=== PATIENT | female | born 1990 | race African-American/Black ===

== ENCOUNTER 2018-05-17 22:10 | Emergency (ER) | payer OTHER ==
[2018-05-17 23:41] LABS: Absolute Lymphocytes (CBC) 2.7 K/uL (0.7-4.9); Absolute Monocytes 0.6 K/uL (0.1-1.3); Absolute Neutrophil 4.5 K/uL (1.8-8.0); Basophils % 0.5 % (0-1.3); Eosinophils % 2.4 % (0-4.4); Hematocrit 35.7 % (36.0-45.0); Lymphocytes % 34.1 % (15.3-44.8); MCV 81.2 fL (80-100); MPV 7.7 fL (7.6-11.3); Monocytes % 7.1 % (3.3-12.3)
[2018-05-17] MEDS ORDERED: KETOROLAC 30 MG/ML INJ ONE (23:54)
[2018-05-17] MEDS ORDERED: ACETAMINOPHEN 500 MG TAB ONE (23:54)
[2018-05-17 23:58] LABS: ALT/SGPT 65 U/L (12-78); AST/SGOT 38 U/L (15-37); Albumin 3.8 g/dL (3.4-5.0); Alkaline Phosphatase 126 U/L (45-117); BUN Blood Urea Nitrogen 16 mg/dL (7-18); Bicarbonate 26 mmol/L (21-32); Bilirubin Direct < 0.1 mg/dL (0-0.2); Bilirubin Total 0.3 mg/dL (0.2-1.0); Glucose Level 93 mg/dL (74-106); Protein, Total 7.6 g/dL (6.4-8.2); Sodium Level 140 mmol/L (136-145)
[2018-05-18] MEDS ORDERED: NA CHLORIDE 0.9% 1,000 ML ONE (00:07)
[2018-05-18 00:11] LABS: Urine Blood NEGATIVE (NEG); Urine Glucose NEGATIVE (NEG); Urine Protein NEGATIVE (NEG); Urine pH 6.5 (5.0-7.0)
[2018-05-18 00:21] LABS: Urine Bacteria 20-50 /HPF (<20); Urine Culture Reflex Order REFLEXED; Urine RBC <5 /HPF (NONE SEEN)
--- NOTE | 2018-05-18 01:01 | ER ---
Nurse's Notes [facility] Name: Jennifer Rosas Age: 28 yrs Sex: Female : 1990 Arrival Date: 05/17/2018 Time: 22:23 Bed 16 Private MD: Cornelius Canales E Diagnosis: Muscle Cramps Presentation: 05/17 22:28 Presenting complaint: Patient states: that 10 days ago she got Depo shot. Then 2 days fc ago she started to have a headache and both legs are cramping. Denies any nausea or vomiting. Transition of care: patient was not received from another setting of care. Onset of symptoms was May 15, 2018. Risk Assessment: Do you want to hurt yourself or someone else? Patient reports no desire to harm self or others. Initial Sepsis Screen: Does the patient meet any 2 criteria? No. Patient's initial sepsis screen is negative. Does the patient have a suspected source of infection? No. Patient's initial sepsis screen is negative. Care prior to arrival: Medication(s) given: James, abida at 2039. 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 - Social history:: Smoking status: Patient/guardian denies using tobacco. - Ebola Screening: : Patient negative for fever greater than or equal to 101.5 degrees Fahrenheit, and additional compatible Ebola Virus Disease symptoms Patient denies exposure to infectious person Patient denies travel to an Ebola-affected area in the 21 days before illness onset. - Family history:: not pertinent. - Hospitalizations: : No recent hospitalization is reported. Screenin:57 Abuse screen: Denies threats or abuse. Denies injuries from another. Nutritional ao screening: No deficits noted. Tuberculosis screening: No symptoms or risk factors identified. Fall Risk None identified. Assessment: 22:55 General: Appears in no apparent distress. comfortable, Behavior is calm, cooperative, ao appropriate for age. Pain: Complains of pain in Headache Pain currently is 7 out of 10 on a pain scale. Neuro: Level of Consciousness is awake, alert, obeys commands, Oriented to person, place, time, situation, Appropriate for age Moves all extremities. Full function Speech is normal, Facial symmetry appears normal, Pupils are PERRLA. Cardiovascular: Capillary refill < 3 seconds Patient's skin is warm and dry. Respiratory: Airway is patent Trachea midline Respiratory effort is even, unlabored, Respiratory pattern is regular, symmetrical. GI: Abdomen is non-distended. : No signs and/or symptoms were reported regarding the genitourinary system. EENT: No signs and/or symptoms were reported regarding the EENT system. Derm: Skin is intact, Skin is pink, warm \T\ dry. normal, Skin temperature is warm. Musculoskeletal: Circulation, motion, and sensation intact. Range of motion: intact in all extremities. 05/18 01:24 Reassessment: Patient appears in no apparent distress at this time. Patient and/or tl2 family updated on plan of care and expected duration. Pain level reassessed. Patient is alert, oriented x 3, equal unlabored respirations, skin warm/dry/pink. Pt verbalized understanding of discharge instructions, need for follow up. Pt ambulatory out of ER Patient states feeling better. Vital Signs: 05/17 22:31 BP 130 / 77; Pulse 60; Resp 20; Temp 99.6(O); Pulse Ox 100% on R/A; Weight 117.93 kg fc (R); Height 5 ft. 7 in. (170.18 cm) (R); Pain 6/10; 23:52 BP 115 / 85; Pulse 65; Resp 18; Pulse Ox 99% on R/A; tl2 08 01:24 BP 123 / 69; Pulse 63; Resp 18; Temp 98.6(O); Pulse Ox 100% on R/A; tl2 05/17 22:31 Body Mass Index 40.72 (117.93 kg, 170.18 cm) ED Course: 05/17 22:23 Patient arrived in ED. es 22:30 Triage completed. fc 22:31 Arm band placed on Patient placed in an exam room, on a stretcher. fc 22:34 Cornelius Canales MD is Private Physician. fc 22:52 Koby Messer, KENNETH is Primary Nurse. ao 22:57 Cornelius Sheets MD is Attending Physician. wa 22:57 Patient has correct armband on for positive identification. Pulse ox on. NIBP on. ao 23:10 Inserted saline lock: 20 gauge in left antecubital area, using aseptic technique. Blood tl2 collected. 05/18 01:24 No provider procedures requiring assistance completed. tl2 01:26 IV discontinued, intact, bleeding controlled, No redness/swelling at site. Pressure tl2 dressing applied. Administered Medications: 05/17 23:53 Drug: Tylenol 1000 mg Route: PO; ao 05/18 01:26 Follow up: Response: No adverse reaction; Temperature is decreased tl2 00:11 Drug: TORadol 30 mg Route: IVP; Site: left antecubital; ao 01:27 Follow up: Response: No adverse reaction tl2 00:11 Drug: NS 0.9% 1000 ml Route: IV; Rate: 1 bolus; Site: left antecubital; ao 01:27 Follow up: IV Status: Completed infusion; IV Intake: 1000ml tl2 Intake: 01:27 IV: 1000ml; Total: 1000ml. tl2 Outcome: 01:00 Discharge ordered by . wa 01:26 Discharged to home ambulatory. tl2 01:26 Condition: stable 01:26 Discharge instructions given to patient, Instructed on discharge instructions, follow up and referral plans. Demonstrated understanding of instructions, follow-up care. 01:27 Patient left the ED. tl2 Signatures: Candy Haney Felicia RN KENNETH Koby Messer RN RN ao Knox, Taylor, RN RN tl2 Cornelius Sheets MD MD mi Corrections: (The following items were deleted from the chart) 01:26 01:24 BP 123 / 69; Pulse 63bpm; Resp 18bpm; Pulse Ox 100% RA; tl2 tl2
--- NOTE | 2018-05-18 01:01 | EDPHYS ---
Physician Documentation [facility] Name: Jennifer Rosas Age: 28 yrs Sex: Female : 1990 Arrival Date: 05/17/2018 Time: 22:23 Bed 16 Private MD: Cornelius Canales E ED Physician Cornelius Sheets HPI: 05/18 00:59 This 28 yrs old Black Female presents to ER via Ambulatory with complaints of cramps. wa 07:31 The patient presents with c/o leg and abd cramps. . The complaints affect the lower wa extremities and abd . Context: states began after a recent depo shot. Onset: The symptoms/episode began/occurred 3 day(s) ago. Modifying factors: The symptoms are alleviated by nothing. the symptoms are aggravated by nothing. Associated signs and symptoms: The patient has no apparent associated signs or symptoms. Treatment prior to arrival includes: no previous treatment. The patient has not experienced similar symptoms in the past. The patient has not recently seen a physician. 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 - Social history:: Smoking status: Patient/guardian denies using tobacco. - Ebola Screening: : Patient negative for fever greater than or equal to 101.5 degrees Fahrenheit, and additional compatible Ebola Virus Disease symptoms Patient denies exposure to infectious person Patient denies travel to an Ebola-affected area in the 21 days before illness onset. - Family history:: not pertinent. - Hospitalizations: : No recent hospitalization is reported. ROS: 05/18 07:33 Constitutional: Negative for fever, chills, and weight loss, Eyes: Negative for injury, wa pain, redness, and discharge, ENT: Negative for injury, pain, and discharge, Neck: Negative for injury, pain, and swelling, Cardiovascular: Negative for chest pain, palpitations, and edema, Respiratory: Negative for shortness of breath, cough, wheezing, and pleuritic chest pain, Back: Negative for injury and pain, : Negative for injury, bleeding, discharge, and swelling, Skin: Negative for injury, rash, and discoloration, Neuro: Negative for headache, weakness, numbness, tingling, and seizure. Abdomen/GI: Positive for abd cramps. MS/extremity: Positive for leg cramps. All other systems are negative. Exam: 07:34 Constitutional: This is a well developed, well nourished patient who is awake, alert, wa and in no acute distress. Head/Face: Normocephalic, atraumatic. Eyes: Pupils equal round and reactive to light, extra-ocular motions intact. Lids and lashes normal. Conjunctiva and sclera are non-icteric and not injected. Cornea within normal limits. Periorbital areas with no swelling, redness, or edema. ENT: Nares patent. No nasal discharge, no septal abnormalities noted. Tympanic membranes are normal and external auditory canals are clear. Oropharynx with no redness, swelling, or masses, exudates, or evidence of obstruction, uvula midline. Mucous membranes moist. Neck: Trachea midline, no thyromegaly or masses palpated, and no cervical lymphadenopathy. Supple, full range of motion without nuchal rigidity, or vertebral point tenderness. No Meningismus. Chest/axilla: Normal chest wall appearance and motion. Nontender with no deformity. No lesions are appreciated. Cardiovascular: Regular rate and rhythm with a normal S1 and S2. No gallops, murmurs, or rubs. Normal PMI, no JVD. No pulse deficits. Respiratory: Lungs have equal breath sounds bilaterally, clear to auscultation and percussion. No rales, rhonchi or wheezes noted. No increased work of breathing, no retractions or nasal flaring. Abdomen/GI: Soft, non-tender, with normal bowel sounds. No distension or tympany. No guarding or rebound. No evidence of tenderness throughout. Back: No spinal tenderness. No costovertebral tenderness. Full range of motion. Skin: Warm, dry with normal turgor. Normal color with no rashes, no lesions, and no evidence of cellulitis. MS/ Extremity: Pulses equal, no cyanosis. Neurovascular intact. Full, normal range of motion. Neuro: Awake and alert, GCS 15, oriented to person, place, time, and situation. Cranial nerves II-XII grossly intact. Motor strength 5/5 in all extremities. Sensory grossly intact. Cerebellar exam normal. Normal gait. Psych: Awake, alert, with orientation to person, place and time. Behavior, mood, and affect are within normal limits. Vital Signs: 05/17 22:31 BP 130 / 77; Pulse 60; Resp 20; Temp 99.6(O); Pulse Ox 100% on R/A; Weight 117.93 kg fc (R); Height 5 ft. 7 in. (170.18 cm) (R); Pain 6/10; 23:52 BP 115 / 85; Pulse 65; Resp 18; Pulse Ox 99% on R/A; tl2 05/18 01:24 BP 123 / 69; Pulse 63; Resp 18; Temp 98.6(O); Pulse Ox 100% on R/A; tl2 05/17 22:31 Body Mass Index 40.72 (117.93 kg, 170.18 cm) fc MDM: 05/17 22:57 Patient medically screened. sc 05/18 07:34 Differential diagnosis: r/o electrolyte abnml. r/o infectious process. Data reviewed: sc vital signs, nurses notes. Test interpretation: by ED physician or midlevel provider: labs noted wnl.. Response to treatment: the patient's symptoms have markedly improved after treatment. ED course: symptoms were resolved at time of d/c. 05/17 23:17 Order name: Basic Metabolic Panel; Complete Time: 00:49 sc 05/17 23:17 Order name: CBC with Diff; Complete Time: 00:49 sc 05/17 23:17 Order name: Hepatic Function; Complete Time: 00:49 sc 05/17 23:17 Order name: Urine Microscopic Only; Complete Time: 00:50 sc 05/18 00:06 Order name: Urine Dipstick--Ancillary (enter results); Complete Time: 00:50 [facility] 05/18 00:06 Order name: Urine --Ancillary (enter results); Complete Time: 00:49 [facility] 05/17 23:17 Order name: Urine Test (obtain specimen); Complete Time: 00:12 sc 05/17 23:17 Order name: IV Saline Lock; Complete Time: 23:44 sc 05/17 23:17 Order name: Labs collected and sent; Complete Time: 23:44 sc 05/17 23:17 Order name: Urine Dipstick-Ancillary (obtain specimen); Complete Time: 00:12 05/18 00:23 Order name: Urine Culture EDMS Administered Medications: 05/17 23:53 Drug: Tylenol 1000 mg Route: PO; ao 05/18 01:26 Follow up: Response: No adverse reaction; Temperature is decreased tl2 00:11 Drug: TORadol 30 mg Route: IVP; Site: left antecubital; ao 01:27 Follow up: Response: No adverse reaction tl2 00:11 Drug: NS 0.9% 1000 ml Route: IV; Rate: 1 bolus; Site: left antecubital; ao 01:27 Follow up: IV Status: Completed infusion; IV Intake: 1000ml tl2 Disposition: 05/18/18 01:00 Discharged to Home. Impression: Muscle Cramps. - Condition is Stable. - Discharge Instructions: Muscle Cramps and Spasms, [id number]. - Medication Reconciliation Form, Thank You Letter, Antibiotic Education, Prescription Opioid Use form. - Follow up: Private Physician; When: 2 - 3 days; Reason: Recheck today's complaints. - Problem is new. - Symptoms have improved. - Notes: take tylenol and or motrin for pain as needed. follow up with your doctor for further evaluation as needed Signatures: Dispatcher [employer] EDSC Edwige Farias RN RN Koby Messer RN RN ao Knox, Taylor, RN RN tl2 Cornelius Sheets MD MD sc Corrections: (The following items were deleted from the chart) 01:27 01:00 05/18/2018 01:00 Discharged to Home. Impression: Muscle Cramps. Condition is tl2 Stable. Forms are Medication Reconciliation Form, Thank You Letter, Antibiotic Education, Prescription Opioid Use. Follow up: Private Physician; When: 2 - 3 days; Reason: Recheck today's complaints. Problem is new. Symptoms have improved. wa
[2018-05-18 01:45] VITALS: BP 123/69; TEMP 98.6; O2SAT 100
== END 2018-05-18 01:27 | disposition home or self-care (01) ==
LOC: ER 22:10
DX: R25.2 Cramp and spasm (principal)
CPT/HCPCS: 36415; 80048; 80076; 81003; 81015; 81025; 85025; 87086; 87088; 96361; 96374; 99284; J7030

== ENCOUNTER 2019-05-06 21:12 | Emergency (ER) | payer OTHER, SELFPAY ==
--- OUTSIDE RECORDS SUMMARY | 2019-05-06 21:14 | XMS REPORT ---
:1990 [facility] [address] [place] [address] Dr. Salazar [address] [place] [id number] Care Team Providers Name Role Phone Unavailable Unavailable Unavailable Problems This patient has no known problems. Allergies, Adverse Reactions, Alerts This patient has no known allergies or adverse reactions. Medications This patient has no known medications.
--- NOTE | 2019-05-06 21:33 | EDPHYS ---
Physician Documentation [facility] Name: Jennifer Rosas Age: 29 yrs Sex: Female : 1990 Arrival Date: 05/06/2019 Time: 21:14 Bed 18 Private MD: Cornelius Canales E ED Physician Lowell Heller HPI: 05/06 21:33 This 29 yrs old Black Female presents to ER via Ambulatory with complaints of Breast kb Problem - nipple drainage/blood. 21:33 Today noticed she is able to express drop of blood from left nipple. No redness, kb swelling, tenderness, fever or other symptoms. Onset: The symptoms/episode began/occurred today. Severity of symptoms: At their worst the symptoms were very mild in the emergency department the symptoms are unchanged. The patient has not experienced similar symptoms in the past. The patient has not recently seen a physician. 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 - Social history:: Smoking status: Patient/guardian denies using tobacco, Patient uses alcohol, occasionally. Patient/guardian denies using street drugs. - Ebola Screening: : Patient negative for fever greater than or equal to 101.5 degrees Fahrenheit, and additional compatible Ebola Virus Disease symptoms Patient denies exposure to infectious person Patient denies travel to an Ebola-affected area in the 21 days before illness onset No symptoms or risks identified at this time. ROS: 21:30 Constitutional: Negative for fever, chills, and weight loss, ENT: Negative for injury, kb pain, and discharge, Neck: Negative for injury, pain, and swelling, Cardiovascular: Negative for chest pain, palpitations, and edema, Respiratory: Negative for shortness of breath, cough, wheezing, and pleuritic chest pain, Abdomen/GI: Negative for abdominal pain, nausea, vomiting, diarrhea, and constipation, MS/Extremity: Negative for injury and deformity, Neuro: Negative for headache, weakness, numbness, tingling, and seizure. 21:30 Skin: Positive for blood expressed from nipple. Exam: 21:30 Constitutional: This is a well developed, well nourished patient who is awake, alert, kb and in no acute distress. Head/Face: Normocephalic, atraumatic. ENT: Nares patent. No nasal discharge, no septal abnormalities noted. Tympanic membranes are normal and external auditory canals are clear. Oropharynx with no redness, swelling, or masses, exudates, or evidence of obstruction, uvula midline. Mucous membranes moist. Neck: Trachea midline, no thyromegaly or masses palpated, and no cervical lymphadenopathy. Supple, full range of motion without nuchal rigidity, or vertebral point tenderness. No Meningismus. Chest/axilla: Normal chest wall appearance and motion. Nontender with no deformity. No lesions are appreciated. Cardiovascular: Regular rate and rhythm with a normal S1 and S2. No gallops, murmurs, or rubs. Normal PMI, no JVD. No pulse deficits. Respiratory: Lungs have equal breath sounds bilaterally, clear to auscultation and percussion. No rales, rhonchi or wheezes noted. No increased work of breathing, no retractions or nasal flaring. Abdomen/GI: Soft, non-tender, with normal bowel sounds. No distension or tympany. No guarding or rebound. No evidence of tenderness throughout. Skin: Warm, dry with normal turgor. Normal color with no rashes, no lesions, and no evidence of cellulitis. MS/ Extremity: Pulses equal, no cyanosis. Neurovascular intact. Full, normal range of motion. Neuro: Awake and alert, GCS 15, oriented to person, place, time, and situation. Cranial nerves II-XII grossly intact. Motor strength 5/5 in all extremities. Sensory grossly intact. Cerebellar exam normal. Normal gait. 21:30 Chest/axilla: Breasts: nipple discharge, that is mild of the left breast, that is bloody. Vital Signs: 21:15 BP 122 / 68; Pulse 74; Resp 16; Temp 98.2(O); Pulse Ox 99% on R/A; Weight 113.4 kg; ch Height 5 ft. 7 in. (170.18 cm); Pain 0/10; 21:15 Body Mass Index 39.16 (113.40 kg, 170.18 cm) ch MDM: 21:23 Patient medically screened. 21:30 Data reviewed: vital signs, nurses notes. Data interpreted: Pulse oximetry: on room air kb is 100 %. Interpretation: normal. Counseling: I had a detailed discussion with the patient and/or guardian regarding: the historical points, exam findings, and any diagnostic results supporting the discharge/admit diagnosis, the need for outpatient follow up, an OB/Gyne specialist, to return to the emergency department if symptoms worsen or persist or if there are any questions or concerns that arise at home. 21:31 ED course: Discussed with Dr Heller. Recommended follow up with RECLAMATION FURNACE OPERATOR. miladis 21:34 ED course: Educated to follow up with RECLAMATION FURNACE OPERATOR. Pt to return for redness, swelling, warmth, kb fever or any other concerns. Verbal understanding received. . Administered Medications: No medications were administered Disposition: 21:31 Discharge from [facility]. 05/07 06:38 Co-signature as Attending Physician, Lowell Heller MD I agree with the assessment and tw4 plan of care. Disposition: 05/06/19 21:32 Discharged to Home. Impression: Encounter for screening, unspecified. - Condition is Stable. - Medication Reconciliation Form, Thank You Letter, Antibiotic Education, Prescription Opioid Use form. - Follow up: Emergency Department; When: As needed; Reason: Worsening of condition. Follow up: Cornelius Canales MD; When: 2 - 3 days; Reason: Recheck today's complaints, Continuance of care, Re-evaluation by your physician. Signatures: Maura Lee FNP-C FNP-Isha Roach RN RN ch Wadley, Terrence, MD MD tw4 Corrections: (The following items were deleted from the chart) 05/06 21:35 21:32 05/06/2019 21:32 Discharged to Home. Impression: Encounter for screening, ch unspecified. Condition is Stable. Forms are Medication Reconciliation Form, Thank You Letter, Antibiotic Education, Prescription Opioid Use. Follow up: Emergency Department; When: As needed; Reason: Worsening of condition. Follow up: Cornelius Canales; When: 2 - 3 days; Reason: Recheck today's complaints, Continuance of care, Re-evaluation by your physician. kb
--- NOTE | 2019-05-06 21:33 | ER ---
Nurse's Notes [facility] Name: Jennifer Rosas Age: 29 yrs Sex: Female : 1990 Arrival Date: 05/06/2019 Time: 21:14 Bed 18 Private MD: Cornelius Canales E Diagnosis: Encounter for screening, unspecified Presentation: 05/06 21:27 Presenting complaint: Patient states: when I squeeze my L nipple blood comes out, a ch couple drops. sometimes it hurts, but not now. started yesterday. Transition of care: patient was not received from another setting of care. Onset of symptoms was May 05, 2019 at 12:00. Risk Assessment: Do you want to hurt yourself or someone else? Patient reports no desire to harm self or others. Initial Sepsis Screen: Does the patient meet any 2 criteria? No. Patient's initial sepsis screen is negative. Does the patient have a suspected source of infection? No. Patient's initial sepsis screen is negative. Care prior to arrival: None. 21:27 Method Of Arrival: Ambulatory 21:27 Acuity: JHONATAN 5 ch Triage Assessment: 21:20 General: Appears in no apparent distress. comfortable, Behavior is calm, cooperative, ch appropriate for age. General: pt reports a drop of blood comes out of her L breast when she sqeezes the nipple. states it has done it a few times since yesterday. no masses noted, no redness, no abnormal warmth. one small drop of blood is expressed by pt, non with Maura palpation. Pain: Denies pain. Neuro: No deficits noted. Cardiovascular: Denies chest pain. Respiratory: No deficits noted. GI: No signs and/or symptoms were reported involving the gastrointestinal system. :. : No signs and/or symptoms were reported regarding the genitourinary system. Derm: Skin is intact, Skin is pink, warm \T\ dry. Musculoskeletal: No signs and/or symptoms reported regarding the musculoskeletal system. 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 - Social history:: Smoking status: Patient/guardian denies using tobacco, Patient uses alcohol, occasionally. Patient/guardian denies using street drugs. - Ebola Screening: : Patient negative for fever greater than or equal to 101.5 degrees Fahrenheit, and additional compatible Ebola Virus Disease symptoms Patient denies exposure to infectious person Patient denies travel to an Ebola-affected area in the 21 days before illness onset No symptoms or risks identified at this time. Screenin:15 Abuse screen: Denies threats or abuse. Denies injuries from another. Nutritional ch screening: No deficits noted. Tuberculosis screening: No symptoms or risk factors identified. Fall Risk None identified. Assessment: 21:33 Reassessment: Patient appears in no apparent distress at this time. Patient and/or ch family updated on plan of care and expected duration. Pain level reassessed. Patient is alert, oriented x 3, equal unlabored respirations, skin warm/dry/pink. Vital Signs: 21:15 BP 122 / 68; Pulse 74; Resp 16; Temp 98.2(O); Pulse Ox 99% on R/A; Weight 113.4 kg; ch Height 5 ft. 7 in. (170.18 cm); Pain 0/10; 21:15 Body Mass Index 39.16 (113.40 kg, 170.18 cm) ED Course: 21:14 Patient arrived in ED. am2 21:15 Cornelius Canales MD is Private Physician. am2 21:15 Patient has correct armband on for positive identification. Bed in low position. Adult ch w/ patient. 21:19 Isha Henry, RN is Primary Nurse. ch 21:20 Arm band placed on left wrist. Patient placed in an exam room, on a stretcher. ch 21:22 chaperoned breast exam. ch 21:22 Patient did not have IV access during this emergency room visit. 21:23 Maura Lee FNP-C [facility]. kb 21:23 Lowell Heller MD is Attending Physician. kb 21:28 Triage completed. ch 21:32 Cornelius Canales MD is Referral Physician. kb Administered Medications: No medications were administered Outcome: 21:30 Medical screen evaluation completed per provider. Patient declined treatment. 21:30 Condition: good 21:30 Instructed on follow up and referral plans. 21:32 Discharge ordered by . miladis 21:35 Patient left the ED. ch Signatures: Maura Lee FNP-C FNP-Isha Roach, RN RN Michelle Curran
[2019-05-06 22:53] VITALS: BP 122/68; TEMP 98.2; O2SAT 99
== END 2019-05-06 21:35 | disposition home or self-care (01) ==
LOC: ER 21:12
DX: Z13.9 Encounter for screening, unspecified (principal)
CPT/HCPCS: 99281

== ENCOUNTER 2019-05-14 07:47 | Emergency (ER) | payer SELFPAY ==
--- OUTSIDE RECORDS SUMMARY | 2019-05-14 07:49 | XMS REPORT ---
:1990 [facility] Address [address] [place] [address] Dr. Salazar [address] [place] [address] Care Team Providers Name Role Phone Unavailable Unavailable Unavailable Problems This patient has no known problems. Allergies, Adverse Reactions, Alerts This patient has no known allergies or adverse reactions. Medications This patient has no known medications.
--- NOTE | 2019-05-14 08:25 | EDPHYS ---
Physician Documentation [facility] Name: Jennifer Rosas Age: 29 yrs Sex: Female : 1990 Arrival Date: 05/14/2019 Time: 07:53 Bed 19 Private MD: ED Physician Inocencio Lopez HPI: 05/14 08:18 This 29 yrs old Black Female presents to ER via Ambulatory with complaints of Sore gisela Throat, Urinary Problem. 08:18 The patient presents with sore throat. The patient describes throat pain as burning, gisela constant. Onset: The symptoms/episode began/occurred 2 day(s) ago. Severity of symptoms: At their worst the symptoms were mild, in the emergency department the symptoms are unchanged. Modifying factors: The symptoms are alleviated by nothing. Associated signs and symptoms: The patient has no apparent associated signs or symptoms. The patient has experienced similar episodes in the past, several times. GRADES 1 6 TUTOR: 08:07 LMP 05/07/2019 em Historical: - Allergies: 08:07 NKA; em - Home Meds: 08:07 control [Active]; em - PMHx: 08:07 None; em - PSHx: 08:07 ; em - Immunization history:: Adult Immunizations up to date. - Social history:: Smoking status: Patient/guardian denies using tobacco. - Ebola Screening: : Patient negative for fever greater than or equal to 101.5 degrees Fahrenheit, and additional compatible Ebola Virus Disease symptoms Patient denies exposure to infectious person Patient denies travel to an Ebola-affected area in the 21 days before illness onset No symptoms or risks identified at this time. ROS: 08:19 Constitutional: Negative for fever, chills, and weight loss, Eyes: Negative for injury, gisela pain, redness, and discharge, Neck: Negative for injury, pain, and swelling, Cardiovascular: Negative for chest pain, palpitations, and edema, Respiratory: Negative for shortness of breath, cough, wheezing, and pleuritic chest pain, Back: Negative for injury and pain, : Negative for injury, bleeding, discharge, and swelling, MS/Extremity: Negative for injury and deformity, Skin: Negative for injury, rash, and discoloration, Neuro: Negative for headache, weakness, numbness, tingling, and seizure, Psych: Negative for depression, anxiety, suicide ideation, homicidal ideation, and hallucinations, Allergy/Immunology: Negative for hives, rash, and allergies, Endocrine: Negative for neck swelling, polydipsia, polyuria, polyphagia, and marked weight changes, Hematologic/Lymphatic: Negative for swollen nodes, abnormal bleeding, and unusual bruising. 08:19 ENT: Positive for sore throat. 08:19 Abdomen/GI: Positive for of the suprapubic area. Exam: 08:19 Constitutional: This is a well developed, well nourished patient who is awake, alert, gisela and in no acute distress. Head/Face: Normocephalic, atraumatic. Eyes: Pupils equal round and reactive to light, extra-ocular motions intact. Lids and lashes normal. Conjunctiva and sclera are non-icteric and not injected. Cornea within normal limits. Periorbital areas with no swelling, redness, or edema. ENT: Nares patent. No nasal discharge, no septal abnormalities noted. Tympanic membranes are normal and external auditory canals are clear. Oropharynx with no redness, swelling, or masses, exudates, or evidence of obstruction, uvula midline. Mucous membranes moist. Neck: Trachea midline, no thyromegaly or masses palpated, and no cervical lymphadenopathy. Supple, full range of motion without nuchal rigidity, or vertebral point tenderness. No Meningismus. Chest/axilla: Normal chest wall appearance and motion. Nontender with no deformity. No lesions are appreciated. Cardiovascular: Regular rate and rhythm with a normal S1 and S2. No gallops, murmurs, or rubs. Normal PMI, no JVD. No pulse deficits. Respiratory: Lungs have equal breath sounds bilaterally, clear to auscultation and percussion. No rales, rhonchi or wheezes noted. No increased work of breathing, no retractions or nasal flaring. Abdomen/GI: Soft, non-tender, with normal bowel sounds. No distension or tympany. No guarding or rebound. No evidence of tenderness throughout. Back: No spinal tenderness. No costovertebral tenderness. Full range of motion. Skin: Warm, dry with normal turgor. Normal color with no rashes, no lesions, and no evidence of cellulitis. MS/ Extremity: Pulses equal, no cyanosis. Neurovascular intact. Full, normal range of motion. Neuro: Awake and alert, GCS 15, oriented to person, place, time, and situation. Cranial nerves II-XII grossly intact. Motor strength 5/5 in all extremities. Sensory grossly intact. Cerebellar exam normal. Normal gait. Psych: Awake, alert, with orientation to person, place and time. Behavior, mood, and affect are within normal limits. Vital Signs: 08:07 BP 134 / 78; Pulse 79; Resp 18; Temp 98.1; Pulse Ox 100% on R/A; Weight 108.86 kg; em Height 5 ft. 7 in. (170.18 cm); Pain 4/10; 08:07 Body Mass Index 37.59 (108.86 kg, 170.18 cm) em MDM: 07:56 Patient medically screened. [facility] 08:23 Data reviewed: vital signs, nurses notes, lab test result(s), urinalysis, bacteruria. [facility] 05/14 07:57 Order name: Urine Culture [facility] 05/14 08:07 Order name: Urine Dipstick--Ancillary (enter results) 05/14 07:57 Order name: Urine Dipstick-Ancillary (obtain specimen); Complete Time: 08:12 [facility] 05/14 08:07 Order name: Urine --Ancillary (enter results) 05/14 07:57 Order name: Urine Test (obtain specimen); Complete Time: 08:10 [facility] Administered Medications: 08:39 Drug: Cipro 500 mg Route: PO; em 08:43 Follow up: Response: Medication administered at discharge. em 08:39 Drug: Pyridium 200 mg Route: PO; em 08:43 Follow up: Response: Medication administered at discharge. em Disposition: 05/14/19 08:24 Discharged to Home. Impression: Urinary tract infection, site not specified. - Condition is Stable. - Discharge Instructions: Dysuria, Urinary Tract Infection, Adult, Urinary Tract Infection, Adult, [id number]. - Prescriptions for Pyridium 200 mg Oral Tablet - take 1 tablet by ORAL route every 8 hours for 3 days; 9 tablet. Cipro 500 mg Oral Tablet - take 1 tablet by ORAL route every 12 hours for 7 days; 14 tablet. - Medication Reconciliation Form, Thank You Letter, Antibiotic Education, Prescription Opioid Use form. - Follow up: Private Physician; When: 2 - 3 days; Reason: Recheck today's complaints, Continuance of care, Re-evaluation by your physician. - Problem is new. - Symptoms have improved. Signatures: Dispatcher [employer] EDInocencio Lizarraga, Nile Rosado MD, cha, TRAVELING CRANE OPERATOR TRAVELING CRANE OPERATOR em Corrections: (The following items were deleted from the chart) 08:44 08:24 05/14/2019 08:24 Discharged to Home. Impression: Urinary tract infection, site em not specified. Condition is Stable. Forms are Medication Reconciliation Form, Thank You Letter, Antibiotic Education, Prescription Opioid Use. Follow up: Private Physician; When: 2 - 3 days; Reason: Recheck today's complaints, Continuance of care, Re-evaluation by your physician. Problem is new. Symptoms have improved. gisela
--- NOTE | 2019-05-14 08:25 | ER ---
Nurse's Notes [facility] Name: Jennifer Rosas Age: 29 yrs Sex: Female : 1990 Arrival Date: 05/14/2019 Time: 07:53 Bed 19 Private MD: Diagnosis: Urinary tract infection, site not specified Presentation: 05/14 08:03 Presenting complaint: Patient states: sore throat for about a week, blood in urine em since yesterday with frequency and dysuria, reports nausea, denies abdominal pain, fever or diarrhea. Transition of care: patient was not received from another setting of care. Onset of symptoms was May 07, 2019. Risk Assessment: Do you want to hurt yourself or someone else? Patient reports no desire to harm self or others. Initial Sepsis Screen: Does the patient meet any 2 criteria? No. Patient's initial sepsis screen is negative. Does the patient have a suspected source of infection? Yes: Dysuria/Frequency/Urgency/UTI. Care prior to arrival: None. 08:03 Method Of Arrival: Ambulatory em 08:04 Acuity: JHONATAN 4 ss DIRECTOR SUPPLIER QUALITY: 08:07 LMP 05/07/2019 em Historical: - Allergies: 08:07 NKA; em - Home Meds: 08:07 control [Active]; em - PMHx: 08:07 None; em - PSHx: 08:07 ; em - Immunization history:: Adult Immunizations up to date. - Social history:: Smoking status: Patient/guardian denies using tobacco. - Ebola Screening: : Patient negative for fever greater than or equal to 101.5 degrees Fahrenheit, and additional compatible Ebola Virus Disease symptoms Patient denies exposure to infectious person Patient denies travel to an Ebola-affected area in the 21 days before illness onset No symptoms or risks identified at this time. Screenin:28 Abuse screen: Denies threats or abuse. Nutritional screening: No deficits noted. em Tuberculosis screening: No symptoms or risk factors identified. Fall Risk None identified. Assessment: 08:26 General: Appears in no apparent distress. comfortable, Behavior is calm, cooperative, em Denies fever. Pain: Complains of pain in suprapubic area Pain currently is 4 out of 10 on a pain scale. Neuro: Level of Consciousness is awake, alert, obeys commands, Oriented to person, place, time, situation. Cardiovascular: Capillary refill < 3 seconds Patient's skin is warm and dry. Respiratory: Airway is patent Respiratory effort is even, unlabored, Respiratory pattern is regular, symmetrical, Breath sounds are clear bilaterally. GI: Abdomen is round non-distended, Abd is soft and non tender X 4 quads. Reports nausea, Patient currently denies diarrhea, vomiting. : Reports burning with urination, pain in suprapubic area urinary frequency, hematuria. EENT: Throat is clear is pink. Derm: Skin is intact, is healthy with good turgor, Skin is pink, warm \T\ dry. Musculoskeletal: Capillary refill < 3 seconds, Range of motion: intact in all extremities. 08:35 General: The previous assessment is accurate, call light remains within reach. Family ss member at bedside. Vital Signs: 08:07 BP 134 / 78; Pulse 79; Resp 18; Temp 98.1; Pulse Ox 100% on R/A; Weight 108.86 kg; em Height 5 ft. 7 in. (170.18 cm); Pain 4/10; 08:07 Body Mass Index 37.59 (108.86 kg, 170.18 cm) em ED Course: 07:53 Patient arrived in ED. as 07:54 Nile Vela LVN is Primary Nurse. em 07:56 Inocencio Lopez MD is Attending Physician. [facility] 08:04 Triage completed. ss 08:07 Arm band placed on. em 08:28 Patient has correct armband on for positive identification. Bed in low position. Call em light in reach. 08:28 No provider procedures requiring assistance completed. Patient did not have IV access em during this emergency room visit. Administered Medications: 08:39 Drug: Cipro 500 mg Route: PO; em 08:43 Follow up: Response: Medication administered at discharge. em 08:39 Drug: Pyridium 200 mg Route: PO; em 08:43 Follow up: Response: Medication administered at discharge. em Outcome: 08:24 Discharge ordered by . gisela 08:29 Discharged to home ambulatory. em 08:29 Condition: good 08:29 Discharge instructions given to patient, Instructed on discharge instructions, follow up and referral plans. medication usage, Demonstrated understanding of instructions, follow-up care, medications, Prescriptions given X 2. 08:44 Patient left the ED. em Addendum: 05/17/2019 08:04 Addendum: Culture Results: Positive urine culture. No further action required. Bacteria s s sensitive to prescribed antibiotic. Signatures: Inocencio Lopez MD MD cha Munoz, Edgar, BREAKER ENGINEER BREAKER ENGINEER Miracle Salas Shelby, RN RN ss Corrections: (The following items were deleted from the chart) 05/14 08:40 08:35 General: The previous assessment is accurate, call light remains within reach.. ssss
[2019-05-14 08:47] VITALS: BP 134/78; TEMP 98.1; O2SAT 100
[2019-05-14] MEDS ORDERED: CIPROFLOXACIN HCL 500 MG TAB ONE (08:51)
[2019-05-14] MEDS ORDERED: PHENAZOPYRIDINE 100MG TAB PO ONE (08:51)
[2019-05-14 08:52] LABS: Urine Blood 3+ (NEG); Urine Glucose NEGATIVE (NEG); Urine Protein 2+ (NEG); Urine Specific Gravity >1.030 (1.005-1.030); Urine pH 5.5 (5.0-7.0)
== END 2019-05-14 08:44 | disposition home or self-care (01) ==
LOC: ER 07:47
DX: N39.0 Urinary tract infection, site not specified (principal)
CPT/HCPCS: 81003; 81025; 87077; 87086; 87088; 87186; 99283

== ENCOUNTER 2019-10-11 16:23 | Emergency (ER) | payer OTHER, SELFPAY ==
--- OUTSIDE RECORDS SUMMARY | 2019-10-11 16:25 | XMS REPORT | Summary of Care ---
:1990 Author Organization [facility] Address [address] [place] [address] Care Team Providers Name Role Phone Maria G Gibbs [facility] Primary Care Provider Reason for Visit Reason Comments Other pt wants call bk on usg they are very concerned w bleeding breast Encounter Details Date Type Department Care Team Description 05/16/2019 Telephone [facility]- Maria G Gibbs Other ([facility] they are [address] very concerned w [place], [place] bleeding breast) [phone] [place], [place] [address] Allergies No Known Allergiesdocumented as of this encounter (statuses as of 05/16/2019) Medications Medication Sig Dispensed Refills Start Date End Date Status naproxen sodium (ANAPROX Take 1 tablet by 30 tablet 0 09/29/2018 Active DS) 550 mg tablet mouth 2 (two) times daily with meals. methylPREDNISolone Take by mouth 21 Each 0 09/29/2018 Active (MEDROL, PATRICIA,) 4 mg SEE-INSTRUCTIONS tablets . follow package directions norgestimate-ethinyl Take 1 tablet by 1 Package 8 05/05/2019 Active estradiol (ORTHO mouth daily. TRI-CYCLEN, 28,) 0.18/0.215/0.25 mg-35 mcg (28) tabletIndications: Encounter for initial prescription of contraceptive pills documented as of this encounter (statuses as of 05/16/2019) Active Problems Problem Noted Date Well woman exam 01/27/2019 Contraceptive management 01/27/2019 Morbid obesity with body mass index of 40.0-49.9 04/07/2018 documented as of this encounter (statuses as of 05/16/2019) Resolved Problems Problem Noted Date Resolved Date depression 05/11/2018 01/27/2019 Pre-eclampsia, severe, antepartum, third trimester 04/07/2018 01/27/2019 36 weeks gestation of 04/07/2018 2018 GDM, class A1 04/07/2018 2018 High-risk in third trimester 10/25/2017 2018 Supervision of high risk in first trimester 10/25/2017 04/07/2018 Encounter for confirmation of test result with 08/30/20172017 physical examination Previous section 08/30/2017 01/27/2019 Oral contraceptive use 12/18/2016 08/30/2017 Obesity, unspecified 12/18/2016 08/30/2017 Gestational HTN, third trimester 11/18/2016 08/30/2017 Full-term premature rupture of membranes with onset of labor 11/17/201612/18 within 24 hours of rupture Full-term premature rupture of membranes, onset of labor 11/17/20162016 within 24 hours of rupture Failure of descent in labor, delivered, current 11/17/2016 08/30/2017 hospitalization Liveborn , of tyson , born in hospital by 11/17/201601/27 delivery Status post primary low transverse section 11/17/2016 08/30/2017 intolerance to labor, delivered, current 11/17/2016 12/18/2016 hospitalization Immune to varicella 10/22/2016 08/30/2017 Rubella immune 10/22/2016 08/30/2017 GBS carrier 10/22/2016 12/18/2016 High-risk , third trimester 08/25/2016 12/18/2016 Obesity complicating , third trimester 08/25/2016 12/18/2016 UTI in , antepartum, second trimester 06/09/2016 12/18/2016 High-risk supervision, second trimester 05/12/2016 08/25/2016 Obesity complicating , second trimester 05/12/2016 08/25/2016 Threatened miscarriage in early 04/07/2016 12/18/2016 Obesity affecting in first trimester 04/07/2016 05/12/2016 documented as of this encounter (statuses as of 05/16/2019) Immunizations Name Administration Dates Next Due Influenza Virus Vaccine 07/29/2018 Influenza Virus Vaccine Quad IM 3+ YRS 11/20/2016, 11/20/2016, 07/07/2016 Tdap 03/09/2018, 08/25/2016 documented as of this encounter Social History Tobacco Use Types Packs/Day Years Used Date Never Smoker Smokeless Tobacco: Never Used Alcohol Use Drinks/Week oz/Week Comments No 0 Standard drinks or equivalent 0.0 Sex Assigned at Date Recorded Not on file Job Start Date Occupation Industry Not on file Not on file Not on file Travel History Travel Start Travel End No recent travel history available. documented as of this encounter Last Filed Vital Signs Not on filedocumented in this encounter Plan of Treatment Health Maintenance Due Date Last Done Comments INFLUENZA VACCINE 06/18/2019 07/29/2018, 11/20/2016, 07/07/2016 PAP SMEAR 01/27/2022 01/27/2019, 04/14/2016 DTaP,Tdap,and Td Vaccines (3 03/09/2028 03/09/2018, - Td) 08/25/2016 PNEUMOCOCCAL 0-64 YEARS Aged Out No longer eligible based COMBINED SERIES on patient's age to complete this topic documented as of this encounter Results Not on filedocumented in this encounter Insurance Payer Benefit Plan Subscriber ID Effective Phone Address Type / Group Dates [facility] xxxxxxxxx 2018-Pres [phone] Medicaid WOMEN ent [address] [place] [address] documented as of this encounter Advance Directives Name Relationship Healthcare Agent Relationship Communication Christo Dickey Spouse Primary healthcare agent
--- OUTSIDE RECORDS SUMMARY | 2019-10-11 16:25 | XMS REPORT ---
:1990 [facility] Address [address] [place] [address] Dr. Salazar [address] [place] [address] Care Team Providers Name Role Phone Unavailable Unavailable Unavailable Problems This patient has no known problems. Allergies, Adverse Reactions, Alerts This patient has no known allergies or adverse reactions. Medications This patient has no known medications.
--- OUTSIDE RECORDS SUMMARY | 2019-10-11 16:25 | XMS REPORT | Summary of Care ---
:1990 Author Organization [facility] Address [address] [place] [address] Care Team Providers Name Role Phone Johanearleneamita Maria G Andre [facility] Primary Care Provider Encounter Details Date Type Department Care Team Description 05/18/2019 Orders Only [facility] Doctor Unassigned, No [address] [facility] [place] [address] [address] [place] [address] Allergies No Known Allergiesdocumented as of this encounter (statuses as of 05/18/2019) Medications Medication Sig Dispensed Refills Start Date [...] as of this encounter (statuses as of 05/18/2019) Active Problems Problem Noted Date Well woman exam 01/27/2019 Contraceptive management 01/27/2019 Morbid obesity with body mass index of 40.0-49.9 04/07/2018 documented as of this encounter (statuses as of 05/18/2019) Resolved Problems Problem Noted Date Resolved Date [...] as of this encounter (statuses as of 05/18/2019) Immunizations Name Administration Dates Next Due Influenza [...] filedocumented in this encounter Plan of Treatment Date Type Specialty Care Team Description 05/24/2019 Appointment Radiology [facility] [address] [place] [address] [phone] Health Maintenance Due Date Last Done Comments INFLUENZA VACCINE 06/18/2019 07/29/2018, 11/20/2016, 07/07/2016 PAP SMEAR 01/27/2022 01/27/2019, 04/14/2016 DTaP,Tdap,and Td Vaccines (3 03/09/2028 03/09/2018, - Td) 08/25/2016 PNEUMOCOCCAL 0-64 YEARS Aged Out No longer eligible based COMBINED SERIES on patient's age to complete this topic documented as of this encounter Procedures Procedure Name Priority Date/Time Associated Diagnosis Comments BCCS-RELATED Routine 05/18/2019 12:01 AM DOCUMENTATION CDT documented in this encounter Results Not on filedocumented in this encounter Insurance Payer Benefit Plan Subscriber ID Effective Phone Address Type / Group Dates [facility] 2018-Pres [phone] Medicaid WOMEN ent [address] [place] [address] documented as of this encounter Advance Directives Name Relationship Healthcare Agent Relationship Communication Christo Kirby Spouse Primary healthcare agent
--- OUTSIDE RECORDS SUMMARY | 2019-10-11 16:26 | XMS REPORT | Summary of Care ---
:1990 Author Organization [facility] [employer] [facility] Address [address] [place] [address] Care Team Providers Name Role Phone Maria G Gibbs [facility] Primary Care Provider Reason for Visit Reason Comments ULTRASOUND Breast USG results. Encounter Details Date Type Department Care Team Description 06/02/2019 Telephone [facility]- Maria G Gibbs ULTRASOUND ( Breast USG Jerri Andre ARLET results.) [address] [facility] [address] [facility] [address] [place], [place] [id number] Allergies No Known Allergiesdocumented as of this encounter (statuses as of 06/02/2019) Medications Medication Sig Dispensed Refills Start Date [...] as of this encounter (statuses as of 06/02/2019) Active Problems Problem Noted Date Well woman exam 01/27/2019 Contraceptive management 01/27/2019 Morbid obesity with body mass index of 40.0-49.9 04/07/2018 documented as of this encounter (statuses as of 06/02/2019) Resolved Problems Problem Noted Date Resolved Date [...] labor, delivered, current 11/17/2016 08/30/2017 hospitalization Liveborn infant, of tyson , born in hospital by [...] as of this encounter (statuses as of 06/02/2019) Immunizations Name Administration Dates Next Due Influenza [...] Due Date Last Done Comments INFLUENZA VACCINE (#1) 2019 07/29/2018, 11/20/2016, 07/07/2016 PAP SMEAR 01/27/2022 01/27/2019, 04/14/2016 DTaP,Tdap,and Td Vaccines (3 03/09/2028 03/09/2018, - Td) 08/25/2016 PNEUMOCOCCAL 0-64 YEARS Aged Out No longer eligible based COMBINED SERIES on patient's age to complete this topic documented as of this encounter Results Not on filedocumented in this encounter Insurance Payer Benefit Plan Subscriber ID Effective Phone Address Type / Group Dates [facility] xxxxxxxxx 2018-Pres [phone] Medicaid WOMEN ent [address] [place] [address] documented as of this encounter Advance Directives Name Relationship Healthcare Agent Relationship Communication Christo Kirby Spouse Primary healthcare agent
--- OUTSIDE RECORDS SUMMARY | 2019-10-11 16:26 | XMS REPORT | Summary of Care ---
:[address] [facility] Address [address] [place] [id number] Care Team Providers Name Role Phone [facility] G [facility] Provider Reason for Visit Radiology Services (Routine) Status Reason Specialty Diagnoses / Referred By Referred To Procedures Contact Contact Closed Diagnostic Diagnoses Bleeding from breast [place], Radiology Procedures BI ULTRASOUND BREAST LIMITED LEFT BI ULTRASOUND BREAST COMPLETE LEFT JUDY BrewsterP [address] [place] [address] Encounter Details Date Type Department Care Team Description 05/24/2019 Hospital Encounter [facility] Breast Maria G Gibbs Arrived Imaging Jes TONIEP [address] [facility] [id number] [place], [place] [id number] Allergies No Known Allergiesdocumented as of this encounter (statuses as of 05/25/2019) Medications Medication Sig Dispensed Refills Start Date [...] as of this encounter (statuses as of 05/25/2019) Active Problems Problem Noted Date Well woman exam 01/27/2019 Contraceptive management 01/27/2019 Morbid obesity with body mass index of 40.0-49.9 04/07/2018 documented as of this encounter (statuses as of 05/25/2019) Resolved Problems Problem Noted Date Resolved Date [...] as of this encounter (statuses as of 05/25/2019) Immunizations Name Administration Dates Next Due Influenza [...] encounter Procedures Procedure Name Priority Date/Time Associated Comments Diagnosis BI ULTRASOUND BREAST Routine 05/24/2019 11:10 AM Bleeding from Results for this LIMITED LEFT CDT breast procedure are in the results section. documented in this encounter Results BI ULTRASOUND BREAST LIMITED LEFT (05/24/2019 11:10 AM CDT) Specimen Narrative Performed At Examination: PACS BI ULTRASOUND BREAST LIMITED LEFT History: Patient is 29 year old and is seen for:Blood from left nipple. No relevant family history has been documented for this patient. No relevant hormone history has been documented for this patient. No relevant surgical history has been documented for this patient. No relevant medical history has been documented for this patient. Comparisons : None available Findings: Targeted ultrasound demonstrates no sonographic abnormality in the subareolar region. Impression: There is no sonographic evidence of malignancy. Recommendation: Clinical follow-up is recommended and further management of clinical findings should be based on the results of clinical evaluation. BI-RADS Category: Left 1 - Negative I personally reviewed the study and agree with the resident's/fellow's report. Performing Organization Address City/State/Zipcode Phone Number PACS documented in this encounter Visit Diagnoses Diagnosis Bleeding from breast Other sign and symptom in breast documented in this encounter Advance Directives Name Relationship Healthcare Agent Relationship Communication Christo Kirby Spouse Primary healthcare agent
[2019-10-11 17:46] LABS: Urine Blood NEGATIVE (NEG); Urine Glucose NEGATIVE (NEG); Urine Protein NEGATIVE (NEG); Urine Specific Gravity 1.015 (1.005-1.030)
[2019-10-11 18:07] LABS: Absolute Lymphocytes (CBC) 1.8 K/uL (0.7-4.9); Basophils % 0.7 % (0-1.3); Hematocrit 38.4 % (36.0-45.0); Lymphocytes % 21.3 % (15.3-44.8); MPV 7.8 fL (7.6-11.3)
[2019-10-11 18:24] LABS: BUN Blood Urea Nitrogen 11 mg/dL (7-18); Bicarbonate 26 mmol/L (21-32); Glucose Level 86 mg/dL (74-106); Potassium 3.6 mmol/L (3.5-5.1); Sodium Level 142 mmol/L (136-145)
[2019-10-11 18:35] LABS: Urine Bacteria <20 /HPF (<20); Urine Culture Reflex Order NOT NEEDED; Urine RBC <5 /HPF (NONE SEEN)
--- NOTE | 2019-10-11 19:50 | RAD REPORT ---
EXAM DESCRIPTION: US - Transvaginal OB - 10/11/2019 7:37 pm CLINICAL HISTORY: Vaginal bleeding;Abd pain COMPARISON: OB Complete dated 05/29/2016 FINDINGS: The uterus is normal in size with endometrial stripe measuring 7 mm. There is no gestation al sac or IUP seen. The maternal adnexa and ovaries are within normal limits. Normal Doppler blood flow was demonstrated to both ovaries. No pelvic free fluid of significance. IMPRESSION: In the setting of an elevated HCG level, the findings would indicate of unknow n location. Advise follow-up serial HCG levels and follow-up pelvic sonography in approximately 10 da ys.
--- NOTE | 2019-10-11 20:30 | ER ---
Nurse's Notes [facility] Name: Jennifer Rosas Age: 29 yrs Sex: Female : 1990 Arrival Date: 10/11/2019 Time: 16:28 Bed 13 Private MD: Diagnosis: Threatened Presentation: 10/11 16:44 Presenting complaint: Patient states: having weird pains in stomach and vaginal iw bleeding X 2 days, pain to RLQ, hx of irregular periods, thinks she may have a UTI. Transition of care: patient was not received from another setting of care. Onset of symptoms was October 09, 2019. Risk Assessment: Do you want to hurt yourself or someone else? Patient reports no desire to harm self or others. Initial Sepsis Screen: Does the patient meet any 2 criteria? No. Patient's initial sepsis screen is negative. Does the patient have a suspected source of infection? No. Patient's initial sepsis screen is negative. Care prior to arrival: None. 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 - Social history:: Smoking status: Patient/guardian denies using tobacco. - Ebola Screening: : Patient negative for fever greater than or equal to 101.5 degrees Fahrenheit, and additional compatible Ebola Virus Disease symptoms Patient denies exposure to infectious person Patient denies travel to an Ebola-affected area in the 21 days before illness onset No symptoms or risks identified at this time. Screenin:30 Abuse screen: Denies threats or abuse. Denies injuries from another. Nutritional ca1 screening: No deficits noted. Tuberculosis screening: No symptoms or risk factors identified. Fall Risk IV access (20 points). Assessment: 17:30 General: Appears in no apparent distress. comfortable, Behavior is calm, cooperative, ca1 appropriate for age. Pain: Complains of pain in suprapubic area Pain currently is 1 out of 10 on a pain scale. Pain began 2-3 days ago. Is intermittent. Neuro: Level of Consciousness is awake, alert, obeys commands, Oriented to person, place, time, situation, Appropriate for age. Cardiovascular: Heart tones S1 S2 present Capillary refill < 3 seconds Patient's skin is warm and dry. Respiratory: Airway is patent Respiratory effort is even, unlabored, Respiratory pattern is regular, symmetrical, Breath sounds are clear bilaterally. GI: Abdomen is round non-distended, Bowel sounds present X 4 quads. Abd is soft X 4 quads Abdomen is tender to palpation in suprapubic area. : Urine is clear, Reports pain in suprapubic area urgency, urinary frequency, vaginal bleeding that is bright red, spotty, since 3 days ago. EENT: No deficits noted. No signs and/or symptoms were reported regarding the EENT system. Derm: Skin is intact, is healthy with good turgor, Skin is pink, warm \T\ dry. Musculoskeletal: Circulation, motion, and sensation intact. Capillary refill Range of motion: intact in all extremities. 18:14 Reassessment: Patient appears in no apparent distress at this time. Patient is alert, ca1 oriented x 3, equal unlabored respirations, skin warm/dry/pink. 19:18 Reassessment: Patient appears in no apparent distress at this time. Patient is alert, ca1 oriented x 3, equal unlabored respirations, skin warm/dry/pink. 19:29 Reassessment: Ultrasound at bedside. ca1 20:36 Reassessment: Patient appears in no apparent distress at this time. Patient is alert, ca1 oriented x 3, equal unlabored respirations, skin warm/dry/pink. Vital Signs: 16:46 BP 150 / 84; Pulse 100; Resp 16; Temp 98.8; Pulse Ox 100% on R/A; Weight 113.4 kg; iw Height 5 ft. 7 in. (170.18 cm); Pain 6/10; 18:14 BP 148 / 87; Pulse 105; Resp 17 S; Pulse Ox 100% on R/A; ca1 19:18 BP 141 / 86; Pulse 99; Resp 17 S; Pulse Ox 100% on R/A; ca1 20:30 BP 136 / 84; Pulse 102; Resp 19 S; Pulse Ox 100% on R/A; ca1 16:46 Body Mass Index 39.16 (113.40 kg, 170.18 cm) iw ED Course: 16:28 Patient arrived in ED. mr 16:46 Triage completed. iw 16:46 Arm band placed on. iw 16:50 Nando Vicente FNP-C [facility]. la1 16:50 Malcolm Mclain MD is Attending Physician. la1 17:18 Daniel Birmingham NP is PHCP. pm1 17:18 Malcolm Mclain MD is Attending Physician. pm1 17:30 Patient has correct armband on for positive identification. Placed in gown. Bed in low ca1 position. Call light in reach. Side rails up X 1. Pulse ox on. NIBP on. Warm blanket given. 17:33 Mary Roberts, RN is Primary Nurse. ca1 17:40 Urine collected: clean catch specimen, clear. dh3 17:51 Initial lab(s) drawn, by ut, sent to lab. Inserted saline lock: 20 gauge in right ca1 antecubital area, using aseptic technique. Blood collected. 19:37 US Transvaginal Ob In Process Unspecified. EDMS 20:37 No provider procedures requiring assistance completed. IV discontinued, intact, ca1 bleeding controlled, No redness/swelling at site. Pressure dressing applied. Administered Medications: No medications were administered Outcome: 20:29 Discharge ordered by MD. pm1 20:37 Discharged to home ambulatory. ca1 20:37 Condition: stable 20:37 Discharge instructions given to patient, Instructed on discharge instructions, follow up and referral plans. Demonstrated understanding of instructions, follow-up care. 20:38 Patient left the ED. ca1 Signatures: Dispatcher [employer] EDMA Maggie Camarena Irene, RN RN Nando Vicente FNP-C [facility] Daniel Birmingham, JOAO PHOTOENGRAVING PHOTOGRAPHER pm1 Trisha Rodriguez 3 Mary Roberts, KENNETH RN ca1 Corrections: (The following items were deleted from the chart) 19:20 19:18 Reassessment: Patient appears in no apparent distress at this time. Patient is ca1 alert, oriented x 3, equal unlabored respirations, skin warm/dry/pink. ca1
--- NOTE | 2019-10-11 20:30 | EDPHYS ---
Physician Documentation [facility] Name: Jennifer Rosas Age: 29 yrs Sex: Female : 1990 Arrival Date: 10/11/2019 Time: 16:28 Bed 13 Private MD: ED Physician Malcolm Mclain HPI: 10/11 17:43 This 29 yrs old Black Female presents to ER via Ambulatory with complaints of Abdominal pm1 Pain, Vaginal Bleeding. 17:43 The patient presents with abdominal pain right lower quadrant. Onset: The pm1 symptoms/episode began/occurred 3 day(s) ago. The symptoms do not radiate. Associated signs and symptoms: Pertinent positives: dysuria, Pertinent negatives: chest pain, constipation, fever, headache, shortness of breath. 17:43 The symptoms are described as crampy. Modifying factors: The symptoms are alleviated by pm1 nothing, the symptoms are aggravated by nothing. Severity of pain: in the emergency department the pain is a 0 / 10. The patient has not recently seen a physician. Patient presents to the ER with complaints of vaginal bleeding for three days that has resolved today. Reports occasional burning with urination. No fever, flank pain, vomiting or diarrhea. 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 - Social history:: Smoking status: Patient/guardian denies using tobacco. - Ebola Screening: : Patient negative for fever greater than or equal to 101.5 degrees Fahrenheit, and additional compatible Ebola Virus Disease symptoms Patient denies exposure to infectious person Patient denies travel to an Ebola-affected area in the 21 days before illness onset No symptoms or risks identified at this time. ROS: 17:43 Constitutional: Negative for fever, chills, and weight loss, Eyes: Negative for injury, pm1 pain, redness, and discharge, ENT: Negative for injury, pain, and discharge, Neck: Negative for injury, pain, and swelling, Cardiovascular: Negative for chest pain, palpitations, and edema, Respiratory: Negative for shortness of breath, cough, wheezing, and pleuritic chest pain. 17:43 Back: Negative for injury and pain. 17:43 MS/Extremity: Negative for injury and deformity, Skin: Negative for injury, rash, and discoloration, Neuro: Negative for headache, weakness, numbness, tingling, and seizure. 17:43 Abdomen/GI: Positive for abdominal pain, Negative for nausea, vomiting, and diarrhea, constipation. 17:43 : Positive for burning with urination, vaginal bleeding, Negative for flank pain. Exam: 17:43 Constitutional: This is a well developed, well nourished patient who is awake, alert, pm1 and in no acute distress. Head/Face: Normocephalic, atraumatic. Eyes: Pupils equal round and reactive to light, extra-ocular motions intact. Lids and lashes normal. Conjunctiva and sclera are non-icteric and not injected. Cornea within normal limits. Periorbital areas with no swelling, redness, or edema. ENT: Nares patent. No nasal discharge, no septal abnormalities noted. Tympanic membranes are normal and external auditory canals are clear. Oropharynx with no redness, swelling, or masses, exudates, or evidence of obstruction, uvula midline. Mucous membranes moist. Neck: Trachea midline, no thyromegaly or masses palpated, and no cervical lymphadenopathy. Supple, full range of motion without nuchal rigidity, or vertebral point tenderness. No Meningismus. Chest/axilla: Normal chest wall appearance and motion. Nontender with no deformity. No lesions are appreciated. Cardiovascular: Regular rate and rhythm with a normal S1 and S2. No gallops, murmurs, or rubs. No pulse deficits. Respiratory: Lungs have equal breath sounds bilaterally, clear to auscultation and percussion. No rales, rhonchi or wheezes noted. No increased work of breathing, no retractions or nasal flaring. Abdomen/GI: Soft, non-tender, with normal bowel sounds. No distension or tympany. No guarding or rebound. No evidence of tenderness throughout. Back: No spinal tenderness. No costovertebral tenderness. Full range of motion. Skin: Warm, dry with normal turgor. Normal color with no rashes, no lesions, and no evidence of cellulitis. MS/ Extremity: Pulses equal, no cyanosis. Neurovascular intact. Full, normal range of motion. 17:43 Neuro: Orientation: is normal, Motor: is normal, moves all fours. Vital Signs: 16:46 BP 150 / 84; Pulse 100; Resp 16; Temp 98.8; Pulse Ox 100% on R/A; Weight 113.4 kg; iw Height 5 ft. 7 in. (170.18 cm); Pain 6/10; 18:14 BP 148 / 87; Pulse 105; Resp 17 S; Pulse Ox 100% on R/A; ca1 19:18 BP 141 / 86; Pulse 99; Resp 17 S; Pulse Ox 100% on R/A; ca1 20:30 BP 136 / 84; Pulse 102; Resp 19 S; Pulse Ox 100% on R/A; ca1 16:46 Body Mass Index 39.16 (113.40 kg, 170.18 cm) iw MDM: 17:24 Patient medically screened. pm1 19:43 Data reviewed: vital signs. Data interpreted: Pulse oximetry: on room air is 100 %. pm1 Interpretation: normal. 20:27 Counseling: I had a detailed discussion with the patient and/or guardian regarding: the pm1 historical points, exam findings, and any diagnostic results supporting the discharge/admit diagnosis, lab results, radiology results, the need for outpatient follow up, to return to the emergency department if symptoms worsen or persist or if there are any questions or concerns that arise at home. 20:27 ED course: Repeat beta HCG in 48 hours. pm1 10/11 17:42 Order name: Urine Dipstick--Ancillary (enter results); Complete Time: 17:51 kj1 10/11 17:42 Order name: Urine --Ancillary (enter results); Complete Time: 17:51 kj1 10/11 17:43 Order name: Abo/rh Typing; Complete Time: 18:39 ca1 10/11 17:43 Order name: Basic Metabolic Panel; Complete Time: 18:28 ca1 10/11 17:43 Order name: CBC with Diff; Complete Time: 18:20 ca1 10/11 17:52 Order name: Beta hcg; Complete Time: 18:34 pm1 10/11 17:28 Order name: Urine Dipstick-Ancillary (obtain specimen); Complete Time: 17:40 pm1 10/11 17:28 Order name: Urine Test (obtain specimen); Complete Time: 17:40 pm1 10/11 17:43 Order name: IV Saline Lock; Complete Time: 17:53 ca1 10/11 17:43 Order name: Labs collected and sent; Complete Time: 17:53 ca1 10/11 17:43 Order name: NPO; Complete Time: 17:53 ca1 10/11 17:54 Order name: Urine Microscopic Only; Complete Time: 18:39 pm1 10/11 17:55 Order name: US Transvaginal Ob; Complete Time: 19:56 pm1 Administered Medications: No medications were administered Disposition: 10/12 07:45 Co-signature as Attending Physician, Malcolm Mclain MD I agree with the assessment and kdr plan of care. Disposition: 10/11/19 20:29 Discharged to Home. Impression: Threatened . - Condition is Stable. - Discharge Instructions: Threatened Miscarriage, Pelvic Rest. - Medication Reconciliation Form, Thank You Letter, Antibiotic Education, Prescription Opioid Use form. - Follow up: Emergency Department; When: As needed; Reason: Worsening of condition. Follow up: Private Physician; When: 2 - 3 days; Reason: Recheck today's complaints, Continuance of care, Re-evaluation by your physician. - Problem is new. - Symptoms have improved. Signatures: Dispatcher [employer] EDMS Malcolm Mclain MD MD kdr Kimmy Sommers RN RN iw Daniel Birmingham NP TOP CASE ASSEMBLER pm1 Acob, Mary RN RN ca1 Corrections: (The following items were deleted from the chart) 10/11 20:38 20:29 10/11/2019 20:29 Discharged to Home. Impression: Threatened . Condition ca1 is Stable. Forms are Medication Reconciliation Form, Thank You Letter, Antibiotic Education, Prescription Opioid Use. Follow up: Emergency Department; When: As needed; Reason: Worsening of condition. Follow up: Private Physician; When: 2 - 3 days; Reason: Recheck today's complaints, Continuance of care, Re-evaluation by your physician. Problem is new. Symptoms have improved. pm1
[2019-10-11 21:25] VITALS: TEMP 98.8; O2SAT 100
[2019-10-11 21:29] VITALS: BP 136/84
== END 2019-10-11 20:38 | disposition home or self-care (01) ==
LOC: ER 16:23
DX: O20.0 Threatened abortion (principal); Z33.1 Pregnant state, incidental
CPT/HCPCS: 36415; 76817; 80048; 81003; 81015; 81025; 84702; 85025; 86900; 86901; 99284

== ENCOUNTER 2019-10-19 23:18 | Emergency (ER) | payer OTHER ==
--- OUTSIDE RECORDS SUMMARY | 2019-10-19 23:20 | XMS REPORT ---
:1990 [facility] Address [address] [place] [address] Dr. Salazar [address] [place] [address] Care Team Providers Name Role Phone Unavailable Unavailable Unavailable Problems This patient has no known problems. Allergies, Adverse Reactions, Alerts This patient has no known allergies or adverse reactions. Medications This patient has no known medications.
[2019-10-19] MEDS ORDERED: NA CHLORIDE 0.9% 1,000 ML ONE (23:44)
[2019-10-20] LABS: Urine Blood NEGATIVE (NEG); Urine Glucose NEGATIVE (NEG); Urine Protein NEGATIVE (NEG); Urine Specific Gravity 1.015 (1.005-1.030)
[2019-10-20 00:01] LABS: Absolute Lymphocytes (CBC) 2.3 K/uL (0.7-4.9); Basophils % 1.1 % (0-1.3); Hematocrit 36.9 % (36.0-45.0); Lymphocytes % 26.1 % (15.3-44.8); MPV 7.5 fL (7.6-11.3); RBC Red Blood Cell Count 4.23 M/uL (3.86-4.86)
[2019-10-20 00:33] LABS: BUN Blood Urea Nitrogen 13 mg/dL (7-18); Bicarbonate 25 mmol/L (21-32); Glucose Level 109 mg/dL (74-106); Potassium 3.8 mmol/L (3.5-5.1); Sodium Level 139 mmol/L (136-145)
[2019-10-20 01:07] LABS: HCG, Quantitative 6292 mIU/mL (1-3)
--- NOTE | 2019-10-20 01:53 | ER ---
Nurse's Notes [facility] Name: Jennifer Rosas Age: 29 yrs Sex: Female : 1990 Arrival Date: 10/19/2019 Time: 23:19 Bed 2 Private MD: Diagnosis: Threatened Presentation: 10/19 23:29 Presenting complaint: Patient states: she was seen here around [facility] and was told she bb was today she started having abdominal pain intermittently and noticed blood when she wipes. Transition of care: patient was not received from another setting of care. Onset of symptoms was October 19, 2019. Risk Assessment: Do you want to hurt yourself or someone else? Patient reports no desire to harm self or others. Initial Sepsis Screen: Does the patient meet any 2 criteria? No. Patient's initial sepsis screen is negative. Does the patient have a suspected source of infection? No. Patient's initial sepsis screen is negative. Care prior to arrival: None. 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 - Social history:: Smoking status: Patient/guardian denies using tobacco. - Ebola Screening: : No symptoms or risks identified at this time. - Family history:: not pertinent. Screenin:30 Abuse screen: Denies threats or abuse. Denies injuries from another. Nutritional aa1 screening: No deficits noted. Tuberculosis screening: No symptoms or risk factors identified. Fall Risk None identified. Assessment: 23:30 General: Appears in no apparent distress. comfortable, Behavior is calm, cooperative, aa1 appropriate for age. Pain: Complains of pain in suprapubic area Quality of pain is described as crampy. Neuro: Level of Consciousness is awake, alert, obeys commands, Oriented to person, place, time, situation, Moves all extremities. Full function Gait is steady. Respiratory: Airway is patent Respiratory effort is even, unlabored, Respiratory pattern is regular, symmetrical. GI: No signs and/or symptoms were reported involving the gastrointestinal system. : Urine is clear, Reports cramping, vaginal bleeding that is spotty. EENT: No signs and/or symptoms were reported regarding the EENT system. Derm: Skin is intact, is healthy with good turgor, Skin is pink, warm \T\ dry. Musculoskeletal: Circulation, motion, and sensation intact. Capillary refill < 3 seconds. 10/20 00:30 Reassessment: Patient appears in no apparent distress at this time. Patient and/or aa1 family updated on plan of care and expected duration. Pain level reassessed. Patient is alert, oriented x 3, equal unlabored respirations, skin warm/dry/pink. Awaiting test results. 02:04 Reassessment: Patient appears in no apparent distress at this time. Patient is alert, aa1 oriented x 3, equal unlabored respirations, skin warm/dry/pink. Discussed d/c \T\ f/u instructions with pt; denies questions or concerns at this time. Ambulatory to lobby with steady gait. Vital Signs: 10/19 23:32 Weight 113.4 kg (R); Height 5 ft. 7 in. (170.18 cm) (R); Pain 4/10; bb 23:45 BP 131 / 51; Pulse 91; Resp 18; Temp 98.5; Pulse Ox 100% on R/A; aa1 10/20 00:34 BP 130 / 76; Pulse 82; Resp 18; Pulse Ox 99% on R/A; aa1 01:40 BP 114 / 84; Pulse 79; Resp 16; Temp 98.7; Pulse Ox 98% on R/A; Pain 2/10; aa1 10/19 23:32 Body Mass Index 39.16 (113.40 kg, 170.18 cm) bb ED Course: 10/19 23:19 Patient arrived in ED. cl3 23:23 Inocencio Lopez MD is Attending Physician. gisela 23:30 Patient has correct armband on for positive identification. Placed in gown. Bed in low aa1 position. Call light in reach. Pulse ox on. NIBP on. Warm blanket given. Pillow given. 23:31 Triage completed. bb 23:32 Arm band placed on Patient placed in an exam room, on a stretcher, on pulse oximetry. jose Family accompanied patient. 23:38 Carey Morillo, RN is Primary Nurse. aa1 23:45 Initial lab(s) drawn, by me, sent to lab. Inserted saline lock: 20 gauge in right aa1 antecubital area, using aseptic technique. Blood collected. 10/20 01:30 Ultrasound completed. Patient tolerated well. lc3 01:43 Leonel Maldonado MD is Referral Physician. [facility] 01:45 US Transvaginal Ob In Process Unspecified. EDMS 02:04 No provider procedures requiring assistance completed. IV discontinued, intact, aa1 bleeding controlled, No redness/swelling at site. Pressure dressing applied. Administered Medications: 10/19 23:52 Drug: NS 0.9% 1000 ml Route: IV; Rate: 1 bolus; Site: right antecubital; aa1 10/20 00:30 Follow up: IV Status: Completed infusion; IV Intake: 1000ml aa1 Intake: 00:30 IV: 1000ml; Total: 1000ml. aa1 Outcome: 01:44 Discharge ordered by . gisela 02:04 Discharged to home ambulatory, with family. aa1 02:04 Condition: good 02:04 Discharge instructions given to patient, family, Instructed on discharge instructions, follow up and referral plans. medication usage, Demonstrated understanding of instructions, follow-up care, medications, Prescriptions given X 2. 02:05 Patient left the ED. aa1 Signatures: Dispatcher [employer] EDMO Carey Morillo, RN RN aa1 Inocencio Lopez MD MD cha Ballard, Brenda, RN RN Farhat Dave Charde cl3
--- NOTE | 2019-10-20 01:55 | EDPHYS ---
Physician Documentation [facility] Name: Jennifer Rosas Age: 29 yrs Sex: Female : 1990 Arrival Date: 10/19/2019 Time: 23:19 Bed 2 Private MD: ED Physician Inocencio Lopez HPI: 10/20 01:39 This 29 yrs old Black Female presents to ER via Ambulatory with complaints of Vaginal gisela Bleeding. 01:39 The patient presents with vaginal bleeding that is light. Onset: The symptoms/episode gisela began/occurred 2 day(s) ago. Modifying factors: The symptoms are alleviated by nothing, the symptoms are aggravated by nothing. Associated signs and symptoms: The patient has no apparent associated signs or symptoms. Severity of symptoms: At their worst the symptoms were mild, in the emergency department the symptoms are unchanged. The patient has not experienced similar symptoms in the past. 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 - Social history:: Smoking status: Patient/guardian denies using tobacco. - Ebola Screening: : No symptoms or risks identified at this time. - Family history:: not pertinent. ROS: 10/20 01:39 Constitutional: Negative for fever, chills, and weight loss, Eyes: Negative for injury, gisela pain, redness, and discharge, ENT: Negative for injury, pain, and discharge, Neck: Negative for injury, pain, and swelling, Cardiovascular: Negative for chest pain, palpitations, and edema, Respiratory: Negative for shortness of breath, cough, wheezing, and pleuritic chest pain, Abdomen/GI: Negative for abdominal pain, nausea, vomiting, diarrhea, and constipation, Back: Negative for injury and pain, MS/Extremity: Negative for injury and deformity, Skin: Negative for injury, rash, and discoloration, Neuro: Negative for headache, weakness, numbness, tingling, and seizure, Psych: Negative for depression, anxiety, suicide ideation, homicidal ideation, and hallucinations, Allergy/Immunology: Negative for hives, rash, and allergies, Endocrine: Negative for neck swelling, polydipsia, polyuria, polyphagia, and marked weight changes, Hematologic/Lymphatic: Negative for swollen nodes, abnormal bleeding, and unusual bruising. : Positive for vaginal bleeding. Exam: 01:39 Constitutional: This is a well developed, well nourished patient who is awake, alert, gisela and in no acute distress. Head/Face: Normocephalic, atraumatic. Eyes: Pupils equal round and reactive to light, extra-ocular motions intact. Lids and lashes normal. Conjunctiva and sclera are non-icteric and not injected. Cornea within normal limits. Periorbital areas with no swelling, redness, or edema. ENT: Nares patent. No nasal discharge, no septal abnormalities noted. Tympanic membranes are normal and external auditory canals are clear. Oropharynx with no redness, swelling, or masses, exudates, or evidence of obstruction, uvula midline. Mucous membranes moist. Neck: Trachea midline, no thyromegaly or masses palpated, and no cervical lymphadenopathy. Supple, full range of motion without nuchal rigidity, or vertebral point tenderness. No Meningismus. Chest/axilla: Normal chest wall appearance and motion. Nontender with no deformity. No lesions are appreciated. Cardiovascular: Regular rate and rhythm with a normal S1 and S2. No gallops, murmurs, or rubs. Normal PMI, no JVD. No pulse deficits. Respiratory: Lungs have equal breath sounds bilaterally, clear to auscultation and percussion. No rales, rhonchi or wheezes noted. No increased work of breathing, no retractions or nasal flaring. Abdomen/GI: Soft, non-tender, with normal bowel sounds. No distension or tympany. No guarding or rebound. No evidence of tenderness throughout. Back: No spinal tenderness. No costovertebral tenderness. Full range of motion. Skin: Warm, dry with normal turgor. Normal color with no rashes, no lesions, and no evidence of cellulitis. MS/ Extremity: Pulses equal, no cyanosis. Neurovascular intact. Full, normal range of motion. Neuro: Awake and alert, GCS 15, oriented to person, place, time, and situation. Cranial nerves II-XII grossly intact. Motor strength 5/5 in all extremities. Sensory grossly intact. Cerebellar exam normal. Normal gait. Vital Signs: 10/19 23:32 Weight 113.4 kg (R); Height 5 ft. 7 in. (170.18 cm) (R); Pain 4/10; bb 23:45 BP 131 / 51; Pulse 91; Resp 18; Temp 98.5; Pulse Ox 100% on R/A; aa1 10/20 00:34 BP 130 / 76; Pulse 82; Resp 18; Pulse Ox 99% on R/A; aa1 01:40 BP 114 / 84; Pulse 79; Resp 16; Temp 98.7; Pulse Ox 98% on R/A; Pain 2/10; aa1 10/19 23:32 Body Mass Index 39.16 (113.40 kg, 170.18 cm) bb MDM: 10/19 23:23 Patient medically screened. [facility] 10/20 01:42 Data reviewed: vital signs, nurses notes, lab test result(s), radiologic studies, gisela ultrasound. 10/19 23:24 Order name: Quantitative Hcg; Complete Time: 01:36 [facility] 10/19 23:24 Order name: Abo/rh Typing; Complete Time: 01:36 gisela 10/19 23:24 Order name: Basic Metabolic Panel; Complete Time: 01:36 gisela 10/19 23:24 Order name: CBC with Diff; Complete Time: 01:36 [facility] 10/19 23:24 Order name: US Transvaginal Ob [facility] 10/19 23:46 Order name: Urine Dipstick--Ancillary (enter results); Complete Time: 01:36 10/19 23:24 Order name: Urine Test (obtain specimen); Complete Time: 23:44 gisela 10/19 23:24 Order name: IV Saline Lock; Complete Time: 23:52 [facility] 10/19 23:24 Order name: Labs collected and sent; Complete Time: 23:52 [facility] 10/19 23:24 Order name: NPO; Complete Time: 23:31 [facility] 10/19 23:24 Order name: Urine Dipstick-Ancillary (obtain specimen); Complete Time: 23:44 gisela Administered Medications: 10/19 23:52 Drug: NS 0.9% 1000 ml Route: IV; Rate: 1 bolus; Site: right antecubital; aa1 10/20 00:30 Follow up: IV Status: Completed infusion; IV Intake: 1000ml aa1 Disposition: 10/20/19 01:44 Discharged to Home. Impression: Threatened . - Condition is Stable. - Discharge Instructions: Threatened Miscarriage, Vaginal Bleeding During , First Trimester, First Trimester of , [id number], First Trimester of , Threatened Miscarriage, [id number], Pelvic Rest. - Prescriptions for Diclegis 10- 10 mg Oral tablet,delayed release (DR/EC) - take 1 tablet by ORAL route 3 times per day and 2 tablets at bedtime; 60 tablet. Vitamin 27- 0.8 mg Oral Tablet - take 1 tablet by ORAL route once daily; 30 tablet. - Medication Reconciliation Form, Thank You Letter, Antibiotic Education, Prescription Opioid Use form. - Follow up: Private Physician; When: 1 - 2 days; Reason: Recheck today's complaints, Continuance of care, Re-evaluation by your physician. Follow up: Leonel Maldonado MD; When: 2 - 3 days; Reason: Recheck today's complaints, Continuance of care, Re-evaluation by your physician. - Problem is new. - Symptoms have improved. Signatures: Dispatcher [employer] EDCarey Downs RN RN aa1 Inocencio Lopez MD MD cha Ballard, Brenda, RN RN bb Corrections: (The following items were deleted from the chart) 02:05 01:44 10/20/2019 01:44 Discharged to Home. Impression: Threatened . Condition aa1 is Stable. Forms are Medication Reconciliation Form, Thank You Letter, Antibiotic Education, Prescription Opioid Use. Follow up: Private Physician; When: 1 - 2 days; Reason: Recheck today's complaints, Continuance of care, Re-evaluation by your physician. Follow up: Leonel Maldonado; When: 2 - 3 days; Reason: Recheck today's complaints, Continuance of care, Re-evaluation by your physician. Problem is new. Symptoms have improved. gisela
[2019-10-20 02:17] VITALS: BP 114/84; TEMP 98.7; O2SAT 98
--- NOTE | 2019-10-20 10:48 | RAD REPORT ---
EXAM DESCRIPTION: US - Transvaginal OB - 10/20/2019 1:28 am CLINICAL HISTORY: The patient is 29 years old and is Female; Abd cramping, ;Vaginal bleeding TECHNIQUE: Real-time transvaginal obstetrical ultrasound of the maternal pelvis and a first trimeste r with image documentation. Transvaginal imaging was used for better evaluation of the fe tus and adnexa. COMPARISON: Ultrasound October 12, 2019. FINDINGS: GESTATION: An intrauterine gestational sac is present located within the mid to lower ut erine segment. A pole and yolk sac are not yet seen. The gestational sac correlates to approxim ately 5 weeks 3 days. A small hypoechoic area adjacent to the gestational sac is noted. UTERUS/CERVIX: Unremarkable. No myometrial mass. OVARIES: Unremarkable. No mass. FREE FLUID: No free fluid. IMPRESSION: 1. Intrauterine gestational sac without evidence of pole or yolk sac. This is lo cated within the lower uterine segment. Findings suggest a very early intrauterine . However , failed first trimester is within the differential. Recommend close interval follow-up wit h serial hCG and ultrasound. 2. Findings suggestive of a small subchorionic hemorrhage. Electronically signed by: Flores Jaramillo MD 10/20/2019 4:05 AM TRAINING MGR Due to temporary technical issues with the PACS/Fluency reporting system, reports are being signed by the in house radiologist as a courtesy to ensure prompt reporting. The interpreting radiologist is f ully responsible for the content of the report.
== END 2019-10-20 02:05 | disposition home or self-care (01) ==
LOC: ER 23:18
DX: O20.0 Threatened abortion (principal); Z3A.01 Less than 8 weeks gestation of pregnancy
CPT/HCPCS: 85025; 80048; 36415; 86900; 86901; 84702; 81003; 76817; 96360; 99284; J7030

== ENCOUNTER 2019-11-02 06:38 | Emergency (ER) | payer OTHER ==
--- OUTSIDE RECORDS SUMMARY | 2019-11-02 06:39 | XMS REPORT ---
:1990 [facility] Address [address] [place] [address] Dr. Salazar [address] [place] [id number] Care Team Providers Name Role Phone Unavailable Unavailable Unavailable Problems This patient has no known problems. Allergies, Adverse Reactions, Alerts This patient has no known allergies or adverse reactions. Medications This patient has no known medications.
[2019-11-02 07:47] LABS: Absolute Lymphocytes (CBC) 1.3 K/uL (0.7-4.9); Basophils % 0.6 % (0-1.3); Hematocrit 37.7 % (36.0-45.0); Lymphocytes % 21.4 % (15.3-44.8); MPV 8.1 fL (7.6-11.3); RBC Red Blood Cell Count 4.38 M/uL (3.86-4.86)
[2019-11-02 07:54] LABS: Urine Blood TRACE (NEG); Urine Glucose NEGATIVE (NEG); Urine Protein NEGATIVE (NEG); Urine Specific Gravity 1.015 (1.005-1.030); Urine pH 7.5 (5.0-7.0)
[2019-11-02 08:15] LABS: BUN Blood Urea Nitrogen 6 mg/dL (7-18); Bicarbonate 25 mmol/L (21-32); Glucose Level 97 mg/dL (74-106); HCG, Quantitative 43214 mIU/mL (1-3); Potassium 3.7 mmol/L (3.5-5.1); Sodium Level 141 mmol/L (136-145)
--- NOTE | 2019-11-02 09:25 | EDPHYS ---
Physician Documentation [facility] Name: Jennifer Rosas Age: 29 yrs Sex: Female : 1990 Arrival Date: 11/02/2019 Time: 06:40 Bed 14 Private MD: ED Physician Lowell Heller HPI: 11/02 06:57 This 29 yrs old Black Female presents to ER via Unassigned with complaints of 7 wks jr8 preg Vaginal Bleeding. 06:57 The patient presents to the emergency department with vaginal bleeding, that is light. jr8 The estimated gestational age is 7 weeks. course: care: private OB physician, Seen last week, Leakage of Fluid: none appreciated, Ultrasound: the patient had an ultrasound, which showed subchorionic bleed. Previous pregnancies: in previous pregnancies patient has had vaginal delivery. Associated signs and symptoms: The patient has no apparent associated signs or symptoms. The patient has not experienced similar symptoms in the past. The patient has been recently seen at the [facility] Emergency Department, a couple of weeks ago, for similar complaints labs were performed, an ultrasound was performed. 07:09 Patient stated that since she has been seen last bleeding had stopped. Started again jr8 yesterday. Has another appointment tomorrow with OB but was told to come to ED if bleeding were to start again . PHYSICIAN ASST: 06:57 3, Full Term 2, Premature 0, 0, Living 2 jr8 07:06 LMP 09/17/2019 rv Historical: - Allergies: 07:07 NKA; rv - PMHx: 07:07 None; rv - PSHx: 07:07 ; rv - Immunization history:: Adult Immunizations up to date. - Social history:: Smoking status: Patient/guardian denies using tobacco. - Ebola Screening: : No symptoms or risks identified at this time. ROS: 07:10 Eyes: Negative for injury, pain, redness, and discharge, ENT: Negative for injury, jr8 pain, and discharge, Neck: Negative for injury, pain, and swelling, Cardiovascular: Negative for chest pain, palpitations, and edema, Respiratory: Negative for shortness of breath, cough, wheezing, and pleuritic chest pain, Abdomen/GI: Negative for abdominal pain, nausea, vomiting, diarrhea, and constipation, Back: Negative for injury and pain, MS/Extremity: Negative for injury and deformity, Skin: Negative for injury, rash, and discoloration, Neuro: Negative for headache, weakness, numbness, tingling, and seizure. 07:10 : Positive for vaginal bleeding. Exam: 07:10 Eyes: Pupils equal round and reactive to light, extra-ocular motions intact. Lids and jr8 lashes normal. Conjunctiva and sclera are non-icteric and not injected. Cornea within normal limits. Periorbital areas with no swelling, redness, or edema. ENT: Nares patent. No nasal discharge, no septal abnormalities noted. Tympanic membranes are normal and external auditory canals are clear. Oropharynx with no redness, swelling, or masses, exudates, or evidence of obstruction, uvula midline. Mucous membranes moist. Neck: Trachea midline, no thyromegaly or masses palpated, and no cervical lymphadenopathy. Supple, full range of motion without nuchal rigidity, or vertebral point tenderness. No Meningismus. Cardiovascular: Regular rate and rhythm with a normal S1 and S2. No gallops, murmurs, or rubs. Normal PMI, no JVD. No pulse deficits. Respiratory: Lungs have equal breath sounds bilaterally, clear to auscultation and percussion. No rales, rhonchi or wheezes noted. No increased work of breathing, no retractions or nasal flaring. Abdomen/GI: Soft, non-tender, with normal bowel sounds. No distension or tympany. No guarding or rebound. No evidence of tenderness throughout. Back: No spinal tenderness. No costovertebral tenderness. Full range of motion. Skin: Warm, dry with normal turgor. Normal color with no rashes, no lesions, and no evidence of cellulitis. MS/ Extremity: Pulses equal, no cyanosis. Neurovascular intact. Full, normal range of motion. Neuro: Awake and alert, GCS 15, oriented to person, place, time, and situation. Cranial nerves II-XII grossly intact. Motor strength 5/5 in all extremities. Sensory grossly intact. Cerebellar exam normal. Normal gait. Vital Signs: 07:06 BP 127 / 63; Pulse 91; Resp 16; Temp 98.2; Pulse Ox 100% ; Weight 122.47 kg; rv 07:45 BP 120 / 58; Pulse 95; Resp 17; Pulse Ox 99% on R/A; rb1 08:44 BP 130 / 73; Pulse 97; Resp 19; Pulse Ox 100% ; rb1 09:40 BP 133 / 75; Pulse 93; Resp 18; Pulse Ox 100% on R/A; rb1 MDM: 06:54 Patient medically screened. 09:23 Data reviewed: vital signs, nurses notes, lab test result(s), radiologic studies, jr8 ultrasound. Data interpreted: Pulse oximetry: on room air is 100 %. Interpretation: normal. Counseling: I had a detailed discussion with the patient and/or guardian regarding: the historical points, exam findings, and any diagnostic results supporting the discharge/admit diagnosis, lab results, radiology results, the need for outpatient follow up, an OB/Gyne specialist, to return to the emergency department if symptoms worsen or persist or if there are any questions or concerns that arise at home. 11/02 06:53 Order name: Quantitative Hcg; Complete Time: 08:22 11/02 06:53 Order name: Basic Metabolic Panel; Complete Time: 08:22 11/02 06:53 Order name: CBC with Diff; Complete Time: 08:10 11/02 06:54 Order name: US Transvaginal Ob; Complete Time: 09:38 11/02 07:24 Order name: Urine Dipstick--Ancillary (enter results); Complete Time: 08:10 11/02 07:24 Order name: Urine --Ancillary (enter results); Complete Time: 08:10 11/02 06:53 Order name: IV Saline Lock; Complete Time: 07:22 11/02 06:53 Order name: Labs collected and sent; Complete Time: 07:22 11/02 06:53 Order name: NPO; Complete Time: 07:23 11/02 06:53 Order name: Urine Dipstick-Ancillary (obtain specimen); Complete Time: 07:21 Administered Medications: No medications were administered Disposition: 11/03 07:32 Co-signature as Attending Physician, Lowell Heller MD I agree with the assessment and 4 plan of care. Disposition: 11/02/19 09:24 Discharged to Home. Impression: Threatened . - Condition is Stable. - Discharge Instructions: Threatened Miscarriage, Vaginal Bleeding During , First Trimester, Pelvic Rest. - Medication Reconciliation Form, Thank You Letter, Antibiotic Education, Prescription Opioid Use, Work release form form. - Follow up: Private Physician; When: Tomorrow; Reason: Recheck today's complaints, Continuance of care, Re-evaluation by your physician. - Problem is new. - Symptoms have improved. Signatures: Dispatcher [employer] EDMS Dom Red PA PA jr8 Kamilla Contreras, RN RN rb1 Lowell Helelr MD MD tw4 Brayden Watts RN RN rv Corrections: (The following items were deleted from the chart) 11/02 09:44 09:24 11/02/2019 09:24 Discharged to Home. Impression: Threatened . Condition rb1 is Stable. Forms are Medication Reconciliation Form, Thank You Letter, Antibiotic Education, Prescription Opioid Use. Follow up: Private Physician; When: Tomorrow; Reason: Recheck today's complaints, Continuance of care, Re-evaluation by your physician. Problem is new. Symptoms have improved. jr8
--- NOTE | 2019-11-02 09:25 | ER ---
Nurse's Notes [facility] Name: Jennifer Rosas Age: 29 yrs Sex: Female : 1990 Arrival Date: 11/02/2019 Time: 06:40 Bed 14 Private MD: Diagnosis: Threatened Presentation: 11/02 07:05 Presenting complaint: Patient states: IM AND I AM BLEEDING AGAIN. Transition rv of care: patient was not received from another setting of care. Onset of symptoms was November 02, 2019 at 06:00. Risk Assessment: Do you want to hurt yourself or someone else? Patient reports no desire to harm self or others. Initial Sepsis Screen: Does the patient meet any 2 criteria? No. Patient's initial sepsis screen is negative. Does the patient have a suspected source of infection? No. Patient's initial sepsis screen is negative. Care prior to arrival: None. 07:05 Method Of Arrival: Ambulatory rv 07:05 Acuity: JHONATAN 3 rv Triage Assessment: 07:07 General: Appears in no apparent distress. Behavior is calm, cooperative. Pain: Denies rv pain. Neuro: Level of Consciousness is awake, alert, obeys commands, Oriented to person, place, time, situation. Cardiovascular: Patient's skin is warm and dry. Respiratory: Airway is patent. : Reports vaginal bleeding that is brown, light flow. 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 - Social history:: Smoking status: Patient/guardian denies using tobacco. - Ebola Screening: : No symptoms or risks identified at this time. Screenin:08 Abuse screen: Denies threats or abuse. Denies injuries from another. Nutritional rv screening: No deficits noted. Tuberculosis screening: No symptoms or risk factors identified. Fall Risk None identified. Assessment: 07:00 General: Appears in no apparent distress. comfortable, Behavior is calm, cooperative. rb1 Pain: Denies pain. Neuro: Level of Consciousness is awake, alert, obeys commands, Oriented to person, place, time, situation. Cardiovascular: Capillary refill < 3 seconds is brisk in bilateral fingers. Respiratory: Airway is patent Respiratory effort is even, unlabored, Respiratory pattern is regular, symmetrical. GI: No signs and/or symptoms were reported involving the gastrointestinal system. : Reports dark brown discharge initially, then had red spotting. Pt. reports when she used the restroom here the bleeding had stopped. Derm: Skin is pink, warm \T\ dry. 07:54 Reassessment: Patient appears in no apparent distress at this time. No changes from rb1 previously documented assessment. 08:30 Reassessment: Pt. is in US. rb1 08:49 Reassessment: Patient appears in no apparent distress at this time. Patient and/or rb1 family updated on plan of care and expected duration. Pain level reassessed. Patient is alert, oriented x 3, equal unlabored respirations, skin warm/dry/pink. 09:40 Reassessment: Patient appears in no apparent distress at this time. No changes from rb1 previously documented assessment. Vital Signs: 07:06 BP 127 / 63; Pulse 91; Resp 16; Temp 98.2; Pulse Ox 100% ; Weight 122.47 kg; rv 07:45 BP 120 / 58; Pulse 95; Resp 17; Pulse Ox 99% on R/A; rb1 08:44 BP 130 / 73; Pulse 97; Resp 19; Pulse Ox 100% ; rb1 09:40 BP 133 / 75; Pulse 93; Resp 18; Pulse Ox 100% on R/A; rb1 ED Course: 06:40 Patient arrived in ED. ds1 06:52 Dom Red PA is PHCP. jr8 06:52 Lowell Heller MD is Attending Physician. jr8 07:00 Placed in gown. Bed in low position. Call light in reach. Side rails up X 1. rb1 07:04 Kamilla Contreras, RN is Primary Nurse. rb1 07:05 Radiology exam delayed due to lab results not completed at this time. (HCG). aa4 07:05 Urine collected: clean catch specimen, clear. dh3 07:06 Triage completed. rv 07:08 Arm band placed on Patient placed Patient notified of wait time. rv 07:09 Patient has correct armband on for positive identification. Pulse ox on. NIBP on. rv 07:12 Initial lab(s) drawn, by me, sent to lab. Inserted saline lock: 22 gauge in right dh3 forearm, using aseptic technique. Blood collected. 08:47 US Transvaginal Ob In Process Unspecified. EDMS 09:44 No provider procedures requiring assistance completed. IV discontinued, intact, rb1 bleeding controlled, No redness/swelling at site. Pressure dressing applied. Administered Medications: No medications were administered Outcome: 09:24 Discharge ordered by . fransico 09:44 Patient left the ED. rb1 09:44 Discharged to home ambulatory, with family. rb1 09:44 Condition: stable 09:44 Discharge instructions given to patient, Instructed on discharge instructions, follow up and referral plans. Demonstrated understanding of instructions, follow-up care, Prescriptions given X none. Signatures: Dispatcher [employer] EDDC Casi Toledo ds1 Michelle Campbell aa4 Dom Red PA PA jr8 Kamilla Contreras, RN RN rb1 Trisha Rodriguez 3 Brayden Watts RN RN rv Corrections: (The following items were deleted from the chart) 09:48 09:47 No provider procedures requiring assistance completed. rb1 rb1 09:48 09:47 IV discontinued, intact, bleeding controlled, No redness/swelling at site. rb1 Pressure dressing applied, rb1
--- NOTE | 2019-11-02 09:35 | RAD REPORT ---
EXAM DESCRIPTION: US - Transvaginal OB - 11/02/2019 8:53 am CLINICAL HISTORY: Abd cramping, ;Vaginal bleeding COMPARISON: Transvaginal OB dated 10/20/2019 FINDINGS: A single gestational sac is seen within the uterus. The position of the sac is abnormal in the mid to lower uterine segment regions of the endometrium. The sac itself is also oblong in shape and abnormally enlarged. Within the sac is a single pole with crown-rump length of 5 mm, correl ating to estimated gestational age of 6 weeks 3 days gestational age. Estimated date of delivery is 0 06/24/2020. Heart rate is 93 BPM. The placenta is not yet developed due to early gestational age. Several subchorionic bleeds are seen surrounding the sac measuring 8 mm each. The maternal adnexa and ovaries are within normal limits. Normal Doppler blood flow was demonstrated to both ovaries. IMPRESSION: Abnormally shaped and inferiorly positioned gestational sac is seen with a single 6 week 3 day embryo demonstrating low cardiac activity at 93 BPM. The prognosis for this gestation is quite guarded. Close interval follow-up serial HCG levels and pelvic sonography would be advised.
[2019-11-02 09:57] VITALS: TEMP 98.2
[2019-11-02 09:59] VITALS: BP 130/73; O2SAT 100
== END 2019-11-02 09:44 | disposition home or self-care (01) ==
LOC: ER 06:38
DX: O20.0 Threatened abortion (principal); Z3A.01 Less than 8 weeks gestation of pregnancy
CPT/HCPCS: 36415; 76817; 80048; 81003; 81025; 84702; 85025; 99284

== ENCOUNTER 2019-11-09 00:44 | Emergency (ER) | payer OTHER ==
--- OUTSIDE RECORDS SUMMARY | 2019-11-09 00:46 | XMS REPORT ---
:1990 [facility] Address [address] [place] [address] Dr. Salazar [address] [place] [id number] Care Team Providers Name Role Phone Unavailable Unavailable Unavailable Problems This patient has no known problems. Allergies, Adverse Reactions, Alerts This patient has no known allergies or adverse reactions. Medications This patient has no known medications.
[2019-11-09] MEDS ORDERED: NA CHLORIDE 0.9% 1,000 ML ONE (01:17)
[2019-11-09] MEDS ORDERED: ONDANSETRON 4 MG/2 ML VIAL ONE (01:17)
[2019-11-09] MEDS ORDERED: MORPHINE 4 MG/ML SYR ONE (01:17)
[2019-11-09] MEDS ORDERED: KETOROLAC 30 MG/ML INJ ONE (01:20)
[2019-11-09 01:21] LABS: Basophils % 0.3 % (0-1.3); Hematocrit 31.9 % (36.0-45.0); Lymphocytes % 16.6 % (15.3-44.8); MPV 7.8 fL (7.6-11.3); RBC Red Blood Cell Count 3.72 M/uL (3.86-4.86)
[2019-11-09 01:50] LABS: BUN Blood Urea Nitrogen 8 mg/dL (7-18); Bicarbonate 24 mmol/L (21-32); Glucose Level 113 mg/dL (74-106); Potassium 3.8 mmol/L (3.5-5.1); Sodium Level 139 mmol/L (136-145)
--- NOTE | 2019-11-09 02:16 | ER ---
Nurse's Notes [facility] Name: Jennifer Rosas Age: 29 yrs Sex: Female : 1990 Arrival Date: 11/09/2019 Time: 00:52 Bed 6 Private MD: Diagnosis: Delayed or excessive hemorrhage following complete or unspecified spontaneous ;Muscle weakness (generalized);Anemia in chronic diseases classified elsewhere Presentation: 11/09 00:48 Presenting complaint: Patient states: she went to her OB today and OB confirmed patient vc had a miscarriage, patient was prescribed a medication to help her pass the fetus. Patient is unsure of the name of the medication, she states she "believes it starts with a m." EMS states: patient called stating she was experiencing dizziness and her eyes were clouding over when she stood up, she was experiencing cold sweats and painful chills. BP en route 94/66, FSBS 121, Temp 98.9. 00:48 Transition of care: patient was not received from another setting of care. Onset of vc symptoms was November 09, 2019. Risk Assessment: Do you want to hurt yourself or someone else? Patient reports no desire to harm self or others. Initial Sepsis Screen: Does the patient meet any 2 criteria? No. Patient's initial sepsis screen is negative. Initial Sepsis Screen: Does the patient have a suspected source of infection? No. Patient's initial sepsis screen is negative. Care prior to arrival: Medication(s) given: Normal saline infusion, 250 ml IV initiated. 20 GA, in the right antecubital area. 00:48 Method Of Arrival: EMS: [facility] vc 00:48 Acuity: JHONATAN 4 vc Triage Assessment: 02:53 General: Behavior is calm. 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 vc Historical: - Allergies: 00:56 NKA; vc - Home Meds: 00:56 None [Active]; vc - PMHx: 00:56 None; vc - PSHx: 00:56 None; vc - Immunization history:: Adult Immunizations up to date, Flu vaccine is up to date. - Social history:: Smoking status: Patient denies any tobacco usage or history of. - Ebola Screening: : No symptoms or risks identified at this time. Screenin:12 Abuse screen: Denies threats or abuse. Denies injuries from another. Nutritional rv screening: No deficits noted. Tuberculosis screening: No symptoms or risk factors identified. Fall Risk None identified. Assessment: 01:11 General: Appears in no apparent distress. Pain: Complains of pain in abdomen. Neuro: rv Level of Consciousness is awake, alert, obeys commands, Oriented to person, place, time, situation. Cardiovascular: Patient's skin is warm and dry. Rhythm is regular. Respiratory: Airway is patent. EENT: No signs and/or symptoms were reported regarding the EENT system. Derm: Skin is intact. 02:00 Reassessment: Patient appears in no apparent distress at this time. Patient and/or rv family updated on plan of care and expected duration. Pain level reassessed. Patient is alert, oriented x 3, equal unlabored respirations, skin warm/dry/pink. Vital Signs: 00:58 BP 120 / 69; Pulse 83; Resp 20; Temp 98.2(O); Pulse Ox 99% on R/A; Weight 108.86 kg; vc Height 5 ft. 7 in. (170.18 cm); 01:00 BP 116 / 59 Supine; Pulse 71; Pulse Ox 100% ; vc 01:18 BP 116 / 57 Sitting; Pulse 71; Pulse Ox 100% ; vc 01:30 BP 105 / 81 Standing; Pulse 95; Pulse Ox 100% ; vc 02:53 BP 105 / 58; Pulse 74; Resp 16; Pulse Ox 100% on R/A; rv 00:58 Body Mass Index 37.59 (108.86 kg, 170.18 cm) vc ED Course: 00:52 Patient arrived in ED. rv 00:56 Triage completed. vc 00:57 Brayden Watts RN is Primary Nurse. rv 01:04 Lowell Heller MD is Attending Physician. tw4 01:12 Patient has correct armband on for positive identification. Pulse ox on. NIBP on. rv 01:12 Arm band placed on Patient placed Patient notified of wait time. rv 01:13 Maintain EMS IV. Dressing intact. Good blood return noted. Site clean \\T\\ dry. Gauge \\T\\ rv site: G20 RIGHT AC. 02:53 No provider procedures requiring assistance completed. IV discontinued, intact, rv bleeding controlled, No redness/swelling at site. Pressure dressing applied. Administered Medications: 01:22 Drug: TORadol 30 mg Route: IVP; Site: right antecubital; rv 02:53 Follow up: Response: No adverse reaction rv 01:23 Drug: Zofran 4 mg Route: IVP; Site: right antecubital; rv 02:53 Follow up: Response: No adverse reaction rv 01:45 Drug: NS 0.9% 1000 ml Route: IV; Rate: 1 bolus; Site: right antecubital; rv 02:52 Follow up: IV Status: Completed infusion; IV Intake: 1000ml rv 02:48 Not Given (Physician Discretion): morphine 4 mg IVP once; RASS on ADMIN: Combtv4, Very rv Agttd3, Agttd2, Rstlss1, AlertClm0, Drwsy-1, Lt Sdtn-2, Mod Sdtn-3, Dp Sdtn-4, UnArsble-5 Intake: 02:52 IV: 1000ml; Total: 1000ml. rv Outcome: 02:15 Discharge ordered by . tw4 02:53 Discharged to home ambulatory, with family. rv 02:53 Condition: good 02:53 Discharge instructions given to patient, family, Instructed on discharge instructions, follow up and referral plans. Demonstrated understanding of instructions, follow-up care. 02:54 Patient left the ED. rv Signatures: Lowell Heller MD MD tw4 Brayden Watts, RN RN rv Nicole Valenzuela, RN RN vc Corrections: (The following items were deleted from the chart) 01:38 00:48 Presenting complaint: EMS states: patient called stating she was experiencing vc dizziness and her eyes were clouding over when she stood up, she was experiencing cold sweats and painful chills. BP en route 94/66, FSBS 121, Temp 98.9. vc
--- NOTE | 2019-11-09 02:16 | EDPHYS ---
Physician Documentation [facility] Name: Jennifer Rosas Age: 29 yrs Sex: Female : 1990 Arrival Date: 11/09/2019 Time: 00:52 Bed 6 Private MD: ED Physician Lowell Heller HPI: 11/09 01:17 This 29 yrs old Black Female presents to ER via EMS with complaints of VAGINAL BLEEDING tw4 AND GENERALIZED WEAKNESS. 01:17 The patient presents with vaginal bleeding that is moderate, with clots. Onset: The tw4 symptoms/episode began/occurred today. Modifying factors: The symptoms are alleviated by nothing, the symptoms are aggravated by nothing. Associated signs and symptoms: Pertinent positives: cramping, Pertinent negatives: diarrhea, dyspareunia, dysuria, fever, hematuria, nausea, urinary frequency, vaginal bleeding, vaginal discharge. Severity of symptoms: At their worst the symptoms were moderate, in the emergency department the symptoms are unchanged. The patient has been recently seen by a physician: the patient's primary care provider, WAS PRESCRIBED MEDICATION FOR THREATENED MISCARRIAGE TO COMPLETE . 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 vc Historical: - Allergies: 00:56 NKA; vc - Home Meds: 00:56 None [Active]; vc - PMHx: 00:56 None; vc - PSHx: 00:56 None; vc - Immunization history:: Adult Immunizations up to date, Flu vaccine is up to date. - Social history:: Smoking status: Patient denies any tobacco usage or history of. - Ebola Screening: : No symptoms or risks identified at this time. ROS: 01:17 Positive for vaginal bleeding, Negative for injury or acute deformity, urinary tw4 symptoms, urinary frequency, hematuria, pelvic pain, flank pain, burning with urination, difficulty urinating, bladder incontinence. 01:17 Constitutional: Negative for fever, chills, and weight loss, Eyes: Negative for injury, pain, redness, and discharge, Cardiovascular: Negative for chest pain, palpitations, and edema, Respiratory: Negative for shortness of breath, cough, wheezing, and pleuritic chest pain, Abdomen/GI: Negative for abdominal pain, nausea, vomiting, diarrhea, and constipation, Back: Negative for injury and pain, MS/Extremity: Negative for injury and deformity, Skin: Negative for injury, rash, and discoloration, Neuro: Negative for headache, weakness, numbness, tingling, and seizure. Exam: 01:17 Constitutional: This is a well developed, well nourished patient who is awake, alert, tw4 and in no acute distress. Head/Face: Normocephalic, atraumatic. Chest/axilla: Normal chest wall appearance and motion. Nontender with no deformity. No lesions are appreciated. Cardiovascular: Regular rate and rhythm with a normal S1 and S2. No gallops, murmurs, or rubs. Normal PMI, no JVD. No pulse deficits. Respiratory: Lungs have equal breath sounds bilaterally, clear to auscultation and percussion. No rales, rhonchi or wheezes noted. No increased work of breathing, no retractions or nasal flaring. Abdomen/GI: Soft, non-tender, with normal bowel sounds. No distension or tympany. No guarding or rebound. No evidence of tenderness throughout. Back: No spinal tenderness. No costovertebral tenderness. Full range of motion. MS/ Extremity: Pulses equal, no cyanosis. Neurovascular intact. Full, normal range of motion. Neuro: Awake and alert, GCS 15, oriented to person, place, time, and situation. Cranial nerves II-XII grossly intact. Motor strength 5/5 in all extremities. Sensory grossly intact. Cerebellar exam normal. Normal gait. Vital Signs: 00:58 BP 120 / 69; Pulse 83; Resp 20; Temp 98.2(O); Pulse Ox 99% on R/A; Weight 108.86 kg; vc Height 5 ft. 7 in. (170.18 cm); 01:00 BP 116 / 59 Supine; Pulse 71; Pulse Ox 100% ; vc 01:18 BP 116 / 57 Sitting; Pulse 71; Pulse Ox 100% ; vc 01:30 BP 105 / 81 Standing; Pulse 95; Pulse Ox 100% ; vc 02:53 BP 105 / 58; Pulse 74; Resp 16; Pulse Ox 100% on R/A; rv 00:58 Body Mass Index 37.59 (108.86 kg, 170.18 cm) vc MDM: 01:04 Patient medically screened. tw4 01:17 Data reviewed: vital signs, nurses notes. Data interpreted: Pulse oximetry: tw4 Interpretation:. Counseling: I had a detailed discussion with the patient and/or guardian regarding: the historical points, exam findings, and any diagnostic results supporting the discharge/admit diagnosis. 11/09 00:57 Order name: Abo/rh Typing; Complete Time: 02:10 11/09 00:57 Order name: Basic Metabolic Panel; Complete Time: 02:10 11/09 02:14 Interpretation: Normal except: GLUC 113; CA 8.0. tw4 11/09 00:57 Order name: CBC with Diff; Complete Time: 02:10 11/09 02:14 Interpretation: Normal except: WBC 11.8; RBC 3.72; HGB 10.6; HCT 31.9; ANEESH% 75.6; NEUT tw4 A 8.9. 11/09 00:57 Order name: IV Saline Lock; Complete Time: :34 rv 11/09 00:57 Order name: Labs collected and sent; Complete Time: :34 11/09 00:57 Order name: NPO; Complete Time: :34 rv Administered Medications: 01:22 Drug: TORadol 30 mg Route: IVP; Site: right antecubital; rv 02:53 Follow up: Response: No adverse reaction rv 01:23 Drug: Zofran 4 mg Route: IVP; Site: right antecubital; rv 02:53 Follow up: Response: No adverse reaction rv 01:45 Drug: NS 0.9% 1000 ml Route: IV; Rate: 1 bolus; Site: right antecubital; rv 02:52 Follow up: IV Status: Completed infusion; IV Intake: 1000ml rv 02:48 Not Given (Physician Discretion): morphine 4 mg IVP once; RASS on ADMIN: Combtv4, Very rv Agttd3, Agttd2, Rstlss1, AlertClm0, Drwsy-1, Lt Sdtn-2, Mod Sdtn-3, Dp Sdtn-4, UnArsble-5 Disposition: 11/09/19 02:15 Discharged to Home. Impression: Delayed or excessive hemorrhage following complete or unspecified spontaneous , Muscle weakness (generalized), Anemia in chronic diseases classified elsewhere. - Condition is Stable. - Discharge Instructions: Anemia, Nonspecific, Miscarriage, Weakness. - Medication Reconciliation Form, Thank You Letter, Antibiotic Education, Prescription Opioid Use form. - Follow up: Private Physician; When: Upon discharge from the Emergency Department; Reason: Recheck today's complaints, Continuance of care, Re-evaluation by your physician. - Problem is new. - Symptoms have improved. Signatures: Dispatcher [employer] Lowell Bryant MD MD tw4 Brayden Watts RN RN rv Nicole Valenzuela RN RN vc Corrections: (The following items were deleted from the chart) 01:41 00:57 Urine Dipstick-Ancillary ordered. rv rv 02:16 02:15 11/09/2019 02:15 Discharged to Home. Impression: Delayed or excessive hemorrhage tw4 following complete or unspecified spontaneous ; Muscle weakness (generalized). Condition is Stable. Forms are Medication Reconciliation Form, Thank You Letter, Antibiotic Education, Prescription Opioid Use. Follow up: Private Physician; When: Upon discharge from the Emergency Department; Reason: Recheck today's complaints, Continuance of care, Re-evaluation by your physician. Problem is new. Symptoms have improved. tw4 02:54 02:16 11/09/2019 02:15 Discharged to Home. Impression: Delayed or excessive hemorrhage rv following complete or unspecified spontaneous ; Muscle weakness (generalized); Anemia in chronic diseases classified elsewhere. Condition is Stable. Forms are Medication Reconciliation Form, Thank You Letter, Antibiotic Education, Prescription Opioid Use. Follow up: Private Physician; When: Upon discharge from the Emergency Department; Reason: Recheck today's complaints, Continuance of care, Re-evaluation by your physician. Problem is new. Symptoms have improved. tw4
[2019-11-09 06:16] VITALS: TEMP 98.2
[2019-11-09 06:17] VITALS: O2SAT 100
[2019-11-09 06:22] VITALS: BP 105/58
== END 2019-11-09 02:54 | disposition home or self-care (01) ==
LOC: ER 00:44
DX: O03.6 Delayed or excessive hemorrhage following complete or unspecified spontaneous abortion (principal); D64.9 Anemia, unspecified
CPT/HCPCS: 96361; 85025; 80048; 36415; 86900; 86901; 96375; 96374; 99284; J7030; J2405

== ENCOUNTER 2020-04-06 11:03 | Emergency (ER) | payer OTHER ==
[2020-04-06 11:50] LABS: Absolute Lymphocytes (CBC) 1.1 K/uL (0.7-4.9); Basophils % 0.8 % (0-1.3); Hematocrit 35.9 % (36.0-45.0); Lymphocytes % 17.5 % (15.3-44.8); MPV 7.5 fL (7.6-11.3); RBC Red Blood Cell Count 4.35 M/uL (3.86-4.86)
[2020-04-06 12:23] LABS: BUN Blood Urea Nitrogen 10 mg/dL (7-18); Bicarbonate 25 mmol/L (21-32); Glucose Level 113 mg/dL (74-106); HCG, Quantitative 46277 mIU/mL (1-3); Potassium 3.6 mmol/L (3.5-5.1); Sodium Level 140 mmol/L (136-145)
[2020-04-06 12:25] LABS: Urine Blood NEGATIVE (NEG); Urine Glucose NEGATIVE (NEG); Urine Protein NEGATIVE (NEG); Urine Specific Gravity 1.025 (1.005-1.030)
--- NOTE | 2020-04-06 13:38 | RAD REPORT ---
EXAM DESCRIPTION: US - Matter Eval Tm 1 - 04/06/2020 1:01 pm CLINICAL HISTORY: , bleeding COMPARISON: None. FINDINGS: Normal size retroflexed uterus is identifiable. No myometrial mass. Gestational sac is normal in appearance. A single intrauterine gestation is identified. Heart rate is 140 bpm. No hematoma, mass or other suspicious finding. [place]-rump length measurement corresponds to a 7 W 3 D age. YUSEF is 11/20/2020. No suspicion for placental abnormality. No intrauterine hematoma. Both ovaries are identified and normal in appearance. No adnexal abnormality. IMPRESSION: Single 7 W 3 D intrauterine gestation. YUSEF is 11/20/2020.
--- NOTE | 2020-04-06 14:01 | EDPHYS ---
Physician Documentation [facility] Name: Jennifer Rosas Age: 29 yrs Sex: Female : 1990 Arrival Date: 04/06/2020 Time: 11:06 Bed 18 Private MD: ED Physician Malcolm Mclain HPI: 04/06 12:16 This 29 yrs old Black Female presents to ER via Ambulatory with complaints of Vaginal snw Bleeding, + Preg <12wks. 12:16 The patient presents with vaginal bleeding that is spotting. Onset: The snw symptoms/episode began/occurred suddenly, 2 day(s) ago, and became persistent. Associated signs and symptoms: The patient has no apparent associated signs or symptoms. Severity of symptoms: At their worst the symptoms were very mild. The patient has experienced a previous episode. The patient has not recently seen a physician. 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 - Social history:: Smoking status: Patient denies any tobacco usage or history of. ROS: 12:16 Constitutional: Negative for fever, chills, and weight loss, Eyes: Negative for injury, snw pain, redness, and discharge, ENT: Negative for injury, pain, and discharge, Neck: Negative for injury, pain, and swelling, Cardiovascular: Negative for chest pain, palpitations, and edema, Respiratory: Negative for shortness of breath, cough, wheezing, and pleuritic chest pain, Abdomen/GI: Negative for abdominal pain, nausea, vomiting, diarrhea, and constipation, Back: Negative for injury and pain, MS/Extremity: Negative for injury and deformity, Skin: Negative for injury, rash, and discoloration, Neuro: Negative for headache, weakness, numbness, tingling, and seizure, Psych: Negative for depression, anxiety, suicide ideation, homicidal ideation, and hallucinations. 12:16 : Positive for vaginal bleeding, menstrual abnormality, LMP 01/23/20, , miscarriage in Oct. Exam: 12:16 Constitutional: This is a well developed, well nourished patient who is awake, alert, snw and in no acute distress. Head/Face: Normocephalic, atraumatic. Eyes: Pupils equal round and reactive to light, extra-ocular motions intact. Lids and lashes normal. Conjunctiva and sclera are non-icteric and not injected. Cornea within normal limits. Periorbital areas with no swelling, redness, or edema. ENT: Nares patent. No nasal discharge, no septal abnormalities noted. Tympanic membranes are normal and external auditory canals are clear. Oropharynx with no redness, swelling, or masses, exudates, or evidence of obstruction, uvula midline. Mucous membranes moist. Neck: Trachea midline, no thyromegaly or masses palpated, and no cervical lymphadenopathy. Supple, full range of motion without nuchal rigidity, or vertebral point tenderness. No Meningismus. Chest/axilla: Normal chest wall appearance and motion. Nontender with no deformity. No lesions are appreciated. Cardiovascular: Regular rate and rhythm with a normal S1 and S2. No gallops, murmurs, or rubs. Normal PMI, no JVD. No pulse deficits. Respiratory: Lungs have equal breath sounds bilaterally, clear to auscultation and percussion. No rales, rhonchi or wheezes noted. No increased work of breathing, no retractions or nasal flaring. Abdomen/GI: Soft, non-tender, with normal bowel sounds. No distension or tympany. No guarding or rebound. No evidence of tenderness throughout. Back: No spinal tenderness. No costovertebral tenderness. Full range of motion. Skin: Warm, dry with normal turgor. Normal color with no rashes, no lesions, and no evidence of cellulitis. MS/ Extremity: Pulses equal, no cyanosis. Neurovascular intact. Full, normal range of motion. Neuro: Awake and alert, GCS 15, oriented to person, place, time, and situation. Cranial nerves II-XII grossly intact. Motor strength 5/5 in all extremities. Sensory grossly intact. Cerebellar exam normal. Normal gait. Psych: Awake, alert, with orientation to person, place and time. Behavior, mood, and affect are within normal limits. Vital Signs: 11:21 BP 147 / 79; Pulse 76; Resp 16; Temp 97.7(TE); Pulse Ox 100% on R/A; Weight 113.4 kg; ss Height 5 ft. 7 in. (170.18 cm); Pain 0/10; 11:21 Body Mass Index 39.16 (113.40 kg, 170.18 cm) ss MDM: 11:47 Patient medically screened. snw 12:14 Data reviewed: vital signs, nurses notes. Data interpreted: Pulse oximetry: on room air snw is 100 %. Interpretation: normal. Counseling: I had a detailed discussion with the patient and/or guardian regarding: the historical points, exam findings, and any diagnostic results supporting the discharge/admit diagnosis, lab results, radiology results, the need for outpatient follow up. 04/06 11:25 Order name: Urine Dipstick--Ancillary (enter results); Complete Time: 12:29 [facility] 04/06 11:25 Order name: Urine --Ancillary (enter results); Complete Time: 12:29 [facility] 04/06 11:27 Order name: Quantitative Hcg; Complete Time: 12:29 snw 04/06 11:27 Order name: Abo/rh Typing; Complete Time: 12:46 snw 04/06 11:27 Order name: Basic Metabolic Panel; Complete Time: 12:29 snw 04/06 11:27 Order name: CBC with Diff; Complete Time: 12:09 snw 04/06 11:25 Order name: Urine Dipstick-Ancillary (obtain specimen); Complete Time: 11:25 04/06 11:25 Order name: Urine Test (obtain specimen); Complete Time: 11:25 04/06 11:27 Order name: IV Saline Lock; Complete Time: 11:46 snw 04/06 11:27 Order name: Labs collected and sent; Complete Time: 11:46 snw 04/06 11:27 Order name: NPO; Complete Time: 11:46 snw 04/06 13:01 Order name: Matter Eval Tm 1; Complete Time: 13:59 EDMS Administered Medications: No medications were administered Disposition: 04/07 04:27 Co-signature as Attending Physician, Malcolm Mclain MD I agree with the assessment and kdr plan of care. Disposition: 04/06/20 14:01 Discharged to Home. Impression: state, Threatened . - Condition is Stable. - Discharge Instructions: Threatened Miscarriage, Vaginal Bleeding During , First Trimester, First Trimester of , Pelvic Rest. - Prescriptions for Vitamin 27- 0.8 mg Oral Tablet - take 1 tablet by ORAL route once daily; 60 tablet. - Medication Reconciliation Form, Thank You Letter, Antibiotic Education, Prescription Opioid Use form. - Follow up: Emergency Department; When: As needed; Reason: Worsening of condition. Follow up: Private Physician; When: 2 - 3 days; Reason: Recheck today's complaints, Continuance of care, Re-evaluation by your physician. Signatures: Dispatcher [employer] EDMS Malcolm Mclain MD MD [facility] Kathya Duarte, MACHINE MAINTENANCE SERVICER-C MACHINE MAINTENANCE SERVICER-Csnw Marah Naqvi RN RN ss Harris, Amy, RN RN Corrections: (The following items were deleted from the chart) 04/06 12:15 12:09 Constitutional: This is a well nourished patient who is awake, alert, and in no snw acute distress. Pt with TBI, unsteady gait, left hand contractures Head/Face: Normocephalic, atraumatic. Eyes: Pupils equal round and reactive to light, extra-ocular motions intact. Lids and lashes normal. Conjunctiva and sclera are non-icteric and not injected. Cornea within normal limits. Periorbital areas with no swelling, redness, or edema. ENT: Nares patent. No nasal discharge, no septal abnormalities noted. Tympanic membranes are normal and external auditory canals are clear. Oropharynx with no redness, swelling, or masses, exudates, or evidence of obstruction, uvula midline. Mucous membranes moist. Neck: Trachea midline, no thyromegaly or masses palpated, and no cervical lymphadenopathy. Supple, full range of motion without nuchal rigidity, or vertebral point tenderness. No Meningismus. Chest/axilla: Normal chest wall appearance and motion. Nontender with no deformity. No lesions are appreciated. Cardiovascular: Regular rate and rhythm with a normal S1 and S2. No gallops, murmurs, or rubs. Normal PMI, no JVD. No pulse deficits. snw 12:15 12:09 Respiratory: mild respiratory distress is noted, Respirations: shallow snw respirations, tachypnea, Breath sounds: are clear throughout, snw 12:15 12:09 Abdomen/GI: Inspection: distension, Bowel sounds: normal, Palpation: mild snw abdominal tenderness, in the right lower quadrant, snw 12:15 12:09 Back: pain, that is moderate, ROM is normal, CVA tenderness, that is mild, is snw noted on the right, muscle spasm, is not present, snw 12: 12:09 Skin: Warm, dry with normal turgor. Normal color with no rashes, no lesions, and snw no evidence of cellulitis. snw 12: 12:09 Neuro: Orientation: is normal, Mentation: is normal, Cerebellar function: snw severely impaired, family states at baseline, Gait: ataxic, falls to right, snw 12: 12:09 Psych: Awake, alert, with orientation to person, place and time. Behavior, mood, snw and affect are within normal limits. snw 12:15 12:14 Constitutional: Negative for fever, chills, and weight loss, Eyes: Negative for snw injury, pain, redness, and discharge, ENT: Negative for injury, pain, and discharge, Neck: Negative for injury, pain, and swelling, Cardiovascular: Negative for chest pain, palpitations, and edema, Respiratory: Negative for shortness of breath, cough, wheezing, and pleuritic chest pain, Abdomen/GI: Negative for abdominal pain, nausea, vomiting, diarrhea, and constipation, : Negative for injury, bleeding, discharge, and swelling, MS/Extremity: Negative for injury and deformity, Skin: Negative for injury, rash, and discoloration, Neuro: Negative for headache, weakness, numbness, tingling, and seizure, snw 12:15 12:14 Back: Positive for pain at rest, pain with movement, flank pain, on the right, snwsnw 13:01 11:28 Transvaginal Ob+US.RAD.BRZ ordered. EDMS EDMS 14:35 14:01 04/06/2020 14:01 Discharged to Home. Impression: state; Threatened ah . Condition is Stable. Forms are Medication Reconciliation Form, Thank You Letter, Antibiotic Education, Prescription Opioid Use. Follow up: Emergency Department; When: As needed; Reason: Worsening of condition. Follow up: Private Physician; When: 2 - 3 days; Reason: Recheck today's complaints, Continuance of care, Re-evaluation by your physician. snw
--- NOTE | 2020-04-06 14:01 | ER ---
Nurse's Notes [facility] Name: Jennifer Rosas Age: 29 yrs Sex: Female : 1990 Arrival Date: 04/06/2020 Time: 11:06 Bed 18 Private MD: Diagnosis: state;Threatened Presentation: 04/06 11:21 Chief complaint: Patient states: intermittent vaginal spotting x 2 days. Reports she is ss 9 weeks . Coronavirus screen: Proceed with normal triage. Patient denies a cough. Patient denies shortness of breath or difficulty breathing. Patient denies measured and/or subjective temperature greater than 100.4F prior to today's visit. Patient denies travel on a cruise ship or to a country the [facility] currently lists as an affected area. Patient denies contact with known and/or suspected case of COVID-19. Ebola Screen: Patient denies exposure to infectious person. Patient denies travel to an Ebola-affected area in the 21 days before illness onset. Initial Sepsis Screen: Does the patient meet any 2 criteria? No. Patient's initial sepsis screen is negative. Does the patient have a suspected source of infection? No. Patient's initial sepsis screen is negative. Risk Assessment: Do you want to hurt yourself or someone else? Patient reports no desire to harm self or others. Onset of symptoms was April 04, 2020. 11:21 Method Of Arrival: Ambulatory 11:21 Acuity: JHONATAN 3 ss SPECIALTY MOLDER: 12:16 4, Full Term 2, LMP 01/23/2020 snw Historical: - Allergies: 11:24 NKA; ss - Home Meds: 11:24 aspirin 81 mg Oral TbEC 1 tab once daily [Active]; ss - PSHx: 11:24 ; ss - Immunization history:: Adult Immunizations up to date. - Social history:: Smoking status: Patient denies any tobacco usage or history of. Screenin:49 Abuse screen: Denies threats or abuse. Nutritional screening: No deficits noted. ah Tuberculosis screening: No symptoms or risk factors identified. Fall Risk None identified. Assessment: 11:47 Obstetrical Assessment: General assessment: awake and alert, anxious, skin warm and ah dry, respirations even and unlabored. General: Appears in no apparent distress. Behavior is calm, cooperative, appropriate for age. Pain: Denies pain. Neuro: Level of Consciousness is awake, alert, obeys commands, Oriented to person, place, time, situation, Appropriate for age. Cardiovascular: Capillary refill < 3 seconds Patient's skin is warm and dry. Respiratory: Airway is patent Respiratory effort is even, unlabored, Respiratory pattern is regular, symmetrical. GI: Bowel sounds present X 4 quads. : Urine is clear, Reports vaginal bleeding that is spotty, since a few days. Derm: Skin is intact, is healthy with good turgor, Skin is dry. 12:45 Reassessment: Patient and/or family updated on plan of care and expected duration. Pain ah level reassessed. Patient is alert, oriented x 3, equal unlabored respirations, skin warm/dry/pink. 13:45 Reassessment: Patient and/or family updated on plan of care and expected duration. Pain ah level reassessed. Patient is alert, oriented x 3, equal unlabored respirations, skin warm/dry/pink. Provider in explaining results to Pt. Vital Signs: 11:21 BP 147 / 79; Pulse 76; Resp 16; Temp 97.7(TE); Pulse Ox 100% on R/A; Weight 113.4 kg; ss Height 5 ft. 7 in. (170.18 cm); Pain 0/10; 11:21 Body Mass Index 39.16 (113.40 kg, 170.18 cm) Vitals: 14:15 Heart Tones 140. ED Course: 11:06 Patient arrived in ED. as 11:23 Triage completed. ss 11:24 Arm band placed on right wrist. ss 11:25 Kathya Duarte FNP-C is PHCP. snw 11:25 Malcolm Mclain MD is Attending Physician. snw 11:29 Neida Villa, RN is Primary Nurse. 11:46 Initial lab(s) drawn, by mn, sent to lab. Urine collected: clean catch specimen, clear. Inserted saline lock: 22 gauge in right antecubital area, using aseptic technique. 11:49 Patient has correct armband on for positive identification. Bed in low position. Call light in reach. Side rails up X 1. Pulse ox on. NIBP on. Warm blanket given. 12:59 Ultrasound completed. Patient tolerated well. Notified COMPLIANCE REVIEWER/SHAWN rollins. sg3 13:02 Matter Eval Tm 1 In Process Unspecified. EDMS 14:15 No provider procedures requiring assistance completed. IV discontinued, intact, bleeding controlled, No redness/swelling at site. Pressure dressing applied. Administered Medications: No medications were administered Outcome: 14:01 Discharge ordered by . dione 14:15 Discharged to home ambulatory. 14:15 Condition: good 14:15 Discharge instructions given to patient, Instructed on discharge instructions, follow up and referral plans. Demonstrated understanding of instructions, follow-up care, medications, Prescriptions given X 1. 14:35 Patient left the ED. Signatures: Dispatcher [employer] EDMD Kathya Duarte, CONVERTIBLE TOP INSTALLER-C CONVERTIBLE TOP INSTALLER-Miracle Zavala Shelby, RN RN Ruma Spencer sg3 Neida Villa RN RN
--- OUTSIDE RECORDS SUMMARY | 2020-04-06 14:02 | XMS REPORT | Summary of Care ---
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 Nurse or test, negative [address] [facility] result (Primary Dx) [place] [address] Allergies No Known Allergiesdocumented as of this encounter (statuses as of 03/14/2020) Medications Medication Sig Dispensed Refills Start Date End Date Status CITRANATAL ASSURE 35 0 10/20/2019 Active mg iron-1 mg -50 mg-300 mg combo pack norgestimate-ethinyl Take 1 tablet by 1 Package 4 11/20/2019 Active estradiol 0.25-35 mouth daily. mg-mcg per tabletIndications: BCP ( control pills) initiation documented as of this encounter (statuses as of 03/14/2020) Active Problems Problem Noted Date BCP ( control pills) initiation 11/20/2019 Missed with demise before 20 completed weeks of gestation 11/08/2019 Morbid obesity with body mass index of 40.0-49.9 04/07 documented as of this encounter (statuses as of 03/14/2020) Resolved Problems Problem Noted Date Resolved Date Vaginal bleeding affecting early 10/26/2019 11/13/2019 Well woman exam 01/27/2019 10/26/2019 Contraceptive management 01/27/2019 10/26/2019 depression 05/11/2018 01/27/2019 Pre-eclampsia, severe, antepartum, third trimester 8 01/27/2019 36 weeks gestation of 04/07/2018 04/18/20 18 GDM, class A1 04/07/2018 2018 High-risk in third trimester 10/25/2017 0 2018 Supervision of high risk in first trimester 201704/07/2018 Encounter for confirmation of test result with 04/07/2018 physical examination Previous section 08/30/2017 01/27/2019 Oral contraceptive use 12/18/2016 08/30/2017 Obesity, unspecified 12/18/2016 08/30/2017 Gestational HTN, third trimester 11/18/2016 017 Full-term premature rupture of membranes with onset of labor 11/17/2016 12/18/2016 within 24 hours of rupture Full-term premature rupture of membranes, onset of labor 12/18/2016 within 24 hours of rupture Failure of descent in labor, delivered, current 201608/30/2017 hospitalization Liveborn infant, of tyson , born in hospital by 11/17/2016 01/27/2019 delivery Status post primary low transverse section 11/17/19 17 08/30/2017 intolerance to labor, delivered, current 11/17/2016 12/18/2016 hospitalization Immune to varicella 10/22/2016 08/30/2017 Rubella immune 10/22/2016 08/30/2017 GBS carrier 10/22/2016 12/18/2016 High-risk , third trimester 08/25/201612/2016 Obesity complicating , third trimester 08/25/2016 12/18/2016 UTI in , antepartum, second trimester 06/09/2016 12/18/2016 High-risk supervision, second trimester 05/12/2016 08/25/2016 Obesity complicating , second trimester 05/12/2016 08/25/2016 Threatened miscarriage in early 04/07/2016 12/18/2016 Obesity affecting in first trimester 04/07/2016 05/12/2016 documented as of this encounter (statuses as of 03/14/2020) Immunizations Name Administration Dates Next Due Influenza Virus Vaccine 07/29/2018 Influenza Virus Vaccine Quad .5 mL IM 6+ 10/26/2019 MO Influenza Virus Vaccine Quad IM 3+ YRS 11/20/2016, 7, 07/07/2016 Tdap 03/09/2018, 08/25/2016 documented as of [...] Travel End No recent travel history available. COVID-19 Exposure Response Date Recorded In the last month, have you been in contact with No / Unsure 03/14/2020 8:43 AM CDT someone who was confirmed or suspected to have Coronavirus / COVID-19? documented as of this encounter Last Filed Vital Signs Vital Sign Reading Time Taken Comments Blood Pressure 129/77 03/14/2020 8:43 AM CDT Pulse 75 03/14/2020 8:43 AM CDT Temperature 36.8 C (98.2 F) 03/14/2020 8:43 AM CDT Respiratory Rate 16 03/14/2020 8:43 AM CDT Oxygen Saturation - - Inhaled Oxygen Concentration - - Weight 132.1 kg (291 lb 4 oz) 03/14/2020 8:43 AM CDT Height 170.2 cm (5' 7") 03/14/2020 8:43 AM CDT Body Mass Index 45.62 03/14/2020 8:43 AM CDT documented in this encounter Progress Notes Sunshine Toledo RN - 03/14/2020 10:30 AM CDTPatient present for new ob appointment. UPT is negative. Patient has positive tests at home. Advisedpatient to come back in 7 days to repeat upt. Patient verbalized understanding. SUNSHINE TOLEDO RN 03/14/2020 8:52 AM documented in this encounter Plan of Treatment Date Type Specialty Care Team Description 03/21/2020 Initial Visit OB Satellites Provider, [facility] [place] Health Maintenance Due Date Last Done Comments Depression Screening 05/08/2020 05/08/2019 PAP SMEAR 01/27/2022 01/27/2019, 04/14/2016 DTaP,Tdap,and Td Vaccines 03/09/2028 03/09/2018, 08/25/2016 (3 - Td) INFLUENZA VACCINE Completed 10/26/2019, 07/29/2018, 11/20/2016, Additional history exists PNEUMOCOCCAL 0-64 YEARS Aged Out No longe r eligible COMBINED SERIES based on patient 's age to complete this topic documented as of this encounter Procedures Procedure Name Priority Date/Time Associated Diagnosis Comme nts POCT TEST Routine 03/14/2020 8:45 AM R esults for this CDT examination or test, procedu re are in negative result the results section. documented in this encounter Results POCT TEST (03/14/2020 8:45 AM CDT) Pathologist Sig nature POCT PREG Negative On board controls acceptable Yes with C Line POCT PREG LOT # POCT PREG TEST DATE Specimen Urine - URINE, CLEAN CATCH documented in this encounter Visit Diagnoses Diagnosis examination or test, negative result - Primary documented in this encounter Insurance Payer Benefit Plan / Subscriber ID Effective Phone Address T [facility] xxxxxxxxx 2019-Pres [address] Medic aid HEALTH CHOICE - HEALTH CHOICE ent [id number] MANAGED MEDICAID [place], [place] [phone] documented as of this encounter Advance Directives Name Relationship Healthcare Agent Relationship Co mmunication Christo Kirby Spouse Primary healthcare agent
--- OUTSIDE RECORDS SUMMARY | 2020-04-06 14:02 | XMS REPORT | Summary of Care ---
:1990 Author Organization [facility] Address [address] [place] [address] Care Team Providers Name Role Phone Glenna Canales Primary Care Provider Encounter Details Date Type Department Care Team Description 03/14/2020 Orders Only [facility] Doctor Unassigned, No [address] [facility] Name [place] [id number] [address] [place] [id number] Allergies No Known Allergiesdocumented as of this [...] in labor, delivered, current 201608/30/2017 hospitalization Liveborn , of tyson , born [...] Name Priority Date/Time Associated Diagnosis Comme nts ASSIGNMENT OF BENEFITS Routine 03/14/2020 8:11 AM CDT documented in this encounter Results Not on filedocumented in this encounter Insurance Payer Benefit Plan / Subscriber ID Effective Phone Address T [facility] xxxxxxxxx 2019-Pres [address] Medic aid HEALTH CHOICE - HEALTH CHOICE ent [id number] MANAGED MEDICAID [place], [place] [phone] documented as of this encounter Advance Directives Name Relationship Healthcare Agent Relationship Co mmunication Christo Kirby Spouse Primary healthcare agent
--- OUTSIDE RECORDS SUMMARY | 2020-04-06 14:03 | XMS REPORT | Summary of Care ---
:1990 Author Organization [facility] Address [address] [place] [address] Care Team Providers Name Role Phone Ally Glenna Primary Care Provider Reason for Referral (Routine) Status Reason Specialty Diagnoses / Referred By Referred To Procedures Contact Contact New Request Maternal Diagnoses Supervision of high risk , antepartum Rebecca, Medicine Procedures CONSULT MATERNAL MEDICINE ULTRASOUND Preferred Location: Jerri Marsh [facility] [address] [facility] [address] [place] [address] Reason for Visit Reason Comments Initial Visit Encounter Details Date Type Department Care Team Description 03/21/2020 Initial [facility]- Paxton Fernandez [facility] [address] [facility] [address] [place] [address] [phone] Supervision of high risk , ante (Primary Dx); Visit Jerri ProviderRamiro Temtrever Morbid obesity with body mass index of 4 0.0-49.9; [address] Missed ab ortion with demise before 20 completed [place] [address] Allergies No Known Allergiesdocumented as of this encounter (statuses as of 03/21/2020) Medications Medication Sig Dispensed Refills Start Date End Date Status CITRANATAL ASSURE 35 0 10/20/2019 Active mg iron-1 mg -50 mg-300 mg combo pack norgestimate-ethinyl Take 1 tablet by 1 Package 4 11/20/2019 Active estradiol 0.25-35 mouth daily. mg-mcg per tabletIndications: BCP ( control pills) initiation vit Take by mouth. 0 A ctive calc,iron,folic ( VITAMIN ORAL) aspirin 81 mg chewable Take 81 mg by 0 Active tablet mouth daily. proMETHazine 25 mg Take 1 tablet by 90 tablet 0 03/21/2020 Active tabletIndications: mouth every 4 Supervision of high (four) hours as risk , needed for Nausea antepartum and Vomiting (N/V). vit Take 1 Packet by 30 Each 4 03/21/2020 Active 60-ezzh-qeybj-dha mouth daily. (SELECT-OB + DHA) 29 mg iron-1 mg -250 mg combo packIndications: Supervision of high risk , antepartum documented as of this encounter (statuses as of 03/21/2020) Active Problems Problem Noted Date Missed with demise before 20 completed weeks of gestation 11/08/2019 Morbid obesity with body mass index of 40.0-49.9 04/07 Estimated Date of Delivery Comments Yes 10/29/2020 Based on last menstr ual period of 01/23/2020 (Approximate) documented as of this encounter (statuses as of 03/21/2020) Resolved Problems Problem Noted Date Resolved Date BCP ( control pills) initiation 11/20/201901/2020 Vaginal bleeding affecting early 10/26/2019 11/13/2019 Well [...] as of this encounter (statuses as of 03/21/2020) Immunizations Name Administration Dates Next Due Influenza [...] No 0 Standard drinks or equivalent 0.0 Estimated Date of Delivery Comments Yes 10/29/2020 Based on last menstr ual period of 01/23/2020 (Approximate) Sex Assigned at Date Recorded Not on file Job Start Date Occupation Industry Not on file Not on file Not on file Travel History Travel Start Travel End No recent travel history available. COVID-19 Exposure Response Date Recorded In the last month, have you been in contact with No / Unsure 03/21/2020 9:24 AM CDT someone who was confirmed or suspected to have Coronavirus / COVID-19? documented as of this encounter Last Filed Vital Signs Vital Sign Reading Time Taken Comments Blood Pressure 132/77 03/21/2020 9:24 AM CDT Pulse 84 03/21/2020 9:24 AM CDT Temperature 37.4 C (99.4 F) 03/21/2020 9:24 AM CDT Respiratory Rate 16 03/21/2020 9:24 AM CDT Oxygen Saturation - - Inhaled Oxygen Concentration - - Weight 133 kg (293 lb 4 oz) 03/21/2020 9:24 AM CDT Height 170.2 cm (5' 7") 03/21/2020 9:24 AM CDT Body Mass Index 45.93 03/21/2020 9:24 AM CDT documented in this encounter Progress Notes Salma Fernandez, SHIREEN - 03/21/2020 9:00 AM CDT Chief complaint: Chief Complaint Patient presents with Initial Visit HPI CC: Initial Visit Jennifer Rosas is a 29 year old, , Black or female. Patient's lastmenstrual period was 01/23/2020 (approximate). She is 8w2d with an intrauterine . Her Estimated Date of Delivery: 10/29/20. She is being seen today for her first obstetrical visit. Patient reports mild NVP. OB History Para Term AB Living 4 2 1 1 1 2 SAB TAB Ectopic Multiple Live Births 1 0 0 0 2 # Outcome Date GA Lbr Sim/2nd Weight Sex Delivery Anes PTL Lv 4 Current 3 SAB 11/08/19 7w3d 2 04/08/18 36w6d 8 lb 7 oz (3.827 kg) M SEC Spinal KENNEDI 1 Term 11/17/16 40w4d 8 lb 13.8 oz (4.02 kg) F SEC EPI KENNEDI Comments: Maternal Age: 24 years old, G 1, P 1 Mother's Blood Type: B+ Maternal Serological Test: negative Maternal Group B Strep Screening: positive Adequate Treatment: PCN x 2 Complications: PROM SROM 14 hours prior to delivery with clear fluid. Labor Complications: Failure of descent, intolerance of labor problems: none OAE: passed, 11/18/2016 Hepatitis B Vaccine: Most Recent Immunizations Administered Date(s) Administered Hep B, Adol or Pedi Dosage 11/17/2016 screen drawn, results pending. CCHD screen: passed Histories OB History Para Term AB Living 4 2 1 1 1 2 SAB TAB Ectopic Multiple Live Births 1 0 0 0 2 # Outcome Date GA Lbr Sim/2nd Weight Sex Delivery Anes PTL Lv 4 Current 3 SAB 11/08/19 7w3d 2 04/08/18 36w6d 8 lb 7 oz (3.827 kg) M SEC Spinal KENNEDI 1 Term 11/17/16 40w4d 8 lb 13.8 oz (4.02 kg) F SEC EPI KENNEDI Comments: Maternal Age: 24 years old, G 1, P 1 Mother's Blood Type: B+ Maternal Serological Test: negative Maternal Group B Strep Screening: positive Adequate Treatment: PCN x 2 Complications: PROM SROM 14 hours prior to delivery with clear fluid. Labor Complications: Failure of descent, intolerance of labor problems: none OAE: passed, 11/18/2016 Hepatitis B Vaccine: Most Recent Immunizations Administered Date(s) Administered Hep B, Adol or Pedi Dosage 11/17/2016 screen drawn, results pending. CCHD screen: passed Past Medical History: Diagnosis Date GDM, class A1 04/07/2018 gestational, diet controlled Gestational HTN, third trimester 11/18/2016 gestational, pre eclampsia Obese depression 05/11/2018 , not on meds Family History Problem Relation Age of Onset Diabetes Father Cancer Father 87 Liver Arthritis Father Heart Father Hypertension Father COPD (chronic obstructive pulmonary disease) Father Diabetes Brother Hypertension Mother Asthma NoFHx defects NoFHx Breast Cancer NoFHx Colon Cancer NoFHx Ovarian Cancer NoFHx Uterine Cancer NoFHx Genetic NoFHx High cholesterol NoFHx Mental retardation NoFHx Neurological NoFHx Osteoporosis NoFHx Psychiatry NoFHx Family Status Relation Name Status Fa Bro Alive MGMo MGFa PGMo PGFa Mo Alive NoFHx (Not Specified) Past Surgical History: Procedure Laterality Date SECTION N/A 11/17/2016 Surgeon: Amber Lomeli MD; Location: [facility] Location SECTION N/A 04/08/2018 Surgeon: Karla Witt MD; Location: [facility] OR [facility] Social History Socioeconomic History Marital status: Single Spouse name: Not on file Number of children: Not on file Years of education: Not on file Highest education level: Not on file Occupational History Not on file Social Needs Financial resource strain: Not on file Food insecurity: Worry: Not on file Inability: Not on file Transportation needs: Medical: Not on file Non-medical: Not on file Tobacco Use Smoking status: Never Smoker Smokeless tobacco: Never Used Substance and Sexual Activity Alcohol use: No Alcohol/week: 0.0 standard drinks Drug use: No Sexual activity: Yes Partners: Male control/protection: None Comment: last sexual intercourse 02/27/2020 Lifestyle Physical activity: Days per week: Not on file Minutes per session: Not on file Stress: Not on file Relationships Social connections: Talks on phone: Not on file Gets together: Not on file Attends rastafari service: Not on file Active member of club or organization: Not on file Attends meetings of clubs or organizations: Not on file Relationship status: Not on file Intimate partner violence: Fear of current or ex partner: Not on file Emotionally abused: Not on file Physically abused: Not on file Forced sexual activity: Not on file Other Topics Concern Not on file Social History Narrative No domestic abuse or violence. No cats. Congregational: Rastafarian Patient lives with children, has 1 inside dog and outside cat. Social History Substance and Sexual Activity Sexual Activity Yes Partners: Male control/protection: None Comment: last sexual intercourse 02/27/2020 Genetic Screen Autism / Mental Retardation: No Evelia Disease: No Congenital Heart Defect: No Cystic Fibrosis: No Down Syndrome: No Familial Dysautonomia: No Hemophilia or other Blood Disorders: No Tere Chorea: No Maternal Metabolic Disorder--specify (eg. Type 1 Diabetes, PKU): No Muscular Dystrophy: No Neural Tube Defect: No Recurrent Loss or a Stillbirth: No Sickle Cell Disease or Trait: No Timi Sachs: No Teratological Substances (specify type & strength/dose) since LMP: No Thalassemia: No Other Inherited Genetic or Chromosomal Disorder (specify): No No Significant History of Genetic Disorders: No Significant History of Genetic Disorders Labs Labs are pending. Radiology Radiology pending. Allergies Jennifer has No Known Allergies. Medications Jennifer has a current medication list which includes the following prescription(s): aspirin, vit calc,iron,folic, norgestimate-ethinyl estradiol, and citranatal assure. Review of Systems Constitutional: Negative. HENT: Negative. Respiratory: Negative. Cardiovascular: Negative. Gastrointestinal: Negative. Genitourinary: Negative. Musculoskeletal: Negative. Psychiatric/Behavioral: Negative. BP 132/77 (BP Location: Right arm, Patient Position: Sitting, BP CUFF SIZE: Adult Large) | Pulse 84 | Temp 37.4 C (99.4 F) (Oral) | Resp 16 | Ht 5' 7" (1.702 m) | Wt 293 lb 4 oz (133 kg) | LMP 01/23/2020 (Approximate) | No | BMI 45.93 kg/m Pregravid BMI: Could not be calculated Physical Exam PHYSICAL: General Exam: HEENT: Normal Thyroid: Normal Lymph Node: Normal Neurological: Normal Heart: Normal Lungs: Normal Breasts: Normal Abdomen: Normal Skin: Normal Extremities: Normal Assessment/Plan Supervision of high risk , antepartum (primary encounter diagnosis) Comment: NOB Plan: POCT URINALYSIS W/O SPECIFIC GRAVITY, POCT TEST, CBC WITH DIFF, GC & CHLAMYDIA AMPLIFIED ASSAY, HEPATITIS B SURFACE ANTIGEN, HIV 1/2 AG-AB WITH REFLEX, POCT URINALYSIS W SPECIFIC GRAVITY, WORKUP, BLOOD BANK, RUBELLA SCREEN (CLARISA) IGG, GALV ONLY - SYPHILIS IGG/IGM, URINE CULTURE, VZV ANTIBODY SCREEN, Glucose 1 Hour Post Prandial, CBC WITH DIFF, HEPATITIS B SURFACE ANTIGEN, HIV 1/2 AG-AB WITH REFLEX, RUBELLA SCREEN (CLARISA) IGG, GALV ONLY - SYPHILIS IGG/IGM, URINE CULTURE, VZV ANTIBODY SCREEN, Glucose 1 Hour Post Prandial, CBC WITH DIFFERENTIAL, CONSULT MATERNAL MEDICINE ULTRASOUND Preferred Location: [facility], proMETHazine 25 mg tablet, vit 44-eqkd-dsvgb-dha (SELECT-OB + DHA) 29 mg iron-1 mg -250 mg combo pack, CANCELED: GLUCOSE 1 HOUR POST PRANDIAL Follow up with [facility] OB Morbid obesity with body mass index of 40.0-49.9 Comment: Nutritional education and guidance needed at each visit. Plan: Encourage healthy food choices and monitor weight gain at each visit. Missed with demise before 20 completed weeks of gestation Comment: @ 7wks Plan: HCG, QUANTITATIVE, Return to clinic in 1-2 weeks. Discussed treatment options. Medications as ordered. Reviewed patient instructions and provided printed copy. at 8w2d This visit did not involve counseling and coordination that comprised more than 50% of the visit time. Brielle Ferreira LVN - 03/21/2020 9:00 AM CDTPatient is 29 year old female here for current . Patient is . 1) Previous delivery methods 2) Patient is experiencing mild cramping 3) Patient is not experiencing bleeding. 4) LMP 01/23/2020 5) Last Pap was:01/27/2019 Results:negative 6) Have you had a flu vaccine this season?yes 7) PPD candidate? no 8) Patient complains of mild cramping. 9) Patient denies history of physical, emotional, or sexual abuse. Patient states she currently feels safe at home. NOB packet given and reviewed with patient. documented in this encounter Plan of Treatment Date Type Specialty Care Team Description 03/28/2020 Routine Visit [facility]ell[facility] Name Type Priority Associated Diagnoses Date/Ti me CBC WITH DIFF LAB Routine Supervision of high risk 10:25 AM , antepartum CDT GC & CHLAMYDIA AMPLIFIED LAB Routine Supervision of h igh risk 03/21/2020 11:04 AM ASSAY , antepartum CDT HEPATITIS B SURFACE LAB Routine Supervision of high r isk 03/21/2020 10:25 AM ANTIGEN , antepartum CDT HIV 1/2 AG-AB WITH REFLEX LAB Routine Supervision of high risk 03/21/2020 10:25 AM , antepartum CDT RUBELLA SCREEN (CLARISA) LAB Routine Supervision of hig h risk 03/21/2020 10:25 AM IGG , antepartum CDT GALV ONLY - SYPHILIS LAB Routine Supervision of high risk 03/21/2020 10:25 AM IGG/IGM , antepartum CDT URINE CULTURE LAB Routine Supervision of high risk 11:04 AM , antepartum CDT VZV ANTIBODY SCREEN LAB Routine Supervision of high r isk 03/21/2020 10:25 AM , antepartum CDT Glucose 1 Hour Post LAB Routine Supervision of high r isk 03/21/2020 10:25 AM Prandial , antepartum CDT HCG, QUANTITATIVE, LAB Routine Missed with 0 03/21/2020 10:25 AM demise before 20 CDT completed weeks of gestation CBC WITH DIFFERENTIAL LAB Routine Supervision of high risk 03/21/2020 10:25 AM , antepartum CDT Name Type Priority Associated Diagnoses Order S chedule CBC WITH DIFF LAB Routine Supervision of high risk Ex pected: 03/21/2020, , antepartum s: 03/21/2021 HEPATITIS B SURFACE LAB Routine Supervision of high r isk Expected: 03/21/2020, ANTIGEN , antepartum s: 03/21/2021 HIV 1/2 AG-AB WITH LAB Routine Supervision of high ri sk Expected: 03/21/2020, REFLEX , antepartum s: 03/21/2021 POCT URINALYSIS W LAB Routine Supervision of high ris k 20 Occurrences starting SPECIFIC GRAVITY , antepartum until 01/15/2021 WORKUP, BLOOD LAB Routine Supervision of hig h risk Ordered: 03/21/2020 BANK , antepartum RUBELLA SCREEN (CLARISA) LAB Routine Supervision of hig h risk Expected: 03/21/2020, IGG , antepartum s: 03/21/2021 GALV ONLY - SYPHILIS LAB Routine Supervision of high risk Expected: 03/21/2020, IGG/IGM , antepartum s: 03/21/2021 URINE CULTURE LAB Routine Supervision of high risk Ex pected: 03/21/2020, , antepartum s: 03/21/2021 VZV ANTIBODY SCREEN LAB Routine Supervision of high r isk Expected: 03/21/2020, , antepartum s: 03/21/2021 Glucose 1 Hour Post LAB Routine Supervision of high r isk Expected: 03/21/2020, Prandial , antepartum s: 03/21/2021 Health Maintenance Due Date Last Done Comments Depression Screening 03/21/2021 03/21/2020 PAP SMEAR 01/27/2022 01/27/2019, 04/14/2016 DTaP,Tdap,and Td Vaccines 03/09/2028 03/09/2018, 08/25/2016 (3 - Td) INFLUENZA VACCINE Completed 10/26/2019, 07/29/2018, 11/20/2016, Additional history exists PNEUMOCOCCAL 0-64 YEARS Aged Out No longe r eligible COMBINED SERIES based on patient 's age to complete this topic documented as of this encounter Procedures Procedure Name Priority Date/Time Associated Diagnosis Comme nts POCT URINALYSIS W/O Routine 03/21/2020 9:26 Supervision of hi gh Results for this SPECIFIC GRAVITY AM CDT risk , procedur e are in antepartum the results section. POCT TEST Routine 03/21/2020 9:26 Supervision of hi gh Results for this AM CDT risk , procedure ar e in antepartum the results section. documented in this encounter Results POCT TEST (03/21/2020 9:26 AM CDT) Pathologist Sig nature POCT PREG Positive On board controls acceptable Yes with C Line POCT PREG LOT # POCT PREG TEST DATE Specimen Urine - URINE, CLEAN CATCH POCT URINALYSIS W/O SPECIFIC GRAVITY (03/21/2020 9:26 AM CDT) Pathologist Sig nature POCT PH U 7 5 - 8 mg/dl POCT U LEUK EST Trace Negative - Negative POCT U NIT Neg Negative - Negative POCT U PROT Trace Negative - Negative POCT U GLU Neg Negative - Negative POCT U KETONE None Negative - Negative POCT U BLD Neg Negative - Negative Specimen Urine - URINE, CLEAN CATCH documented in this encounter Visit Diagnoses Diagnosis Supervision of high risk , ante - Primary Morbid obesity with body mass index of 4 0.0-49.9 Missed with demise before 20 completed weeks of gestation documented in this encounter Insurance Payer Benefit Plan / Subscriber ID Effective Phone Address T [facility] xxxxxxxxx 2019-Pres [address] Medic aid HEALTH CHOICE - HEALTH CHOICE ent [id number] 1 MANAGED MEDICAID [place], [place]ID [phone] documented as of this encounter Advance Directives Name Relationship Healthcare Agent Relationship Co mmunication Christo Kirby Spouse Primary healthcare agent
--- OUTSIDE RECORDS SUMMARY | 2020-04-06 14:03 | XMS REPORT | Summary of Care ---
:1990 Author Organization [facility] Address [address] [place] [address] Care Team Providers Name Role Phone Ally Glenna Primary Care Provider Reason for Referral (Routine) Status Reason Specialty Diagnoses / Referred By Referred To Procedures Contact Contact New Request Maternal Diagnoses Supervision of high risk , antepartum Rebecca, Medicine Procedures CONSULT MATERNAL MEDICINE ULTRASOUND Preferred Location: Jerri Marsh [facility] [address] [facility] [address] [place] [address] Reason for Visit Reason Comments Initial Visit Encounter Details Date Type Department Care Team Description 03/21/2020 Initial [facility]- Paxton Fernandez [place] [address] [facility] [address] [place] [address] [phone] Supervision of high risk , ante (Primary Dx); Visit Jerri ProviderRamiro Temtrever Morbid obesity with body mass index of 4 0.0-49.9; [address] Missed ab ortion with demise before 20 completed [place] [address] Allergies No Known Allergiesdocumented as [...] Packet by 30 Each 4 03/21/2020 Active 14-uhbm-gozle-dha mouth daily. (SELECT-OB + DHA) 29 mg [...] N/A 11/17/2016 Surgeon: Amber Lomeli MD; Location: [facility] OR Location SECTION N/A 04/08/2018 Surgeon: Karla Witt MD; Location: [facility] OR [facility] Social History Socioeconomic History Marital [...] file Gets together: Not on file Attends uatsdin service: Not on file Active member of [...] No domestic abuse or violence. No cats. Synagogue: Jewish Patient lives with children, has 1 inside [...] DIFFERENTIAL, CONSULT MATERNAL MEDICINE ULTRASOUND Preferred Location: [facility], proMETHazine 25 mg tablet, vit 65-kcxv-ibics-dha (SELECT-OB + DHA) 29 mg iron-1 mg [...] Description 03/28/2020 Routine Visit OB Satellites Risk, [facility]High Name Type Priority Associated Diagnoses Order S chedule CBC WITH DIFF LAB Routine Supervision of high Expecte d: 03/21/2020, risk , Expires: 01/2021 antepartum GC & CHLAMYDIA AMPLIFIED LAB Routine Supervision of h igh Ordered: 03/21/2020 ASSAY risk , antepartum HEPATITIS B SURFACE LAB Routine Supervision of high E xpected: 03/21/2020, ANTIGEN risk , Expires: 01/2021 antepartum HIV 1/2 AG-AB WITH REFLEX LAB Routine Supervision of high Expected: 03/21/2020, risk , Expires: 01/2021 antepartum POCT URINALYSIS W LAB Routine Supervision of high 20 Occurrences starting SPECIFIC GRAVITY risk , 03/21/20 20 until antepartum 01/15/2021 WORKUP, BLOOD LAB Routine Supervision of hig h Ordered: 03/21/2020 BANK risk , antepartum RUBELLA SCREEN (CLARISA) LAB Routine Supervision of hig h Expected: 03/21/2020, IGG risk , Expires: 01/2021 antepartum GALV ONLY - SYPHILIS LAB Routine Supervision of high Expected: 03/21/2020, IGG/IGM risk , Expires: 01/2021 antepartum URINE CULTURE LAB Routine Supervision of high Expecte d: 03/21/2020, risk , Expires: 01/2021 antepartum VZV ANTIBODY SCREEN LAB Routine Supervision of high E xpected: 03/21/2020, risk , Expires: 01/2021 antepartum Glucose 1 Hour Post LAB Routine Supervision of high E xpected: 03/21/2020, Prandial risk , Expires: 01/2021 antepartum CBC WITH DIFFERENTIAL LAB Routine Supervision of high Ordered: 03/21/2020 risk , antepartum Health Maintenance Due Date Last Done Comments [...] / Subscriber ID Effective Phone Address T [facility] xxxxxxxxx 2019-Pres P[address] BOX Medic aid HEALTH CHOICE - HEALTH CHOICE ent [id number] 1 MANAGED MEDICAID [place], [place] [phone] documented as of this encounter Advance Directives Name Relationship Healthcare Agent Relationship Co mmunication Christo Kirby Spouse Primary healthcare agent
--- OUTSIDE RECORDS SUMMARY | 2020-04-06 14:03 | XMS REPORT | Summary of Care ---
:1990 Author Organization [facility] Address [address] [place] [address] Care Team Providers Name Role Phone Ally Glenna Primary Care Provider Reason for Referral (Routine) Status Reason Specialty Diagnoses / Referred By Referred To Procedures Contact Contact New Request Maternal Diagnoses Supervision of high risk , antepartum Rebecca, Medicine Procedures CONSULT MATERNAL MEDICINE ULTRASOUND Preferred Location: Jerri Marsh [place] [address] [facility] [address] [place] [address] Reason for Visit Reason Comments Initial Visit Encounter Details Date Type Department Care Team Description 03/21/2020 Initial [facility]- Paxton Fernandez [place] [address] [facility] [address] [place] [address] [phone] Supervision of high risk , ante (Primary Dx); Visit Jerri ProviderRamiro Temtrever Morbid obesity with body mass index of 4 0.0-49.9; [address] Missed ab ortion with demise before 20 completed [place] [address] Allergies No Known Allergiesdocumented as [...] Packet by 30 Each 4 03/21/2020 Active 36-hszz-qulnj-dha mouth daily. (SELECT-OB + DHA) 29 mg [...] N/A 11/17/2016 Surgeon: Amber Lomeli MD; Location: [facility] OR Location SECTION N/A 04/08/2018 Surgeon: Karla Witt MD; Location: [facility] OR [facility] Social History Socioeconomic History Marital status: Single [...] file Gets together: Not on file Attends mormonism service: Not on file Active member of [...] No domestic abuse or violence. No cats. Shinto: Sabianism Patient lives with children, has 1 inside [...] DIFFERENTIAL, CONSULT MATERNAL MEDICINE ULTRASOUND Preferred Location: [facility], proMETHazine 25 mg tablet, vit 82-obzc-ucekj-dha (SELECT-OB + DHA) 29 mg iron-1 mg [...] Description 03/28/2020 Routine [facility] Name Type Priority Associated Diagnoses Date/Ti [...] / Subscriber ID Effective Phone Address T [facility] xxxxxxxxx 2019-Pres P[address]O. BOX Medic aid HEALTH CHOICE - HEALTH CHOICE ent [id number] 1 MANAGED MEDICAID [place], [place] [phone] documented as of this encounter Advance Directives Name Relationship Healthcare Agent Relationship Co mmunication Christo Kirby Spouse Primary healthcare agent
--- OUTSIDE RECORDS SUMMARY | 2020-04-06 14:04 | XMS REPORT | Summary of Care ---
:1990 Author Organization [facility] Address [address] [place] [id number] Care Team Providers Name Role Phone Glenna Canales Primary Care Provider Reason for Visit Reason Comments LAB Encounter Details Date Type Department Care Team Description 04/01/2020 Passenger Relations Representative Visit [facility]- Natalie Sommers, PALEOLOGY PROFESSOR [address] [facility] [place] [address] Chronic hypertension with exacerbation d uring in first trimester; [facility], [facility] History of pre-eclampsia [address] [place] [address] Allergies No Known Allergiesdocumented as of this encounter (statuses as of 04/01/2020) Medications Medication Sig Dispensed Refills Start Date [...] Packet by 30 Each 4 03/21/2020 Active 49-xxaf-fqmye-dha mouth daily. (SELECT-OB + DHA) 29 mg iron-1 mg -250 mg combo packIndications: Supervision of high risk , antepartum documented as of this encounter (statuses as of 04/01/2020) Active Problems Problem Noted Date Chronic hypertension with exacerbation during pregnanc y in first trimester 03/28/2020 History of pre-eclampsia 03/28/2020 Missed with demise before 20 completed weeks of gestation 11/08/2019 Morbid obesity with body mass index of 40.0-49.9 04/07 History of delivery, currently in fir st trimester 10/25/2017 Previous delivery affecting , antepa rtum 08/30/2017 Estimated Date of Delivery Comments Yes 10/29/2020 Based on last menstr ual period of 01/23/2020 (Approximate) documented as of this encounter (statuses as of 04/01/2020) Resolved Problems Problem Noted Date Resolved Date BCP ( control pills) initiation 11/20/201901/2020 Vaginal bleeding affecting early 10/26/2019 11/13/2019 Well woman exam 01/27/2019 10/26/2019 Contraceptive management 01/27/2019 10/26/2019 depression 05/11/2018 01/27/2019 Pre-eclampsia, severe, antepartum, third trimester 8 01/27/2019 36 weeks gestation of 04/07/2018 04/18/20 18 GDM, class A1 04/07/2018 2018 High-risk in third trimester 10/25/2017 0 2018 Encounter for confirmation of test result with 04/07/2018 physical examination Oral contraceptive use 12/18/2016 08/30/2017 Obesity, unspecified [...] as of this encounter (statuses as of 04/01/2020) Immunizations Name Administration Dates Next Due Influenza [...] been in contact with No / Unsure 04/01/2020 10:42 AM CDT someone who was confirmed or suspected to have Coronavirus / COVID-19? documented as of this encounter Last Filed Vital Signs Not on filedocumented in this encounter Plan of Treatment Date Type Specialty Care Team Description 04/16/2020 Passenger Relations Representative Visit Maternal Medicine 2020 Routine Visit OB Satellites Delilah Sommers N , PALEOLOGY PROFESSOR [address] [place], [place] [address] [phone] Name Type Priority Associated Diagnoses Date/Ti me CREATININE U 24 HR LAB Routine Chronic hypertension w ith 04/01/2020 10:28 AM exacerbation during CDT in first trimester History of pre-eclampsia PROTEIN QUANT U/24H LAB Routine Chronic hypertension with 04/01/2020 10:28 AM exacerbation during CDT in first trimester History of pre-eclampsia COMP. METABOLIC PANEL LAB Routine Chronic hypertensio n with 04/01/2020 10:28 AM (28813) exacerbation during CDT in first trimester History of pre-eclampsia Health Maintenance Due Date Last Done Comments [...] Results Not on filedocumented in this encounter Visit Diagnoses Diagnosis Chronic hypertension with exacerbation d uring in first trimester History of pre-eclampsia documented in this encounter Insurance Payer Benefit Plan / Subscriber ID Effective Phone Address T [facility] xxxxxxxxx 2019-Pres [address] Medic aid HEALTH CHOICE - HEALTH CHOICE ent [id number] 1 MANAGED MEDICAID [place], [place] [phone] documented as of this encounter Advance Directives Name Relationship Healthcare Agent Relationship Co mmunication Christo Kirby Spouse Primary healthcare agent
--- OUTSIDE RECORDS SUMMARY | 2020-04-06 14:04 | XMS REPORT | Continuity of Care Document ---
:1990 Author Organization [facility] Address [address] [place] [address] Care Team Providers Name Role Phone Lab Attending Clinician Unavailable Risk Attending Clinician Unavailable Provider, Temp Attending Clinician Unavailable Problems This patient has no known problems. Allergies, Adverse Reactions, Alerts This patient has no known allergies or adverse reactions. Medications This patient has no known medications. Procedures This patient has no known procedures. Encounters Start End Encounter Admission Attending Care Care Encounter Source Date/Time Date/Time Type Type Clinicians Facility Department ID 2020-04-01 2020-04-01 Claims Counsel Lab, [facility] [id number] 10:26:48 10:41:48 Visit Ang-Rmchp [employer]MON[employer] CUTTING MACHINE TENDER [id number] REGIONAL [id number] MATERNAL [id number] & CHILD 107 [facility] 2020-03-28 2020-03-28 Routine Risk, [facility] [id number] 09:30:06 09:56:05 Ang-Rmchp-N ALMOND CUTTING MACHINE TENDER [id number] Visit p/High REGIONAL [id number] MATERNAL [id number] & CHILD 107 [facility] 2020-03-21 2020-03-21 Initial Provider, ABBIE [id number] 09:04:15 09:58:46 Ang-Rmchp ALMOND CUTTING MACHINE TENDER [id number] Visit Temp REGIONAL [id number] MATERNAL [id number] & CHILD 107 [facility] Results This patient has no known results.
--- OUTSIDE RECORDS SUMMARY | 2020-04-06 14:04 | XMS REPORT | Summary of Care ---
:1990 Author Organization [facility] Address [address] [place] [address] Care Team Providers Name Role Phone Ally Glenna Primary Care Provider Reason for Referral (Routine) Status Reason Specialty Diagnoses / Referred By Referred To Procedures Contact Contact Authorized Maternal Diagnoses Chronic hypertension with exacerbation during in first trimester Previous delivery affecting , antepartum Harris, Gwendolyn Medicine Procedures CONSULT MATERNAL MEDICINE ULTRASOUND Preferred Location: Jerri Shepard [address] [address] Reason for Visit Reason Comments Care Encounter Details Date Type Department Care Team Description 03/28/2020 Routine [facility]- Harris, Cind y [address] [address] Chronic hypertension with exacerbation d uring in first trimester (Primary Dx); Visit Eulogio MillerRmchp-Np/ Supervision of high risk , ante ; [address] Morbid ob esity with body mass index of 40.0-49.9; [employer] History of pre-eclampsia; [place], [place] History of pret erm delivery, currently in first trimester; [address] Previous delivery a ffecting , antepartum [phone] Allergies No Known Allergiesdocumented as of this encounter (statuses as of 03/28/2020) Medications Medication Sig Dispensed Refills Start Date [...] Packet by 30 Each 4 03/21/2020 Active 09-ouev-mfzjb-dha mouth daily. (SELECT-OB + DHA) 29 mg iron-1 mg -250 mg combo packIndications: Supervision of high risk , antepartum documented as of this encounter (statuses as of 03/28/2020) Active Problems Problem Noted Date Chronic hypertension [...] as of this encounter (statuses as of 03/28/2020) Resolved Problems Problem Noted Date Resolved Date [...] as of this encounter (statuses as of 03/28/2020) Immunizations Name Administration Dates Next Due Influenza [...] been in contact with No / Unsure 03/28/2020 9:36 AM CDT someone who was confirmed or suspected to have Coronavirus / COVID-19? documented as of this encounter Last Filed Vital Signs Vital Sign Reading Time Taken Comments Blood Pressure 138/80 03/28/2020 9:37 AM CDT Pulse 77 03/28/2020 9:37 AM CDT Temperature 37.1 C (98.7 F) 03/28/2020 9:37 AM CDT Respiratory Rate 16 03/28/2020 9:37 AM CDT Oxygen Saturation - - Inhaled Oxygen Concentration - - Weight 133 kg (293 lb 4 oz) 03/28/2020 9:37 AM CDT Height 170.2 cm (5' 7") 03/28/2020 9:37 AM CDT Body Mass Index 45.93 03/28/2020 9:37 AM CDT documented in this encounter Progress Notes Gwendolyn Harris, TONIEP - 03/28/2020 9:30 AM CDT Chief complaint: Chief Complaint Patient presents with Care HPI Armandogetra Manav Rosas is a 29 year old BF who is 9w2d with IUP. Her Estimated Date of Delivery: 10/29/20 by LMP. Denies headache, n/v, visual changes, sob,cp, ruq pain, bleeding,lof and ctxs.Hx of CHTN-no meds currently. Histories OB History Para Term AB Living [...] Hep B, Adol or Pedi Dosage 11/17/2016 [place] screen drawn, results pending. CCHD screen: passed [...] N/A 11/17/2016 Surgeon: Amber Lomeli MD; Location: [facility] Labor and Delivery OR Location SECTION N/A 04/08/2018 Surgeon: Karla Witt MD; Location: [facility] OR [facility] Social History Socioeconomic History [...] file Gets together: Not on file Attends congregation service: Not on file Active member of [...] No domestic abuse or violence. No cats. Confucianism: Roman Catholic Patient lives with children, has 1 inside dog and outside cat. Social History Substance and Sexual Activity Sexual Activity Yes Partners: Male control/protection: None Comment: last sexual intercourse 02/27/2020 Labs No new labs Radiology No new radiology. Allergies Jennifer has No Known Allergies. Medications Jennifer has a current medication list which includes the following prescription(s): aspirin, vit 64-yefv-meehx-dha, vit calc,iron,folic, promethazine, norgestimate-ethinyl estradiol, and citranatal assure. Review of Systems See HPI BP 138/80 (BP Location: Right arm, Patient Position: Sitting, BP CUFF SIZE: Adult Large) | Pulse 77 | Temp 37.1 C (98.7 F) (Oral) | Resp 16 | Ht 5' 7" (1.702 m) | Wt 293 lb 4 oz (133 kg) | LMP 01/23/2020 (Approximate) | BMI 45.93 kg/m Pregravid BMI: Could not be calculated Physical Exam CONSTITUTIONAL: no apparent distress, appearing age-appropriate. GASTROINTESTINAL: abdomen soft, nontender, . NEUROLOGICAL/PSYCHIATRIC: alert, awake, and oriented x 3. Normal mood and affect. EXTREMITIES: No calf tenderness bilaterally.no pitting edema bilaterally. Musculoskeletal: no clubbing, cyanosis or edema, peripheral pulses 2+ in all extremities Assessment/Plan at 9w2d Chronic hypertension with exacerbation during in first trimester (primary encounter diagnosis) Comment: no meds currently. Bp today wnl. Plan: supplies for baseline 24h urine given to patient today No meds for now. Monitor BP closely Supervision of high risk , antepartum Comment: 9w2d Plan: POCT URINALYSIS W SPECIFIC GRAVITY Dating usg 04/16/20 @3:15 patient informed of appointment Morbid obesity with body mass index of 40.0-49.9 Comment: twg goal discussed Plan: monitor weight gain History of pre-eclampsia Comment: on ASA 81mg daily Plan: continue daily until 36wks History of delivery, currently in first trimester Comment: had 36wk PTD r/t PIH Plan: not candidate for Jayashree Previous delivery affecting , antepartum Comment: Prev c/s x2 Plan: needs repeat c/s at 38-39wks unless indicated for earlier ER warnings given This visit did not involve counseling and coordination that comprised more than 50% of the visit time. documented in this encounter Plan of Treatment Date Type Specialty Care Team Description 04/16/2020 Customer Service Associate Visit Maternal Medicine 2020 Routine Visit OB Satellites Delilah Sommers , HEEL EMERY BUFFER [address] [place] [address] [phone] Name Type Priority Associated Diagnoses Order S chedule CREATININE U 24 HR LAB Routine Chronic hypertension w ith Expected: 03/29/2020, exacerbation during Expires: 05/17/2021 in first trimester History of pre-eclampsia PROTEIN QUANT U/24H LAB Routine Chronic hypertension with Expected: 03/29/2020, exacerbation during Expires: 05/17/2021 in first trimester History of pre-eclampsia COMP. METABOLIC PANEL LAB Routine Chronic hypertensio n with Expected: 03/29/2020, (32568) exacerbation during Expires: 05/17/2021 in first trimester History of pre-eclampsia Health [...] Date/Time Associated Diagnosis Comme nts POCT URINALYSIS Routine 03/28/2020 9:40 AM Supervision of hig h Results for this CDT risk , procedure ar e in antepartum the results section. documented in this encounter Results POCT URINALYSIS W SPECIFIC GRAVITY (03/28/2020 9:40 AM CDT) Pathologist Sig nature POCT U SP GRAV . 1.005 - 1.025 mg/dl POCT PH U 6 5 - 8 mg/dl POCT U LEUK EST negative Negative - Negative POCT U NIT negative Negative - Negative POCT U PROT 1+ Negative - Negative POCT U GLU negative Negative - Negative POCT U KETONE negaitv Negative - Negative POCT U UROBILI . 0.2 - 1 mg/dl POCT U BILI . Negative - Negative POCT U BLD negative Negative - Negative POCT U COLOR POCT U APPEAR Specimen Urine - URINE, CLEAN CATCH documented in this encounter Visit Diagnoses Diagnosis Chronic hypertension with exacerbation d uring in first trimester - Primary Supervision of high risk , ante Morbid obesity with body mass index of 4 0.0-49.9 History of pre-eclampsia History of delivery, currently p regnant in first trimester Previous delivery affecting pre gnancy, antepartum Previous delivery, antepartum c ondition or complication documented in this encounter Insurance Payer Benefit Plan / Subscriber ID Effective Phone Address T e [facility] xxxxxxxxx 2019-Pres [address] Medic aid HEALTH CHOICE - HEALTH CHOICE ent [id number] 1 MANAGED MEDICAID [place], [place] [phone] documented as of this encounter Advance Directives Name Relationship Healthcare Agent Relationship Co mmunication Christo Kirby Spouse Primary healthcare agent
[2020-04-06 15:23] VITALS: BP 147/79; TEMP 97.7; O2SAT 100
== END 2020-04-06 14:35 | disposition home or self-care (01) ==
LOC: ER 11:03
DX: O20.0 Threatened abortion (principal); Z3A.01 Less than 8 weeks gestation of pregnancy
CPT/HCPCS: 36415; 76801; 80048; 81003; 81025; 84702; 85025; 86900; 86901; 99284

== ENCOUNTER 2021-07-20 19:32 | Emergency (ER) | payer OTHER ==
--- NOTE | 2021-07-20 20:00 | ER ---
Nurse's Notes [facility] Name: Jennifer Rosas Age: 31 yrs Sex: Female : 1990 Arrival Date: 07/20/2021 Time: 19:36 Bed Waiting Private MD: Diagnosis: ED Course: 07/20 19:36 Patient arrived in ED. bp1 19:50 Patient's name was called from ER lobby. No response. lp1 19:59 Patient's name was called from ER lobby. Unable to locate patient. Will disposition as lp1 left without being seen by a provider. Administered Medications: No medications were administered Outcome: 20:00 Patient left the ED. lp1 Signatures: Camila Monterroso RN RN lp1 Fanny Calvert bp1
== END 2021-07-20 20:00 | disposition left against medical advice (07) ==
LOC: ER 19:32
DX: Z53.21 Procedure and treatment not carried out due to patient leaving prior to being seen by health care provider (principal)

== ENCOUNTER 2023-09-15 13:18 | Emergency (ER) | payer OTHER, SELFPAY ==
--- OUTSIDE RECORDS SUMMARY | 2023-09-15 13:23 | XMS REPORT | Continuity of Care Document ---
:1990 Author Organization [facility] t Address [address] [place] [address] [address] [place] [address] Care Team Providers Name Role Phone PCP, PATIENT DOES NOT HAVE A Primary Care Physician Unavaila CATE Browning Attending Clinician Unavailable LUTHER ALFONSO Attending Clinician Unavailable Luther Alfonso PA-C Attending Clinician 2, [facility] Attending Clinician Unavailable Doctor Unassigned, [place] Attending Clinician Unavailable LEORA SAENZ Attending Clinician Unavailable Leora Nolasco Attending Clinician MEAGAN BUTT Attending Clinician Unavailable JOSH GUEVARA Attending Clinician Unavailable Vaccine, [facility] Attending Clinician Unavailable Josh Guevara DO Attending Clinician DINORAH DILLON Attending Clinician Unavailable Dinorah Dillon MD Attending Clinician Only, Alvino Rodriguez Test Attending Clinician Unavailable Josephine Moya PA-C Attending Clinician JOSEPHINE MOYA Attending Clinician Unavailable Lab, Ang - Db Attending Clinician Unavailable Michelle Ortiz MD Attending Clinician MICHELLE ORTIZ Attending Clinician Unavailable Kathie CANDY DIPPER, Shilpa Attending Clinician Lab, [facility] I Attending Clinician Unavailable SHILPA CARBAJAL Attending Clinician Unavailable Elias MORALEZ, Mukul Manzanares Attending Clinician Marilyn Patel Attending Clinician Nurse, [facility] Attending Clinician Unavailable Cate Keenan MD Attending Clinician Pob, [facility] Main Attending Clinician Unavailable Only, [facility] Test Attending Clinician Unavailable Room, [facility] Attending Clinician Unavailable Edward MORALEZ, Gilma Attending Clinician Ultrasound, [facility] Attending Clinician Unavailable Reji MORALEZ, Camila Mc Attending Clinician Khoi Montez Attending Clinician Ultrasound, Ang-m Attending Clinician Unavailable Yohannes MORALEZ, Joshua Way Attending Clinician Nurse, [facility] Attending Clinician Unavailable Galo Ramos Attending Clinician GALO MARTINEZ Attending Clinician Unavailable Rayna Benitez RN Attending Clinician Unavailable BHARATH CASTILLO Attending Clinician Unavailable Bharath Zuniga Attending Clinician Lab, [facility] Attending Clinician Unavailable 2, [facility] Room Attending Clinician Unavailable Gabriela Castillo DO Attending Clinician Boyd Davey MD, Becca Attending Clinician [phone] Lab, [facility]-R[facility] Attending Clinician Unavailable Risk, [facility]Jytox-Ch/High Attending Clinician Unavailable Sakshi Gwendolyn NICE Attending Clinician GWENDOLYN CANTOR Attending Clinician Unavailable Provider, [facility] Temp Attending Clinician Unavailable Rebecca Salma NICE Attending Clinician Visit, [facility] Nurse Attending Clinician Unavailable Trent Otto Attending Clinician TRENT CORRAL Attending Clinician Unavailable Ibikunle CANDY DIPPER, Folusho F Attending Clinician Akinsipe WHCNP, Maria G C Attending Clinician CATE KEENAN Admitting Clinician Unavailable GILMA LEON Admitting Clinician Unavailable Cate Keenan MD Admitting Clinician Gilma Leon MD Admitting Clinician Payers Payer Name Policy Type Policy Number Effective Date Expiration Date Emiliano lawson [facility] [id number] 2019 CHOICE MEDICAID 00:00:00 Problems Condition Condition Condition Status Onset Resolution Last Treating Co mments Source Name Details Category Date Date Treatment Clinician Date Elevated Elevated Disease Active Unive rs ALT ALT 8-27 [place] [facility] Elevated Elevated Disease Active Unive rs platelet platelet 8-27 ity of count count 00:00: [address] History of History of Disease Active 2019- U nivers gestationa gestationa 7-17 [place] l diabetes [place] [facility] History of History of Disease Active U nivers pre-eclamp pre-eclamp 6-11 it y of perfecto perfecto 00:00: [address] Morbid Morbid Disease Active Univers obesity obesity 6-21 [place] mass index 00 [place]ical of of Branch 40.0-49.9 40.0-49.9 Allergies, Adverse Reactions, Alerts Allergy Allergy Status Severity Reaction(s) Onset Inactive Treating Comm ents Source Name Type Date Date Clinician NO KNOWN Drug Active Univers ALLERGIE Class ity of S [facility] Social History Social Habit Start Date Stop Date Quantity Comments Source Sexual orientation Univer sity [facility] Exposure to 2023-01-22 2023-02-01 Not sure University of SARS-CoV-2 (event) 00:00:00 13:07:00 [facility] Alcohol Comment 2022-12-29 2022-12-29 socially Universit y of 00:00:00 00:00:00 [facility] History of Social 2022-11-12 2022-11-12 Univers ity of function 00:00:00 00:00:00 [facility] Alcohol intake 2021-06-05 2021-06-05 0 /d University of 00:00:00 00:00:00 [facility] Tobacco use and 2016-04-07 2016-04-07 Smokeless Universit y of exposure 00:00:00 00:00:00 tobacco non-user [facility] Sex Assigned At [birth year] Universit y of 00:00:00 00:00:00 [facility] Smoking Status Start Date Stop Date Source Never smoked tobacco [facility] Medications Ordered Filled Start Stop Current Ordering Indication Dosage Frequency Signature Comments Components Source Medication Medication Date Date Medication? Clinician (SIG) Name Name Nitrofurant Yes [id number] 100mg Take 1 Univers oin&Nit. 4-17 capsule by ity o f Macrocryst 00:00: mouth in [place] (MACROBID) 00 the Medical 100 mg morning Branch capsule and 1 capsule in the evening. Nitrofurant Yes [id number] 100mg Take 1 Univers oin&Nit. 4-17 capsule by ity o f Macrocryst 00:00: mouth [place] (MACROBID) 00 the Medical 100 mg morning Branch capsule and 1 capsule in the evening. No known No No known Unive rs medications 1-26 medication it y of 15:16: s [address] azelastine Yes [id number] 1{spray Use 1 Univers 137 mcg 1-26 } [place] in ity of (0.1 %) 00:00: each [place] nasal spray 00 nostril in [facility] morning and 1 [place] in the evening. Use in each nostril as directed benzonatate Yes [id number] 100mg Take 1 Univers (TESSALON 1-26 capsule by itDuy) 100 00:00: mouth [place] mg capsule 00 every 8 Medica l (eight) Branch hours as needed for Cough. azelastine Yes [id number] 1{spray Use 1 Univers 137 mcg 1-26 } [place] ity of (0.1 %) 00:00: each [place] [facility] and 1 [place] in the evening. Use in each nostril as directed benzonatate Yes [id number] 100mg Take 1 Univers (TESSALON 1-26 capsule by ity of PERLES) 100 00:00: mouth [place] mg capsule 00 every 8 Medica l (eight) Branch hours as needed for Cough. azelastine 2022-0 Yes [id number] 1{spray Use 1 Univers 137 mcg 1-26 } [place] ity of (0.1 %) 00:00: each [place] nasal spray 00 nostril in Me dical the Branch morning and 1 [place] in the evening. Use in each nostril as directed benzonatate 2022-0 Yes [id number] 100mg Take 1 Univers (TESSALON 1-26 capsule by ity of PERLES) 100 00:00: mouth [place] mg capsule 00 every 8 Medica l (eight) Branch hours as needed for Cough. azelastine 0 Yes [id number] 1{spray Use 1 Univers 137 mcg 1-26 } [place] ity of (0.1 %) 00:00: each [place] nasal spray 00 nostril in Va dical the Branch morning and 1 [place] in the evening. Use in each nostril as directed benzonatate 2022-0 Yes [id number] 100mg Take 1 Univers (TESSALON 1-26 capsule by ity of PERLES) 100 00:00: mouth [place] mg capsule 00 every 8 Medica l (eight) Branch hours as needed for Cough. azelastine 2022-0 Yes [id number] 1{spray Use 1 Univers 137 mcg 1-26 } [place] ity of (0.1 %) 00:00: each [place] nasal spray 00 nostril in Va dical the Branch morning and 1 [place] in the evening. Use in each nostril as directed benzonatate 2022-0 Yes [id number] 100mg Take 1 Univers (TESSALON 1-26 capsule by ity of PERLES) 100 00:00: mouth [place] mg capsule 00 every 8 Medica l (eight) Branch hours as needed for Cough. azelastine 2022-0 Yes [id number] 1{spray Use 1 Univers 137 mcg 1-26 } [place] in ity of (0.1 %) 00:00: each [place] nasal spray 00 nostril in Me dical the Branch morning and 1 [place] in the evening. Use in each nostril as directed benzonatate 2022-0 Yes [id number] 100mg Take 1 Univers (TESSALON 1-26 capsule by ity of PERLCold Crate) 100 00:00: mouth [place] mg capsule 00 every 8 Medica l (eight) Branch hours as needed for Cough. azelastine Yes [id number] 1{spray Use 1 Univers 137 mcg 1-26 } [place] in ity of (0.1 %) 00:00: each [place] nasal spray 00 nostril in Va dical the Branch morning and 1 [place] in the evening. Use in each nostril as directed benzonatate Yes [id number] 100mg Take 1 Univers (TESSALON 1-26 capsule by ity of PERLCold Crate) 100 00:00: mouth [place] mg capsule 00 every 8 Medica l (eight) Branch hours as needed for Cough. azelastine Yes [id number] 1{spray Use 1 Univers 137 mcg 1-26 } [place] ity of (0.1 %) 00:00: each [place] nasal spray [facility] and 1 [place] in the evening. Use in each nostril as directed benzonatate Yes [id number] 100mg Take 1 Univers (TESSALON 1-26 capsule by ity of PERLCold Crate) 100 00:00: mouth [place] mg capsule 00 every 8 Medica l (eight) Branch hours as needed for Cough. amoxicillin 2022- No [id number] 875mg Take 1 Univers 875 mg 1-26 02-03 tablet by ity of tablet 00:00: 05:59 mouth in [place] 00 :00 the Medical morning Branch and 1 tablet in the evening. Do all this for 7 days. amoxicillin 2022- No [id number] 875mg Take 1 Univers 875 mg 1-26 02-03 tablet by ity of tablet 00:00: 05:59 mouth in [place] 00 :00 the Medical morning Branch and 1 tablet in the evening. Do all this for 7 days. LOESTRIN FE Yes [id number] 1{tbl} Take 1 Univers 1 mg-20 mcg 8-11 tablet by ity of (21)/75 mg 00:00: mouth [place] (7) tablet 00 daily. Medical Branch LOESTRIN FE Yes [id number] 1{tbl} Take 1 Univers 1 mg-20 mcg 8-11 tablet by ity of (21)/75 mg 00:00: mouth [place] (7) tablet 00 daily. [facility] LOESTRIN FE Yes [id number] 1{tbl} Take 1 Univers 1 mg-20 mcg 8-11 tablet by ity of (21)/75 mg 00:00: mouth [place] (7) tablet 00 daily. [facility] LOESTRIN FE Yes [id number] 1{tbl} Take 1 Univers 1 mg-20 mcg 8-11 tablet by ity of (21)/75 mg 00:00: mouth [place] (7) tablet 00 daily. [facility] LOESTRIN FE Yes [id number] 1{tbl} Take 1 Univers 1 mg-20 mcg 8-11 tablet by ity of (21)/75 mg 00:00: mouth [place] (7) tablet 00 daily. [facility] LOESTRIN 2022- No [id number] 1{tbl} Take 1 Univers 1 mg-20 mcg 8-11 -26 tablet by it y of (21)/75 mg 00:00: 00:00 mouth [place] (7) tablet 00 :00 daily. [facility] LOESTRIN 2022- No [id number] 1{tbl} Take 1 Univers 1 mg-20 mcg 8-11 -26 tablet by it y of (21)/75 mg 00:00: 00:00 mouth [place] (7) tablet 00 :00 daily. [facility] Immunizations Ordered Filled Date Status Comments Source Immunization Name Immunization Name SARS-COV-2 COVID-19 2022-04-21 Completed Unive rsity of PFIZER GATO-SUCROSE 00:00:00 [place] [facility] VACCINE (JON TOP) Branch SARS-COV-2 COVID-19 2022-04-21 Completed Unive rsity of PFIZER GATO-SUCROSE 00:00:00 [place] [facility] VACCINE (JON TOP) Branch SARS-COV-2 COVID-19 2022-04-21 Completed Unive rsity of PFIZER GATO-SUCROSE 00:00:00 [place] [facility] VACCINE (JON TOP) Branch SARS-COV-2 COVID-19 2022-04-21 Completed Unive rsity of PFIZER GATO-SUCROSE 00:00:00 [place] [facility] VACCINE (JON TOP) Branch SARS-COV-2 COVID-19 2022-04-21 Completed Unive rsity of PFIZER GATO-SUCROSE 00:00:00 [place] [facility] VACCINE (JON TOP) Branch SARS-COV-2 COVID-19 2022-04-21 Completed Unive rsity of PFIZER GATO-SUCROSE 00:00:00 [place] [facility] VACCINE (JON TOP) Branch SARS-COV-2 COVID-19 2022-04-21 Completed Unive rsity of PFIZER GATO-SUCROSE 00:00:00 [place] [facility] VACCINE (JON TOP) Branch SARS-COV-2 COVID-19 2022-04-21 Completed Unive rsity of PFIZER GATO-SUCROSE 00:00:00 [place] [facility] VACCINE (JON TOP) Branch SARS-COV-2 COVID-19 2022-04-21 Completed Unive rsity of PFIZER GATO-SUCROSE 00:00:00 [place] [facility] VACCINE (JON TOP) Branch SARS-COV-2 COVID-19 2022-04-21 Completed Unive rsity of PFIZER GATO-SUCROSE 00:00:00 [place] [facility] VACCINE (JON TOP) Branch SARS-COV-2 COVID-19 2022-04-21 Completed Unive rsity of PFIZER GATO-SUCROSE 00:00:00 [place] [facility] VACCINE (JON TOP) Branch SARS-COV-2 COVID-19 2022-03-31 Completed Unive rsity of PFIZER GATO-SUCROSE 00:00:00 [place] [facility] VACCINE (JON TOP) Branch SARS-COV-2 COVID-19 2022-03-31 Completed Unive rsity of PFIZER GATO-SUCROSE 00:00:00 [place] [facility] VACCINE (JON TOP) Branch SARS-COV-2 COVID-19 2022-03-31 Completed Unive rsity of PFIZER GATO-SUCROSE 00:00:00 [place] [facility] VACCINE (JON TOP) Branch SARS-COV-2 COVID-19 2022-03-31 Completed Unive rsity of PFIZER GATO-SUCROSE 00:00:00 [place] [facility] VACCINE (JON TOP) Branch SARS-COV-2 COVID-19 2022-03-31 Completed Unive rsity of PFIZER GATO-SUCROSE 00:00:00 [place] [facility] VACCINE (JON TOP) Branch SARS-COV-2 COVID-19 2022-03-31 Completed Unive rsity of PFIZER GATO-SUCROSE 00:00:00 [place] [facility] VACCINE (JON TOP) Branch SARS-COV-2 COVID-19 2022-03-31 Completed Unive rsity of PFIZER GATO-SUCROSE 00:00:00 [place] [facility] VACCINE (JON TOP) Branch SARS-COV-2 COVID-19 2022-03-31 Completed Unive rsity of PFIZER GATO-SUCROSE 00:00:00 [place] [facility] VACCINE (JON TOP) Branch SARS-COV-2 COVID-19 2022-03-31 Completed Unive rsity of PFIZER GATO-SUCROSE 00:00:00 [place] [facility] VACCINE (JON TOP) Branch SARS-COV-2 COVID-19 2022-03-31 Completed Unive rsity of PFIZER GATO-SUCROSE 00:00:00 [place] [facility] VACCINE (JON TOP) Branch SARS-COV-2 COVID-19 2022-03-31 Completed Unive rsity of PFIZER GATO-SUCROSE 00:00:00 [place] [facility] VACCINE (JON TOP) Branch SARS-COV-2 COVID-19 2022-03-31 Completed Unive rsity of PFIZER GATO-SUCROSE 00:00:00 [place] [facility] VACCINE (JON TOP) Branch TDAP 2020-08-29 Completed University of 00:00:00 [facility] TDAP 2020-08-29 Completed University of 00:00:00 [facility] TDAP 2020-08-29 Completed University of 00:00:00 [facility] TDAP 2020-08-29 Completed University of 00:00:00 [facility] TDAP 2020-08-29 Completed University of 00:00:00 [facility] TDAP 2020-08-29 Completed University of 00:00:00 [facility] TDAP 2020-08-29 Completed University of 00:00:00 [facility] TDAP 2020-08-29 Completed University of 00:00:00 [facility] TDAP 2020-08-29 Completed University of 00:00:00 [facility] TDAP 2020-08-29 Completed University of 00:00:00 [facility] TDAP 2020-08-29 Completed University of 00:00:00 [facility] TDAP 2020-08-29 Completed University of 00:00:00 [facility] TDAP 2020-08-29 Completed University of 00:00:00 [facility] TDAP 2020-08-29 Completed University of 00:00:00 [facility] Influenza Virus 2020-07-30 Completed Universit y of Vaccine Quad .5 mL 00:00:[address] [facility] 6+ MO Branch Influenza Virus 2020-07-30 Completed Universit y of Vaccine Quad .5 mL 00:00:00 [place] [facility] IM 6+ MO Branch Influenza Virus 2020-07-30 Completed Universit y of Vaccine Quad .5 mL 00:00:00 [place] [facility] IM 6+ MO Branch Influenza Virus 2020-07-30 Completed Universit y of Vaccine Quad .5 mL 00:00:00 [place] [facility] IM 6+ MO Branch Influenza Virus 2020-07-30 Completed Universit y of Vaccine Quad .5 mL 00:00:00 [place] [facility] IM 6+ MO Branch Influenza Virus 2020-07-30 Completed Universit y of Vaccine Quad .5 mL 00:00:00 [place] [facility] IM 6+ MO Branch Influenza Virus 2020-07-30 Completed Universit y of Vaccine Quad .5 mL 00:00:00 [place] [facility] IM 6+ MO Branch Influenza Virus 2020-07-30 Completed Universit y of Vaccine Quad .5 mL 00:00:00 [place] [facility] IM 6+ MO Branch Influenza Virus 2020-07-30 Completed Universit y of Vaccine Quad .5 mL 00:00:00 [place] [facility] IM 6+ MO Branch Influenza Virus 2020-07-30 Completed Universit y of Vaccine Quad .5 mL 00:00:00 [place] [facility] IM 6+ MO Branch Influenza Virus 2020-07-30 Completed Universit y of Vaccine Quad .5 mL 00:00:00 [place] [facility] IM 6+ MO Branch Influenza Virus 2020-07-30 Completed Universit y of Vaccine Quad .5 mL 00:00:00 [place] [facility] IM 6+ MO Branch Influenza Virus 2020-07-30 Completed Universit y of Vaccine Quad .5 mL 00:00:00 [place] [facility] IM 6+ MO Branch Influenza Virus 2020-07-30 Completed Universit y of Vaccine Quad .5 mL 00:00:00 [place] [facility] IM 6+ MO Branch Influenza Virus 2019-10-26 Completed Universit y of Vaccine Quad .5 mL 00:00:00 [place] [facility] IM 6+ MO Branch Influenza Virus 2019-10-26 Completed Universit y of Vaccine Quad .5 mL 00:00:00 [place] [facility] IM 6+ MO Branch Influenza Virus 2019-10-26 Completed Universit y of Vaccine Quad .5 mL 00:00:00 [place] [facility] IM 6+ MO Branch Influenza Virus 2019-10-26 Completed Universit y of Vaccine Quad .5 mL 00:00:00 [place] [facility] IM 6+ MO Branch Influenza Virus 2019-10-26 Completed Universit y of Vaccine Quad .5 mL 00:00:00 [place] [facility] IM 6+ MO Branch Influenza Virus 2019-10-26 Completed Universit y of Vaccine Quad .5 mL 00:00:00 [place] [facility] IM 6+ MO Branch Influenza Virus 2019-10-26 Completed Universit y of Vaccine Quad .5 mL 00:00:00 [place] [facility] IM 6+ MO Branch Influenza Virus 2019-10-26 Completed Universit y of Vaccine Quad .5 mL 00:00:00 [place] [facility] IM 6+ MO Branch Influenza Virus 2019-10-26 Completed Universit y of Vaccine Quad .5 mL 00:00:00 [place] [facility] IM 6+ MO Branch Influenza Virus 2019-10-26 Completed Universit y of Vaccine Quad .5 mL 00:00:00 [place] [facility] IM 6+ MO Branch Influenza Virus 2019-10-26 Completed Universit y of Vaccine Quad .5 mL 00:00:00 [place] [facility] IM 6+ MO Branch Influenza Virus 2019-10-26 Completed Universit y of Vaccine Quad .5 mL 00:00:00 [place] [facility] IM 6+ MO Branch Influenza Virus 2019-10-26 Completed Universit y of Vaccine Quad .5 mL 00:00:00 [place] [facility] 6+ MO Branch Influenza Virus 2019-10-26 Completed Universit y of Vaccine Quad .5 mL 00:00:[address] [facility] 6+ MO Branch Influenza Virus 2018-07-29 Completed Universit y of Vaccine 00:00:00 [facility] Influenza Virus 2018-07-29 Completed Universit y of Vaccine 00:00:00 [facility] Influenza Virus 2018-07-29 Completed Universit y of Vaccine 00:00:00 [facility] Influenza Virus 2018-07-29 Completed Universit y of Vaccine 00:00:00 [facility] Influenza Virus 2018-07-29 Completed Universit y of Vaccine 00:00:00 [facility] Influenza Virus 2018-07-29 Completed Universit y of Vaccine 00:00:00 [facility] Influenza Virus 2018-07-29 Completed Universit y of Vaccine 00:00:00 [facility] Influenza Virus 2018-07-29 Completed Universit y of Vaccine 00:00:00 [facility] Influenza Virus 2018-07-29 Completed Universit y of Vaccine 00:00:00 [facility] Influenza Virus 2018-07-29 Completed Universit y of Vaccine 00:00:00 [facility] Influenza Virus 2018-07-29 Completed Universit y of Vaccine 00:00:00 [facility] Influenza Virus 2018-07-29 Completed Universit y of Vaccine 00:00:00 [facility] Influenza Virus 2018-07-29 Completed Universit y of Vaccine 00:00:00 [facility] Influenza Virus 2018-07-29 Completed Universit y of Vaccine 00:00:00 [facility] TDAP 2018-03-09 Completed University of 00:00:00 [facility] TDAP 2018-03-09 Completed University of 00:00:00 [facility] TDAP 2018-03-09 Completed University of 00:00:00 [facility] TDAP 2018-03-09 Completed University of 00:00:00 [facility] TDAP 2018-03-09 Completed University of 00:00:00 [facility] TDAP 2018-03-09 Completed University of 00:00:00 [facility] TDAP 2018-03-09 Completed University of 00:00:00 [facility] TDAP 2018-03-09 Completed University of 00:00:00 [facility] TDAP 2018-03-09 Completed University of 00:00:00 [facility] TDAP 2018-03-09 Completed University of 00:00:00 [facility] TDAP 2018-03-09 Completed University of 00:00:00 [facility] TDAP 2018-03-09 Completed University of 00:00:00 [facility] TDAP 2018-03-09 Completed University of 00:00:00 [facility] TDAP 2018-03-09 Completed University of 00:00:00 [facility] Influenza Virus 2016-11-20 Completed Universit y of Vaccine Quad IM 3+ 00:00:00 [facility] Influenza Virus 2016-11-20 Completed Universit y of Vaccine Quad IM 3+ 00:00:00 [facility] Influenza Virus 2016-11-20 Completed Universit y of Vaccine Quad IM 3+ 00:00:00 [facility] Influenza Virus 2016-11-20 Completed Universit y of Vaccine Quad IM 3+ 00:00:00 [facility] Influenza Virus 2016-11-20 Completed Universit y of Vaccine Quad IM 3+ 00:00:00 [facility] Influenza Virus 2016-11-20 Completed Universit y of Vaccine Quad IM 3+ 00:00:00 [facility] Influenza Virus 2016-11-20 Completed Universit y of Vaccine Quad IM 3+ 00:00:00 [facility] Influenza Virus 2016-11-20 Completed Universit y of Vaccine Quad IM 3+ 00:00:00 [facility] Influenza Virus 2016-11-20 Completed Universit y of Vaccine Quad IM 3+ 00:00:00 [facility] Influenza Virus 2016-11-20 Completed Universit y of Vaccine Quad IM 3+ 00:00:00 [facility] Influenza Virus 2016-11-20 Completed Universit y of Vaccine Quad IM 3+ 00:00:00 [facility] Influenza Virus 2016-11-20 Completed Universit y of Vaccine Quad IM 3+ 00:00:00 [facility] Influenza Virus 2016-11-20 Completed Universit y of Vaccine Quad IM 3+ 00:00:00 [facility] Influenza Virus 2016-11-20 Completed Universit y of Vaccine Quad IM 3+ 00:00:00 [facility] Influenza Virus 2016-11-20 Completed Universit y of Vaccine Quad IM 3+ 00:00:00 [facility] Influenza Virus 2016-11-20 Completed Universit y of Vaccine Quad IM 3+ 00:00:00 [facility] Influenza Virus 2016-11-20 Completed Universit y of Vaccine Quad IM 3+ 00:00:00 [facility] Influenza Virus 2016-11-20 Completed Universit y of Vaccine Quad IM 3+ 00:00:00 [facility] Influenza Virus 2016-11-20 Completed Universit y of Vaccine Quad IM 3+ 00:00:00 [facility] Influenza Virus 2016-11-20 Completed Universit y of Vaccine Quad IM 3+ 00:00:00 [facility] Influenza Virus 2016-11-20 Completed Universit y of Vaccine Quad IM 3+ 00:00:00 [facility] Influenza Virus 2016-11-20 Completed Universit y of Vaccine Quad IM 3+ 00:00:00 [facility] Influenza Virus 2016-11-20 Completed Universit y of Vaccine Quad IM 3+ 00:00:00 [facility] Influenza Virus 2016-11-20 Completed Universit y of Vaccine Quad IM 3+ 00:00:00 [facility] Influenza Virus 2016-11-20 Completed Universit y of Vaccine Quad IM 3+ 00:00:00 [facility] Influenza Virus 2016-11-20 Completed Universit y of Vaccine Quad IM 3+ 00:00:00 [facility] Influenza Virus 2016-11-20 Completed Universit y of Vaccine Quad IM 3+ 00:00:00 [facility] Influenza Virus 2016-11-20 Completed Universit y of Vaccine Quad IM 3+ 00:00:00 [facility] TDAP 2016-08-25 Completed University of 00:00:00 [facility] TDAP 2016-08-25 Completed University of 00:00:00 [facility] TDAP 2016-08-25 Completed University of 00:00:00 [facility] TDAP 2016-08-25 Completed University of 00:00:00 [facility] TDAP 2016-08-25 Completed University of 00:00:00 [facility] TDAP 2016-08-25 Completed University of 00:00:00 [facility] TDAP 2016-08-25 Completed University of 00:00:00 [facility] TDAP 2016-08-25 Completed University of 00:00:00 [facility] TDAP 2016-08-25 Completed University of 00:00:00 [facility] TDAP 2016-08-25 Completed University of 00:00:00 [facility] TDAP 2016-08-25 Completed University of 00:00:00 [facility] TDAP 2016-08-25 Completed University of 00:00:00 [facility] TDAP 2016-08-25 Completed University of 00:00:00 [facility] TDAP 2016-08-25 Completed University of 00:00:00 [facility] Influenza Virus 2016-07-07 Completed Universit y of Vaccine Quad IM 3+ 00:00:00 [facility] Influenza Virus 2016-07-07 Completed Universit y of Vaccine Quad IM 3+ 00:00:00 [facility] Influenza Virus 2016-07-07 Completed Universit y of Vaccine Quad IM 3+ 00:00:00 [facility] Influenza Virus 2016-07-07 Completed Universit y of Vaccine Quad IM 3+ 00:00:00 [facility] Influenza Virus 2016-07-07 Completed Universit y of Vaccine Quad IM 3+ 00:00:00 [facility] Influenza Virus 2016-07-07 Completed Universit y of Vaccine Quad IM 3+ 00:00:00 [facility] Influenza Virus 2016-07-07 Completed Universit y of Vaccine Quad IM 3+ 00:00:00 [facility] Influenza Virus 2016-07-07 Completed Universit y of Vaccine Quad IM 3+ 00:00:00 [facility] Influenza Virus 2016-07-07 Completed Universit y of Vaccine Quad IM 3+ 00:00:00 [facility] Influenza Virus 2016-07-07 Completed Universit y of Vaccine Quad IM 3+ 00:00:00 [facility] Influenza Virus 2016-07-07 Completed Universit y of Vaccine Quad IM 3+ 00:00:00 [facility] Influenza Virus 2016-07-07 Completed Universit y of Vaccine Quad IM 3+ 00:00:00 [facility] Influenza Virus 2016-07-07 Completed Universit y of Vaccine Quad IM 3+ 00:00:00 [facility] Influenza Virus 2016-07-07 Completed Universit y of Vaccine Quad IM 3+ 00:00:00 [facility] Influenza Virus Unknown Completed Universit y of Vaccine Quad IM 3+ [facility] TDAP Unknown Completed [facility] Influenza Virus Unknown Completed Universit y of Vaccine Quad IM 3+ [facility] Influenza Virus Unknown Completed Universit y of Vaccine Quad IM 3+ [facility] TDAP Unknown Completed [facility] Influenza Virus Unknown Completed Universit y of Vaccine [facility] Influenza Virus Unknown Completed Universit y of Vaccine Quad .[address] [facility] 6+ MO Branch (FLUZONE/FLULAVAL/F LUARIX) Influenza Virus Unknown Completed Universit y of Vaccine Quad .[address] [facility] 6+ [facility] Branch (FLUZONE/FLULAVAL/F LUARIX) TDAP Unknown Completed [facility] Influenza Virus Unknown Completed Universit y of Vaccine Quad IM 3+ [facility] TDAP Unknown Completed [facility] Influenza Virus Unknown Completed Universit y of Vaccine Quad IM 3+ [facility] Influenza Virus Unknown Completed Universit y of Vaccine Quad IM 3+ [facility] TDAP Unknown Completed [facility] Influenza Virus Unknown Completed Universit y of Vaccine [facility] Influenza Virus Unknown Completed Universit y of Vaccine Quad .[address] [facility] 6+ [facility] Branch (FLUZONE/FLULAVAL/F LUARIX) Influenza Virus Unknown Completed Universit y of Vaccine Quad .[address] [facility] 6+ [facility] Branch (FLUZONE/FLULAVAL/F LUARIX) TDAP Unknown Completed [facility] Influenza Virus Unknown Completed Universit y of Vaccine [facility] IM 3+ [facility] TDAP Unknown Completed [facility] Influenza Virus Unknown Completed Universit y of Vaccine Quad IM 3+ [facility] Branch Influenza Virus Unknown Completed Universit y of Vaccine Quad IM 3+ [facility] Y[facility] Branch TDAP Unknown Completed [facility] Influenza Virus Unknown Completed Universit y of Vaccine [facility] Influenza Virus Unknown Completed Universit y of Vaccine Quad .5 mL [facility] IM 6+ MO Branch (FLUZONE/FLULAVAL/F LUARIX) Influenza Virus Unknown Completed Universit y of Vaccine Quad .5 mL [facility] IM 6+ [facility] Branch (FLUZONE/FLULAVAL/F LUARIX) TDAP Unknown Completed [facility] Vital Signs Vital Name Observation Time Observation Value Comments Source Systolic blood 2023-02-01 20:53:00 129 mm[Hg] Univer sity of pressure [facility] Diastolic blood 2023-02-01 20:53:00 82 mm[Hg] Unive rsity of [facility] Heart rate 2023-02-01 20:53:00 81 /min Universi [facility] Body temperature 2023-02-01 20:53:00 36.78 Stephanie [facility] Respiratory rate 2023-02-01 20:53:00 18 /min [facility] Body height 2023-02-01 20:53:00 170.2 cm [facility] Body weight 2023-02-01 20:53:00 134.265 kg [facility] BMI 2023-02-01 20:53:00 46.36 kg/m2 [facility] Systolic blood 2022-12-29 19:09:00 147 mm[Hg] Univer sity of pressure [facility] Diastolic blood 2022-12-29 19:09:00 95 mm[Hg] Unive rsity of pressure [facility] Heart rate 2022-12-29 19:09:00 69 /min Universi ty [facility] Body temperature 2022-12-29 19:09:00 36.78 Stephanie [facility] Respiratory rate 2022-12-29 19:09:00 20 /min [facility] Body height 2022-12-29 19:09:00 170.2 cm [facility] Body weight 2022-12-29 19:09:00 134.355 kg Universi [facility] BMI 2022-12-29 19:09:00 46.39 kg/m2 [facility]i [facility] Oxygen saturation in 2022-12-29 19:09:00 98 /min University of Arterial blood by [facility] Pulse oximetry Branch Systolic blood 2022-11-12 20:57:00 126 mm[Hg] Univer sity of pressure [facility] Diastolic blood 2022-11-12 20:57:00 80 mm[Hg] Unive rsity of pressure [facility] Heart rate 2022-11-12 20:57:00 89 /min [facility] Body temperature 2022-11-12 20:57:00 36.78 Stephanie Univ ers[facility] Body height 2022-11-12 20:57:00 170.2 cm [facility] Body weight 2022-11-12 20:57:00 136.079 kg [facility] BMI 2022-11-12 20:57:00 46.99 kg/m2 [facility] Oxygen saturation in 2022-11-12 20:57:00 97 /min University of Arterial blood by [facility] Pulse oximetry Branch Systolic blood 2021-10-28 19:36:00 118 mm[Hg] Univer sity of pressure [facility] Diastolic blood 2021-10-28 19:36:00 85 mm[Hg] Unive rsity of pressure [facility] Heart rate 2021-10-28 19:36:00 81 /min [facility]i [facility] Body temperature 2021-10-28 19:36:00 36.61 Stephanie Univ ers[facility] Respiratory rate 2021-10-28 19:36:00 18 /min Univ ers[facility] Body height 2021-10-28 19:36:00 170.2 cm [facility] Body weight 2021-10-28 19:36:00 138.347 kg [facility] BMI 2021-10-28 19:36:00 47.77 kg/m2 [facility] Oxygen saturation in 2021-10-28 19:36:00 95 /min University of Arterial blood by [facility] Pulse oximetry Branch Procedures Procedure Date / Time Performed Performing Clinician Sourc e POCT URINALYSIS W/O 2023-02-01 00:00:00 Luther Alfonso of [place] SPECIFIC GRAVITY [facility] PATIENT FINANCIAL 2022-12-29 18:39:25 Doctor Unassigned, No [facility] POLICY [facility] ASSIGNMENT OF BENEFITS 2022-11-12 20:47:06 Doctor Unassigned, No [facility] SARS-COV-2 COVID-19 2022-04-22 22:53:29 Doctor Unassigned, No [facility] [place] VACCINE Name [facility] YRS+,0.3ML,IM (PFIZER - JON TOP) SARS-COV-2 COVID-19 2022-03-31 22:45:49 Doctor Unassigned, No [facility] [place] VACCINE [address] [place] [address] YRS+,0.3ML,IM (PFIZER - JON TOP) Encounters Start End Encounter Admission Attending Care Care Encounter Source Date/Time Date/Time Type Type Clinicians Facility Department ID 2021-08-16 Outpatient P [facility] [id number] Univers 14:04:03 ity of [facility] 2021-08-16 Outpatient P [facility] [id number] Univers 13:22:30 ity of [facility] 2021-08-16 Outpatient P [facility] [id number] Univers 13:14:24 ity of [facility] 2021-08-16 Outpatient P [facility] [id number] Univers 13:12:04 ity [facility] 2021-08-16 Outpatient P [facility] [id number] Univers 07:01:54 ity of [facility] 2021-08-16 Outpatient P [facility] [id number] Univers 05:38:35 ity of [facility] 2021-08-16 Outpatient P [facility] [id number] Univers 05:38:24 ity [facility] 2021-08-15 Emergency [facility] [id number] Univers 22:11:43 ity [facility] 2021-08-15 Emergency [facility] [id number] Univers 04:39:46 ity [facility] 2024-01-03 2024-01-03 Outpatient R KEENANCATE [facility] [id number] Univers 15:00:00 15:00:00 ity [facility] 2023-02-01 2023-02-01 Outpatient R KADEN [facility] [id number] Univers 15:45:00 16:01:19 LUTHER malcolmpurnima [facility] 2023-02-01 2023-02-01 [facility] [id number] Univers 15:45:00 16:01:19 Visit Luther CHEN 350.1.13.10 i ty of [place] [facility] [phone] Va dical NAL 134 [facility] 2022-12-29 2022-12-29 School Occupational Therapist 2, Adc Lab [facility] 1.2.840.114 [id number] Univers 14:45:00 15:00:00 Visit Luther Alfonso 350.1.13.10 ity of [place] [facility] [place] [phone] Va dical NAL 353 [facility] 2022-12-29 2022-12-29 Outpatient R KADEN [facility] [id number] Univers 14:00:00 14:38:31 LUTHER luciano [facility] 2022-12-29 2022-12-29 [facility] [id number] Univers 14:00:00 14:38:31 Visit Luther CHEN 350.1.13.10 i ty of [place] [facility] [place] [phone] Va dical NAL [address] [place] [address] 2022-12-29 2022-12-29 Orders Doctor JOSEPHINE 1.2.840.114 [id number] Univers 00:00:00 00:00:00 Only Unassigned, LAURENCE 350.1.13.10 ity of [place] [facility] 4.2.7.2.686 Matt as [id number] [address] 2022-11-25 2022-11-25 Outpatient R CONCHA [facility] [id number] Univers 14:30:00 14:30:00 LEORA wolf [facility] 2022-11-12 2022-11-12 Outpatient R CONCHA [facility] [id number] Univers 15:00:00 15:20:55 LEORA wolf [facility] 2022-11-12 2022-11-12 [facility] 1.2.840.114 [id number] Univers 15:00:00 15:20:55 Visit Leora Corona HEALTH 350.1.13.10 i ty of [place] 4.2.7.2.686 Matt as SAJAN?BLEA [phone] [address] MEDICAL OFFICE [facility] 2022-11-12 2022-11-12 Orders Doctor JOSEPHINE 1.2.840.114 [id number] Univers 00:00:00 00:00:00 Only Unassigned, LAURENCE 350.1.13.10 ity of [place] [facility] 4.2.7.2.686 Matt as [phone] [address] 2022-11-12 2022-11-12 [facility] 1.2.840.114 [id number] Univers 00:00:00 00:00:00 (Out) Leora Corona HEALTH 350.1.13.10 i ty of [facility] 4.2.7.2.686 Matt as SAJAN?BLEA [phone] [address] MEDICAL OFFICE [facility] 2022-06-11 2022-06-11 Outpatient R FILOMENA [facility] [id number] Univers 13:00:00 13:00:00 [facility] 2022-05-28 Outpatient José ALFONSO [facility] [id number] Univers 09:30:00 09:30:00 LUTHER [facility] 2022-05-28 2022-05-28 Outpatient José ALFONSO [facility] [id number] Univers 09:30:00 09:30:00 LUTHER [facility] 2022-05-28 2022-05-28 Outpatient José ALFONSO [facility] [id number] Univers 09:30:00 09:30:00 LUTHER [facility] 2022-05-28 2022-05-28 Outpatient R KADEN [facility] [id number] Univers 09:30:00 09:30:00 LUTHER wolf [facility] 2022-04-21 2022-04-21 Outpatient R REJI [facility] [id number] Univers 16:00:00 16:00:00 JOSH wolf [facility] 2022-04-21 2022-04-21 Imm/Inj Vaccine, [facility] 1.2.840.114 [id number] Univers 16:00:00 16:00:00 Visit Josh Guevara 350.1.13 .10 ity [facility] [place] [phone] Va dical NAL 044 [facility] 2022-03-30 2022-03-30 Imm/Inj Vaccine, [facility] 1.2.840.114 [id number] Univers 15:00:00 15:27:15 Visit Josh Guevara 350.1.13 .10 ity of [facility] 4.[place] [phone] Va dical NAL 044 [facility] 2022-03-30 2022-03-30 Outpatient R REJI [facility] [id number] Univers 15:00:00 15:00:00 JOSH ity [facility] 2021-10-28 2021-10-28 Outpatient R WILMA [facility] [id number] Univers 15:45:00 15:45:00 DINORAH wolf [facility] 2021-10-28 2021-10-28 Outpatient R WILMA [facility] [id number] Univers 13:30:00 13:59:59 DINORAH [facility] 2021-10-28 2021-10-28 [facility] 1.2.604.602 [id number] Univers 13:30:00 13:59:59 Visit Dinorah CHEN 350.1.13.10 i ty of [facility] 4[place] [phone] Va dical NAL 419 [facility] 2021-10-20 2021-10-20 Patient Doctor [facility] 1.2.840.114 [id number] Univers 00:00:00 00:00:00 Secure Msg Unassigned, HEALTH 350.1.13.10 ity of [place] 4.2.7.2.686 [place] emiliano BELTRNÁ [phone] [address] OFFICE [facility] 2021-10-20 2021-10-20 Patient Doctor [facility] 1.2.840.114 [id number] Univers 00:00:00 00:00:00 Secure Msg Unassigned, HEALTH 350.1.13.10 ity of [place] 4.2.7.2.686 Matt as SAJAN?BLEA [id number] Va emeka BRAGA 044 [facility] 2021-10-18 2021-10-18 Telephone Concha, [facility] [id number] Univers 00:00:00 00:00:00 Leora A HEALTH 350.1.13.10 i ty of [place] 4.2.7.2.686 Matt as SAJAN?BLEA [phone] Va emeka BRAGA 044 [facility] OFFICE [facility] 2021-10-16 2021-10-16 Telephone Concha, [facility] [id number] Univers 00:00:00 00:00:00 Leora A HEALTH 350.1.13.10 i ty of [place] 4.2.7.2.686 Matt as SAJAN?BLEA [phone] Va emeka BRAGA 044 [facility] 2021-10-12 2021-10-12 Laboratory Only, Ang Db Test [facility] 1.2.8 40.114 [id number] Univers 10:00:00 10:15:00 Only Josephine Moya [facility] 350.1.13.10 ity of [place] 4.2.7.2.686 Matt as SAJAN?BLEA [phone] Va emeka BRAGA 370 [facility] 2021-10-12 2021-10-12 Outpatient R AUGIE [facility] [id number] Univers 10:00:00 10:00:00 JOSEPHINE wolf of [facility] 2021-10-08 2021-10-08 School Occupational Therapist Lab, Ang - Db [facility] 1.2.840.1 14 [id number] Univers 16:45:00 17:00:00 Visit Leora Saenz HEALTH 350.1.13.10 ity of [place] 4.2.7.2.686 Matt as SAJAN?BLEA [phone] Me emeka BRAGA 353 [facility] OFFICE [facility] 2021-10-08 2021-10-08 Outpatient R CONCHA [facility] [id number] Univers 16:45:00 16:45:00 [facility] 2021-10-08 2021-10-08 Office Concha, [facility] 1.2.840.114 [id number] Univers 16:00:00 16:24:58 Visit Leora Corona HEALTH 350.1.13.10 i ty of [place] 4.2.7.2.686 Matt as SAJAN?BLEA [id number] Va emeka BRAGA [address] [place] [address] OFFICE [facility] 2021-10-08 2021-10-08 Outpatient R CONCHA [facility] [id number] Univers 16:00:00 16:24:58 [facility] 2021-10-08 2021-10-08 Outpatient R CONCHA [facility] [id number] Univers 16:00:00 16:24:58 [facility] 2021-09-15 2021-09-15 Laboratory Only, Ang Db Test [facility] 1.2.8 40.114 [id number] Univers 14:54:46 15:09:46 Only Angel Michelle [facility] 350.1.13.10 ity of [place] 4.2.7.2.686 Matt as SAJAN?BLEA [id number] Va emeka BRAGA 370 [facility] OFFICE [facility] 2021-09-15 2021-09-15 Outpatient R ANGEL [facility] [id number] Univers 15:00:00 15:00:00 MICHELLE [facility] 2021-08-28 2021-08-28 Outpatient R KADEN [facility] [id number] Univers 11:45:00 11:45:00 LUTHER [facility] 2021-07-24 2021-07-24 Outpatient R CONCHA [facility] [id number] Univers 15:30:00 15:30:00 LEORALILY wolf [facility] 2021-07-19 2021-07-19 Urgent Kathie [facility] 1.2.840.114 [id number] Univers 11:06:07 11:23:01 Care [facility] 350.1.13.10 i ty of [place] 4.2.7.2.686 Matt as Sajan?Blea [phone] [address] Medical Office [facility] 2021-07-19 2021-07-19 Laboratory Shilpa Carbajal [facility] 1.2.8 40.114 [id number] Univers 11:01:30 11:16:30 Only Angel [facility] 350.1.13.10 ity of [place] 4.2.7.2.686 Matt as Sajan?Blea [phone] [address] Office [facility] 2021-07-19 2021-07-19 Outpatient R ANGEL [facility] [id number] Univers 11:15:00 11:15:00 MICHELLE purnima [facility] 2021-07-19 2021-07-19 Laboratory Only, Ang Db Test [facility] 1.2.8 40.114 [id number] Univers 11:06:26 11:06:34 Only Shilpa Carbajal [facility] 350.1.13.10 ity of [place] 4.2.7.2.686 Matt as Sajan?Blea [id number] [address] Medical Office [facility] 2021-07-19 2021-07-19 Outpatient R [facility] [id number] Univers 11:00:00 11:00:00 ity [facility] 2021-07-19 2021-07-19 Outpatient R [facility] [id number] Univers 11:00:00 11:00:00 ity [facility] 2021-07-19 2021-07-19 Outpatient R [facility] [id number] Univers 10:40:00 10:40:00 ity [facility] 2021-06-27 2021-06-27 Outpatient R KADEN [facility] [id number] Univers 20:40:00 20:40:00 LUTHER wolf [facility] 2021-06-13 2021-06-13 Telephone [facility] [id number] Univers 00:00:00 00:00:00 Leora Grant 350.1.13.10 i ty of [place] 4.2.7.2.686 Matt as Sajan?Blea [phone] Va dical kney 0[address] [facility] 2021-06-10 2021-06-10 Patient Doctor JOSEPHINE 1.2.840.114 [id number] Univers 00:00:00 00:00:00 Secure Msg Unassigned, LAURENCE 350.1.13.10 [facility] 4.2.7.2.686 Matt as [phone] [address] 2021-06-06 2021-06-06 [facility] [id number] Univers 08:30:00 08:30:00 LEORA wolf [facility] 2021-06-05 2021-06-05 [facility] [id number] Univers 14:30:00 14:30:00 LEORA purnima [facility] 2021-06-04 2021-06-04 Outpatient [facility] [id number] Univers 13:30:00 13:30:00 LEORA wolf [facility] 2021-05-28 2021-05-28 School Occupational Therapist 2, Adc Lab [facility] 1.2.840.114 [id number] Univers 10:35:18 10:50:18 Visit Luther Alfonso 350.1.13.10 ity of [place] [phone] Va dicitzel [facility] 353 [facility] 2021-05-28 2021-05-28 Office Kaden [facility] 1.2.057.040 [id number] Univers 09:47:54 10:33:22 Visit Luther Chen 350.1.13.10 i ty of [place] [phone] Va dical nal 134 [facility] 2021-05-28 2021-05-28 Outpatient R KADEN [facility] [id number] Univers 09:30:00 09:30:00 LUTHER ity of [facility] 2021-05-28 2021-05-28 Orders Doctor JOSEPHINE 1.2.840.114 [id number] Univers 00:00:00 00:00:00 Only Unassigned, LAURENCE 350.1.13.10 [facility] 4.2.7.2.686 Matt as [phone] [address] 2021-05-27 2021-05-27 Laboratory Lab, Adc [facility] 1.2. 840.114 [id number] Univers 18:04:08 18:24:08 Only Shilpa Carbajal [facility] 350.1.13.10 ity of [place] 4.2.7.2.686 Matt as Professio [phone] Va dical nal [address] [place] Office [facility] 2021-05-27 2021-05-27 Outpatient R KATHIE [facility] [id number] Univers 18:00:00 18:00:00 SHILPA malcolmpurnima o f [facility] 2021-05-19 2021-05-19 [facility] [id number] Univers 15:40:00 15:40:00 MICHELLE ity of [facility] 2021-05-19 2021-05-19 Laboratory Lab, [facility] 1.2. 840.114 [id number] Univers 15:15:12 15:35:12 Only Michelle Ortiz [facility] 350.1.13.10 ity of [place] 4.2.7.2.686 Matt as Professio [id number] Va dical nal 0[address] [place] Office [facility] 2021-05-15 2021-05-15 Urgent Mukul Griffin [facility] ..840.11 [id number] Univers 13:19:55 13:39:55 Care Jerson, [facility] 350.1.13.10 ity of [place] 4.2.7.2.686 Matt as Professio [phone] [address] Office Building One 2021-05-15 2021-05-15 Outpatient R [facility] [id number] Univers 13:20:00 13:20:00 ity of [facility] 2021-05-15 2021-05-15 Orders Doctor JOSEPHINE 1.2.840.114 [id number] Univers 00:00:00 00:00:00 Only Unassigned, LAURENCE 350.1.13.10 ity of [place] [facility] 4.2.7.2.686 Matt as [phone] [address] 2021-03-12 2021-03-12 [facility] [id number] Univers 09:00:00 09:00:00 LUTHER wolf [facility] 2020-11-28 2020-11-28 [facility] 1.2.454.568 [id number] Univers 09:54:02 10:09:02 Luther Chen 350.1.13.10 ity of [place] [phone] [facility] [address] [facility] 2020-11-28 2020-11-28 Outpatient R KADEN [facility] [id number] Univers 10:00:00 10:00:00 LUTHER wolf [facility] 2020-11-05 2020-11-05 Outpatient R [facility] [id number] Univers 10:00:00 10:00:00 ity [facility] 2020-11-05 2020-11-05 Nurse Nurse, [facility] 1.2.840.114 [id number] Univers 09:01:26 09:22:36 Visit Ree Cate Jerome Chen 350.1.13.10 ity of [place] [phone] [facility] [address] [facility] 2020-10-30 2020-10-31 Hospital Cate Keenan [facility] 1.2.840.114 [id number] Univers 05:12:00 19:40:00 Encounter Jerome Chen 350.1.13.10 ity of [place] [phone] [facility] [address] 2020-10-28 2020-10-28 School Occupational Therapist Peace, [facility] [place] 1.2.8 40.114 [id number] Univers 10:44:05 10:59:05 Visit Cate Keenan [place] 350.1.13.10 ity of [place] [phone] [place] dical [place] [address] [facility] 2020-10-28 2020-10-28 Laboratory Only, [facility] 1.2.840. 114 [id number] Univers 10:30:28 10:45:28 Only Cate Keenan [place] 350.1.13.10 ity of [place].2.[place] [phone] [facility] [address] [place] 2020-10-28 2020-10-28 Routine KeenanCate [facility] 1.2.084.585 [id number] Univers 08:47:54 10:15:30 Cam [place] 350.1.13.10 ity of [place] [phone] [place] dical nal [address] [facility] 2020-10-28 2020-10-28 Outpatient R [facility] [id number] Univers 09:00:00 09:00:00 ity of [facility] 2020-10-28 2020-10-28 Orders Doctor BURTON 1.2.840.114 [id number] Univers 00:00:00 00:00:00 Only Unassigned, LAURENCE 350.1.13.10 ity of [place] [facility] 4.2.7.2.686 Matt as [phone] [facility] [address] [place] 2020-10-24 2020-10-24 Routine Room, [facility] 1.2.840.1 14 [id number] Univers 08:51:11 10:00:00 Cate Keenan [place] 350.1.13.10 ity of Visit [place] [phone] [place] dical nal [address] [place] [address] 2020-10-24 2020-10-24 Outpatient R [facility] [id number] Univers 09:00:00 09:00:00 ity of [facility] 2020-10-21 2020-10-21 Routine Room, [facility] 1.2.840.1 14 [id number] Univers 10:39:15 11:45:56 Cate Keenan [place] 350.1.13.10 ity of Visit [place] [phone] [place] dical [place]al [address] [place] [address] 2020-10-21 2020-10-21 Outpatient R [facility] [id number] Univers 11:00:00 11:00:00 ity of [facility] 2020-10-17 2020-10-17 [facility] Cate Keenan [facility] 1.2.840.114 [id number] Univers 11:45:00 19:52:00 Encounter Cam [place] 350.1.13.10 ity of [place].2.[place] [phone] [address] 2020-10-17 2020-10-17 Routine Room, [facility] 1.2.840.1 14 [id number] Univers 09:57:07 11:28:24 Cate Keenanton 350.1.13.10 ity of Visit [place] [phone] Va dic[address] 2020-10-17 2020-10-17 Outpatient R [facility] [id number] Univers 10:00:00 10:00:00 ity of [facility] 2020-10-14 2020-10-14 [facility] Cate Keenan [facility] 1.2.840.114 [id number] Univers 12:04:00 13:10:00 Encounter Cam [place] 350.1.13.10 ity of [place] 4.[place].7.2.[place] [phone] [address] 2020-10-14 2020-10-14 Routine Cate Keenan [facility] 1.2.838.152 [id number] Univers 10:49:59 11:39:53 Jerome Chen 350.1.13.10 ity of [place] [phone] [place] dical nal [address] [facility] 2020-10-14 2020-10-14 Outpatient R CATE KEENAN [facility] [id number] Univers 11:00:00 11:00:00 ity of [facility] 2020-10-12 2020-10-13 Hospital Gilma Leon [facility] 1.2.840.114 [id number] Univers 22:39:00 16:15:00 Encounter Jerri 350.1.13.10 ity of [place].2.[place] [phone] [facility] [address] 2020-10-12 2020-10-12 Orders Doctor JOSEPHINE 1.2.840.114 [id number] Univers 00:00:00 00:00:00 Only Unassigned, LAURENCE 350.1.13.10 ity of [place] [facility] 4.2.7.2.686 Matt as [phone] [facility] [address] 2020-09-27 2020-09-27 School Occupational Therapist Ultrasound, Adc [facility] 1.2 .840.114 [id number] Univers 14:57:58 15:27:58 Visit Camila Guevara 350.1.13.10 ity of [place] [phone] Va dical nal [address] [place] [address] 2020-09-27 2020-09-27 Outpatient P [facility] [id number] Univers 15:00:00 15:00:00 ity of [facility] 2020-09-26 2020-09-26 Outpatient R KADEN [facility] [id number] Univers 11:15:00 11:15:00 LUTHER ity [facility] 2020-09-26 2020-09-26 Routine Kaden [facility] 1.2.510.216 [id number] Univers 10:54:22 11:09:22 Luther Chen 350.1.13.10 ity of [place] [phone] Me dical nal [address] [place] [address] 2020-09-11 2020-09-11 Routine Cate Keenan [facility] 1.2.289.719 [id number] Univers 09:48:53 10:36:13 Jerome Chavarriaton 350.1.13.10 ity of [place] [phone] [place] dical nal [address] [facility] 2020-09-11 2020-09-11 Outpatient R CATE KEENAN [facility] [id number] Univers 10:00:00 10:00:00 ity of [facility] 2020-09-06 2020-09-06 Hospital Cate Keenan [facility] 1.2.840.114 [id number] Univers 10:06:00 19:48:00 Encounter Gilma Leon Jerri 350.1.13.10 ity of [place] [phone] [facility] [address] 2020-09-06 2020-09-06 Telephone Cate Keenan [facility] 1.2.840.114 [id number] Univers 00:00:00 00:00:00 Cam Jerri 350.1.13.10 i ty of [place].2.[place] [phone] [place] dical nal [address] [facility] 2020-09-05 2020-09-05 School Occupational Therapist 2, [facility] 1.2.840.114 [id number] Univers 08:10:42 08:25:42 Visit Cate Keenan Jerri 350.1.13.10 ity of [place].2.[place] [phone] [place] dical nal [address] [facility] 2020-09-05 2020-09-05 Outpatient R [facility] [id number] Univers 08:00:00 08:00:00 ity of [facility] 2020-09-03 2020-09-03 Outpatient R CATE KEENAN [facility] [id number] Univers 09:45:00 09:45:00 ity of [facility] 2020-09-03 2020-09-03 School Occupational Therapist 2, Adc [facility] 1.2.840.114 [id number] Univers 08:54:30 09:09:30 Visit Cate Keenan Jerome Chen 350.1.13.10 ity of [place] [phone] Va dical nal [address] [facility] 2020-09-03 2020-09-03 Case Kaden [facility] 1.2.801.328 [id number] Univers 00:00:00 00:00:00 Management Lutherleida Chen 350.1.13.10 ity of [place] [phone] Va dical nal [address] [facility] 2020-09-02 2020-09-02 Outpatient R [facility] [id number] Univers 08:45:00 08:45:00 ity of [facility] 2020-09-01 2020-09-01 Hospital Gilma Leon [facility] 1.2.840.114 [id number] Univers 20:59:00 23:15:00 Encounter Jerri 350.1.13.10 ity of [place] [phone] [facility] [address] 2020-09-01 2020-09-01 Orders Doctor JOSEPHINE 1.2.840.114 [id number] Univers 00:00:00 00:00:00 Only Unassigned, LAURENCE 350.1.13.10 ity of [place] [facility] 4.2.7.2.686 Matt as [phone] [facility] [address] 2020-08-29 2020-08-29 [facility] 1.2.051.698 [id number] Univers 10:52:05 11:07:05 Luther Jerri 350.1.13.10 ity of [place] [phone] [place] dical nal [address] [facility] 2020-08-29 2020-08-29 Outpatient R KADEN [facility] [id number] Univers 11:00:00 11:00:00 LUTHER itpurnima [facility] 2020-07-30 2020-07-30 Routine Keenan Cate [facility] 1.2.958.793 [id number] Univers 14:19:46 15:08:56 Jerome Chen 350.1.13.10 ity of Visit [place] [phone] [place] dical nal [address] [facility] 2020-07-30 2020-07-30 Outpatient R CATE KEENAN [facility] [id number] Univers 14:30:00 14:30:00 ity of [facility] 2020-07-29 2020-07-29 [facility] [id number] Univers 10:15:00 10:15:00 LUTHER ity of [facility] 2020-07-26 2020-07-26 Emergency Shea, [facility] 1.2.009.522 [id number] Univers 21:10:00 23:58:00 Khoi Chen 350.1.13.10 i ty of [place].2.[place] [phone] [address] 2020-07-09 2020-07-09 School Occupational Therapist [facility]trasound, [facility] 1.2 .840.114 [id number] Univers 09:10:31 10:31:28 Visit Joshua Sheffield [employer] 350.1.13.1 0 ity of REGIONAL 4.2.7.2.686 Matt as MATERNAL [phone] [facility] ical & CHILD [address] [place] [address] 2020-07-09 2020-07-09 Outpatient R [facility] [id number] Univers 09:30:00 09:30:00 ity of [facility] 2020-07-03 2020-07-03 Nurse Nurse, [facility] 1.2.840.114 [id number] Univers 08:20:37 08:27:14 Visit Cate Keenan Jerome Chen 350.1.13.10 ity of [place].2.[place] [phone] [place] dical [place]al [address] [place] [address] 2020-07-03 2020-07-03 Outpatient R [facility] [id number] Univers 08:00:00 08:00:00 ity of [facility] 2020-07-01 2020-07-01 School Occupational Therapist 2, [facility] 1.2.840.114 [id number] Univers 10:10:20 10:25:20 Visit Cate Keenan 350.1.13.10 ity of [place] [phone] [place] dical nal [address] [facility] 2020-07-01 2020-07-01 Routine Cate Keenan [facility] 1.2.168.935 [id number] Univers 08:52:17 10:01:03 Jerome Chen 350.1.13.10 ity of [place].2.[place] [phone] [place] dical nal [address] [facility] 2020-07-01 2020-07-[address] [facility] [id number] Univers 09:00:00 09:00:00 ity of [facility] 2020-07-01 2020-07-[address] [facility] [id number] Univers 08:15:00 08:15:00 ity of [facility] 2020-07-01 2020-07-01 Orders Doctor JOSEPHINE 1.2.840.114 [id number] Univers 00:00:00 00:00:00 Only Unassigned, LAURENCE 350.1.13.10 ity of [place] [facility] 4.2.7.2.686 Matt as [phone] [facility] [address] 2020-06-28 2020-06-28 Letter Nurse, [facility] 1.2.840.114 [id number] Univers 00:00:00 00:00:00 (Out) Urgent HEALTH 350.1.13.10 it y of [place] [phone] [facility] Primary & [address] [facility] 2020-06-25 2020-06-25 Laboratory Lab, Adc Fam Pob I [facility] 1.2. 840.114 [id number] Univers 10:23:18 10:43:18 Only Anene, [facility] 350.1.13.10 ity of [place] 4.2.7.2.686 Matt as Professio [phone] [place] dical nal [address] [employer] 2020-06-25 2020-06-25 Outpatient R [facility] [id number] Univers 10:20:00 10:20:00 ity of [facility] 2020-06-17 2020-06-17 Laboratory Lab, Adc Fam Pob I [facility] 1.2. 840.114 [id number] Univers 09:25:28 09:40:28 Only Galo Martinez 350.1.13.10 ity of [place] 4.2.7.2.686 Matt as Professio [phone] Va dical [facility] [address] [place] [address] 2020-06-17 2020-06-17 [facility] [id number] Univers 09:30:00 09:30:00 GALO ity [facility] 2020-06-17 2020-06-17 Telephone Rayna Benitez 1..840.114 [id number] Univers 00:00:00 00:00:00 LAURENCE 350.1.13.10 it y of [facility] 4.2.7.2.686 Matt as [phone] [address] 2020-06-13 2020-06-13 [facility] [id number] Univers 08:00:00 08:00:00 BHARATH ity [facility] 2020-06-04 2020-06-04 Outpatient R [facility] [id number] Univers 13:00:00 13:00:00 ity of [facility] 2020-06-03 2020-06-03 [facility] 1.2.847.161 [id number] Univers 15:24:37 15:39:37 Luther Chen 350.1.13.10 ity of [place] [phone] [facility] [address] [facility] 2020-06-03 2020-06-03 [facility] [id number] Univers 15:30:00 15:30:00 LUTHER luciano [facility] 2020-05-29 2020-05-29 [facility] 1.2.840.114 [id number] Univers 00:00:00 00:00:00 Luther Chen 350.1.13.10 i ty of [place] [phone] [place] [address] 2020-05-29 2020-05-29 Telephone Kaden [facility] 1.2.840.114 [id number] 00:00:00 00:00:00 Luther Jerri 350.1.13.10 [place] 4.2.7.2.686 Professio [phone] [address] 2020-05-21 2020-05-21 Telephone Cate Keenan [facility] 1.2.840.114 [id number] Univers 00:00:00 00:00:00 Jerome Chen 350.1.13.10 i ty of [place] [phone] [place] [address] 2020-05-21 2020-05-21 Telephone Cate Keenan [facility] 1.2.840.114 [id number] 00:00:00 00:00:00 Jerome Chen 350.1.13.10 [place] 4.2.7.2.686 Professio [phone] [address] 2020-05-17 2020-05-17 Orders Doctor JOSEPHINE 1.2.840.114 [id number] Univers 00:00:00 00:00:00 Only Unassigned, LAURENCE 350.1.13.10 ity of [place] [facility] 4.2.7.2.686 Matt as [phone] [address] 2020-05-16 2020-05-16 Routine Anna [facility] 1.2.903.[id number] [place] [address] 08:33:52 09:17:51 Bharath N [employer] 350.1.13.10 i ty of Visit [facility] 4.2.7.2.686 Matt as MATERNAL [phone] Med ical & CHILD [address] [place] [address] 2020-05-16 2020-05-16 Routine Anna [facility] 1.2.483.361 [id number] 08:33:52 09:17:51 Bharath N [employer] 350.1.13.10 Visit [facility] 4.2.7.2.686 MATERNAL [phone] & CHILD [address] [facility] 2020-05-16 2020-05-16 Outpatient [facility] [id number] [facility] 08:30:00 08:30:00 BHARATH wolf [facility] 2020-05-16 2020-05-16 Telephone Cate Keenan [facility] 1.2.840.114 [id number] Univers 00:00:00 00:00:00 Cam [place] 350.1.13.10 i ty of [place] [phone] Va dical [address] 2020-05-16 2020-05-16 Telephone Cate Keenan [facility] 1.2.840.114 [id number] 00:00:00 00:00:00 Cam [place] 350.1.13.10 [place] 4.2.7.2.686 Professio [phone] [address] 2020-05-14 2020-05-14 School Occupational Therapist Lab, [facility]IT 1.2.84 0.114 [id number] [facility] 12:03:58 12:17:37 Visit [place], Joshua Seamus Y HEALTH 350.1.13. 10 ity of [place] [phone] [address] 2020-05-14 2020-05-14 School Occupational Therapist Lab, [facility] 1.2.840.114 [id number] 12:03:58 12:17:37 Visit [facility] Y HEALTH 350.1.13.10 CLINICS 4.2.7.2.686 [phone] [facility] 2020-05-14 2020-05-14 School Occupational Therapist 2, [facility] Room UN[facility]ERSIT 1 .2.840.114 [id number] [facility] 10:50:20 11:35:20 Visit Sheffield, Joshua Seamus Y HEALTH 350.1.13. 10 ity of [place].2.[place] [phone] [facility] [address] [place] 2020-05-14 2020-05-14 School Occupational Therapist 2, [facility] UNIVERSIT 1.2.840.11 4 [id number] 10:50:20 11:35:20 Visit [facility] Room Y HEALTH 350.1.13.10 CLINICS 4.2.7.2.686 [phone] [facility] 2020-05-14 2020-05-14 Outpatient P [facility] [id number] Univers 11:15:00 11:15:00 ity of [facility] 2020-05-14 2020-05-14 Outpatient P [facility] [id number] Univers 10:00:00 10:00:00 ity of [facility] 2020-05-10 2020-05-10 Outpatient R [facility] [id number] Univers 09:00:00 09:00:00 ity of [facility] 2020-05-10 2020-05-10 Orders Doctor JOSEPHINE 1.2.840.114 [id number] Univers 00:00:00 00:00:00 Only Unassigned, LAURENCE 350.1.13.10 ity of [place] [facility] 4.2.7.2.686 Matt as [phone] [facility] [address] [place] 2020-05-03 2020-05-03 Initial Ree Cate [facility] 1.2.429.660 [id number] Univers 14:31:52 15:29:04 Cam Jerri 350.1.13.10 ity of Visit [place].2.686 [place] [facility] [phone] Va dical [address] 2020-05-03 2020-05-03 Initial Ree Cate [facility] 1.2.776.859 [id number] 14:31:52 15:29:04 Cam [place] 350.1.13.10 Visit [place] 4.2.7.2.686 Professio [phone] [address] 2020-05-03 2020-05-03 Outpatient R CATE KEENAN [facility] [id number] Univers 14:30:00 14:30:00 ity of [facility] 2020-04-19 2020-04-20 Emergency Anna [facility] 1.2.840.114 [id number] Univers 23:06:52 00:40:00 Gabriela Chen 350.1.13.10 ity of [place] [phone] [facility] [address] 2020 2020 Routine Anna [facility] 1.2.107.894 [id number] Univers 09:22:38 09:49:19 Bharath Ya [employer] 350.1.13.10 i ty of Visit REGIONAL 4.2.7.2.686 Matt as MATERNAL [phone] [facility] ical & CHILD [address] [place] [address] 2020 2020 Outpatient José CASTILLO [facility] [id number] Univers 09:30:00 09:30:00 BHARATH wolf [facility] 2020-04-16 2020-04-16 School Occupational Therapist Ultrasound, [facility] 1.2 .840.114 [id number] Univers 15:38:55 16:00:46 Visit Boyd Boothejosiasjude Becca [employer] WORK[employer] 350.1. 13.10 ity of REGIONAL 4.2.7.2.686 Matt as MATERNAL [phone] [facility] ical & CHILD [address] [place] [address] 2020-04-16 2020-04-16 Outpatient P [facility] [id number] Univers 15:15:00 15:15:00 ity of [facility] 2020-04-01 2020-04-01 School Occupational Therapist Lab, [facility] 1.2.840. 114 [id number] Univers 10:26:48 10:41:48 Visit Bharath Castillo [employer] 350.1.13.10 ity of REGIONAL 4.2.7.2.686 Matt as MATERNAL [phone] [facility] & CHILD [address] [place] [address] 2020-04-01 2020-04-01 Outpatient José CASTILLO [facility] [id number] Univers 08:00:00 08:00:00 BHARATH wolf [facility] 2020-03-28 2020-03-28 Routine Risk, Jli-Rncjr-Ho/High [facility] 1. 2.840.114 [id number] Univers 09:30:06 09:56:05 Gwendolyn Cantor [employer] 350.1.13.10 ity of Visit REGIONAL 4.2.7.2.686 Matt as MATERNAL [phone] [facility] & CHILD [address] [place] [address] 2020-03-28 2020-03-28 Outpatient R SAKSHI [facility] [id number] Univers 09:30:00 09:30:00 GWENDOLYN wolf [facility] 2020-03-21 2020-03-21 Initial Provider, Ramiro Temp [facility] 1 .2.840.114 [id number] Univers 09:04:15 09:58:46 Salma Fernandez [employer] WORK[employer] 350.1.13.1 0 ity of Visit [facility] 4.2.7.2.686 Matt as MATERNAL [phone] [facility] ical & CHILD [address] [place] [address] 2020-03-21 2020-03-21 Outpatient R [facility] [id number] Univers 09:00:00 09:00:00 ity of [facility] 2020-03-14 2020-03-14 [facility] 1.2 .840.114 [id number] Univers 08:29:19 08:51:36 Visit Trent Corral [employer] WORK[employer] 350.1.13.10 ity of [facility] 4.2.7.2.686 Matt as MATERNAL [phone] [facility] & [address] 2020-03-14 2020-03-14 Out[facility] [id number] Univers 08:00:00 08:00:00 TRENT wolf o f [facility] 2020-03-14 2020-03-14 Orders Doctor JOSEPHINE 1.2.840.114 [id number] Univers 00:00:00 00:00:00 Only Unassigned, LAURENCE 350.1.13.10 ity of [place] [facility] 4.2.7.2.686 Matt as [phone] [address] 2019-11-27 2019-11-27 School Occupational Therapist Peace, Jayne Lab Main [facility] 1.2.8 40.114 [id number] Univers 11:32:24 11:47:24 Visit Cate Keenan 350.1.13.10 it[place] [phone] [place] dic[address] 2019-11-27 2019-11-27 Case Kaden [facility] 1.2.894.173 [id number] Univers 00:00:00 00:00:00 Management Luther Chen 350.1.13.10 it[place] [phone] [place]ical [place] [address] [place] [address] 2019-11-20 2019-11-20 Routine Sonam Keenanmarianne LEIVA 1.2.817.773 [id number] Univers 09:48:33 10:45:14 Cam Waite 350.1.13.10 ity of Visit [place] [phone] [place] [address] 2019-11-20 2019-11-20 Letter Sonam Keenanen [facility] 1.2.187.509 [id number] Univers 00:00:00 00:00:00 (Out) Cam Waite 350.1.13.10 i ty [place] [phone] [place] [address] 2019-11-20 2019-11-20 Orders Doctor JOSEPHINE 1.2.840.114 [id number] Univers 00:00:00 00:00:00 Only Unassigned, LAURENCE 350.1.13.10 ity of [place] [facility] 4.2.7.2.686 Matt as [phone] [address] 2019-11-13 2019-11-13 Routine Sonam Keenanen [facility] 1.2.464.530 [id number] Univers 09:47:53 11:34:17 Cam Waite 350.1.13.10 ity of [place] [phone] [place] [address] [place] [address] 2019-11-13 2019-11-13 Letter Sonam Keenanmarianne LEIVA 1.2.199.429 [id number] Univers 00:00:00 00:00:00 (Out) Cam Waite 350.1.13.10 i ty [place] 4[place].2.[place] [phone] [place] [address] [facility] 2019-11-08 2019-11-08 Routine Sonam Keenanmarianne LEIVA 1.2.058.846 [id number] Univers 13:38:10 13:53:10 Cam Waite 350.1.13.10 ity of [place] 4[place]2.[place] [phone] [place] [address] [facility] 2019-11-06 2019-11-06 [facility] 1.2.840.114 [id number] Univers 14:34:21 17:42:00 Rob[place]or Jagjit Waite 350.1.13.10 it[place] [phone] [facility] [address] 2019-10-31 2019-10-31 Outpatient R CATE KEENAN [facility] [id number] Univers 14:48:10 23:59:00 ity of [facility] 2019-10-31 2019-10-31 Hospital [facility] [id number] Univers 14:48:00 23:59:00 Encounter Jerome Waite [id number] [place]y [id number] [phone] [facility] [address] 2019-10-31 2019-10-31 Telephone Cate Keenan [facility] [id number] Univers 00:00:00 00:00:00 Jerome Waite [id number] i [phone] [place] 134 [facility] 2019-06-02 2019-06-02 Telephone [facility] [id number] Univers 00:00:00 00:00:00 Maria G Andre [employer] [id number] ity of REGIONAL [id number] [place] as MATERNAL [phone] Med ical & CHILD 107 [facility] 2019-05-24 2019-05-24 [facility] [id number] Univers 09:38:19 23:59:00 Encounter Maria G Andre HEALTH [id number] [id number] [phone] [facility] [address] 2019-05-18 2019-05-18 Orders Doctor JOSEPHINE [id number] Univers 00:00:00 00:00:00 Only Unassigned, LAURENCE [id number] ity of [place] [facility] [id number] Matt as [phone] [address] 2019-05-16 2019-05-16 Telephone Sai, [facility] [id number] Univers 00:00:00 00:00:00 Maria G Andre [employer] [id number] ity of [facility] [id number] Matt as MATERNAL [phone] Med ical & CHILD [address] [place] [address] Results Test Description Test Time Test Comments Results Result Comments Source POCT URINALYSIS W/O SPECIFIC GRAVITY 2023-02-01 20:57:00 Test Item Value Reference Range Interpretation Comme nts POCT PH U (test code = 3254) 5 mg/dl 5-8 POCT U LEUK EST (test code = 3263) + Negative - Negative POCT U NIT (test code = 3262) neg Negative - Negative POCT U PROT (test code = 3259) trace Negative - Negative POCT U GLU (test code = 3256) neg Negative - Negative POCT U KETONE (test code = 3258) neg Negative - Negative POCT U BLD (test code = 3257) 250 Negative - Negative [facility] SPECIFIC [id number] 20:57:00 Test Item Value Reference Range Interpretation Comments POCT PH U (test code = 3254) 5 mg/dl 5-8 POCT U LEUK EST (test code = + Negative - Negative 3263) POCT U NIT (test code = 3262) neg Negative - Negative POCT U PROT (test code = 3259) trace Negative - Negative POCT U GLU (test code = 3256) neg Negative - Negative POCT U KETONE (test code = 3258) neg Negative - Negative POCT U BLD (test code = 3257) 250 Negative - Negative [facility]
[2023-09-15 15:14] LABS: Specific Gravity 1.027 (1.005-1.030)
[2023-09-15 15:18] LABS: Specific Gravity 1.027 (1.005-1.030); Urine Bacteria <20 /HPF (<20); Urine Bilirubin NEGATIVE (Negative); Urine Blood Negative (Negative); Urine Clarity Extremely Turbid (Clear); Urine Color Light-Yellow (Yellow); Urine Glucose NEGATIVE (Negative); Urine Mucus Slight /HPF (None Seen); Urine Protein TRACE (Negative); Urine RBC <5 /HPF (None Seen); Urine Urobilinogen Normal (Normal); Urine pH 7.5 (5.0-7.0)
--- NOTE | 2023-09-15 15:23 | ER ---
Nurse's Notes [facility] Name: Jennifer Rosas Age: 33 yrs Sex: Female : 1990 Arrival Date: 09/15/2023 Time: 13:18 Bed IW1 Private MD: Diagnosis: Urinary frequency Presentation: 09/15 13:45 Chief complaint: Patient states: Painful urination and frequency for 2 day. Coronavirus ll1 screen: Client denies travel out of the [place] in the last 14 days. At this time, the client does not indicate any symptoms associated with coronavirus-19. Ebola Screen: Patient denies travel to an Ebola-affected area in the 21 days before illness onset. Initial Sepsis Screen: Does the patient meet any 2 criteria? No. Patient's initial sepsis screen is negative. Does the patient have a suspected source of infection? Yes: Dysuria/Frequency/Urgency/UTI. Risk Assessment: Do you want to hurt yourself or someone else? Patient reports no desire to harm self or others. 13:45 Method Of Arrival: Ambulatory ll1 13:45 Acuity: JHONATAN 4 ll1 13:48 Onset of symptoms was September 14, 2023. ll1 Historical: - Allergies: 13:45 NKA; ll1 - PMHx: 13:45 None; ll1 - PSHx: 13:45 None; ll1 - Immunization history:: Adult Immunizations up to date. - Social history:: Smoking status: Patient denies any tobacco usage or history of. Assessment: 14:43 Reassessment: Patient and/or family updated on plan of care and expected duration. Pain ll1 level reassessed. Vital Signs: 13:49 BP 169 / 101; Pulse 88; Resp 17; Temp 97.3; Pulse Ox 100% ; Weight 117.93 kg; Height 5 ll1 ft. 7 in. ; Pain 0/10; 13:49 Body Mass Index 40.72 (117.93 kg, 170.18 cm) ll1 13:49 Pain Scale: Adult ll1 ED Course: 13:22 Patient arrived in ED. im 13:22 Maura Lee FNP-C [facility] kb 13:22 Inocencio Lopez MD is Attending Physician. kb 13:45 Arm band placed on Patient placed in an exam room, on a stretcher. ll1 13:46 Triage completed. ll1 14:18 Test, Urine Sent. ll1 14:18 Urinalysis w/ reflexes Sent. ll1 Administered Medications: No medications were administered Outcome: 15:22 Discharge ordered by . miladis 15:31 Patient left the ED. aa5 Signatures: Maura Lee FNP-C FNP-Ckb Calderon, Audri, RN RN aa5 Hanh Ramos RN RN ll1 Kallie Milian Corrections: (The following items were deleted from the chart) 13:48 13:45 Chief complaint: Patient states: Painful urination ll1 ll1 13:50 13:49 Pulse 88bpm; Resp 17bpm; Pulse Ox 100%; Temp 97.3F; 117.93 kg; Height 5 ft. 7 ll1 in.; BMI: 40.7; Pain 0/10, Adult; ll1
--- NOTE | 2023-09-15 15:23 | EDPHYS ---
Physician Documentation [facility] Name: Jennifer Rosas Age: 33 yrs Sex: Female : 1990 Arrival Date: 09/15/2023 Time: 13:18 Bed IW1 Private MD: ED Physician Inocencio Lopez HPI: 09/15 13:58 This 33 yrs old Black Female presents to ER via Ambulatory with complaints of Pain With kb Urination. 13:58 Patient is a 33-year-old female who presents for urinary frequency and dysuria that kb started yesterday. States she believes she has a UTI but her doctor could not get her in until October so she came in to be evaluated. Denies fever or abdominal pain.. Historical: - Allergies: 13:45 NKA; ll1 - PMHx: 13:45 None; ll1 - PSHx: 13:45 None; ll1 - Immunization history:: Adult Immunizations up to date. - Social history:: Smoking status: Patient denies any tobacco usage or history of. ROS: 15:04 Constitutional: Negative for fever, chills, and weight loss, kb 15:04 : Positive for urinary frequency, burning with urination, 15:04 All other systems are negative, Exam: 15:04 Constitutional: This is a well developed, well nourished patient who is awake, alert, kb and in no acute distress. Head/Face: Normocephalic, atraumatic. ENT: Moist Mucous membranes Cardiovascular: Regular rate Respiratory: Respirations even and unlabored. No increased work of breathing. Talking in full sentences Skin: Warm, dry with normal turgor. Normal color. MS/ Extremity: Pulses equal, no cyanosis. Neurovascular intact. Full, normal range of motion. Neuro: Awake and alert, GCS 15, oriented to person, place, time, and situation. Moves all extremities. Normal gait. Vital Signs: 13:49 BP 169 / 101; Pulse 88; Resp 17; Temp 97.3; Pulse Ox 100% ; Weight 117.93 kg; Height 5 ll1 ft. 7 in. ; Pain 0/10; 13:49 Body Mass Index 40.72 (117.93 kg, 170.18 cm) ll1 13:49 Pain Scale: Adult ll1 MDM: 13:22 Patient medically screened. kb 15:04 Differential diagnosis: UTI, sti. Data reviewed: vital signs, nurses notes. kb 15:22 Counseling: I had a detailed discussion with the patient and/or guardian regarding the kb historical points, exam findings, and any diagnostic results supporting the discharge/admit diagnosis, lab results, the need for outpatient follow up, a family practitioner, to return to the emergency department if symptoms worsen or persist or if there are any questions or concerns that arise at home. 09/15 13:23 Order name: Test, Urine; Complete Time: 15:17 kb 09/15 13:23 Order name: Urinalysis w/ reflexes; Complete Time: 15:21 kb Administered Medications: No medications were administered Disposition Summary: 09/15/23 15:22 Discharge Ordered Notes: Location: Home kb Condition: Stable kb Diagnosis - Urinary frequency kb Followup: kb - With: Emergency Department - When: As needed - Reason: Worsening of condition Followup: kb - With: Private Physician - When: 2 - 3 days - Reason: Recheck today's complaints, Continuance of care, Re-evaluation by your physician Discharge Instructions: - Discharge Summary Sheet kb - Urinary Frequency, Adult kb Forms: - Medication Reconciliation Form kb - Thank You Letter kb - Antibiotic Education kb - Prescription Opioid Use kb - Patient Portal Instructions kb - Leadership Thank You Letter kb Signatures: Dispatcher [employer] Maura Mcdonough, EDSON-Jes SANDHU-Hanh Jimenez, RN RN ll1
[2023-09-15 15:49] VITALS: BP 169/101; TEMP 97.3; O2SAT 100
== END 2023-09-15 15:31 | disposition home or self-care (01) ==
LOC: ER 13:18
DX: R35.0 Frequency of micturition (principal)
CPT/HCPCS: 81001; 81025; 99282

== ENCOUNTER 2024-03-12 15:27 | Emergency (ER) | payer SELFPAY ==
--- OUTSIDE RECORDS SUMMARY | 2024-03-12 15:33 | XMS REPORT | Continuity of Care Document ---
Author Name Unknown Address [address] [facility] [address] [place] [address] [facility] thconnect Address [address] [facility] [address] [place] [address] Care Team Providers Care Equity Research Analyst Name Role Phone Pcp, Patient Does Not Have A Primary Care Physic preeti FATMATA GIBBS Attending Clinician Unavail able Sai WHFatmata NICE Attending Clinician + CATE KEENAN Attending Clinician Unavailable HEATHER JAMESON Attending Clinician Unavaila ble Nurse, Alvino R[facility]ch[facility] R[facility] Obgyn Attending Clini joi Unavailable Doctor Unassigned, [place] Attending Clinician U Heather Bennett CNM Attending Clinician [phone] LUTHER ALFONSO Attending Clinician Unavailable Luther Alfonso PA-C Attending Clinician [phone] , [facility] Lab Attending Clinician Unavailable LEORA SAENZ Attending Clinician Unavailable Leora Nolasco Attending Clinician [phone] MEAGAN BUTT Attending Clinician Unavailable JOSH GUEVARA Attending Clinician Unavail able [facility], [facility] Family Medicine Attending Clinician Unavailable Josh Guevara DO Attending Clinician [phone] DINORAH DILLON Attending Clinician Unavailcleopatra Dillon MD, Dinorah Deshpande Attending Clinician [phone] Only, Ang Michael Test Attending Clinician Unavailcleopatra Moya PA-C, Josephine Attending Clinician [phone] JOSEPHINE MOYA Attending Clinician Unavailable Lab, Ang - Db Attending Clinician Unavailable Angel MORALEZ, Michelle Attending Clinician [phone] MICHELLE ORTIZ Attending Clinician Unavailable Shilpa Gandhi Attending Clinician [phone] Lab, [facility] Fam Pob I Attending Clinician Unavailab SHILPA Mak Attending Clinician Unavailcleopatra Griffin MD, Mukul Manzanares Attending Clinician [phone] Green Marilyn SANDHU Attending Clinician [phone] Nurse, [facility] Women's Health Attending Clinician Un available Cate Keenan MD Attending Clinician [phone] Pob, [facility] Lab Main Attending Clinician Unavailcleopatra e Only, [facility] Test Attending Clinician Unavailable Room, [facility] Nst Attending Clinician Unavailable Edward MORALEZ, Gilma Attending Clinician [phone] Ultrasound, [facility] Attending Clinician Unavailcamila Guevara MD, Camila Mc Attending Clinician [phone] SheaKhoi Yusuf Attending Clinician [phone] Ultrasound, [facility] Attending Clinician Unavaila bebe Sheffield MD, Joshua Way Attending Clinician [phone] Nurse, [facility] Attending Clinician UnavailBerna SANDHU, Galo Attending Clinician [phone] GALO VELÁSQUEZ Attending Clinician Unavailable Rayna Benitez RN Attending Clinician Unavailable BHARATH CASTILLO Attending Clinician UnavailKaty SANDHU, Bharath Ya Attending Clinician [phone] Lab, [facility] Attending Clinician Unavailable 2, [facility] Room Attending Clinician UnavailGabriela Mascorro DO Attending Clinician [phone] Boyd Davey MD, Becca Attending Clinician + Lab, [facility] Attending Clinician Unavailable Risk, Ikt-Vzopv-Fv/High Attending Clinician Unav ailable Kimberly WHTONIEPGwendolyn Attending Clinician [phone] GWENDOLYN CANTOR Attending Clinician Unavailabl e Provider, Ramiro Temp Attending Clinician Rosaline vailable Rebecca WHTONIEP, Salma Attending Clinician + [phone] [facility] Unava ilable Trent Otto Attending Clinician [phone] TRENT CORRAL Attending Clinician Unavailab le Walt DUST OPERATOR, Tarun F Attending Clinician [phone] CATE KEENAN Admitting Clinician Unavailable GILMA LEON Admitting Clinician Unavailable Cate Keenan MD Admitting Clinician [phone] Gilma Leon MD Admitting Clinician [phone] Payers Payer Name Policy Type Policy Number Effective Date Expirati on Date Source [employer] MEDICAID [id number] 2019 00:00:00 [place] [id number] 2023 00:00:00 Problems Condition Name Condition Details Condition Category Status Onset Date Resolution Date Last Treatment Date Treating Clinician Comments Source Need for HPV vaccinatio n Need for HPV vaccinatio n Disease Active 1-04 00:00: 00 [facility] Elevated ALT measuremen t Elevated ALT measuremen t Disease Active 8 00:00: 00 [facility] Elevated platelet count Elevated platelet count Disease Active 06-13 00:00: 00 [facility] History of gestationa l diabetes History of gestationa l diabetes Disease Active 7-17 00:00: 00 [facility] History of pre-eclamp perfecto History of pre-eclamp perfecto Disease Active 6- 00:00: 00 [facility] Morbid obesity with body mass index of 40.0-49.9 Morbid obesity with body mass index of 40.0-49.9 Disease Active 6- 00:00: 00 [facility] Allergies, Adverse Reactions, Alerts Allergy Name Allergy Type Status Severity Reaction(s) Onset Date Inactive Date Treating Clinician Comments Source NO KNOWN ALLERGIE S Drug Class Active [facility] Social History Social Habit Start Date Stop Date Quantity Comments Source [facility] 2024-01-03 00:00:00 2024-01-03 00:00:00 [facility] Tobacco use and exposure 2024-01-03 00:00:00 2024-01-03 00:00:00 Smokeless tobacco non-user [facility] Alcohol intake 2024-01-03 00:00:00 2024-01-03 00:00:00 Current drinker of alcohol (finding) [facility] Exposure to SARS-CoV-2 (event) 2023-01-22 00:00:00 2023-02-01 13:07:00 Not sure [facility] Alcohol Comment 2022-12-29 00:00:00 2022-12-29 00:00:00 socially [facility] Sex Assigned At 1990 00:00:00 1990 00:00:00 [facility] Smoking Status Start Date Stop Date Source Never smoked tobacco [facility] Medications Ordered Medication Name Filled Medication Name Start Date Stop Date Current Medication? Ordering Clinician Indication Dosage Frequency Signature (SIG) Comments Components Source Nitrofurant oin&Nit. Macrocryst (MACROBID) 100 mg capsule 1-04 00:00: 00 11-01 05:59 :00 No [id number] 100mg Take 1 capsule by mouth in the morning and 1 capsule in the evening. Do all this for 10 days. [facility] Nitrofurant oin&Nit. Macrocryst (MACROBID) 100 mg capsule -17 00:00: 00 01-02 00:00 :00 No [id number] 100mg Take 1 capsule by mouth in the morning and 1 capsule in the evening. [facility] No known medications 1-26 15:16: 00 No No known medication s [facility] azelastine 137 mcg (0.1 %) nasal spray 11-12 00:00: 00 01-02 00:00 :00 No [id number] 1{spray } Use 1 [place] in each nostril in the morning and 1 [place] in the evening. Use in each nostril as directed [facility] benzonatate (TESSALON PERLES) 100 mg capsule 11-12 00:00: 00 01-02 00:00 :00 No [id number] 100mg Take 1 capsule by mouth every 8 (eight) hours as needed for Cough. [facility] amoxicillin 875 mg tablet 11-12 00:00: 00 11-20 05:59 :00 No [id number] 875mg Take 1 tablet by mouth in the morning and 1 tablet in the evening. Do all this for 7 days. [facility] LOESTRIN FE 1 mg-20 mcg (21)/75 mg (7) tablet 811 00:00: 00 11-12 00:00 :00 No [id number] 1{tbl} Take 1 tablet by mouth daily. [facility] Immunizations Ordered Immunization Name Filled Immunization Name Date Status Comments Source SARS-COV-2 COVID-19 PFIZER GATO-SUCROSE VACCINE (JON TOP) 2022-04-21 00:00:00 Completed [facility] SARS-COV-2 COVID-19 PFIZER GATO-SUCROSE VACCINE (JON TOP) 2022-04-21 00:00:00 Completed [facility] SARS-COV-2 COVID-19 PFIZER GATO-SUCROSE VACCINE (JON TOP) 2022-04-21 00:00:00 Completed [facility] SARS-COV-2 COVID-19 PFIZER GATO-SUCROSE VACCINE (JON TOP) 2022-04-21 00:00:00 Completed [facility] SARS-COV-2 COVID-19 PFIZER GATO-SUCROSE VACCINE (JON TOP) 2022-04-21 00:00:00 Completed [facility] SARS-COV-2 COVID-19 PFIZER GATO-SUCROSE VACCINE (JON TOP) 2022-04-21 00:00:00 Completed [facility] SARS-COV-2 COVID-19 PFIZER GATO-SUCROSE VACCINE (JON TOP) 2022-04-21 00:00:00 Completed [facility] SARS-COV-2 COVID-19 PFIZER GATO-SUCROSE VACCINE (JON TOP) 2022-04-21 00:00:00 Completed [facility] SARS-COV-2 COVID-19 PFIZER GATO-SUCROSE VACCINE (JON TOP) 2022-04-21 00:00:00 Completed [facility] SARS-COV-2 COVID-19 PFIZER GATO-SUCROSE VACCINE (JON TOP) 2022-04-21 00:00:00 Completed [facility] SARS-COV-2 COVID-19 PFIZER GATO-SUCROSE VACCINE (JON TOP) 2022-04-21 00:00:00 Completed [facility] SARS-COV-2 COVID-19 PFIZER GATO-SUCROSE VACCINE (JON TOP) 2022-03-31 00:00:00 Completed [facility] SARS-COV-2 COVID-19 PFIZER GATO-SUCROSE VACCINE (JON TOP) 2022-03-31 00:00:00 Completed [facility] SARS-COV-2 COVID-19 PFIZER GATO-SUCROSE VACCINE (JON TOP) 2022-03-31 00:00:00 Completed [facility] SARS-COV-2 COVID-19 PFIZER GATO-SUCROSE VACCINE (JON TOP) 2022-03-31 00:00:00 Completed [facility] SARS-COV-2 COVID-19 PFIZER GATO-SUCROSE VACCINE (JON TOP) 2022-03-31 00:00:00 Completed [facility] SARS-COV-2 COVID-19 PFIZER GATO-SUCROSE VACCINE (JON TOP) 2022-03-31 00:00:00 Completed [facility] SARS-COV-2 COVID-19 PFIZER GATO-SUCROSE VACCINE (JON TOP) 2022-03-31 00:00:00 Completed [facility] SARS-COV-2 COVID-19 PFIZER GATO-SUCROSE VACCINE (JON TOP) 2022-03-31 00:00:00 Completed [facility] SARS-COV-2 COVID-19 PFIZER GATO-SUCROSE VACCINE (JON TOP) 2022-03-31 00:00:00 Completed [facility] SARS-COV-2 COVID-19 PFIZER GATO-SUCROSE VACCINE (JON TOP) 2022-03-31 00:00:00 Completed [facility] SARS-COV-2 COVID-19 PFIZER GATO-SUCROSE VACCINE (JON TOP) 2022-03-31 00:00:00 Completed [facility] SARS-COV-2 COVID-19 PFIZER GATO-SUCROSE VACCINE (JON TOP) 2022-03-31 00:00:00 Completed [facility] TDAP 2020-08-29 00:00:00 Completed [facility] TDAP 2020-08-29 00:00:00 Completed [facility] TDAP 2020-08-29 00:00:00 Completed [facility] TDAP 2020-08-29 00:00:00 Completed [facility] TDAP 2020-08-29 00:00:00 Completed [facility] TDAP 2020-08-29 00:00:00 Completed [facility] TDAP 2020-08-29 00:00:00 Completed [facility] TDAP 2020-08-29 00:00:00 Completed [facility] TDAP 2020-08-29 00:00:00 Completed [facility] TDAP 2020-08-29 00:00:00 Completed [facility] TDAP 2020-08-29 00:00:00 Completed [facility] TDAP 2020-08-29 00:00:00 Completed [facility] TDAP 2020-08-29 00:00:00 Completed [facility] TDAP 2020-08-29 00:00:00 Completed [facility] Influenza Virus Vaccine Quad .5 mL IM 6+ MO 2020-07-30 00:00:00 Completed [facility] Influenza Virus Vaccine Quad .5 mL IM 6+ MO 2020-07-30 00:00:00 Completed [facility] Influenza Virus Vaccine Quad .5 mL IM 6+ MO 2020-07-30 00:00:00 Completed [facility] Influenza Virus Vaccine Quad .5 mL IM 6+ MO 2020-07-30 00:00:00 Completed [facility] Influenza Virus Vaccine Quad .5 mL IM 6+ MO 2020-07-30 00:00:00 Completed [facility] Influenza Virus Vaccine Quad .5 mL IM 6+ MO 2020-07-30 00:00:00 Completed [facility] Influenza Virus Vaccine Quad .5 mL IM 6+ MO 2020-07-30 00:00:00 Completed [facility] Influenza Virus Vaccine Quad .5 mL IM 6+ MO 2020-07-30 00:00:00 Completed [facility] Influenza Virus Vaccine Quad .5 mL IM 6+ MO 2020-07-30 00:00:00 Completed [facility] Influenza Virus Vaccine Quad .5 mL IM 6+ MO 2020-07-30 00:00:00 Completed [facility] Influenza Virus Vaccine Quad .5 mL IM 6+ MO 2020-07-30 00:00:00 Completed [facility] Influenza Virus Vaccine Quad .5 mL IM 6+ MO 2020-07-30 00:00:00 Completed [facility] Influenza Virus Vaccine Quad .5 mL IM 6+ MO 2020-07-30 00:00:00 Completed [facility] Influenza Virus Vaccine Quad .5 mL IM 6+ MO 2020-07-30 00:00:00 Completed [facility] Influenza Virus Vaccine Quad .5 mL IM 6+ MO 2019-10-26 00:00:00 Completed [facility] Influenza Virus Vaccine Quad .5 mL IM 6+ MO 2019-10-26 00:00:00 Completed [facility] Influenza Virus Vaccine Quad .5 mL IM 6+ MO 2019-10-26 00:00:00 Completed [facility] Influenza Virus Vaccine Quad .5 mL IM 6+ MO 2019-10-26 00:00:00 Completed [facility] Influenza Virus Vaccine Quad .5 mL IM 6+ MO 2019-10-26 00:00:00 Completed [facility] Influenza Virus Vaccine Quad .5 mL IM 6+ MO 2019-10-26 00:00:00 Completed [facility] Influenza Virus Vaccine Quad .5 mL IM 6+ MO 2019-10-26 00:00:00 Completed [facility] Influenza Virus Vaccine Quad .5 mL IM 6+ MO 2019-10-26 00:00:00 Completed [facility] Influenza Virus Vaccine Quad .5 mL IM 6+ MO 2019-10-26 00:00:00 Completed [facility] Influenza Virus Vaccine Quad .5 mL IM 6+ MO 2019-10-26 00:00:00 Completed [facility] Influenza Virus Vaccine Quad .5 mL IM 6+ MO 2019-10-26 00:00:00 Completed [facility] Influenza Virus Vaccine Quad .5 mL IM 6+ MO 2019-10-26 00:00:00 Completed [facility] Influenza Virus Vaccine Quad .5 mL IM 6+ MO 2019-10-26 00:00:00 Completed [facility] Influenza Virus Vaccine Quad .5 mL IM 6+ MO 2019-10-26 00:00:00 Completed [facility] Influenza Virus Vaccine 2018-07-29 00:00:00 Completed [facility] Influenza Virus Vaccine 2018-07-29 00:00:00 Completed [facility] Influenza Virus Vaccine 2018-07-29 00:00:00 Completed [facility] Influenza Virus Vaccine 2018-07-29 00:00:00 Completed [facility] Influenza Virus Vaccine 2018-07-29 00:00:00 Completed [facility] Influenza Virus Vaccine 2018-07-29 00:00:00 Completed [facility] Influenza Virus Vaccine 2018-07-29 00:00:00 Completed [facility] Influenza Virus Vaccine 2018-07-29 00:00:00 Completed [facility] Influenza Virus Vaccine 2018-07-29 00:00:00 Completed [facility] Influenza Virus Vaccine 2018-07-29 00:00:00 Completed [facility] Influenza Virus Vaccine 2018-07-29 00:00:00 Completed [facility] Influenza Virus Vaccine 2018-07-29 00:00:00 Completed [facility] Influenza Virus Vaccine 2018-07-29 00:00:00 Completed [facility] Influenza Virus Vaccine 2018-07-29 00:00:00 Completed [facility] TDAP 2018-03-09 00:00:00 Completed [facility] TDAP 2018-03-09 00:00:00 Completed [facility] TDAP 2018-03-09 00:00:00 Completed [facility] TDAP 2018-03-09 00:00:00 Completed [facility] TDAP 2018-03-09 00:00:00 Completed [facility] TDAP 2018-03-09 00:00:00 Completed [facility] TDAP 2018-03-09 00:00:00 Completed [facility] TDAP 2018-03-09 00:00:00 Completed [facility] TDAP 2018-03-09 00:00:00 Completed [facility] TDAP 2018-03-09 00:00:00 Completed [facility] TDAP 2018-03-09 00:00:00 Completed [facility] TDAP 2018-03-09 00:00:00 Completed [facility] TDAP 2018-03-09 00:00:00 Completed [facility] TDAP 2018-03-09 00:00:00 Completed [facility] Influenza Virus Vaccine Quad IM 3+ YRS 2016-11-20 00:00:00 Completed [facility] Influenza Virus Vaccine Quad IM 3+ YRS 2016-11-20 00:00:00 Completed [facility] Influenza Virus Vaccine Quad IM 3+ YRS 2016-11-20 00:00:00 Completed [facility] Influenza Virus Vaccine Quad IM 3+ YRS 2016-11-20 00:00:00 Completed [facility] Influenza Virus Vaccine Quad IM 3+ YRS 2016-11-20 00:00:00 Completed [facility] Influenza Virus Vaccine Quad IM 3+ YRS 2016-11-20 00:00:00 Completed [facility] Influenza Virus Vaccine Quad IM 3+ YRS 2016-11-20 00:00:00 Completed [facility] Influenza Virus Vaccine Quad IM 3+ YRS 2016-11-20 00:00:00 Completed [facility] Influenza Virus Vaccine Quad IM 3+ YRS 2016-11-20 00:00:00 Completed [facility] Influenza Virus Vaccine Quad IM 3+ YRS 2016-11-20 00:00:00 Completed [facility] Influenza Virus Vaccine Quad IM 3+ YRS 2016-11-20 00:00:00 Completed [facility] Influenza Virus Vaccine Quad IM 3+ YRS 2016-11-20 00:00:00 Completed [facility] Influenza Virus Vaccine Quad IM 3+ YRS 2016-11-20 00:00:00 Completed [facility] Influenza Virus Vaccine Quad IM 3+ YRS 2016-11-20 00:00:00 Completed [facility] Influenza Virus Vaccine Quad IM 3+ YRS 2016-11-20 00:00:00 Completed [facility] Influenza Virus Vaccine Quad IM 3+ YRS 2016-11-20 00:00:00 Completed [facility] Influenza Virus Vaccine Quad IM 3+ YRS 2016-11-20 00:00:00 Completed [facility] Influenza Virus Vaccine Quad IM 3+ YRS 2016-11-20 00:00:00 Completed [facility] Influenza Virus Vaccine Quad IM 3+ YRS 2016-11-20 00:00:00 Completed [facility] Influenza Virus Vaccine Quad IM 3+ YRS 2016-11-20 00:00:00 Completed [facility] Influenza Virus Vaccine Quad IM 3+ YRS 2016-11-20 00:00:00 Completed [facility] Influenza Virus Vaccine Quad IM 3+ YRS 2016-11-20 00:00:00 Completed [facility] Influenza Virus Vaccine Quad IM 3+ YRS 2016-11-20 00:00:00 Completed [facility] Influenza Virus Vaccine Quad IM 3+ YRS 2016-11-20 00:00:00 Completed [facility] Influenza Virus Vaccine Quad IM 3+ YRS 2016-11-20 00:00:00 Completed [facility] Influenza Virus Vaccine Quad IM 3+ YRS 2016-11-20 00:00:00 Completed [facility] Influenza Virus Vaccine Quad IM 3+ YRS 2016-11-20 00:00:00 Completed [facility] Influenza Virus Vaccine Quad IM 3+ YRS 2016-11-20 00:00:00 Completed [facility] TDAP 2016-08-25 00:00:00 Completed [facility] TDAP 2016-08-25 00:00:00 Completed [facility] TDAP 2016-08-25 00:00:00 Completed [facility] TDAP 2016-08-25 00:00:00 Completed [facility] TDAP 2016-08-25 00:00:00 Completed [facility] TDAP 2016-08-25 00:00:00 Completed [facility] TDAP 2016-08-25 00:00:00 Completed [facility] TDAP 2016-08-25 00:00:00 Completed [facility] TDAP 2016-08-25 00:00:00 Completed [facility] TDAP 2016-08-25 00:00:00 Completed [facility] TDAP 2016-08-25 00:00:00 Completed [facility] TDAP 2016-08-25 00:00:00 Completed [facility] TDAP 2016-08-25 00:00:00 Completed [facility] TDAP 2016-08-25 00:00:00 Completed [facility] Influenza Virus Vaccine Quad IM 3+ YRS 2016-07-07 00:00:00 Completed [facility] Influenza Virus Vaccine Quad IM 3+ YRS 2016-07-07 00:00:00 Completed [facility] Influenza Virus Vaccine Quad IM 3+ YRS 2016-07-07 00:00:00 Completed [facility] Influenza Virus Vaccine Quad IM 3+ YRS 2016-07-07 00:00:00 Completed [facility] Influenza Virus Vaccine Quad IM 3+ YRS 2016-07-07 00:00:00 Completed [facility] Influenza Virus Vaccine Quad IM 3+ YRS 2016-07-07 00:00:00 Completed [facility] Influenza Virus Vaccine Quad IM 3+ YRS 2016-07-07 00:00:00 Completed [facility] Influenza Virus Vaccine Quad IM 3+ YRS 2016-07-07 00:00:00 Completed [facility] Influenza Virus Vaccine Quad IM 3+ YRS 2016-07-07 00:00:00 Completed [facility] Influenza Virus Vaccine Quad IM 3+ YRS 2016-07-07 00:00:00 Completed [facility] Influenza Virus Vaccine Quad IM 3+ YRS 2016-07-07 00:00:00 Completed [facility] Influenza Virus Vaccine Quad IM 3+ YRS 2016-07-07 00:00:00 Completed [facility] Influenza Virus Vaccine Quad IM 3+ YRS 2016-07-07 00:00:00 Completed [facility] Influenza Virus Vaccine Quad IM 3+ YRS 2016-07-07 00:00:00 Completed [facility] Influenza Virus Vaccine Quad IM 3+ YRS Unknown Completed [facility] TDAP Unknown Completed [facility] Influenza Virus Vaccine Quad IM 3+ YRS Unknown Completed [facility] Influenza Virus Vaccine Quad IM 3+ YRS Unknown Completed [facility] TDAP Unknown Completed [facility] Influenza Virus Vaccine Unknown Completed [facility] Influenza Virus Vaccine Quad .5 mL IM 6+ MO (FLUZONE/FLULAVAL/F LUARIX) Unknown Completed [facility] Influenza Virus Vaccine Quad .5 mL IM 6+ MO (FLUZONE/FLULAVAL/F LUARIX) Unknown Completed [facility] TDAP Unknown Completed [facility] Influenza Virus Vaccine Quad IM 3+ YRS Unknown Completed [facility] TDAP Unknown Completed [facility] Influenza Virus Vaccine Quad IM 3+ YRS Unknown Completed [facility] Influenza Virus Vaccine Quad IM 3+ YRS Unknown Completed [facility] TDAP Unknown Completed [facility] Influenza Virus Vaccine Unknown Completed [facility] Influenza Virus Vaccine Quad .5 mL IM 6+ MO (FLUZONE/FLULAVAL/F LUARIX) Unknown Completed [facility] Influenza Virus Vaccine Quad .5 mL IM 6+ MO (FLUZONE/FLULAVAL/F LUARIX) Unknown Completed [facility] TDAP Unknown Completed [facility] Influenza Virus Vaccine Quad IM 3+ YRS Unknown Completed [facility] TDAP Unknown Completed [facility] Influenza Virus Vaccine Quad IM 3+ YRS Unknown Completed [facility] Influenza Virus Vaccine Quad IM 3+ YRS Unknown Completed [facility] TDAP Unknown Completed [facility] Influenza Virus Vaccine Unknown Completed [facility] Influenza Virus Vaccine Quad .5 mL IM 6+ MO (FLUZONE/FLULAVAL/F LUARIX) Unknown Completed [facility] Influenza Virus Vaccine Quad .5 mL IM 6+ MO (FLUZONE/FLULAVAL/F LUARIX) Unknown Completed [facility] TDAP Unknown Completed [facility] Influenza Virus Vaccine Quad IM 3+ YRS Unknown Completed [facility] TDAP Unknown Completed [facility] Influenza Virus Vaccine Quad IM 3+ YRS Unknown Completed [facility] Influenza Virus Vaccine Quad IM 3+ YRS Unknown Completed [facility] TDAP Unknown Completed [facility] Influenza Virus Vaccine Unknown Completed [facility] Influenza Virus Vaccine Quad .5 mL IM 6+ MO (FLUZONE/FLULAVAL/F LUARIX) Unknown Completed [facility] Influenza Virus Vaccine Quad .5 mL IM 6+ MO (FLUZONE/FLULAVAL/F LUARIX) Unknown Completed [facility] TDAP Unknown Completed [facility] SARS-COV-2 COVID-19 PFIZER GATO-SUCROSE VACCINE (JON TOP) Unknown Completed [facility] SARS-COV-2 COVID-19 PFIZER GATO-SUCROSE VACCINE (JON TOP) Unknown Completed [facility] Influenza Virus Vaccine Quad IM 3+ YRS Unknown Completed [facility] TDAP Unknown Completed [facility] Influenza Virus Vaccine Quad IM 3+ YRS Unknown Completed [facility] Influenza Virus Vaccine Quad IM 3+ YRS Unknown Completed [facility] TDAP Unknown Completed [facility] Influenza Virus Vaccine Unknown Completed [facility] Influenza Virus Vaccine Quad .5 mL IM 6+ MO (FLUZONE/FLULAVAL/F LUARIX) Unknown Completed [facility] Influenza Virus Vaccine Quad .5 mL IM 6+ MO (FLUZONE/FLULAVAL/F LUARIX) Unknown Completed [facility] TDAP Unknown Completed [facility] SARS-COV-2 COVID-19 PFIZER GATO-SUCROSE VACCINE (JON TOP) Unknown Completed [facility] SARS-COV-2 COVID-19 PFIZER GATO-SUCROSE VACCINE (JON TOP) Unknown Completed [facility] HPV9 Unknown Completed [facility] Influenza Virus Vaccine Quad IM 3+ YRS Unknown Completed [facility] TDAP Unknown Completed [facility] Influenza Virus Vaccine Quad IM 3+ YRS Unknown Completed [facility] Influenza Virus Vaccine Quad IM 3+ YRS Unknown Completed [facility] TDAP Unknown Completed [facility] Influenza Virus Vaccine Unknown Completed [facility] Influenza Virus Vaccine Quad .5 mL IM 6+ MO (FLUZONE/FLULAVAL/F LUARIX) Unknown Completed [facility] Influenza Virus Vaccine Quad .5 mL IM 6+ MO (FLUZONE/FLULAVAL/F LUARIX) Unknown Completed [facility] TDAP Unknown Completed [facility] SARS-COV-2 COVID-19 PFIZER GATO-SUCROSE VACCINE (JON TOP) Unknown Completed [facility] SARS-COV-2 COVID-19 PFIZER GATO-SUCROSE VACCINE (JON TOP) Unknown Completed [facility] HPV9 Unknown Completed [facility] Influenza Virus Vaccine Quad IM 3+ YRS Unknown Completed [facility] TDAP Unknown Completed [facility] Influenza Virus Vaccine Quad IM 3+ YRS Unknown Completed [facility] Influenza Virus Vaccine Quad IM 3+ YRS Unknown Completed [facility] TDAP Unknown Completed [facility] Influenza Virus Vaccine Unknown Completed [facility] Influenza Virus Vaccine Quad .5 mL IM 6+ MO (FLUZONE/FLULAVAL/F LUARIX) Unknown Completed [facility] Influenza Virus Vaccine Quad .5 mL IM 6+ MO (FLUZONE/FLULAVAL/F LUARIX) Unknown Completed [facility] TDAP Unknown Completed [facility] SARS-COV-2 COVID-19 PFIZER GATO-SUCROSE VACCINE (JON TOP) Unknown Completed [facility] SARS-COV-2 COVID-19 PFIZER GATO-SUCROSE VACCINE (JON TOP) Unknown Completed [facility] HPV9 Unknown Completed [facility] Influenza Virus Vaccine Quad IM 3+ YRS Unknown Completed [facility] TDAP Unknown Completed [facility] Influenza Virus Vaccine Quad IM 3+ YRS Unknown Completed [facility] Influenza Virus Vaccine Quad IM 3+ YRS Unknown Completed [facility] TDAP Unknown Completed [facility] Influenza Virus Vaccine Unknown Completed [facility] Influenza Virus Vaccine Quad .5 mL IM 6+ MO (FLUZONE/FLULAVAL/F LUARIX) Unknown Completed [facility] Influenza Virus Vaccine Quad .5 mL IM 6+ MO (FLUZONE/FLULAVAL/F LUARIX) Unknown Completed [facility] TDAP Unknown Completed [facility] SARS-COV-2 COVID-19 PFIZER GATO-SUCROSE VACCINE (JON TOP) Unknown Completed [facility] SARS-COV-2 COVID-19 PFIZER GATO-SUCROSE VACCINE (JON TOP) Unknown Completed [facility] HPV9 Unknown Completed [facility] Influenza Virus Vaccine Quad IM 3+ YRS Unknown Completed [facility] TDAP Unknown Completed [facility] Influenza Virus Vaccine Quad IM 3+ YRS Unknown Completed [facility] Influenza Virus Vaccine Quad IM 3+ YRS Unknown Completed [facility] TDAP Unknown Completed [facility] Influenza Virus Vaccine Unknown Completed [facility] Influenza Virus Vaccine Quad .5 mL IM 6+ MO (FLUZONE/FLULAVAL/F LUARIX) Unknown Completed [facility] Influenza Virus Vaccine Quad .5 mL IM 6+ MO (FLUZONE/FLULAVAL/F LUARIX) Unknown Completed [facility] TDAP Unknown Completed [facility] SARS-COV-2 COVID-19 PFIZER GATO-SUCROSE VACCINE (JON TOP) Unknown Completed [facility] SARS-COV-2 COVID-19 PFIZER GATO-SUCROSE VACCINE (JON TOP) Unknown Completed [facility] HPV9 Unknown Completed [facility] Influenza Virus Vaccine Quad IM 3+ YRS Unknown Completed [facility] TDAP Unknown Completed [facility] Influenza Virus Vaccine Quad IM 3+ YRS Unknown Completed [facility] Influenza Virus Vaccine Quad IM 3+ YRS Unknown Completed [facility] TDAP Unknown Completed [facility] Influenza Virus Vaccine Unknown Completed [facility] Influenza Virus Vaccine Quad .5 mL IM 6+ MO (FLUZONE/FLULAVAL/F LUARIX) Unknown Completed [facility] Influenza Virus Vaccine Quad .5 mL IM 6+ MO (FLUZONE/FLULAVAL/F LUARIX) Unknown Completed [facility] TDAP Unknown Completed [facility] SARS-COV-2 COVID-19 PFIZER GATO-SUCROSE VACCINE (JON TOP) Unknown Completed [facility] SARS-COV-2 COVID-19 PFIZER GATO-SUCROSE VACCINE (JON TOP) Unknown Completed [facility] HPV9 Unknown Completed [facility] Influenza Virus Vaccine Quad IM 3+ YRS Unknown Completed [facility] TDAP Unknown Completed [facility] Influenza Virus Vaccine Quad IM 3+ YRS Unknown Completed [facility] Influenza Virus Vaccine Quad IM 3+ YRS Unknown Completed [facility] TDAP Unknown Completed [facility] Influenza Virus Vaccine Unknown Completed [facility] Influenza Virus Vaccine Quad .5 mL IM 6+ MO (FLUZONE/FLULAVAL/F LUARIX) Unknown Completed [facility] Influenza Virus Vaccine Quad .5 mL IM 6+ MO (FLUZONE/FLULAVAL/F LUARIX) Unknown Completed [facility] TDAP Unknown Completed [facility] SARS-COV-2 COVID-19 PFIZER GATO-SUCROSE VACCINE (JON TOP) Unknown Completed [facility] SARS-COV-2 COVID-19 PFIZER GATO-SUCROSE VACCINE (JON TOP) Unknown Completed [facility] HPV9 Unknown Completed [facility] HPV9 Unknown Completed [facility] Influenza Virus Vaccine Quad IM 3+ YRS Unknown Completed [facility] TDAP Unknown Completed [facility] Influenza Virus Vaccine Quad IM 3+ YRS Unknown Completed [facility] Influenza Virus Vaccine Quad IM 3+ YRS Unknown Completed [facility] TDAP Unknown Completed [facility] Influenza Virus Vaccine Unknown Completed [facility] Influenza Virus Vaccine Quad .5 mL IM 6+ MO (FLUZONE/FLULAVAL/F LUARIX) Unknown Completed [facility] Influenza Virus Vaccine Quad .5 mL IM 6+ MO (FLUZONE/FLULAVAL/F LUARIX) Unknown Completed [facility] TDAP Unknown Completed [facility] SARS-COV-2 COVID-19 PFIZER GATO-SUCROSE VACCINE (JON TOP) Unknown Completed [facility] SARS-COV-2 COVID-19 PFIZER GATO-SUCROSE VACCINE (JON TOP) Unknown Completed [facility] HPV9 Unknown Completed [facility] HPV9 Unknown Completed [facility] Influenza Virus Vaccine Quad IM 3+ YRS Unknown Completed [facility] TDAP Unknown Completed [facility] Influenza Virus Vaccine Quad IM 3+ YRS Unknown Completed [facility] Influenza Virus Vaccine Quad IM 3+ YRS Unknown Completed [facility] TDAP Unknown Completed [facility] Influenza Virus Vaccine Unknown Completed [facility] Influenza Virus Vaccine Quad .5 mL IM 6+ MO (FLUZONE/FLULAVAL/F LUARIX) Unknown Completed [facility] Influenza Virus Vaccine Quad .5 mL IM 6+ MO (FLUZONE/FLULAVAL/F LUARIX) Unknown Completed [facility] TDAP Unknown Completed [facility] SARS-COV-2 COVID-19 PFIZER GATO-SUCROSE VACCINE (JON TOP) Unknown Completed [facility] SARS-COV-2 COVID-19 PFIZER GATO-SUCROSE VACCINE (JON TOP) Unknown Completed [facility] HPV9 Unknown Completed [facility] HPV9 Unknown Completed [facility] Influenza Virus Vaccine Quad IM 3+ YRS Unknown Completed [facility] TDAP Unknown Completed [facility] Influenza Virus Vaccine Quad IM 3+ YRS Unknown Completed [facility] Influenza Virus Vaccine Quad IM 3+ YRS Unknown Completed [facility] TDAP Unknown Completed [facility] Influenza Virus Vaccine Unknown Completed [facility] Influenza Virus Vaccine Quad .5 mL IM 6+ MO (FLUZONE/FLULAVAL/F LUARIX) Unknown Completed [facility] Influenza Virus Vaccine Quad .5 mL IM 6+ MO (FLUZONE/FLULAVAL/F LUARIX) Unknown Completed [facility] TDAP Unknown Completed [facility] SARS-COV-2 COVID-19 PFIZER GATO-SUCROSE VACCINE (JON TOP) Unknown Completed [facility] SARS-COV-2 COVID-19 PFIZER GATO-SUCROSE VACCINE (JON TOP) Unknown Completed [facility] HPV9 Unknown Completed [facility] HPV9 Unknown Completed [facility] Influenza Virus Vaccine Quad IM 3+ YRS Unknown Completed [facility] TDAP Unknown Completed [facility] Influenza Virus Vaccine Quad IM 3+ YRS Unknown Completed [facility] Influenza Virus Vaccine Quad IM 3+ YRS Unknown Completed [facility] TDAP Unknown Completed [facility] Influenza Virus Vaccine Unknown Completed [facility] Influenza Virus Vaccine Quad .5 mL IM 6+ MO (FLUZONE/FLULAVAL/F LUARIX) Unknown Completed [facility] Influenza Virus Vaccine Quad .5 mL IM 6+ MO (FLUZONE/FLULAVAL/F LUARIX) Unknown Completed [facility] TDAP Unknown Completed [facility] SARS-COV-2 COVID-19 PFIZER GATO-SUCROSE VACCINE (JON TOP) Unknown Completed [facility] SARS-COV-2 COVID-19 PFIZER GATO-SUCROSE VACCINE (JON TOP) Unknown Completed [facility] HPV9 Unknown Completed [facility] HPV9 Unknown Completed [facility] Influenza Virus Vaccine Quad IM 3+ YRS Unknown Completed [facility] TDAP Unknown Completed [facility] Influenza Virus Vaccine Quad IM 3+ YRS Unknown Completed [facility] Influenza Virus Vaccine Quad IM 3+ YRS Unknown Completed [facility] TDAP Unknown Completed [facility] Influenza Virus Vaccine Unknown Completed [facility] Influenza Virus Vaccine Quad .5 mL IM 6+ MO (FLUZONE/FLULAVAL/F LUARIX) Unknown Completed [facility] Influenza Virus Vaccine Quad .5 mL IM 6+ MO (FLUZONE/FLULAVAL/F LUARIX) Unknown Completed [facility] TDAP Unknown Completed [facility] SARS-COV-2 COVID-19 PFIZER GATO-SUCROSE VACCINE (JON TOP) Unknown Completed [facility] SARS-COV-2 COVID-19 PFIZER GATO-SUCROSE VACCINE (JON TOP) Unknown Completed [facility] HPV9 Unknown Completed [facility] HPV9 Unknown Completed [facility] Influenza Virus Vaccine Quad IM 3+ YRS Unknown Completed [facility] TDAP Unknown Completed [facility] Influenza Virus Vaccine Quad IM 3+ YRS Unknown Completed [facility] Influenza Virus Vaccine Quad IM 3+ YRS Unknown Completed [facility] TDAP Unknown Completed [facility] Influenza Virus Vaccine Unknown Completed [facility] Influenza Virus Vaccine Quad .5 mL IM 6+ MO (FLUZONE/FLULAVAL/F LUARIX) Unknown Completed [facility] Influenza Virus Vaccine Quad .5 mL IM 6+ MO (FLUZONE/FLULAVAL/F LUARIX) Unknown Completed [facility] TDAP Unknown Completed [facility] SARS-COV-2 COVID-19 PFIZER GATO-SUCROSE VACCINE (JON TOP) Unknown Completed [facility] SARS-COV-2 COVID-19 PFIZER GATO-SUCROSE VACCINE (JON TOP) Unknown Completed [facility] HPV9 Unknown Completed [facility] HPV9 Unknown Completed [facility] Vital Signs Vital Name Observation Time Observation Value Comments S ource Systolic blood pressure 2024-01-03 19:21:00 128 mm[Hg] [facility] Diastolic blood pressure 2024-01-03 19:21:00 72 mm[Hg] [facility] Heart rate 2024-01-03 19:21:00 82 /min [facility] 2024-01-03 19:21:00 37.06 Stephanie [facility] Respiratory rate 2024-01-03 19:21:00 17 /min [facility] Body height 2024-01-03 19:21:00 170.2 cm [facility] Body weight 2024-01-03 19:21:00 134.9 kg [facility] BMI 2024-01-03 19:21:00 46.58 kg/m2 [facility] Body temperature 2023-11-25 20:10:00 36.89 Stephanie [facility] Systolic blood pressure 2023-10-21 21:28:00 114 mm[Hg] [facility] Diastolic blood pressure 2023-10-21 21:28:00 76 mm[Hg] [facility] Heart rate 2023-10-21 21:28:00 99 /min [facility] Body temperature 2023-10-21 21:28:00 36.44 Stephanie [facility] Respiratory rate 2023-10-21 21:28:00 18 /min [facility] Body height 2023-10-21 21:28:00 170.2 cm [facility] Body weight 2023-10-21 21:28:00 137.621 kg [facility] BMI 2023-10-21 21:28:00 47.52 kg/m2 [facility] Systolic blood pressure 2023-02-01 20:53:00 129 mm[Hg] [facility] Diastolic blood pressure 2023-02-01 20:53:00 82 mm[Hg] [facility] Heart rate 2023-02-01 20:53:00 81 /min [facility] Body temperature 2023-02-01 20:53:00 36.78 Stephanie [facility] Respiratory rate 2023-02-01 20:53:00 18 /min [facility] Body height 2023-02-01 20:53:00 170.2 cm [facility] Body weight 2023-02-01 20:53:00 134.265 kg [facility] BMI 2023-02-01 20:53:00 46.36 kg/m2 [facility] Systolic blood pressure 2022-12-29 19:09:00 147 mm[Hg] [facility] Diastolic blood pressure 2022-12-29 19:09:00 95 mm[Hg] [facility] Heart rate 2022-12-29 19:09:00 69 /min [facility] Body temperature 2022-12-29 19:09:00 36.78 Stephanie [facility] Respiratory rate 2022-12-29 19:09:00 20 /min [facility] Body height 2022-12-29 19:09:00 170.2 cm [facility] Body weight 2022-12-29 19:09:00 134.355 kg [facility] BMI 2022-12-29 19:09:00 46.39 kg/m2 [facility] Oxygen saturation in Arterial blood by Pulse oximetry 2022-12-29 19:09:00 98 /min [facility] Systolic blood pressure 2022-11-12 20:57:00 126 mm[Hg] [facility] Diastolic blood pressure 2022-11-12 20:57:00 80 mm[Hg] [facility] Heart rate 2022-11-12 20:57:00 89 /min [facility] Body temperature 2022-11-12 20:57:00 36.78 Stephanie [facility] Body height 2022-11-12 20:57:00 170.2 cm [facility] Body weight 2022-11-12 20:57:00 136.079 kg [facility] BMI 2022-11-12 20:57:00 46.99 kg/m2 [facility] Oxygen saturation in Arterial blood by Pulse oximetry 2022-11-12 20:57:00 97 /min [facility] Systolic blood pressure 2021-10-28 19:36:00 118 mm[Hg] [facility] Diastolic blood pressure 2021-10-28 19:36:00 85 mm[Hg] [facility] Heart rate 2021-10-28 19:36:00 81 /min [facility] Body temperature 2021-10-28 19:36:00 36.61 Stephanie [facility] Respiratory rate 2021-10-28 19:36:00 18 /min [facility] Body height 2021-10-28 19:36:00 170.2 cm [facility] Body weight 2021-10-28 19:36:00 138.347 kg [facility] BMI 2021-10-28 19:36:00 47.77 kg/m2 [facility] Oxygen saturation in Arterial blood by Pulse oximetry 2021-10-28 19:36:00 95 /min [facility] Procedures Procedure Date / Time Performed Performing Clinicia n Source HIV 1/2 AG-AB WITH REFLEX 2024-01-03 20:17:00 Fatmata Gibbs [facility] SYPHILIS IGG/IGM 2024-01-03 20:17:00 Abdullahi [facility] [facility] GARDASIL 9 (HPV 9V) VACCINE 2023-11-25 20:10:29 Fatmata Gibbs [facility] CONSENT/REFUSAL FOR DIAGNOSIS AND TREATMENT 2023-11-25 20:02:07 Doctor Unassigned, [place] [facility] GARDASIL 9 (HPV 9V) VACCINE 2023-10-21 21:42:08 Fatmata Gibbs [facility] POCT URINALYSIS W/O SPECIFIC GRAVITY 2023-02-01 00:00:00 Luther Alfonso [facility] PATIENT FINANCIAL POLICY 2022-12-29 18:39:25 Doctor Unassigned, [place] [facility] ASSIGNMENT OF BENEFITS 2022-11-12 20:47:06 Docto r Unassigned, [place] [facility] SARS-COV-2 COVID-19 VACCINE 12 YRS+,0.3ML,IM (PFIZER - JON TOP) 2022-04-22 22:53:29 Doctor Unassigned, [place] [facility] SARS-COV-2 COVID-19 VACCINE 12 YRS+,0.3ML,IM (PFIZER - JON TOP) 2022-03-31 22:45:49 Doctor Unassigned, [place] [facility] Encounters Start Date/Time End Date/Time Encounter Type Admission Type Attending [facility] Care Facility Care Department Encounter ID Source 2021-08-16 14:04:03 Outpatient P [facility] [id number] [facility] 2021-08-16 13:22:30 Outpatient P [facility] [id number] [facility] 2021-08-16 13:14:24 Outpatient P [facility] [id number] [facility] 2021-08-16 13:12:04 Outpatient P [facility] [id number] [facility] 2021-08-16 07:01:54 Outpatient P [facility] [id number] [facility] 2021-08-16 05:38:35 Outpatient P [facility] [id number] [facility] 2021-08-16 05:38:24 Outpatient P [facility] [id number] [facility] 2021-08-15 22:11:43 Emergency [facility] [id number] [facility] 2021-08-15 04:39:46 Emergency [facility] [id number] [facility] 2024-04-27 14:15:00 2024-04-27 14:15:00 Outpatient R [facility] [id number] [facility] 2024-01-03 14:45:00 2024-01-03 15:23:43 Outpatient R FATMATA GIBBS [facility] [id number] [facility] 2024-01-03 14:45:00 2024-01-03 15:23:43 Office Visit Fatmata Gibbs [facility] DEVELOPMENT COACH [facility] ..840.114 350.1.13.10 4.2.7.2.686 [id number] [facility] 2024-01-03 15:00:00 2024-01-03 15:00:00 Outpatient R CATE KEENAN [facility] [id number] [facility] 2023-12-21 15:15:00 2023-12-21 15:15:00 Outpatient R FATMATA GIBBS [facility] [id number] [facility] 2023-11-25 14:15:00 2023-11-25 14:30:00 Nurse Visit Nurse, Alvino Rmchp Rgv Cprit Obgyn Fatmata Gibbs [facility] DEVELOPMENT COACH [facility] ..840.114 350.1.13.10 4.2.7.2.686 [id number] [facility] 2023-11-25 14:15:00 2023-11-25 14:15:00 Outpatient R FATMATA GIBBS [facility] [id number] [facility] 2023-11-25 00:00:00 2023-11-25 00:00:00 Orders Only Doctor Unassigned, [place] [facility] 1..114 350.1.13.10 4.2.7.2.686 [id number] [facility] 2023-10-25 00:00:00 2023-10-25 00:00:00 Telephone Fatmata Gibbs [facility] DEVELOPMENT COACH [facility] 1.84.114 350.1.13.10 4.2.7.2.686 [id number] 107 [id number] [facility] 2023-10-21 15:30:00 2023-10-21 16:02:29 Outpatient R FATMATA GIBBS [facility] [id number] [facility] 2023-10-21 15:30:00 2023-10-21 16:02:29 Office Visit Fatmata Gibbs [facility] DEVELOPMENT COACH [facility] 1..114 350.1.13.10 4.2.7.2.686 [id number] 107 [id number] [facility] 2023-10-19 00:00:00 2023-10-19 00:00:00 Telephone Heather Jameson [facility] DEVELOPMENT COACH [facility] 1..114 350.1.13.10 4.2.7.2.686 [id number] [facility] 2023-02-01 15:45:00 2023-02-01 16:01:19 Outpatient R LUTHER ALFONSO [facility] [id number] [facility] 2023-02-01 15:45:00 2023-02-01 16:01:19 Office Visit Luther Alfonso [facility] 1.2.840.114 350.1.13.10 4.2.7.2.686 [id number] [facility] 2022-12-29 14:45:00 2022-12-29 15:00:00 Asl Interpreter Visit 2, Adc Lab Luther Alfonso [facility] 1.2.840.114 350.1.13.10 4.2.7.2.686 [id number] [facility] 2022-12-29 14:00:00 2022-12-29 14:38:31 Outpatient R LUTHER ALFONSO [facility] [id number] [facility] 2022-12-29 14:00:00 2022-12-29 14:38:31 Office Visit Luther Alfonso [facility] 1.2.840.114 350.1.13.10 4.2.7.2.686 [id number] [facility] 2022-12-29 00:00:00 2022-12-29 00:00:00 Orders Only Doctor Unassigned, [place] [facility] 1.2.840.114 350.1.13.10 4.2.7.2.686 [id number] [facility] 2022-11-25 14:30:00 2022-11-25 14:30:00 Outpatient R LEORA SAENZ [facility] [id number] [facility] 2022-11-12 15:00:00 2022-11-12 15:20:55 Outpatient R LEORA SAENZ [facility] [id number] [facility] 2022-11-12 15:00:00 2022-11-12 15:20:55 Office Visit Leora Saenz [facility] 1.2.840.114 350.1.13.10 4.2.7.2.686 [id number] [facility] 2022-11-12 00:00:00 2022-11-12 00:00:00 Orders Only Doctor Unassigned, [place] [facility] 1.2.840.114 350.1.13.10 4.2.7.2.686 [id number] [facility] 2022-11-12 00:00:00 2022-11-12 00:00:00 Letter (Out) Leora Saenz [facility] 1.2.840.114 350.1.13.10 4.2.7.2.686 [id number] [facility] 2022-06-11 13:00:00 2022-06-11 13:00:00 Outpatient MEAGAN SOUTH [facility] [id number] [facility] 2022-05-28 09:30:00 2022-05-28 09:30:00 Outpatient LUTHER BOSE [facility] [id number] [facility] 2022-05-28 09:30:00 2022-05-28 09:30:00 Outpatient LUTHER BOSE [facility] [id number] [facility] 2022-05-28 09:30:00 2022-05-28 09:30:00 Outpatient LUTHER BOSE [facility] [id number] [facility] 2022-05-28 09:30:00 2022-05-28 09:30:00 Outpatient LUTHER BOSE [facility] [id number] [facility] 2022-04-21 16:00:00 2022-04-21 16:00:00 Outpatient JOSH SANCHEZ [facility] [id number] [facility] 2022-04-21 16:00:00 2022-04-21 16:00:00 Imm/Inj Visit Vaccine, [facility] Josh Guevara [facility] 1.2.840.114 350.1.13.10 4.2.7.2.686 [id number] [facility] 2022-03-30 15:00:00 2022-03-30 15:27:15 Imm/Inj Visit Vaccine, [facility] Josh Guevara Colin [facility] 1.2.840.114 350.1.13.10 4.2.7.2.686 [id number] [facility] 2022-03-30 15:00:00 2022-03-30 15:00:00 [id number] 2021-10-28 15:45:00 2021-10-28 15:45:00 Outpatient R DINORAH DILLON [facility] [id number] [facility] 2021-10-28 13:30:00 2021-10-28 13:59:59 Outpatient R DINORAH DILLON [facility] [id number] [facility] 2021-10-28 13:30:00 2021-10-28 13:59:59 Office Visit Dinorah Dillon [facility] 1.2.840.114 350.1.13.10 4.2.7.2.686 [id number] [facility] 2021-10-20 00:00:00 2021-10-20 00:00:00 Patient Secure Msg Doctor Unassigned, [place] [facility] 1.2.840.114 350.1.13.10 4.2.7.2.686 [id number] [facility] 2021-10-20 00:00:00 2021-10-20 00:00:00 Patient Secure Msg Doctor Unassigned, [place] [facility] 1..840.114 350.1.13.10 4.2.7.2.686 [id number] [facility] 2021-10-18 00:00:00 2021-10-18 00:00:00 Telephone [facility] MED[facility] OFFICE BUILD[facility] 1.84.114 350.1.13.10 4.2.7.2.686 [id number] [facility] 2021-10-16 00:00:00 2021-10-16 00:00:00 Telephone Le[facility] OFF[facility] BUILD[facility] 1..840.114 350.1.13.10 4.2.7.2.686 [id number] [id number] [facility] 2021-10-12 10:00:00 2021-10-12 10:15:00 Laboratory Only Only, Ang Db Test Josephine [facility] MEDICAL OFFICE BUILDING 1..840.114 350.1.13.10 4.2.7.2.686 [id number] [facility] 2021-10-12 10:00:00 2021-10-12 10:00:00 Outpatient JOSEPHINE VENTURA [facility] [id number] [facility] 2021-10-08 16:45:00 2021-10-08 17:00:00 Asl Interpreter Visit Lab, Ang - Db Leora Saenz [facility] MEDICAL OFFICE BUILDING 1.840.114 350.1.13.10 4.2.7.2.686 [id number] [facility] 2021-10-08 16:45:00 2021-10-08 16:45:00 Outpatient R LEORA SAENZ [facility] [id number] [facility] 2021-10-08 16:00:00 2021-10-08 16:24:58 Office Visit Leora Saenz [facility] 1..840.114 350.1.13.10 4.2.7.2.686 [id number] [facility] 2021-10-08 16:00:00 2021-10-08 16:24:58 Outpatient R LETTY LEORA [facility] [id number] [facility] 2021-10-08 16:00:00 2021-10-08 16:24:58 Outpatient R LEORA SAENZ [facility] [id number] [facility] 2021-09-15 14:54:46 2021-09-15 15:09:46 Laboratory Only Only, Ang Db Jesús Ortiz [facility] MEDICAL OFFICE BUILDING 1..840.114 350.1.13.10 4.2.7.2.686 [id number] [facility] 2021-09-15 15:00:00 2021-09-15 15:00:00 Outpatient R ANGEL MICHELLE [facility] [id number] [facility] 2021-08-28 11:45:00 2021-08-28 11:45:00 Outpatient R LUTHER ALFONSO [facility] [id number] [facility] 2021-07-24 15:30:00 2021-07-24 15:30:00 [facility] [id number] 2021-07-19 11:06:07 2021-07-19 11:23:01 Urgent Care Shilpa Carbajal [facility] Medical Office Building 1.2.840.114 350.1.13.10 4.2.7.2.686 [id number] [facility] 2021-07-19 11:01:30 2021-07-19 11:16:30 Laboratory Only Shilpa Carbajal Michelle [facility] Medical Office Building 1.2.840.114 350.1.13.10 4.2.7.2.686 [id number] [facility] 2021-07-19 11:15:00 2021-07-19 11:15:00 Outpatient R ANGELMICHELLE [facility] [id number] [facility] 2021-07-19 11:06:26 2021-07-19 11:06:34 Laboratory Only Only, Ang Db Test KathieTawanna ceballostany [facility] Office Building 1.2.840.114 350.1.13.10 4.2.7.2.686 [id number] [facility] 2021-07-19 11:00:00 2021-07-19 11:00:00 Outpatient R [facility] [id number] [facility] 2021-07-19 11:00:00 2021-07-19 11:00:00 Outpatient R [facility] [id number] [facility] 2021-07-19 10:40:00 2021-07-19 10:40:00 Outpatient R [facility] [id number] [facility] 2021-06-27 20:40:00 2021-06-27 20:40:00 Outpatient R LUTHER ALFONSO [facility] [id number] [facility] 2021-06-13 00:00:00 2021-06-13 00:00:00 Telephone Leora Saenz [facility] Office Building 1.2.840.114 350.1.13.10 4.2.7.2.686 [id number] [facility] 2021-06-10 00:00:00 2021-06-10 00:00:00 Patient Secure Msg Doctor Unassigned, [place] [facility] 1.2840.114 350.1.13.10 4.2.7.2.686 [id number] [facility] 2021-06-06 08:30:00 2021-06-06 08:30:00 Outpatient R LEORA SAENZ [facility] [id number] [facility] 2021-06-05 14:30:00 2021-06-05 14:30:00 [facility] [id number] [facility] 2021-06-04 13:30:00 2021-06-04 13:30:00 Outpatient R LETTY [facility] [id number] [facility] 2021-05-28 10:35:18 2021-05-28 10:50:18 Asl Interpreter Visit 2, Adc Lab Kaden [facility] 1.2.840.114 350.1.13.10 4.2.7.2.686 [id number] [facility] 2021-05-28 09:47:54 2021-05-28 10:33:22 [facility] 1.2.840.114 350.1.13.10 4.2.7.2.686 [id number] [facility] 2021-05-28 09:30:00 2021-05-28 09:30:00 [facility] [id number] [facility] 2021-05-28 00:00:00 2021-05-28 00:00:00 Orders Only Doctor Unassigned, [place] [facility] 1.2840.114 350.1.13.10 4.2.7.2.686 [id number] [facility] 2021-05-27 18:04:08 2021-05-27 18:24:08 Laboratory Only Lab, [facility] Fam Pob Bibi Carbajal [facility] Office Building One .84.114 350.1.13.10 4.2.7.2.686 [id number] [facility] 2021-05-27 18:00:00 2021-05-27 18:00:00 [facility] [id number] [facility] 2021-05-19 15:40:00 2021-05-19 15:40:00 [facility] [id number] [facility] 2021-05-19 15:15:12 2021-05-19 15:35:12 [facility] One .114 350.1.13.10 4.2.7.2.686 [id number] [facility] 2021-05-15 13:19:55 2021-05-15 13:39:55 [facility] .114 350.1.13.10 4.2.7.2.686 [id number] [facility] 2021-05-15 13:20:00 2021-05-15 13:20:00 Outpatient R [facility] [id number] [facility] 2021-05-15 00:00:00 2021-05-15 00:00:00 Orders Only Doctor Unassigned, [place] [facility] .114 350.1.13.10 4.2.7.2.686 [id number] [facility] 2021-03-12 09:00:00 2021-03-12 09:00:00 Outpatient R LUTHER ALFONSO [facility] [id number] [facility] 2020-11-28 09:54:02 2020-11-28 10:09:02 Routine Visit Luther Alfonso [facility] Building 1.2.840.114 350.1.13.10 4.2.7.2.686 [id number] [facility] 2020-11-28 10:00:00 2020-11-28 10:00:00 Outpatient R ROSELUTHER RECIO [facility] [id number] [facility] 2020-11-05 10:00:00 2020-11-05 10:00:00 Outpatient R [facility] [id number] [facility] 2020-11-05 09:01:26 2020-11-05 09:22:36 Nurse Visit Nurse, [facility] Women's Health Ree [facility] Building 1.2.840.114 350.1.13.10 4.2.7.2.686 [id number] [facility] 2020-10-30 05:12:00 2020-10-31 19:40:[address] Encounter Ree [facility] 1.2.840.114 350.1.13.10 4.2.7.2.686 [id number] [facility] 2020-10-28 10:44:05 2020-10-28 10:59:05 Asl Interpreter Visit Pob, [facility] Lab Main Ree [facility] Building 1.2.840.114 350.1.13.10 4.2.7.2.686 [id number] [facility] 2020-10-28 10:30:28 2020-10-28 10:45:28 Laboratory Only Only, [facility] Test Ree [facility] 1.2.840.114 350.1.13.10 4.2.7.2.686 [id number] [facility] 2020-10-28 08:47:54 2020-10-28 10:15:30 Routine Visit Cate Keenan [facility] 1.2.840.114 350.1.13.10 4.2.7.2.686 [id number] [facility] 2020-10-28 09:00:00 2020-10-28 09:00:00 Outpatient R [facility] [id number] [facility] 2020-10-28 00:00:00 2020-10-28 00:00:00 Orders Only Doctor Unassigned, [place] [facility] 1.2.840.114 350.1.13.10 4.2.7.2.686 [id number] [facility] 2020-10-24 08:51:11 2020-10-24 10:00:00 Routine Visit Room, [facility] 1.2.840.114 350.1.13.10 4.2.7.2.686 [id number] [facility] 2020-10-24 09:00:00 2020-10-24 09:00:00 Outpatient R [facility] [id number] [facility] 2020-10-21 10:39:15 2020-10-21 11:45:56 Routine Visit Room, [facility] Cate Keenan [facility] 1.2.840.114 350.1.13.10 4.2.7.2.686 [id number] [facility] 2020-10-21 11:00:00 2020-10-21 11:00:00 Outpatient R [facility] [id number] [facility] 2020-10-17 11:45:00 2020-10-17 19:52:00 [facility] 1.2840.114 350.1.13.10 4.2.7.2.686 [id number] [facility] 2020-10-17 09:57:07 2020-10-17 11:28:24 Routine Visit Room, [facility] Cate Keenan [facility] Professio nal Building 1.2840.114 350.1.13.10 4.2.7.2.686 [id number] [facility] 2020-10-17 10:00:00 2020-10-17 10:00:00 Outpatient R [facility] [id number] [facility] 2020-10-14 12:04:00 2020-10-14 13:10:00 Hospital Encounter Cate Keenan [facility] 1.20.114 350.1.13.10 4.2.7.2.686 [id number] [facility] 2020-10-14 10:49:59 2020-10-14 11:39:53 Routine Visit Cate Keenan [facility] Building 1..114 350.1.13.10 4.2.7.2.686 [id number] [facility] 2020-10-14 11:00:00 2020-10-14 11:00:00 Outpatient R CATE KEENAN [facility] [id number] [facility] 2020-10-12 22:39:00 2020-10-13 16:15:00 Hospital Encounter Gilma Leon [facility] 1.2840.114 350.1.13.10 4.2.7.2.686 [id number] [facility] 2020-10-12 00:00:00 2020-10-12 00:00:00 Orders Only Doctor Unassigned, [place] [facility] 1.2840.114 350.1.13.10 4.2.7.2.686 [id number] [facility] 2020-09-27 14:57:58 2020-09-27 15:27:58 Asl Interpreter Visit Ultrasound, Adc [facility] 1..840.114 350.1.13.10 4.2.7.2.686 [id number] [facility] 2020-09-27 15:00:00 2020-09-27 15:00:00 Outpatient P [facility] [id number] [facility] 2020-09-26 11:15:00 2020-09-26 11:15:00 Outpatient R ALBERTKEVIN LUTHER [facility] [id number] [facility] 2020-09-26 10:54:22 2020-09-26 11:09:22 Routine Visit AlbertJanae leachcy [facility] 1..840.114 350.1.13.10 4.2.7.2.686 [id number] [facility] 2020-09-11 09:48:53 2020-09-11 10:36:13 Routine Visit Cate Keenan [facility] 1..840.114 350.1.13.10 4.2.7.2.686 [id number] [facility] 2020-09-11 10:00:00 2020-09-11 10:00:00 Outpatient R CATE KEENAN [facility] [id number] [facility] 2020-09-06 10:06:00 2020-09-06 19:48:00 Hospital Encounter Cate Keenan Megan [facility] 1..840.114 350.1.13.10 4.2.7.2.686 [id number] [facility] 2020-09-06 00:00:00 2020-09-06 00:00:00 Tele[facility] 1.2.840.114 350.1.13.10 4.2.7.2.686 [id number] [facility] 2020-09-05 08:10:42 2020-09-05 08:25:42 Asl Interpreter Visit 2, [facility] 1.2840.114 350.1.13.10 4.2.7.2.686 [id number] [facility] 2020-09-05 08:00:00 2020-09-05 08:00:00 Outpatient R [facility] [id number] [facility] 2020-09-03 09:45:00 2020-09-03 09:45:00 Outpatient R REE [facility] [id number] [facility] 2020-09-03 08:54:30 2020-09-03 09:09:30 Asl Interpreter Visit 2, Adc Lab Cate Keenan [facility] nal Building 1.2840.114 350.1.13.10 4.2.7.2.686 [id number] [facility] 2020-09-03 00:00:00 2020-09-03 00:00:00 Case Management Luther Alfonso [facility] nal Building [id number] 350.1.13.10 4.2.7.2.686 [id number] [facility] 2020-09-02 08:45:00 2020-09-02 08:45:00 Outpatient R [facility] [id number] [facility] 2020-09-01 20:59:00 2020-09-01 23:15:00 Hospital Encounter Gilma Leon [facility] 1.2840.114 350.1.13.10 4.2.7.2.686 [id number] [facility] 2020-09-01 00:00:00 2020-09-01 00:00:00 Orders Only Doctor Unassigned, [place] [facility] 1.114 350.1.13.10 4.2.7.2.686 [id number] [facility] 2020-08-29 10:52:05 2020-08-29 11:07:05 Routine Visit Luther Alfonso [facility] Building 1.2114 350.1.13.10 4.2.7.2.686 [id number] [facility] 2020-08-29 11:00:00 2020-08-29 11:00:00 [facility] [id number] [facility] 2020-07-30 14:19:46 2020-07-30 15:08:56 Routine Visit Cate Keenan [facility] 1.114 350.1.13.10 4.2.7.2.686 [id number] [facility] 2020-07-30 14:30:00 2020-07-30 14:30:00 Outpatient R CATE KEENAN [facility] [id number] [facility] 2020-07-29 10:15:00 2020-07-29 10:15:00 Outpatient [facility] [id number] [facility] 2020-07-26 21:10:00 2020-07-26 23:58:00 Emergency SheaKhoi leiva R [facility] 1.114 350.1.13.10 4.2.7.2.686 [id number] [facility] 2020-07-09 09:10:31 2020-07-09 10:31:28 Asl Interpreter Visit Ultrasound, Joshua Ventura [facility] DEVELOPMENT COACH [facility] 1.114 350.1.13.10 4.2.7.2.686 [id number] [facility] 2020-07-09 09:30:00 2020-07-09 09:30:00 Outpatient R [facility] [id number] [facility] 2020-07-03 08:20:37 2020-07-03 08:27:14 Nurse Visit Nurse, [facility] Cate Keenan [facility] Building 1..840.114 350.1.13.10 4.2.7.2.686 [id number] [facility] 2020-07-03 08:00:00 2020-07-03 08:00:00 Outpatient R [facility] [id number] [facility] 2020-07-01 10:10:20 2020-07-01 10:25:20 Asl Interpreter Visit 2, [facility] Lab Cate Keenan [facility] Building 1.840.114 350.1.13.10 4.2.7.2.686 [id number] [facility] 2020-07-01 08:52:17 2020-07-01 10:01:03 Routine Visit Cate Keenan [facility] Building 1..840.114 350.1.13.10 4.2.7.2.686 [id number] [facility] 2020-07-01 09:00:00 2020-07-01 09:00:00 Outpatient R [facility] [id number] [facility] 2020-07-01 08:15:00 2020-07-01 08:15:00 Outpatient R [facility] [id number] [facility] 2020-07-01 00:00:00 2020-07-01 00:00:00 Orders Only Doctor Unassigned, [place] [facility] 1.840.114 350.1.13.10 4.2.7.2.686 [id number] [facility] 2020-06-28 00:00:00 2020-06-28 00:00:00 Letter (Out) Nurse, [facility] 1.0.114 350.1.13.10 4.2.7.2.686 [id number] [facility] 2020-06-25 10:23:18 2020-06-25 10:43:18 Laboratory Only Lab, [facility] 1..114 350.1.13.10 4.2.7.2.686 [id number] [facility] 2020-06-25 10:20:00 2020-06-25 10:20:00 Outpatient R [facility] [id number] [facility] 2020-06-17 09:25:28 2020-06-17 09:40:28 Laboratory Only Lab, [facility] 1..114 350.1.13.10 4.2.7.2.686 [id number] [facility] 2020-06-17 09:30:00 2020-06-17 09:30:00 Outpatient R MITCH VELÁSQUEZTHIA [facility] [id number] [facility] 2020-06-17 00:00:00 2020-06-17 00:00:00 Telephone Emmanuel Rayna [facility] 1..114 350.1.13.10 4.2.7.2.686 [id number] [facility] 2020-06-13 08:00:00 2020-06-13 08:00:00 Outpatient R BHARATH CASTILLO [facility] [id number] [facility] 2020-06-04 13:00:00 2020-06-04 13:00:00 Outpatient R [facility] [id number] [facility] 2020-06-03 15:24:37 2020-06-03 15:39:37 Routine Visit Luther [facility]fonso [facility] 1.2840.114 350.1.13.10 4.2.7.2.686 [id number] [facility] 2020-06-03 15:30:00 2020-06-03 15:30:00 Outpatient R LUTHER ALFONSO [facility] [id number] [facility] 2020-05-29 00:00:00 2020-05-29 00:00:00 Telephone Luther Alfonso [facility] 1.2840.114 350.1.13.10 4.2.7.2.686 [id number] [facility] 2020-05-29 00:00:00 2020-05-29 00:00:00 Telephone Luther Alfonso [facility] Building 1.2840.114 350.1.13.10 4.2.7.2.686 [id number] 2020-05-21 00:00:00 2020-05-21 00:00:00 Telephone Cate Keenan [facility] Building 1.2.840.114 350.1.13.10 4.2.7.2.686 [id number] 134 [id number] [facility] 2020-05-21 00:00:00 2020-05-21 00:00:00 Telephone Cate Keenan [facility] Building 1.2.840.114 350.1.13.10 4.2.7.2.686 [id number] 2020-05-17 00:00:00 2020-05-17 00:00:00 Orders Only Doctor Unassigned, [place] [facility] 1.2840.114 350.1.13.10 4.2.7.2.686 [id number] [facility] 2020-05-16 08:33:52 2020-05-16 09:17:51 Routine Visit Bharath Castillo [facility] DEVELOPMENT COACH [facility] & CHILD [facility] 1.2.840.114 350.1.13.10 4.2.7.2.686 [id number] [facility] 2020-05-16 08:33:52 2020-05-16 09:17:51 Routine Visit Bharath Castillo [facility] DEVELOPMENT COACH [facility] & CHILD [facility] 1.2.840.114 350.1.13.10 4.2.7.2.686 [id number] 2020-05-16 08:30:00 2020-05-16 08:30:00 Outpatient R BHARATH CASTILLO [facility] [id number] [facility] 2020-05-16 00:00:00 2020-05-16 00:00:00 Telephone Cate Keenan [facility] 1.2.840.114 350.1.13.10 4.2.7.2.686 [id number] 134 [id number] [facility] 2020-05-16 00:00:00 2020-05-16 00:00:00 Telephone Cate Keenan [facility] 1.2.840.114 350.1.13.10 4.2.7.2.686 [id number] 134 [id number] 2020-05-14 12:03:58 2020-05-14 12:17:37 Asl Interpreter Visit Lab, [facility] Joshua Sheffield [facility] 1.2.840.114 350.1.13.10 4.2.7.2.686 [id number] [facility] 2020-05-14 12:03:58 2020-05-14 12:17:37 Asl Interpreter Visit Lab, [facility] 1.2.840.114 350.1.13.10 4.2.7.2.686 [id number] 2020-05-14 10:50:20 2020-05-14 11:35:20 Asl Interpreter Visit 2, [facility] Room [place], [facility] 1.2.840.114 350.1.13.10 4.2.7.2.686 [id number] [facility] 2020-05-14 10:50:20 2020-05-14 11:35:20 Asl Interpreter Visit 2, [facility] Us Room [facility] 1.2.840.114 350.1.13.10 4.2.7.2.686 [id number] 2020-05-14 11:15:00 2020-05-14 11:15:00 Outpatient P [facility] [id number] [facility] 2020-05-14 10:00:00 2020-05-14 10:00:00 Outpatient P [facility] [id number] [facility] 2020-05-10 09:00:00 2020-05-10 09:00:00 Outpatient R [facility] [id number] [facility] 2020-05-10 00:00:00 2020-05-10 00:00:00 Orders Only Doctor Unassigned, [place] [facility] 1.2840.114 350.1.13.10 4.2.7.2.686 [id number] [facility] 2020-05-03 14:31:52 2020-05-03 15:29:04 Initial Visit Cate Keenan [facility] Building 1.2840.114 350.1.13.10 4.2.7.2.686 [id number] 134 [id number] [facility] 2020-05-03 14:31:52 2020-05-03 15:29:04 Initial Visit Cate Keenan [facility] Building 1.2840.114 350.1.13.10 4.2.7.2.686 [id number] 2020-05-03 14:30:00 2020-05-03 14:30:00 Outpatient R CATE KEENAN [facility] [id number] [facility] 2020-04-19 23:06:52 2020-04-20 00:40:00 Emergency Matthieu Gabriela Maria [facility] 1..840.114 350.1.13.10 4.2.7.2.686 [id number] [facility] 2020 09:22:38 2020 09:49:19 Routine Visit Bharath Castillo [facility] DEVELOPMENT COACH [facility] & CHILD [facility] 1..840.114 350.1.13.10 4.2.7.2.686 [id number] [facility] 2020 09:30:00 2020 09:30:00 Outpatient R BHARATH CASTILLO [facility] [id number] [facility] 2020-04-16 15:38:55 2020-04-16 16:00:46 Asl Interpreter Visit Ultrasound, Becca Amin [facility] DEVELOPMENT COACH [facility] MATERNAL & CHILD [facility] 1..840.114 350.1.13.10 4.2.7.2.686 [id number] [facility] 2020-04-16 15:15:00 2020-04-16 15:15:00 Outpatient P [facility] [id number] [facility] 2020-04-01 10:26:48 2020-04-01 10:41:48 Asl Interpreter Visit Lab, [facility] Bharath Castillo [facility] 1..840.114 350.1.13.10 4.2.7.2.686 [id number] [facility] 2020-04-01 08:00:00 2020-04-01 08:00:00 Outpatient R BHARATH CASTILLO [facility] [id number] [facility] 2020-03-28 09:30:06 2020-03-28 09:56:05 Routine Visit Risk, Ramiro-N p/ Gwendolyn Cantor [facility] DEVELOPMENT COACH [facility] & CHILD [facility] 1..114 350.1.13.10 4.2.7.2.686 [id number] [facility] 2020-03-28 09:30:00 2020-03-28 09:30:00 Outpatient R GWENDOLYN CANTOR [facility] [id number] [facility] 2020-03-21 09:04:15 2020-03-21 09:58:46 Initial Visit Provider, Salma Monte [facility] DEVELOPMENT COACH [facility] MATERNAL & CHILD [facility] 1..114 350.1.13.10 4.2.7.2.686 [id number] [facility] 2020-03-21 09:00:00 2020-03-21 09:00:00 Outpatient R [facility] [id number] [facility] 2020-03-14 08:29:19 2020-03-14 08:51:36 Nurse Visit Visit, Trent Gomez [facility] DEVELOPMENT COACH [facility] MATERNAL & CHILD [facility] 1..114 350.1.13.10 4.2.7.2.686 [id number] [facility] 2020-03-14 08:00:00 2020-03-14 08:00:00 Outpatient R TRENT CORRAL [facility] [id number] [facility] 2020-03-14 00:00:00 2020-03-14 00:00:00 Orders Only Doctor Unassigned, [place] [facility] 1..114 350.1.13.10 4.2.7.2.686 [id number] [facility] 2019-11-27 11:32:24 2019-11-27 11:47:24 Asl Interpreter Visit Pob, Adc Lab Main Cate Keenan [facility] 1.2.840.114 350.1.13.10 4.2.7.2.686 [id number] [facility] 2019-11-27 00:00:00 2019-11-27 00:00:00 Case Management Luther Alfonso [facility] 1.2.840.114 350.1.13.10 4.2.7.2.686 [id number] 134 [id number] [facility] 2019-11-20 09:48:33 2019-11-20 10:45:14 Routine Visit Cate Keenan [facility] 1.2.840.114 350.1.13.10 4.2.7.2.686 [id number] 134 [id number] [facility] 2019-11-20 00:00:00 2019-11-20 00:00:00 Letter (Out) Cate Keenan [facility] 1.2.840.114 350.1.13.10 4.2.7.2.686 [id number] [facility] 2019-11-20 00:00:00 2019-11-20 00:00:00 Orders Only Doctor Unassigned, [place] [facility] 1.2.840.114 350.1.13.10 4.2.7.2.686 [id number] [facility] 2019-11-13 09:47:53 2019-11-13 11:34:17 Routine Visit Cate Keenan [facility] 1.2.840.114 350.1.13.10 4.2.7.2.686 [id number] 134 [id number] [facility] 2019-11-13 00:00:00 2019-11-13 00:00:00 Letter (Out) Cate Keenan [facility] 1.2.840.114 350.1.13.10 4.2.7.2.686 [id number] 134 [id number] [facility] 2019-11-08 13:38:10 2019-11-08 13:53:10 Routine Visit Cate Keenan [facility] 1.2.840.114 350.1.13.10 4.2.7.2.686 [id number] 134 [id number] [facility] 2019-11-06 14:34:21 2019-11-06 17:42:00 Emergency Tarun Godoy [facility] 1.2.840.114 350.1.13.10 4.2.7.2.686 [id number] [facility] 2019-10-31 14:48:10 2019-10-31 23:59:00 Outpatient R CATE KEENAN [facility] [id number] [facility] 2019-10-31 14:48:00 2019-10-31 23:59:00 Hospital Encounter Cate Keenan [facility] 1.2.840.114 350.1.13.10 4.2.7.2.686 [id number] [facility] 2019-10-31 00:00:00 2019-10-31 00:00:00 Telephone Cate Keenan [facility] 1.2.840.114 350.1.13.10 4.2.7.2.686 [id number] 134 [id number] [facility] 2019-06-02 00:00:00 2019-06-02 00:00:00 Telephone Fatmata Gibbs [facility] DEVELOPMENT COACH [facility] MATERNAL & CHILD [facility]ALTH [facility] 1.2.840.114 350.1.13.10 4.2.7.2.686 [id number] [facility] 2019-05-24 09:38:19 2019-05-24 23:59:00 Hospital Encounter Galen Gibbsrivas Andre [facility] 1.840.114 350.1.13.10 4.2.7.2.686 [id number] [facility] 2019-05-18 00:00:00 2019-05-18 00:00:00 Orders Only Doctor Unassigned, [place] [facility] 1.840.114 350.1.13.10 4.2.7.2.686 [id number] [facility] 2019-05-16 00:00:00 2019-05-16 00:00:00 Telephone Galen Gibbsrivas Andre [facility] DEVELOPMENT COACH [facility] MATERNAL & CHILD HEALTH [facility] 1..840.114 350.1.13.10 4.2.7.2.686 [id number] [facility] Results Test Description Test Time Test Comments Results Result Co mments Source [facility]/O SPECIFIC [id number] 20:57:00* Test Item Value Reference Range Interpretation Comme nts POCT PH U (test code = 3254) 5 mg/dl 5-8 POCT U LEUK EST (test code = 3263) + Negative - Negative POCT U NIT (test code = 3262) neg Negative - Negati ve POCT U PROT (test code = 3259) trace Negative - Negat darin POCT U GLU (test code = 3256) neg Negative - Negati ve POCT U KETONE (test code = 3258) neg Negative - Neg ative POCT U BLD (test code = 3257) 250 Negative - Negati ve [facility] Notes Date/Time Note Provider Source 2023-10-25 15:15:17 qmdiQTRFqXrFqeFsEbTF TrniScSLK7PbCd Dx2e1CftxamE3OcsSXzskTz4WAy01O7336 -10-25T15:15:17 Called patient, notified patient positive for UTI. Educated patient on antibiotics, good perineal hygiene, and increasing fluids. Pt verbalized understanding.CORRY Govea RN 10/25/2023 3:15 PM 46287-2Ymhgfxaow encounter IgqtBP3182-87-98G39:15:24Telephone encounter NoteTXT1.2.840.187356.1.13.104.2.7 .2.841285|[id number] for patient hbdj75562-4YhipPGOMFJIIRUDGuolpwdh d C-CDA narrative [id number] Hernandez RN[address] Gy[id number] 21HUKYYEPWNSVDMAOHXNNDGZ0035-10-43 T15:15:241.2.840.476347.1.72.3.15| 1.2.840.852445.1.13.104.2.7.2.7278 [id number] Corry Govea RN [facility] 2023-10-25 14:52:56 X3AfbjHF9qlqArUJ8m1a j7+7GozOiU1w0c ZU5k6rv/IA8Eb9eGq8ylO2Irg6WzjS1562 -01-08T14:52:56 Please notify the patient of UTI, meds have been sent to the pharmacy. Please advise the patient on good perineal hygiene, drinking plenty of water, and completing the entire course of treatment.Please advise her to complete the meds as prescribed from her last visitSHIREEN Burton 10/25/2023 2:53 PM 88602-8Izfqauzup encounter EndnUU2430-06-70C49:53:39Telephone encounter NoteTXT1.2.840.220008.1.13.104.2.7 .2.239101|[id number] for patient xdjx01057-1WkmiHYKUKUKYTYRWizwwxoq d C-CDA narrative text[id number] 03DQMHYXMKNNFRZDPJNQQYJA1649-09-73 T14:53:391.2.840.637912.1.72.3.15| 1.2.840.852077.1.13.104.2.7.2.7278 [id number] [facility] 2023-10-19 09:35:40 EHCXKn9QskMT/LMThn7F crEEeVuEI5C3XP zvbwHiQSXNHMsp20of6+Bf1d54VWlH8416 -01-02T09:35:40 Called pt, offered appt 10/21/2023 at 3:30 pm. Pt verbalized understanding. 69834-8Rihjluake encounter YkyvLX6372-84-35J75:36:14Telephone encounter NoteTXT1.2.840.320013.1.13.104.2.7 .2.213049|[id number] for patient dbsw90478-9DlteTIJPAAVNKLIBqjqbsgy d C-CDA narrative [id number] SCOTT[id number] 63KISLFSAIJVDMYQIMGROHDH8351-21-67 T09:36:141.2.840.766181.1.72.3.15| 1.2.840.623234.1.13.104.2.7.2.7278 [id number] Corry Govea RN [facility] 2023-10-19 09:11:18 xUSmif0ZXvO2y25b22dL +07pLhWK+i2+2Y UD3h2G1ofNorQL4LH9t9SBU+5uIest2807 -01-02T09:11:18 Gia Rosas is a 33 year old femalePt requesting call back, wanting to see provider sooner. Pt having frequent urination, hurts when urinating and spotting when she wipes x 2 days. Please call pt [phone] (mobile) 89358-1Pmbfdtmes encounter NwxrWB1038-38-76B61:14:36Telephone encounter NoteTXT1.2.840.151819.1.13.104.2.7 .2.391267|[id number] for patient bwzt45361-9ZzteXZZLZBEFYHLTmjhizoa d C-CDA narrative [id number] Salazar[address] QrfxEfltyfqucWnzbczgdtGUVV20946665 43ADDOSNXUCVRIAVXGJWBJZM9264-97-55 T09:14:361.2.840.481640.1.72.3.15| 1.2.840.542884.1.13.104.2.7.2.7278 [id number] Susan Castellanos [facility]"
[2024-03-12] MEDS ORDERED: ONDANSETRON 4 MG/2 ML VIAL ONE (16:45)
[2024-03-12] MEDS ORDERED: KETOROLAC 30 MG/ML INJ ONE (16:46)
[2024-03-12] MEDS ORDERED: NA CHLORIDE 0.9% 1,000 ML ONE (16:46)
[2024-03-12 16:47] LABS: Absolute Eosinophils 0.2 K/uL (0-0.5); Absolute Lymphocytes (CBC) 1.7 K/uL (0.7-4.9); Absolute Monocytes 0.4 K/uL (0.1-1.3); Absolute Neutrophil 5.1 K/uL (1.8-8.0); Basophils % 0.3 % (0-1.3); Eosinophils % 2.6 % (0-4.4); Hemoglobin 12.2 g/dL (12.0-15.0); Lymphocytes % 23.2 % (15.3-44.8); MCH 29.7 pg (27.0-35.0); MCHC 33.7 g/dL (32.0-36.0); MCV 88.2 fL (80-100); MPV 7.6 fL (7.6-11.3); Monocytes % 5.9 % (3.3-12.3); Nucleated Red Blood Cells % 0.1 % (0-0); Platelets 356 thou/uL (152-406); RBC Red Blood Cell Count 4.09 M/uL (3.86-4.86); Red Cell Distribution Width 13.1 % (12.1-15.2)
[2024-03-12 16:51] LABS: Specific Gravity 1.023 (1.005-1.030)
[2024-03-12 16:52] LABS: Specific Gravity 1.023 (1.005-1.030); Urine Bilirubin NEGATIVE (Negative); Urine Blood Negative (Negative); Urine Clarity Clear (Clear); Urine Color Light-Yellow (Yellow); Urine Glucose NEGATIVE (Negative); Urine Ketones NEGATIVE (Negative); Urine Microscopic Reflex YN NO UMIC; Urine Nitrite NEGATIVE (Negative); Urine Protein NEGATIVE (Negative); Urine Urobilinogen 1+ (Normal); Urine pH 6.5 (5.0-7.0)
[2024-03-12 17:01] LABS: Albumin 3.2 g/dL (3.4-5.0); Albumin/Globulin Ratio 0.9 (1.1-1.8); Anion Gap 5.2 mEq/L (5.0-15.0); Bilirubin Total 0.3 mg/dL (0.2-1.0); Globulin 3.7 g/dL (2.3-3.5); Potassium 3.2 mEq/L (3.5-5.1); Protein, Total 6.9 g/dL (6.4-8.2)
--- NOTE | 2024-03-12 18:00 | RAD REPORT ---
EXAM DESCRIPTION: CTAbdomen Pelvis W Contrast - 03/12/2024 5:35 pm CLINICAL HISTORY: ABD PAIN COMPARISON: CT ABD PELVIS W CONTRAST dated 03/05/2012 TECHNIQUE: CT of the abdomen and pelvis was performed. All CT scans are performed using dose optimization technique as appropriate and may include automated exposure control or mA/KV adjustment according to patient size. FINDINGS: Lower chest: No acute abnormality. Liver: Hepatic steatosis. Biliary: No biliary ductal dilatation. Stomach: No significant focal abnormality. Duodenum: No significant focal abnormality. Pancreas: No significant abnormality. Spleen: No significant abnormality. Adrenal: No suspicious lesions. Kidney/ureter: No hydronephrosis. No renal calculi. Retroperitoneum: No retroperitoneal adenopathy. Vascular: No aneurysm. Bowel: Normal appendix. No bowel obstruction .. Peritoneum: No ascites or free air. Inflammatory changes associated with some encapsulated fat in the left lower quadrant along proximal sigmoid. Bladder: Grossly unremarkable. Reproductive: No adnexal masses. Bones: No acute fracture. Other: n/a IMPRESSION: Epiploic appendagitis along the proximal sigmoid.
--- NOTE | 2024-03-12 18:46 | ER ---
Nurse's Notes [facility] Name: Jennifer Rosas Age: 33 yrs Sex: Female : 1990 Arrival Date: 03/12/2024 Time: 15:27 Bed 11 Private MD: Diagnosis: Abdominal pain, Generalized-Epiploic appendagitis Presentation: 03/12 15:35 Chief complaint: Patient states: RLQ pain and nausea. Coronavirus screen: At this time, as6 the client does not indicate any symptoms associated with coronavirus-19. Ebola Screen: No symptoms or risks identified at this time. Risk Assessment: Do you want to hurt yourself or someone else? Patient reports no desire to harm self or others. Onset of symptoms was March 10, 2024. 15:35 Method Of Arrival: Ambulatory as6 15:35 Acuity: JHONATAN 3 as6 15:39 Initial Sepsis Screen: Does the patient meet any 2 criteria? No. Patient's initial as6 sepsis screen is negative. Does the patient have a suspected source of infection? No. Patient's initial sepsis screen is negative. Triage Assessment: 15:45 General: Appears in no apparent distress. comfortable, Behavior is calm, cooperative, bp appropriate for age. Pain: Complains of pain in right lower quadrant. GI: Reports lower abdominal pain. SLIVER LAP TENDER: 15:37 LMP 03/04/2024, unknown as6 Historical: - Allergies: 15:36 NKA; as6 - PMHx: 15:36 None; as6 - PSHx: 15:36 section; section; as6 - Immunization history:: Adult Immunizations up to date. - Infectious Disease History:: Denies. - Social history:: Smoking status: Patient denies any tobacco usage or history of. Screenin:00 [facility] ED Fall Risk Assessment (Adult) History of falling in the last 3 months, bp including since admission No falls in past 3 months (0 pts). Abuse screen: Denies threats or abuse. Denies injuries from another. Nutritional screening: No deficits noted. Tuberculosis screening: No symptoms or risk factors identified. Assessment: 15:45 General: Appears in no apparent distress. obese, unkempt, Behavior is calm, bp cooperative, appropriate for age. Neuro: No deficits noted. Cardiovascular: No deficits noted. GI: Bowel sounds present X 4 quads. Abd is soft X 4 quads. 19:00 Reassessment: No changes from previously documented assessment. Patient and/or family eb1 updated on plan of care and expected duration. Pain level reassessed. Patient states feeling better. Vital Signs: 15:37 BP 144 / 86; Pulse 80; Resp 18 S; Temp 97.9(O); Pulse Ox 100% on R/A; Weight 127.01 kg as6 (R); Height 5 ft. 7 in. (R); Pain 6/10; 18:13 BP 125 / 72; Pulse 87; Resp 16; Pulse Ox 98% ; bp 15:37 Body Mass Index 43.85 (127.01 kg, 170.18 cm) as6 15:37 Pain Scale: Adult as6 ED Course: 15:32 Patient arrived in ED. mg5 15:33 Maura Lee FNP-C is [facility]. kb 15:33 Lizandro Hope MD is Attending Physician. kb 15:36 Triage completed. as6 15:36 Arm band placed on left wrist. as6 15:41 Neftali Velasco, RN is Primary Nurse. bp 16:00 Patient has correct armband on for positive identification. Bed in low position. Call bp light in reach. 16:00 Inserted saline lock: 22 gauge in right forearm, using aseptic technique. Blood bp collected. 17:37 CT Abd/Pelvis - IV Contrast Only In Process Unspecified. EDMS 19:11 No provider procedures requiring assistance completed. IV discontinued, intact, eb1 bleeding controlled, No redness/swelling at site. Pressure dressing applied. 19:14 Provided Education on:. eb1 Administered Medications: 16:30 Drug: NS 0.9% IV 1000 ml IV at 1 bolus Per protocol; 1000 mL bolus Route: IV; Rate: 1 bp bolus; Site: right forearm; 16:30 Drug: TORadol - Ketorolac IVP 15 mg IVP once Route: IVP; Site: right forearm; bp 16:30 Drug: Ondansetron IVP 4 mg IVP once; over 2 minutes Route: IVP; Site: right forearm; bp Outcome: 18:46 Discharge ordered by . kb 19:11 Discharged to home with family, eb1 19:11 Condition: good 19:11 Discharge instructions given to patient, Instructed on discharge instructions, Demonstrated understanding of instructions, follow-up care, medications, Prescriptions given X 1, 19:15 Patient left the ED. eb1 Signatures: Dispatcher [employer] EDMaura Espinoza, EDSON-Jes SANDHU-Neftali Santillan, RN RN Delilah Morales RN RN eb1 Salvatore Zhong RN RN as6 Neda Cole 5
--- NOTE | 2024-03-12 18:46 | EDPHYS ---
Physician Documentation [facility] Name: Jennifer Rosas Age: 33 yrs Sex: Female : 1990 Arrival Date: 03/12/2024 Time: 15:27 Bed 11 Private MD: ED Physician Lizandro Hope HPI: 03/12 17:08 This 33 yrs old Black Female presents to ER via Ambulatory with complaints of Abdominal kb Pain. 17:08 Pt is a 33 year old female who presents for RLQ pain and nausea that started 2 days kb ago. Denies vomiting, diarrhea, fever. No aggravating or alleviating factors. 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 - Infectious Disease History:: Denies. - Social history:: Smoking status: Patient denies any tobacco usage or history of. ROS: 17:08 Constitutional: As per HPI kb Exam: 17:08 Constitutional: This is a well developed, well nourished patient who is awake, alert, kb and in no acute distress. Head/Face: Normocephalic, atraumatic. ENT: Moist Mucous membranes Cardiovascular: Regular rate Respiratory: Respirations even and unlabored. No increased work of breathing. Talking in full sentences Skin: Warm, dry with normal turgor. Normal color. MS/ Extremity: Pulses equal, no cyanosis. Neurovascular intact. Full, normal range of motion. Neuro: Awake and alert, GCS 15, oriented to person, place, time, and situation. Moves all extremities. Normal gait. 17:08 Abdomen/GI: Inspection: obese Bowel sounds: normal, Palpation: soft, in all quadrants, moderate abdominal tenderness, in the right lower quadrant, Vital Signs: 15:37 BP 144 / 86; Pulse 80; Resp 18 S; Temp 97.9(O); Pulse Ox 100% on R/A; Weight 127.01 kg as6 (R); Height 5 ft. 7 in. (R); Pain 6/10; 18:13 BP 125 / 72; Pulse 87; Resp 16; Pulse Ox 98% ; bp 15:37 Body Mass Index 43.85 (127.01 kg, 170.18 cm) as6 15:37 Pain Scale: Adult as6 MDM: 15:33 Patient medically screened. kb 18:41 Data reviewed: vital signs, nurses notes. kb 18:45 Differential diagnosis: appendicitis, non-specific abd pain, urinary tract infection. I kb considered the following discharge prescriptions or medication management in the emergency department I discussed and recommended Over The Counter medications, Antibiotics: At this time antibiotics are not recommended. Counseling: I had a detailed discussion with the patient and/or guardian regarding the historical points, exam findings, and any diagnostic results supporting the discharge/admit diagnosis, lab results, radiology results, the need for outpatient follow up, a family practitioner, to return to the emergency department if symptoms worsen or persist or if there are any questions or concerns that arise at home. 03/12 16:06 Order name: CBC with Diff; Complete Time: 16:55 kb 03/12 16:06 Order name: CMP; Complete Time: 17:05 kb 03/12 16:06 Order name: Lipase; Complete Time: 17:05 kb 03/12 16:06 Order name: Test, Urine; Complete Time: 16:55 kb 03/12 16:06 Order name: Urinalysis w/ reflexes; Complete Time: 16:55 kb 03/12 16:06 Order name: CT Abd/Pelvis - IV Contrast Only; Complete Time: 18:01 kb 03/12 16:06 Order name: IV Saline Lock; Complete Time: 16:29 kb 03/12 16:06 Order name: Labs collected and sent; Complete Time: 16:29 kb Administered Medications: 16:30 Drug: NS 0.9% IV 1000 ml IV at 1 bolus Per protocol; 1000 mL bolus Route: IV; Rate: 1 bp bolus; Site: right forearm; 16:30 Drug: TORadol - Ketorolac IVP 15 mg IVP once Route: IVP; Site: right forearm; bp 16:30 Drug: Ondansetron IVP 4 mg IVP once; over 2 minutes Route: IVP; Site: right forearm; bp Disposition: 19:56 Co-signature as Attending Physician, Lizandro Hope MD I reviewed the patient's care rt provided by the Advanced Practice Provider and agree with the diagnosis and treatment plan. Disposition Summary: 03/12/24 18:46 Discharge Ordered Notes: Location: Home kb Condition: Stable kb Diagnosis - Abdominal pain, Generalized - Epiploic appendagitis kb Followup: kb - With: Emergency Department - When: As needed - Reason: Worsening of condition Followup: kb - With: Private Physician - When: 2 - 3 days - Reason: Recheck today's complaints, Continuance of care, Re-evaluation by your physician Discharge Instructions: - Discharge Summary Sheet kb - Epiploic Appendagitis kb Forms: - Medication Reconciliation Form kb - Antibiotic Education kb - Prescription Opioid Use kb - Patient Portal Instructions kb - Leadership Thank You Letter kb Prescriptions: - Ibuprofen 800 mg Oral Tablet - take 1 tablet ORAL route every 8 hours As needed take with food; 30 tablet; kb Refills: 0, Product Selection Permitted Signatures: Dispatcher [employer] EDMaura Espinoza, OIL PAINT SHADER-C OIL PAINT SHADER-Neftali Santillan, RN RN bp Delilah Stephens RN RN eb1 Salvatore Zhong RN RN as6 Lizandro Hope MD MD rt Corrections: (The following items were deleted from the chart) 16:07 16:07 CBC+H.LAB.BRZ ordered. EDMS EDMS 16:07 16:07 COMPREHENSIVE METABOLIC PANEL+C.LAB.BRZ ordered. EDMS EDMS 16:07 16:07 LIPASE+C.LAB.BRZ ordered. EDMS EDMS 16:07 16:07 Test, Urine+UC.LAB.BRZ ordered. EDMS EDMS 16:07 16:07 Urinalysis+U.LAB.BRZ ordered. EDMS EDMS
[2024-03-12 19:34] VITALS: BP 125/72; TEMP 97.9; O2SAT 98
== END 2024-03-12 19:15 | disposition home or self-care (01) ==
LOC: ER 15:27
DX: K63.89 Other specified diseases of intestine (principal)
CPT/HCPCS: 36415; 74177; 80053; 81003; 81025; 83690; 85025; 96374; 96375; 99284; J2405; J7030; Q9967

== ENCOUNTER 2024-11-25 21:39 | Emergency (ER) | payer SELFPAY ==
--- OUTSIDE RECORDS SUMMARY | 2024-11-25 21:43 | XMS REPORT | Continuity of Care Document ---
Author Name Unknown Address [address] [facility] [address] [place] [address] [facility] thconnect Address [address] [facility] [address] [place] [address] Care Team Providers Care Bell Maker Name Role Phone Nobles PATIENT ESCORT, Kasia Primary Care Physician [phone] Sai WHFatmata NICE Attending Clinician + FATMATA GIBBS Attending Clinician Unavail able CATE KEENAN Attending Clinician Unavailable HEATHER JAMESON Attending Clinician Unavaila [facility] Nurse, [facility] Attending Clini joi Unavailable Doctor Unassigned, [place] Attending Clinician U sheaailHeather Silva CNM Attending Clinician [phone] LUTHER ALFONSO Attending Clinician Unavailable Luther Alfonso PA-C Attending Clinician [phone] , [facility] Attending Clinician Unavailable LEORA SAENZ Attending Clinician Unavailable Leora Nolasco Attending Clinician [phone] MEAGAN BUTT Attending Clinician Unavailable JOSH GUEVARA Attending Clinician Unavail able [facility] Attending Clinician Unavailable Josh Guevara DO Attending Clinician [phone] DINORAH DILLON Attending Clinician Unavailcleopatra Dillon MD, Dinorah Deshpande Attending Clinician [phone] Only, Ang Db Test Attending Clinician UnavailJosephine Luna PA-C Attending Clinician [phone] JOSEPHINE MOYA Attending Clinician Unavailable Lab, Ang - Db Attending Clinician Unavailable Angel MORALEZ, Michelle Attending Clinician [phone] MICHELLE ORTIZ Attending Clinician Unavailable Shilpa Gandhi Attending Clinician [phone] Lab, [facility] Fam Pob I Attending Clinician Unavailab SHILPA Mak Attending Clinician UnavailMukul Degroot MD Attending Clinician [phone] Green PATIENT ESCORTMarilyn Attending Clinician [phone] Nurse, [facility] Attending Clinician Un available Ree MORALEZ, Cate Cano Attending Clinician [phone] Pob, [facility] Lab Main Attending Clinician Unavailcleopatra woodruff Only, [facility] Test Attending Clinician Unavailable Room, [facility] Nst Attending Clinician Unavailable Gilma Leon MD Attending Clinician [phone] Ultrasound, [facility] Attending Clinician Unavaila bere Guevara MD, Camila Mc Attending Clinician [phone] Shea PATIENT ESCORTKhoi Meadows Attending Clinician [phone] Ultrasound, [facility] Attending Clinician Unavaila bere Sheffield MD, Joshua Way Attending Clinician [phone] Nurse, [facility] Attending Clinician UnavailGalo Hunter Attending Clinician [phone] GALO VELÁSQUEZ Attending Clinician Unavailable Rayna Benitez RN Attending Clinician Unavailable BHARATH CASTILLO Attending Clinician Unavailcleopatra Castillo PATIENT ESCORTBharath Meadows Attending Clinician [phone] Lab, [facility] Attending Clinician Unavailable 2, [facility] Usg Room Attending Clinician UnavailGabriela Mascorro DO Attending Clinician [phone] Boyd Davey MD, Becca Attending Clinician + Lab, [facility] Attending Clinician Unavailable Risk, [facility]/High Attending Clinician Unav ailable Kimberly WHTONIEP, Gwendolyn Shepard Attending Clinician [phone] GWENDOLYN CANTOR Attending Clinician Unavailabl e Provider, Eulogiotanika Temp Attending Clinician Rosaline vailable Rebecca WHTONIEP, Salma Attending Clinician + [phone] [facility] Unava ilable Tay PATIENT ESCORT, Trent Kumar Attending Clinician [phone] TRENT CORRAL Attending Clinician Unavailab le Walt PATIENT ESCORT, Tarun F Attending Clinician [phone] CATE KEENAN Admitting Clinician Unavailable GILMA LEON Admitting Clinician Unavailable Cate Keenan MD Admitting Clinician [phone] Gilma Leon MD Admitting Clinician [phone] Payers Payer Name Policy Type Policy Number Effective Date Expirati on Date Source [employer] MEDICAID [id number] 2019 00:00:00 [place] [place] [facility] [id number] 2023 00:00:00 Problems Condition Name Condition Details Condition Category Status Onset Date Resolution Date Last Treatment Date Treating Clinician Comments Source Need for HPV vaccinatio n Need for HPV vaccinatio n Disease Active 1- 00:00: 00 [facility] Elevated ALT measuremen t Elevated ALT measuremen t Disease Active 06-13 00:00: 00 [facility] Elevated platelet count Elevated platelet count Disease Active 06-13 00:00: 00 [facility] History of gestationa l diabetes History of gestationa l diabetes Disease Active 7 00:00: 00 [facility] History of pre-eclamp perfecto History of pre-eclamp perfecto Disease Active 6 00:00: 00 [facility] Morbid obesity with body mass index of 40.0-49.9 Morbid obesity with body mass index of 40.0-49.9 Disease Active 6 00:00: 00 [facility] Allergies, Adverse Reactions, Alerts Allergy Name Allergy Type Status Severity Reaction(s) Onset Date Inactive Date Treating Clinician Comments Source NO KNOWN ALLERGIE S Drug Class Active [facility] Social History Social Habit Start Date Stop Date Quantity Comments Source [facility] beverage intake 2024-03-27 00:00:00 2024-03-27 00:00:00 Current drinker of alcohol (finding) [facility] History of Social function 2024-01-03 00:00:00 2024-01-03 00:00:00 [facility] Tobacco use and exposure 2024-01-03 00:00:00 2024-01-03 00:00:00 Smokeless tobacco non-user [facility] Alcohol intake 2024-01-03 00:00:00 2024-01-03 00:00:00 Current drinker of alcohol (finding) [facility] Exposure to SARS-CoV-2 (event) 2023-01-22 00:00:00 2023-02-01 13:07:00 Not sure [facility] Alcohol Comment 2022-12-29 00:00:00 2022-12-29 00:00:00 socially [facility] Sex assigned at 1990 00:00:00 1990 00:00:00 [facility] Smoking Status Start Date Stop Date Source Never smoked tobacco [facility] Medications Ordered Medication Name Filled Medication Name Start Date Stop Date Current Medication? Ordering Clinician Indication Dosage Frequency Signature (SIG) Comments Components Source Nitrofurant oin&Nit. Macrocryst (MACROBID) 100 mg capsule 1-04 00:00: 00 11-01 05:59 :00 No [id number] 100mg Take 1 capsule by mouth in the morning and 1 capsule in the evening. Do all this for 10 days. [facility] Nitrofurant oin&Nit. Macrocryst (MACROBID) 100 mg capsule -17 00:00: 00 01-02 00:00 :00 No [id number] 100mg Take 1 capsule by mouth in the morning and 1 capsule in the evening. [facility] No known medications - 15:16: 00 No No known medication s [facility] azelastine 137 mcg (0.1 %) nasal spray 11-12 00:00: 00 01-02 00:00 :00 No [id number] 1{spray } Use 1 Cascade in each nostril in the morning and 1 Cascade in the evening. Use in each nostril as directed [facility] benzonatate (TESSALON PERLES) 100 mg capsule 11-12 00:00: 00 01-02 00:00 :00 No [id number] 100mg Take 1 capsule by mouth every 8 (eight) hours as needed for Cough. [facility] amoxicillin 875 mg tablet 11-12 00:00: 00 11-20 05:59 :00 No [id number] 875mg Take 1 tablet by mouth in the morning and 1 tablet in the evening. Do all this for 7 days. [facility] LOESTRIN FE 1 mg-20 mcg (21)/75 mg (7) tablet 8-11 00:00: 00 11-12 00:00 :00 No [id number] 1{tbl} Take 1 tablet by mouth daily. [facility] Immunizations Ordered Immunization Name Filled Immunization Name Date Status Comments Source SARS-COV-2 COVID-19 PFIZER GATO-SUCROSE VACCINE (JON TOP) 2022-04-21 00:00:00 Completed [facility] SARS-COV-2 COVID-19 PFIZER GATO-SUCROSE VACCINE (JON TOP) 2022-04-21 00:00:00 Completed [facility] SARS-COV-2 COVID-19 PFIZER GATO-SUCROSE VACCINE (JON TOP) 2022-04-21 00:00:00 Completed [facility] SARS-COV-2 COVID-19 PFIZER GATO-SUCROSE VACCINE (JON TOP) 2022-04-21 00:00:00 Completed [facility] SARS-COV-2 COVID-19 PFIZER GATO-SUCROSE VACCINE (JON TOP) 2022-04-21 00:00:00 Completed [facility] SARS-COV-2 COVID-19 PFIZER GATO-SUCROSE VACCINE (JON TOP) 2022-04-21 00:00:00 Completed [facility] SARS-COV-2 COVID-19 PFIZER GATO-SUCROSE VACCINE (JON TOP) 2022-04-21 00:00:00 Completed [facility] SARS-COV-2 COVID-19 PFIZER GATO-SUCROSE VACCINE (JON TOP) 2022-04-21 00:00:00 Completed [facility] SARS-COV-2 COVID-19 PFIZER GATO-SUCROSE VACCINE (JON TOP) 2022-03-31 00:00:00 Completed [facility] SARS-COV-2 COVID-19 PFIZER GATO-SUCROSE VACCINE (JON TOP) 2022-03-31 00:00:00 Completed [facility] SARS-COV-2 COVID-19 PFIZER GATO-SUCROSE VACCINE (JON TOP) 2022-03-31 00:00:00 Completed [facility] SARS-COV-2 COVID-19 PFIZER GATO-SUCROSE VACCINE (JON TOP) 2022-03-31 00:00:00 Completed [facility] SARS-COV-2 COVID-19 PFIZER GATO-SUCROSE VACCINE (JON TOP) 2022-03-31 00:00:00 Completed [facility] SARS-COV-2 COVID-19 PFIZER GATO-SUCROSE VACCINE (JON TOP) 2022-03-31 00:00:00 Completed [facility] SARS-COV-2 COVID-19 PFIZER GATO-SUCROSE VACCINE (JON TOP) 2022-03-31 00:00:00 Completed [facility] SARS-COV-2 COVID-19 PFIZER GATO-SUCROSE VACCINE (JON TOP) 2022-03-31 00:00:00 Completed [facility] SARS-COV-2 COVID-19 PFIZER GATO-SUCROSE VACCINE (JON TOP) 2022-03-31 00:00:00 Completed [facility] TDAP 2020-08-29 00:00:00 Completed [facility] TDAP 2020-08-29 00:00:00 Completed [facility] TDAP 2020-08-29 00:00:00 Completed [facility] TDAP 2020-08-29 00:00:00 Completed [facility] TDAP 2020-08-29 00:00:00 Completed [facility] TDAP 2020-08-29 00:00:00 Completed [facility] TDAP 2020-08-29 00:00:00 Completed [facility] TDAP 2020-08-29 00:00:00 Completed [facility] TDAP 2020-08-29 00:00:00 Completed [facility] TDAP 2020-08-29 00:00:00 Completed [facility] Influenza Virus Vaccine Quad .5 mL IM 6+ MO 2020-07-30 00:00:00 Completed [facility] Influenza Virus Vaccine Quad .5 mL IM 6+ MO 2020-07-30 00:00:00 Completed [facility] Influenza Virus Vaccine Quad .5 mL IM 6+ MO 2020-07-30 00:00:00 Completed [facility] Influenza Virus Vaccine Quad .5 mL IM 6+ MO 2020-07-30 00:00:00 Completed [facility] Influenza Virus Vaccine Quad .5 mL IM 6+ MO 2020-07-30 00:00:00 Completed [facility] Influenza Virus Vaccine Quad .5 mL IM 6+ MO 2020-07-30 00:00:00 Completed [facility] Influenza Virus Vaccine Quad .5 mL IM 6+ MO 2020-07-30 00:00:00 Completed [facility] Influenza Virus Vaccine Quad .5 mL IM 6+ MO 2020-07-30 00:00:00 Completed [facility] Influenza Virus Vaccine Quad .5 mL IM 6+ MO 2020-07-30 00:00:00 Completed [facility] Influenza Virus Vaccine Quad .5 mL IM 6+ MO 2020-07-30 00:00:00 Completed [facility] Influenza Virus Vaccine Quad .5 mL IM 6+ MO 2019-10-26 00:00:00 Completed [facility] Influenza Virus Vaccine Quad .5 mL IM 6+ MO 2019-10-26 00:00:00 Completed [facility] Influenza Virus Vaccine Quad .5 mL IM 6+ MO 2019-10-26 00:00:00 Completed [facility] Influenza Virus Vaccine Quad .5 mL IM 6+ MO 2019-10-26 00:00:00 Completed [facility] Influenza Virus Vaccine Quad .5 mL IM 6+ MO 2019-10-26 00:00:00 Completed [facility] Influenza Virus Vaccine Quad .5 mL IM 6+ MO 2019-10-26 00:00:00 Completed [facility] Influenza Virus Vaccine Quad .5 mL IM 6+ MO 2019-10-26 00:00:00 Completed [facility] Influenza Virus Vaccine Quad .5 mL IM 6+ MO 2019-10-26 00:00:00 Completed [facility] Influenza Virus Vaccine Quad .5 mL IM 6+ MO 2019-10-26 00:00:00 Completed [facility] Influenza Virus Vaccine Quad .5 mL IM 6+ MO 2019-10-26 00:00:00 Completed [facility] Influenza Virus Vaccine 2018-07-29 00:00:00 Completed [facility] Influenza Virus Vaccine 2018-07-29 00:00:00 Completed [facility] Influenza Virus Vaccine 2018-07-29 00:00:00 Completed [facility] Influenza Virus Vaccine 2018-07-29 00:00:00 Completed [facility] Influenza Virus Vaccine 2018-07-29 00:00:00 Completed [facility] Influenza Virus Vaccine 2018-07-29 00:00:00 Completed [facility] Influenza Virus Vaccine 2018-07-29 00:00:00 Completed [facility] Influenza Virus Vaccine 2018-07-29 00:00:00 Completed [facility] Influenza Virus Vaccine 2018-07-29 00:00:00 Completed [facility] Influenza Virus Vaccine 2018-07-29 00:00:00 Completed [facility] TDAP 2018-03-09 00:00:00 Completed [facility] TDAP 2018-03-09 00:00:00 Completed [facility] TDAP 2018-03-09 00:00:00 Completed [facility] TDAP 2018-03-09 00:00:00 Completed [facility] TDAP 2018-03-09 00:00:00 Completed [facility] TDAP 2018-03-09 00:00:00 Completed [facility] TDAP 2018-03-09 00:00:00 Completed [facility] TDAP 2018-03-09 00:00:00 Completed [facility] TDAP 2018-03-09 00:00:00 Completed [facility] TDAP 2018-03-09 00:00:00 Completed [facility] Influenza Virus Vaccine Quad IM 3+ YRS 2016-11-20 00:00:00 Completed [facility] Influenza Virus Vaccine Quad IM 3+ YRS 2016-11-20 00:00:00 Completed [facility] Influenza Virus Vaccine Quad IM 3+ YRS 2016-11-20 00:00:00 Completed [facility] Influenza Virus Vaccine Quad IM 3+ YRS 2016-11-20 00:00:00 Completed [facility] Influenza Virus Vaccine Quad IM 3+ YRS 2016-11-20 00:00:00 Completed [facility] Influenza Virus Vaccine Quad IM 3+ YRS 2016-11-20 00:00:00 Completed [facility] Influenza Virus Vaccine Quad IM 3+ YRS 2016-11-20 00:00:00 Completed [facility] Influenza Virus Vaccine Quad IM 3+ YRS 2016-11-20 00:00:00 Completed [facility] Influenza Virus Vaccine Quad IM 3+ YRS 2016-11-20 00:00:00 Completed [facility] Influenza Virus Vaccine Quad IM 3+ YRS 2016-11-20 00:00:00 Completed [facility] TDAP 2016-08-25 00:00:00 Completed [facility] TDAP 2016-08-25 00:00:00 Completed [facility] TDAP 2016-08-25 00:00:00 Completed [facility] TDAP 2016-08-25 00:00:00 Completed [facility] TDAP 2016-08-25 00:00:00 Completed [facility] TDAP 2016-08-25 00:00:00 Completed [facility] TDAP 2016-08-25 00:00:00 Completed [facility] TDAP 2016-08-25 00:00:00 Completed [facility] TDAP 2016-08-25 00:00:00 Completed [facility] TDAP 2016-08-25 00:00:00 Completed [facility] Influenza Virus Vaccine Quad IM 3+ YRS 2016-07-07 00:00:00 Completed [facility] Influenza Virus Vaccine Quad IM 3+ YRS 2016-07-07 00:00:00 Completed [facility] Influenza Virus Vaccine Quad IM 3+ YRS 2016-07-07 00:00:00 Completed [facility] Influenza Virus Vaccine Quad IM 3+ YRS 2016-07-07 00:00:00 Completed [facility] Influenza Virus Vaccine Quad IM 3+ YRS 2016-07-07 00:00:00 Completed [facility] Influenza Virus Vaccine Quad IM 3+ YRS 2016-07-07 00:00:00 Completed [facility] Influenza Virus Vaccine Quad IM 3+ YRS 2016-07-07 00:00:00 Completed [facility] Influenza Virus Vaccine Quad IM 3+ YRS 2016-07-07 00:00:00 Completed [facility] Influenza Virus Vaccine Quad IM 3+ YRS 2016-07-07 00:00:00 Completed [facility] Influenza Virus Vaccine Quad IM 3+ YRS 2016-07-07 00:00:00 Completed [facility] Influenza Virus Vaccine Unknown Completed [facility] Influenza Virus Vaccine Quad .5 mL IM 6+ MO (FLUZONE/FLULAVAL/F LUARIX) Unknown Completed [facility] TDAP Unknown Completed [facility] Influenza Virus Vaccine Unknown Completed [facility] Influenza Virus Vaccine Quad .5 mL IM 6+ MO (FLUZONE/FLULAVAL/F LUARIX) Unknown Completed [facility] TDAP Unknown Completed [facility] Influenza Virus Vaccine Unknown Completed [facility] Influenza Virus Vaccine Quad .5 mL IM 6+ MO (FLUZONE/FLULAVAL/F LUARIX) Unknown Completed [facility] TDAP Unknown Completed [facility] Influenza Virus Vaccine Quad IM 3+ YRS Unknown Completed [facility] TDAP Unknown Completed [facility] Influenza Virus Vaccine Unknown Completed [facility] SARS-COV-2 COVID-19 PFIZER GATO-SUCROSE VACCINE (JON TOP) Unknown Completed [facility] Influenza Virus Vaccine Quad IM 3+ YRS Unknown Completed [facility] TDAP Unknown Completed [facility] Influenza Virus Vaccine Unknown Completed [facility] SARS-COV-2 COVID-19 PFIZER GATO-SUCROSE VACCINE (JON TOP) Unknown Completed [facility] HPV9 Unknown Completed [facility] Influenza Virus Vaccine Unknown Completed [facility] HPV9 Unknown Completed [facility] Influenza Virus Vaccine Quad IM 3+ YRS Unknown Completed [facility] TDAP Unknown Completed [facility] SARS-COV-2 COVID-19 PFIZER GATO-SUCROSE VACCINE (JON TOP) Unknown Completed [facility] Influenza Virus Vaccine Quad IM 3+ YRS Unknown Completed [facility] TDAP Unknown Completed [facility] Influenza Virus Vaccine Unknown Completed [facility] SARS-COV-2 COVID-19 PFIZER GATO-SUCROSE VACCINE (JON TOP) Unknown Completed [facility] HPV9 Unknown Completed [facility] Influenza Virus Vaccine Quad IM 3+ YRS Unknown Completed [facility] TDAP Unknown Completed [facility] Influenza Virus Vaccine Unknown Completed [facility] SARS-COV-2 COVID-19 PFIZER GATO-SUCROSE VACCINE (JON TOP) Unknown Completed [facility] HPV9 Unknown Completed [facility] Influenza Virus Vaccine Quad IM 3+ YRS Unknown Completed [facility] TDAP Unknown Completed [facility] Influenza Virus Vaccine Unknown Completed [facility] SARS-COV-2 COVID-19 PFIZER GATO-SUCROSE VACCINE (JON TOP) Unknown Completed [facility] HPV9 Unknown Completed [facility] Influenza Virus Vaccine Unknown Completed [facility] Influenza Virus Vaccine Quad IM 3+ YRS Unknown Completed [facility] TDAP Unknown Completed [facility] SARS-COV-2 COVID-19 PFIZER GATO-SUCROSE VACCINE (JON TOP) Unknown Completed [facility] HPV9 Unknown Completed [facility] Influenza Virus Vaccine Quad IM 3+ YRS Unknown Completed [facility] TDAP Unknown Completed [facility] Influenza Virus Vaccine Unknown Completed [facility] SARS-COV-2 COVID-19 PFIZER GATO-SUCROSE VACCINE (JON TOP) Unknown Completed [facility] HPV9 Unknown Completed [facility] Vital Signs Vital Name Observation Time Observation Value Comments S ource Systolic blood pressure 2024-03-27 18:23:00 142 mm[Hg] [facility] Diastolic blood pressure 2024-03-27 18:23:00 81 mm[Hg] [facility] Heart rate 2024-03-27 18:23:00 84 /min [facility] Body temperature 2024-03-27 18:23:00 36.67 Stephanie [facility] Respiratory rate 2024-03-27 18:23:00 18 /min [facility] Body height 2024-03-27 18:23:00 170.2 cm [facility] Body weight 2024-03-27 18:23:00 134.582 kg [facility] BMI 2024-03-27 18:23:00 46.47 kg/m2 [facility] Systolic blood pressure 2024-01-03 19:21:00 128 mm[Hg] [facility] Diastolic blood pressure 2024-01-03 19:21:00 72 mm[Hg] [facility] Heart rate 2024-01-03 19:21:00 82 /min [facility] Body temperature 2024-01-03 19:21:00 37.06 Stephanie [facility] Respiratory rate 2024-01-03 19:21:00 17 /min [facility] Body height 2024-01-03 19:21:00 170.2 cm [facility] Body weight 2024-01-03 19:21:00 134.9 kg [facility] BMI 2024-01-03 19:21:00 46.58 kg/m2 [facility] Body temperature 2023-11-25 20:10:00 36.89 Stephanie [facility] Systolic blood pressure 2023-10-21 21:28:00 114 mm[Hg] [facility] Diastolic blood pressure 2023-10-21 21:28:00 76 mm[Hg] [facility] Heart rate 2023-10-21 21:28:00 99 /min [facility] Body temperature 2023-10-21 21:28:00 36.44 Stephanie [facility] Respiratory rate 2023-10-21 21:28:00 18 /min [facility] Body height 2023-10-21 21:28:00 170.2 cm [facility] Body weight 2023-10-21 21:28:00 137.621 kg [facility] BMI 2023-10-21 21:28:00 47.52 kg/m2 [facility] Systolic blood pressure 2023-02-01 20:53:00 129 mm[Hg] [facility] Diastolic blood pressure 2023-02-01 20:53:00 82 mm[Hg] [facility] Heart rate 2023-02-01 20:53:00 81 /min [facility] Body temperature 2023-02-01 20:53:00 36.78 Stephanie [facility] Respiratory rate 2023-02-01 20:53:00 18 /min [facility] Body height 2023-02-01 20:53:00 170.2 cm [facility] Body weight 2023-02-01 20:53:00 134.265 kg [facility] BMI 2023-02-01 20:53:00 46.36 kg/m2 [facility] Systolic blood pressure 2022-12-29 19:09:00 147 mm[Hg] [facility] Diastolic blood pressure 2022-12-29 19:09:00 95 mm[Hg] [facility] Heart rate 2022-12-29 19:09:00 69 /min [facility] Body temperature 2022-12-29 19:09:00 36.78 Stephanie [facility] Respiratory rate 2022-12-29 19:09:00 20 /min [facility] Body height 2022-12-29 19:09:00 170.2 cm [facility] Body weight 2022-12-29 19:09:00 134.355 kg [facility] BMI 2022-12-29 19:09:00 46.39 kg/m2 [facility] Oxygen saturation in Arterial blood by Pulse oximetry 2022-12-29 19:09:00 98 /min [facility] Systolic blood pressure 2022-11-12 20:57:00 126 mm[Hg] [facility] Diastolic blood pressure 2022-11-12 20:57:00 80 mm[Hg] [facility] Heart rate 2022-11-12 20:57:00 89 /min [facility] Body temperature 2022-11-12 20:57:00 36.78 Stephanie [facility] Body height 2022-11-12 20:57:00 170.2 cm [facility] Body weight 2022-11-12 20:57:00 136.079 kg [facility] BMI 2022-11-12 20:57:00 46.99 kg/m2 [facility] Oxygen saturation in Arterial blood by Pulse oximetry 2022-11-12 20:57:00 97 /min [facility] Systolic blood pressure 2021-10-28 19:36:00 118 mm[Hg] [facility] Diastolic blood pressure 2021-10-28 19:36:00 85 mm[Hg] [facility] Heart rate 2021-10-28 19:36:00 81 /min [facility] Body temperature 2021-10-28 19:36:00 36.61 Stephanie [facility] Respiratory rate 2021-10-28 19:36:00 18 /min [facility] Body height 2021-10-28 19:36:00 170.2 cm [facility] Body weight 2021-10-28 19:36:00 138.347 kg [facility] BMI 2021-10-28 19:36:00 47.77 kg/m2 [facility] Oxygen saturation in Arterial blood by Pulse oximetry 2021-10-28 19:36:00 95 /min [facility] Weight Measured 2024-03-25 14:01:00 Alberto Montaño Height Measured 2024-03-25 14:01:00 Alberto Montaño Body Temperature 2024-03-25 14:01:00 Alberto Montaño Heart Rate 2024-03-25 14:01:00 Juliet en Jagjit Montaño Respiratory Rate 2024-03-25 14:01:00 Alberto Montaño BP Systolic 2024-03-25 14:01:00 Step hen Jagjit Montaño BP Diastolic 2024-03-25 14:01:00 Jude phen Jagjit Montaño Procedures Procedure Date / Time Performed Performing Clinicia n Source HIV 1/2 AG-AB WITH REFLEX 2024-03-27 18:50:00 Fatmata Gibbs [facility] GARDASIL 9 (HPV 9V) VACCINE 2024-03-27 18:29:51 Fatmata Gibbs [facility] HIV 1/2 AG-AB WITH REFLEX 2024-01-03 20:17:00 Fatmata Gibbs [facility] SYPHILIS IGG/IGM 2024-01-03 20:17:00 Abdullahi Gibbs [facility] GARDASIL 9 (HPV 9V) VACCINE 2023-11-25 20:10:29 Fatmata Gibbs [facility] CONSENT/REFUSAL FOR DIAGNOSIS AND TREATMENT 2023-11-25 20:02:07 Doctor Unassigned, [place] [facility] GARDASIL 9 (HPV 9V) VACCINE 2023-10-21 21:42:08 Fatmata Gibbs [facility] POCT URINALYSIS W/O SPECIFIC GRAVITY 2023-02-01 00:00:00 Luther Alfonso [facility] PATIENT FINANCIAL POLICY 2022-12-29 18:39:25 Doctor Unassigned, [place] [facility] ASSIGNMENT OF BENEFITS 2022-11-12 20:47:06 Docto r Unassigned, [place] [facility] SARS-COV-2 COVID-19 VACCINE 12 YRS+,0.3ML,IM (PFIZER - JON TOP) 2022-04-22 22:53:29 Doctor Unassigned, [place] [facility] SARS-COV-2 COVID-19 VACCINE 12 YRS+,0.3ML,IM (PFIZER - JON TOP) 2022-03-31 22:45:49 Doctor Unassigned, [place] [facility] Encounters Start Date/Time End Date/Time Encounter Type Admission Type Attending [facility] Facility Care Department Encounter ID Source 2021-08-16 14:04:03 Outpatient P [facility] [id number] [facility] 2021-08-16 13:22:30 Outpatient P [facility] [id number] [facility] 2021-08-16 13:14:24 Outpatient P [facility] [id number] [facility] 2021-08-16 13:12:04 Outpatient P [facility] [id number] [facility] 2021-08-16 07:01:54 Outpatient P [facility] [id number] [facility] 2021-08-16 05:38:35 Outpatient P [facility] [id number] [facility] 2021-08-16 05:38:24 Outpatient P [facility] [id number] [facility] 2021-08-15 22:11:43 Emergency [facility] [id number] [facility] 2021-08-15 04:39:46 Emergency [facility] [id number] [facility] 2024-04-27 14:15:00 2024-04-27 14:15:00 Outpatient R [facility] [id number] [facility] 2024-03-29 00:00:00 2024-03-29 12:26:55 Telephone Fatmata Gibbs [facility] CAT SITTER [facility] CHILD [facility] 1.2.840.114 350.1.13.10 4.2.7.2.686 [id number] [facility] 2024-03-27 13:15:00 2024-03-27 13:45:21 Outpatient R FATMATA GIBBS [facility] [id number] [facility] 2024-03-27 13:15:00 2024-03-27 13:45:21 Office Visit Fatmata Gibbs [facility] CAT S[facility] CHILD [facility] ..840.114 350.1.13.10 4.2.7.2.686 [id number] [facility] 2024-03-25 14:35:47 2024-03-25 14:35:47 Outpatient SFA SFA [id number] Alberto Montaño 2024-03-25 00:00:00 2024-03-25 00:00:00 Outpatient Visit S[facility] [id number] Alberto Montaño 2024-01-03 14:45:00 2024-01-03 15:23:43 Outpatient R FATMATA GIBBS [facility] [id number] [facility] 2024-01-03 14:45:00 2024-01-03 15:23:43 Office Visit Fatmata Gibbs [facility] CAT [facility] CHILD [facility] 1.840.114 350.1.13.10 4.2.7.2.686 [id number] [facility] 2024-01-03 15:00:00 2024-01-03 15:00:00 Outpatient R CATE KEENAN [facility] [id number] [facility] 2023-12-21 15:15:00 2023-12-21 15:15:00 Outpatient R FATMATA GIBBS [facility] [id number] [facility] 2023-11-25 14:15:00 2023-11-25 14:30:00 Nurse Visit Nurse, Alvino Rmchp Rgv Cprit Obgyn Fatmata Gibbs [facility] CAT S[facility] CHILD [facility] .840.114 350.1.13.10 4.2.7.2.686 [id number] [facility] 2023-11-25 14:15:00 2023-11-25 14:15:00 Outpatient R FATMATA GIBBS [facility] [id number] [facility] 2023-11-25 00:00:00 2023-11-25 00:00:00 Orders Only Doctor Unassigned, [place] [facility] ..114 350.1.13.10 4.2.7.2.686 [id number] [facility] 2023-10-25 00:00:00 2023-10-25 00:00:00 Telephone Fatmata Gibbs [facility] CAT S[facility] CHILD [facility] 1.840.114 350.1.13.10 4.2.7.2.686 [id number] [facility] 2023-10-21 15:30:00 2023-10-21 16:02:29 Outpatient R FATMATA GIBBS [facility] [id number] [facility] 2023-10-21 15:30:00 2023-10-21 16:02:29 Office Visit Fatmata Gibbs Jes [facility] CAT SITTER [facility] & CHILD [facility] 1.2.840.114 350.1.13.10 4.2.7.2.686 [id number] [facility] 2023-10-19 00:00:00 2023-10-19 00:00:00 Telephone Heather Jameson [facility] CAT SITTER [facility] & CHILD [facility] 1.2.840.114 350.1.13.10 4.2.7.2.686 [id number] [facility] 2023-02-01 15:45:00 2023-02-01 16:01:19 Outpatient R LUTHER ALFONSO [facility] [id number] [facility] 2023-02-01 15:45:00 2023-02-01 16:01:19 Office Visit Kaden Luther [facility] 1.2.840.114 350.1.13.10 4.2.7.2.686 [id number] [facility] 2022-12-29 14:45:00 2022-12-29 15:00:00 Ent Nurse Visit 2, Adc Lab Kaden Luther [facility] 1.2.840.114 350.1.13.10 4.2.7.2.686 [id number] [facility] 2022-12-29 14:00:00 2022-12-29 14:38:31 Outpatient R KADEN LUTHER [facility] [id number] [facility] 2022-12-29 14:00:00 2022-12-29 14:38:31 Office Visit Kaden Luther [facility] BUILDING 1.2840.114 350.1.13.10 4.2.7.2.686 [id number] [facility] 2022-12-29 00:00:00 2022-12-29 00:00:00 Orders Only Doctor Unassigned, [place] [facility] 1.2840.114 350.1.13.10 4.2.7.2.686 [id number] [facility] 2022-11-25 14:30:00 2022-11-25 14:30:00 Outpatient R LEORA SAENZ [facility] [id number] [facility] 2022-11-12 15:00:00 2022-11-12 15:20:55 Outpatient R LEORA SAENZ [facility] [id number] [facility] 2022-11-12 15:00:00 2022-11-12 15:20:55 Office Visit Leora Saenz [facility] OFFICE BUILDING 1.840.114 350.1.13.10 4.2.7.2.686 [id number] [facility] 2022-11-12 00:00:00 2022-11-12 00:00:00 Orders Only Doctor Unassigned, [place] [facility] 1.2840.114 350.1.13.10 4.2.7.2.686 [id number] [facility] 2022-11-12 00:00:00 2022-11-12 00:00:00 Letter (Out) Leora Saenz [facility] MEDICAL OFFICE BUILDING 1.2840.114 350.1.13.10 4.2.7.2.686 [id number] [facility] 2022-06-11 13:00:00 2022-06-11 13:00:00 Outpatient R MEAGAN BUTT [facility] [id number] [facility] 2022-05-28 09:30:00 2022-05-28 09:30:00 Outpatient LUTHER BOSE [facility] [id number] [facility] 2022-05-28 09:30:00 2022-05-28 09:30:00 Outpatient José ALFONSO [facility] [id number] [facility] 2022-05-28 09:30:00 2022-05-28 09:30:00 Outpatient José ALFONSO [facility] [id number] [facility] 2022-05-28 09:30:00 2022-05-28 09:30:00 [facility] [id number] [facility] 2022-04-21 16:00:00 2022-04-21 16:00:00 [facility] [id number] [facility] 2022-04-21 16:00:00 2022-04-21 16:00:00 Imm/Inj Visit Vaccine, [facility] 1.2.840.114 350.1.13.10 4.2.7.2.686 [id number] [facility] 2022-03-30 15:00:00 2022-03-30 15:27:15 Imm/Inj Visit Vaccine, [facility] 1.2.840.114 350.1.13.10 4.2.7.2.686 [id number] [facility] 2022-03-30 15:00:00 2022-03-30 15:00:00 Outpatient JOSH SANCHEZ [facility] [id number] [facility] 2021-10-28 15:45:00 2021-10-28 15:45:00 Outpatient DINORAH GOODWIN [facility] [id number] [facility] 2021-10-28 13:30:00 2021-10-28 13:59:59 Outpatient R DINORAH DILLON [facility] [id number] [facility] 2021-10-28 13:30:00 2021-10-28 13:59:59 Office Visit Dinorah Dillon [facility] NAL BUILDING 1.2.840.114 350.1.13.10 4.2.7.2.686 [id number] [facility] 2021-10-20 00:00:00 2021-10-20 00:00:00 Patient Secure Msg Doctor Unassigned, [place] [facility] MED[facility] OFFICE BUILDING 1.2.840.114 350.1.13.10 4.2.7.2.686 [id number] [facility] 2021-10-20 00:00:00 2021-10-20 00:00:00 Patient Secure Msg Doctor Unassigned, [place] [facility] OFFICE BUILDING 1.2.840.114 350.1.13.10 4.2.7.2.686 [id number] [facility] 2021-10-18 00:00:00 2021-10-18 00:00:00 Telephone Leora Saenz [facility] MEDICAL OFFICE BUILDING 1.2.840.114 350.1.13.10 4.2.7.2.686 [id number] [facility] 2021-10-16 00:00:00 2021-10-16 00:00:00 Telephone Leora Saenz [facility] MEDICAL OFFICE BUILDING 1.2.840.114 350.1.13.10 4.2.7.2.686 [id number] [facility] 2021-10-12 10:00:00 2021-10-12 10:15:00 Laboratory Only Only, Ang Db Test Josephine Moya [facility] MEDICAL OFFICE BUILDING 1..840.114 350.1.13.10 4.2.7.2.686 [id number] [facility] 2021-10-12 10:00:00 2021-10-12 10:00:00 Outpatient R JOSEPHINE MOYA [facility] [id number] [facility] 2021-10-08 16:45:00 2021-10-08 17:00:00 Ent Nurse Visit Lab, Ang - Db Leora Saenz [facility] MEDICAL OFFICE BUILDING 1..840.114 350.1.13.10 4.2.7.2.686 [id number] [facility] 2021-10-08 16:45:00 2021-10-08 16:45:00 Outpatient R CONCHALEORA [facility] [id number] [facility] 2021-10-08 16:00:00 2021-10-08 16:24:58 Office Visit Concha Leora Corona [facility] MEDICAL OFFICE BUILDING 1..840.114 350.1.13.10 4.2.7.2.686 [id number] [facility] 2021-10-08 16:00:00 2021-10-08 16:24:58 Outpatient R CONCHALEORA [facility] [id number] [facility] 2021-10-08 16:00:00 2021-10-08 16:24:58 Outpatient R CONCHA LEORA [facility] [id number] [facility] 2021-09-15 14:54:46 2021-09-15 15:09:46 Laboratory Only Only, Ang Db Test [facility] MEDICAL OFFICE BUILDING 1..840.114 350.1.13.10 4.2.7.2.686 [id number] [facility] 2021-09-15 15:00:00 2021-09-15 15:00:00 Outpatient R ANGEL MICHELLE [facility] [id number] [facility] 2021-08-28 11:45:00 2021-08-28 11:45:00 Outpatient R LUTHER ALFONSO [facility] [id number] [facility] 2021-07-24 15:30:00 2021-07-24 15:30:00 Outpatient R LEORA SAENZ [facility] [id number] [facility] 2021-07-19 11:06:07 2021-07-19 11:23:01 Urgent Care [facility] Medical Office Building 1.2.840.114 350.1.13.10 4.2.7.2.686 [id number] [facility] 2021-07-19 11:01:30 2021-07-19 11:16:30 Laboratory [facility] Medical Office Building 1.2.840.114 350.1.13.10 4.2.7.2.686 [id number] [facility] 2021-07-19 11:15:00 2021-07-19 11:15:00 Outpatient José ORTIZ MICHELLE [facility] [id number] [facility] 2021-07-19 11:06:26 2021-07-19 11:06:34 Laboratory Only Only, Ang Db Test [facility] Medical Office Building 1.2.840.114 350.1.13.10 4.2.7.2.686 [id number] [facility] 2021-07-19 11:00:00 2021-07-19 11:00:00 Outpatient R [facility] [id number] [facility] 2021-07-19 11:00:00 2021-07-19 11:00:00 Outpatient R [facility] [id number] [facility] 2021-07-19 10:40:00 2021-07-19 10:40:00 Outpatient R [facility] [id number] [facility] 2021-06-27 20:40:00 2021-06-27 20:40:00 Outpatient R LUTHER ALFONSO [facility] [id number] [facility] 2021-06-13 00:00:00 2021-06-13 00:00:00 Telephone Leora Saenz [facility] Medical Office Building 1..840.114 350.1.13.10 4.2.7.2.686 [id number] [facility] 2021-06-10 00:00:00 2021-06-10 00:00:00 Patient Secure Msg Doctor Unassigned, [place] [facility] 1..840.114 350.1.13.10 4.2.7.2.686 [id number] [facility] 2021-06-06 08:30:00 2021-06-06 08:30:00 Outpatient LEORA HAMPTON [facility] [id number] [facility] 2021-06-05 14:30:00 2021-06-05 14:30:00 Outpatient R LEORA SAENZ [facility] [id number] [facility] 2021-06-04 13:30:00 2021-06-04 13:30:00 Outpatient LEORA HAMPTON [facility] [id number] [facility] 2021-05-28 10:35:18 2021-05-28 10:50:18 Ent Nurse Visit 2, Adc Lab [facility] 1..840.114 350.1.13.10 4.2.7.2.686 [id number] [facility] 2021-05-28 09:47:54 2021-05-28 10:33:22 Office Visit Luther Alfonso [facility] Building 1..114 350.1.13.10 4.2.7.2.686 [id number] [facility] 2021-05-28 09:30:00 2021-05-28 09:30:00 [facility] [id number] 2021-05-28 00:00:00 2021-05-28 00:00:00 Orders Only Doctor Unassigned, [place] [facility] 1.114 350.1.13.10 4.2.7.2.686 [id number] [facility] 2021-05-27 18:04:08 2021-05-27 18:24:08 Laboratory Only Lab, Adc [facility] One .114 350.1.13.10 4.2.7.2.686 [id number] [facility] 2021-05-27 18:00:00 2021-05-27 18:00:00 Outpatient [facility] [id number] [facility] 2021-05-19 15:40:00 2021-05-19 15:40:00 Outpatient R ANGEL MICHELLE [facility] [id number] [facility] 2021-05-19 15:15:12 2021-05-19 15:35:12 Laboratory Only Lab, Adc Fam Pob Bibi Ortiz [facility] Office Building One .114 350.1.13.10 4.2.7.2.686 [id number] [facility] 2021-05-15 13:19:55 2021-05-15 13:39:55 Urgent Care Mukul Griffin, [facility] Office Building One 1..840.114 350.1.13.10 4.2.7.2.686 [id number] [facility] 2021-05-15 13:20:00 2021-05-15 13:20:00 Outpatient R [facility] [id number] [facility] 2021-05-15 00:00:00 2021-05-15 00:00:00 Orders Only Doctor Unassigned, [place] [facility] 1.840.114 350.1.13.10 4.2.7.2.686 [id number] [facility] 2021-03-12 09:00:00 2021-03-12 09:00:00 Outpatient R KADEN [facility] [id number] [facility] 2020-11-28 09:54:02 2020-11-28 10:09:02 Routine Visit [facility]aden [facility] 1..840.114 350.1.13.10 4.2.7.2.686 [id number] [facility] 2020-11-28 10:00:00 2020-11-28 10:00:00 Outpatient R KADEN [facility] [id number] [facility] 2020-11-05 10:00:00 2020-11-05 10:00:00 Outpatient R [facility] [id number] [facility] 2020-11-05 09:01:26 2020-11-05 09:22:36 Nurse Visit Nurse, [facility] Cate Keenan [facility] Building 1..840.114 350.1.13.10 4.2.7.2.686 [id number] [facility] 2020-10-30 05:12:00 2020-10-31 19:40:00 Hospital Encounter Cate Keenan [facility] 1.2.840.114 350.1.13.10 4.2.7.2.686 [id number] [facility] 2020-10-28 10:44:05 2020-10-28 10:59:05 Ent Nurse Visit Pob, Adc Lab Main Ree [facility] Building 1.2.840.114 350.1.13.10 4.2.7.2.686 [id number] [facility] 2020-10-28 10:30:28 2020-10-28 10:45:28 Laboratory Only Only, Adc Test Ree [facility] 1.2.840.114 350.1.13.10 4.2.7.2.686 [id number] [facility] 2020-10-28 08:47:54 2020-10-28 10:15:30 [facility] 1.2.840.114 350.1.13.10 4.2.7.2.686 [id number] [facility] 2020-10-28 09:00:00 2020-10-28 09:00:00 Outpatient R [facility] [id number] [facility] 2020-10-28 00:00:00 2020-10-28 00:00:00 Orders Only Doctor Unassigned, [place] [facility] 1.2.840.114 350.1.13.10 4.2.7.2.686 [id number] [facility] 2020-10-24 08:51:11 2020-10-24 10:00:00 Routine Visit Room, Adc Wh Nst Ree [facility] Profess[facility] nal Building 1.2.840.114 350.1.13.10 4.2.7.2.686 [id number] [facility] 2020-10-24 09:00:00 2020-10-24 09:00:00 Outpatient R [facility] [id number] [facility] 2020-10-21 10:39:15 2020-10-21 11:45:56 Routine Visit Room, [facility] 1.2.840.114 350.1.13.10 4.2.7.2.686 [id number] [facility] 2020-10-21 11:00:00 2020-10-21 11:00:00 Outpatient R [facility] [id number] [facility] 2020-10-17 11:45:00 2020-10-17 19:52:00 Hospital Encounter Ree [facility] 1.2.840.114 350.1.13.10 4.2.7.2.686 [id number] [facility] 2020-10-17 09:57:07 2020-10-17 11:28:24 Routine Visit Room, [facility] Ree [facility] Building 1.2.840.114 350.1.13.10 4.2.7.2.686 [id number] [facility] 2020-10-17 10:00:00 2020-10-17 10:00:00 Outpatient R [facility] [id number] [facility] 2020-10-14 12:04:00 2020-10-14 13:10:00 Hospital Encounter Ree [facility] 1.2.840.114 350.1.13.10 4.2.7.2.686 [id number] [facility] 2020-10-14 10:49:59 2020-10-14 11:39:53 Routine Visit Cate Keenan [facility] Building 1..114 350.1.13.10 4.2.7.2.686 [id number] [facility] 2020-10-14 11:00:00 2020-10-14 11:00:00 Outpatient R CATE KEENAN [facility] [id number] [facility] 2020-10-12 22:39:00 2020-10-13 16:15:00 Hospital Encounter Gilma Leon [facility] 1..114 350.1.13.10 4.2.7.2.686 [id number] [facility] 2020-10-12 00:00:00 2020-10-12 00:00:00 Orders Only Doctor Unassigned, [place] [facility] 1..114 350.1.13.10 4.2.7.2.686 [id number] [facility] 2020-09-27 14:57:58 2020-09-27 15:27:58 Ent Nurse Visit Ultrasound, Adc MfCamila Galo [facility] 1..114 350.1.13.10 4.2.7.2.686 [id number] [facility] 2020-09-27 15:00:00 2020-09-27 15:00:00 Outpatient P [facility] [id number] [facility] 2020-09-26 11:15:00 2020-09-26 11:15:00 Outpatient R KADEN LUTHER [facility] [id number] [facility] 2020-09-26 10:54:22 2020-09-26 11:09:22 Routine Visit Luther Alfonso [facility] 1..114 350.1.13.10 4.2.7.2.686 [id number] [facility] 2020-09-11 09:48:53 2020-09-11 10:36:13 Routine Visit Cate Keenan [facility] 1.2.840.114 350.1.13.10 4.2.7.2.686 [id number] [facility] 2020-09-11 10:00:00 2020-09-11 10:00:00 Outpatient R CATE KEENAN [facility] [id number] [facility] 2020-09-06 10:06:00 2020-09-06 19:48:00 Hospital Encounter Cate KeenanGilma [facility] 1.2.840.114 350.1.13.10 4.2.7.2.686 [id number] [facility] 2020-09-06 00:00:00 2020-09-06 00:00:00 [facility] 1.2.840.114 350.1.13.10 4.2.7.2.686 [id number] [facility] 2020-09-05 08:10:42 2020-09-05 08:25:42 Ent Nurse Visit 2, [facility] 1.2.840.114 350.1.13.10 4.2.7.2.686 [id number] [facility] 2020-09-05 08:00:00 2020-09-05 08:00:00 Outpatient R [facility] [id number] [facility] 2020-09-03 09:45:00 2020-09-03 09:45:00 Outpatient R CATE KEENAN [facility] [id number] [facility] 2020-09-03 08:54:30 2020-09-03 09:09:30 Ent Nurse Visit 2, Adc Lab Cate Keenan [facility] 1.20.114 350.1.13.10 4.2.7.2.686 [id number] [facility] 2020-09-03 00:00:00 2020-09-03 00:00:00 Case Management Luther Alfonso [facility] 1.2.114 350.1.13.10 4.2.7.2.686 [id number] [facility] 2020-09-02 08:45:00 2020-09-02 08:45:00 Outpatient R [facility] [id number] [facility] 2020-09-01 20:59:00 2020-09-01 23:15:00 Hospital Encounter iGlma Leon [facility] 1.2114 350.1.13.10 4.2.7.2.686 [id number] [facility] 2020-09-01 00:00:00 2020-09-01 00:00:00 Orders Only Doctor Unassigned, [place] [facility] 1.2.114 350.1.13.10 4.2.7.2.686 [id number] [facility] 2020-08-29 10:52:05 2020-08-29 11:07:05 Routine Visit Luther [facility] 1.2.114 350.1.13.10 4.2.7.2.686 [id number] [facility] 2020-08-29 11:00:00 2020-08-29 11:00:00 [id number] 2020-07-30 14:19:46 2020-07-30 15:08:56 Routine Visit Cate Keenan Jerome [facility] 1.2.114 350.1.13.10 4.2.7.2.686 [id number] [facility] 2020-07-30 14:30:00 2020-07-30 14:30:00 Outpatient R REECATE [facility] [id number] [facility] 2020-07-29 10:15:00 2020-07-29 10:15:00 Outpatient R ALBERTLUTHER LEACH [facility] [id number] [facility] 2020-07-26 21:10:00 2020-07-26 23:58:00 Emergency Khoi Valdivia R [facility] 1.114 350.1.13.10 4.2.7.2.686 [id number] [facility] 2020-07-09 09:10:31 2020-07-09 10:31:28 Ent Nurse Visit Ultrasound, Joshua Ventura [facility] CAT SITTER [facility] 1.114 350.1.13.10 4.2.7.2.686 [id number] [facility] 2020-07-09 09:30:00 2020-07-09 09:30:00 Outpatient R [facility] [id number] [facility] 2020-07-03 08:20:37 2020-07-03 08:27:14 Nurse Visit Nurse, [facility] Ree [facility] 1..114 350.1.13.10 4.2.7.2.686 [id number] [facility] 2020-07-03 08:00:00 2020-07-03 08:00:00 Outpatient R [facility] [id number] [facility] 2020-07-01 10:10:20 2020-07-01 10:25:20 Ent Nurse Visit 2, [facility] Lab Keenan [facility] 1..114 350.1.13.10 4.2.7.2.686 [id number] [facility] 2020-07-01 08:52:17 2020-07-01 10:01:03 Routine Visit Cate Keenan [facility] 1.0.114 350.1.13.10 4.2.7.2.686 [id number] [facility] 2020-07-01 09:00:00 2020-07-01 09:00:00 Outpatient R REE CATE [facility] [id number] [facility] 2020-07-01 08:15:00 2020-07-01 08:15:00 Outpatient R REE CATE [facility] [id number] [facility] 2020-07-01 00:00:00 2020-07-01 00:00:00 Orders Only Doctor Unassigned, [place] [facility] 1.114 350.1.13.10 4.2.7.2.686 [id number] [facility] 2020-06-28 00:00:00 2020-06-28 00:00:00 Letter (Out) Nurse, [facility] 1.114 350.1.13.10 4.2.7.2.686 [id number] [facility] 2020-06-25 10:23:18 2020-06-25 10:43:18 Laboratory Only Lab, Galo Lockett [facility] 1.114 350.1.13.10 4.2.7.2.686 [id number] [facility] 2020-06-25 10:20:00 2020-06-25 10:20:00 Outpatient R [facility] [id number] [facility] 2020-06-17 09:25:28 2020-06-17 09:40:28 Laboratory Only Lab, [facility] 1.84.114 350.1.13.10 4.2.7.2.686 [id number] [facility] 2020-06-17 09:30:00 2020-06-17 09:30:00 Outpatient R GALO VELÁSQUEZ [facility] [id number] [facility] 2020-06-17 00:00:00 2020-06-17 00:00:00 Telephone Emmanuel Rayna [facility] 1..114 350.1.13.10 4.2.7.2.686 [id number] [facility] 2020-06-13 08:00:00 2020-06-13 08:00:00 Outpatient R BHARATH CASTILLO [facility] [id number] [facility] 2020-06-04 13:00:00 2020-06-04 13:00:00 Outpatient R [facility] [id number] [facility] 2020-06-03 15:24:37 2020-06-03 15:39:37 [facility] 1.84.114 350.1.13.10 4.2.7.2.686 [id number] [facility] 2020-06-03 15:30:00 2020-06-03 15:30:00 [facility] [id number] [facility] 2020-05-29 00:00:00 2020-05-29 00:00:00 [facility] 1.84.114 350.1.13.10 4.2.7.2.686 [id number] 2020-05-29 00:00:00 2020-05-29 00:00:00 [facility] 1.840.114 350.1.13.10 4.2.7.2.686 [id number] [facility] 2020-05-21 00:00:00 2020-05-21 00:00:00 Telephone Cate Keenan [facility] 1.2.840.114 350.1.13.10 4.2.7.2.686 [id number] 2020-05-21 00:00:00 2020-05-21 00:00:00 Telephone Cate Keenan [facility] 1.2840.114 350.1.13.10 4.2.7.2.686 [id number] [facility] 2020-05-17 00:00:00 2020-05-17 00:00:00 Orders Only Doctor Unassigned, [place] [facility] 1.2840.114 350.1.13.10 4.2.7.2.686 [id number] [facility] 2020-05-16 08:33:52 2020-05-16 09:17:51 Routine Visit Bharath Castillo [facility] CAT S[facility]TER [facility] 1.2.840.114 350.1.13.10 4.2.7.2.686 [id number] 2020-05-16 08:33:52 2020-05-16 09:17:51 Routine Visit Bharath Castillo [facility] CAT SITTER [facility] 1.2.840.114 350.1.13.10 4.2.7.2.686 [id number] [facility] 2020-05-16 08:30:00 2020-05-16 08:30:00 Outpatient R BHARATH CASTILLO [facility] [id number] [facility] 2020-05-16 00:00:00 2020-05-16 00:00:00 Telephone Cate Keenan [facility] 1.2.840.114 350.1.13.10 4.2.7.2.686 [id number] 2020-05-16 00:00:00 2020-05-16 00:00:00 Telephone Keenan Cate Cano [facility] Jerri Polanco [facility] 1.2.840.114 350.1.13.10 4.2.7.2.686 [id number] [facility] 2020-05-14 12:03:58 2020-05-14 12:17:37 Ent Nurse Visit Lab, [facility] 1.2.840.114 350.1.13.10 4.2.7.2.686 [id number] 2020-05-14 12:03:58 2020-05-14 12:17:37 Ent Nurse Visit Lab, [facility] 1.2.840.114 350.1.13.10 4.2.7.2.686 [id number] [facility] 2020-05-14 10:50:20 2020-05-14 11:35:20 Ent Nurse Visit 2, [facility] 1.2.840.114 350.1.13.10 4.2.7.2.686 [id number] 2020-05-14 10:50:20 2020-05-14 11:35:20 Ent Nurse Visit 2, [facility] 1.2.840.114 350.1.13.10 4.2.7.2.686 [id number] [facility] 2020-05-14 11:15:00 2020-05-14 11:15:00 Outpatient P [facility] [id number] [facility] 2020-05-14 10:00:00 2020-05-14 10:00:00 Outpatient P [facility] [id number] [facility] 2020-05-10 09:00:00 2020-05-10 09:00:00 Outpatient R [facility] [id number] [facility] 2020-05-10 00:00:00 2020-05-10 00:00:00 Orders Only Doctor Unassigned, [place] [facility] 1.2840.114 350.1.13.10 4.2.7.2.686 [id number] [facility] 2020-05-03 14:31:52 2020-05-03 15:29:04 Initial Visit Cate Keenan [facility] 1.2840.114 350.1.13.10 4.2.7.2.686 [id number] 2020-05-03 14:31:52 2020-05-03 15:29:04 Initial Visit Cate Keenan [facility] 1.2.114 350.1.13.10 4.2.7.2.686 [id number] [facility] 2020-05-03 14:30:00 2020-05-03 14:30:00 Outpatient R KEENANCATE [facility] [id number] [facility] 2020-04-19 23:06:52 2020-04-20 00:40:00 Emergency Gabriela Castillo [facility] 1.284.114 350.1.13.10 4.2.7.2.686 [id number] [facility] 2020 09:22:38 2020 09:49:19 Routine Visit Bharath Castillo [facility] CAT SITTER [facility] 1.2840.114 350.1.13.10 4.2.7.2.686 [id number] [facility] 2020 09:30:00 2020 09:30:00 Outpatient R BHARATH CASTILLO [facility] [id number] [facility] 2020-04-16 15:38:55 2020-04-16 16:00:46 Ent Nurse Visit Ultrasound, Becca Amin [facility] CAT SITTER [facility] 1.840.114 350.1.13.10 4.2.7.2.686 [id number] [facility] 2020-04-16 15:15:00 2020-04-16 15:15:00 Outpatient P [facility] [id number] [facility] 2020-04-01 10:26:48 2020-04-01 10:41:48 Ent Nurse Visit Lab, Bharath Gutierrez [facility] CAT SITTER [facility] 1.84.114 350.1.13.10 4.2.7.2.686 [id number] [facility] 2020-04-01 08:00:00 2020-04-01 08:00:00 Outpatient R BHARATH CASTILLO [facility] [id number] [facility] 2020-03-28 09:30:06 2020-03-28 09:56:05 Routine Visit Risk, Neelima p/Gwendolyn Lyles Drea [facility] CAT SITTER [facility] 1..840.114 350.1.13.10 4.2.7.2.686 [id number] [facility] 2020-03-28 09:30:00 2020-03-28 09:30:00 Outpatient R GWENDOLYN CANTOR [facility] [id number] [facility] 2020-03-21 09:04:15 2020-03-21 09:58:46 Initial Visit Provider, Salma Monte [facility] CAT SITTER [facility] 1.840.114 350.1.13.10 4.2.7.2.686 [id number] [facility] 2020-03-21 09:00:00 2020-03-21 09:00:00 Outpatient R [facility] [id number] [facility] 2020-03-14 08:29:19 2020-03-14 08:51:36 Nurse Visit Visit, Ang-Rmchp Nurse Trent Corral [facility] CAT [facility]ITTER [facility] 1.0.114 350.1.13.10 4.2.7.2.686 [id number] [facility] 2020-03-14 08:00:00 2020-03-14 08:00:00 Outpatient R TRENT CORRAL [facility] [id number] [facility] 2020-03-14 00:00:00 2020-03-14 00:00:00 Orders Only Doctor Unassigned, [place] [facility] 1..114 350.1.13.10 4.2.7.2.686 [id number] [facility] 2019-11-27 11:32:24 2019-11-27 11:47:24 Ent Nurse Visit Pob, Adc Lab Main Cate Keenan [facility] 1..114 350.1.13.10 4.2.7.2.686 [id number] [facility] 2019-11-27 00:00:00 2019-11-27 00:00:00 Case Management Luther [facility]fonso [facility] 1.2.114 350.1.13.10 4.2.7.2.686 [id number] [facility] 2019-11-20 09:48:33 2019-11-20 10:45:14 Routine Visit Cate Keenan [facility] 1.2.114 350.1.13.10 4.2.7.2.686 [id number] [facility] 2019-11-20 00:00:00 2019-11-20 00:00:00 Letter (Out) Cate Keenan [facility] 1.2.840.114 350.1.13.10 4.2.7.2.686 [id number] [facility] 2019-11-20 00:00:00 2019-11-20 00:00:00 Orders Only Doctor Unassigned, [place] [facility] 1.2.840.114 350.1.13.10 4.2.7.2.686 [id number] [facility] 2019-11-13 09:47:53 2019-11-13 11:34:17 Routine Visit Cate Keenan [facility] 1.2.840.114 350.1.13.10 4.2.7.2.686 [id number] [facility] 2019-11-13 00:00:00 2019-11-13 00:00:00 Letter (Out) Cate Keenan [facility] 1.2.840.114 350.1.13.10 4.2.7.2.686 [id number] 134 [id number] [facility] 2019-11-08 13:38:10 2019-11-08 13:53:10 Routine Visit Cate Keenan [facility] 1.2.840.114 350.1.13.10 4.2.7.2.686 [id number] [facility] 2019-11-06 14:34:21 2019-11-06 17:42:00 Emergency Tarun Godoy [facility] 1.2.840.114 350.1.13.10 4.2.7.2.686 [id number] [facility] 2019-10-31 14:48:10 2019-10-31 23:59:00 Outpatient R CATE KEENAN [facility] [id number] [facility] 2019-10-31 14:48:00 2019-10-31 23:59:00 Hospital Encounter Cate Keenan [facility] 1.2.840.114 350.1.13.10 4.2.7.2.686 [id number] [facility] 2019-10-31 00:00:00 2019-10-31 00:00:00 Telephone Cate Keenan [facility] Profess[facility] 1.2.840.114 350.1.13.10 4.2.7.2.686 [id number] [facility] 2019-06-02 00:00:00 2019-06-02 00:00:00 Telephone Fatmata Gibbs [facility] CAT SITTER [facility] 1.2840.114 350.1.13.10 4.2.7.2.686 [id number] [facility] 2019-05-24 09:38:19 2019-05-24 23:59:00 Hospital Encounter Fatmata Gibbs [facility] 1.2.840.114 350.1.13.10 4.2.7.2.686 [id number] [facility] 2019-05-18 00:00:00 2019-05-18 00:00:00 Orders Only Doctor Unassigned, [place] [facility] 1.2.840.114 350.1.13.10 4.2.7.2.686 [id number] [facility] 2019-05-16 00:00:00 2019-05-16 00:00:00 Telephone Fatmata Gibbs [facility] CAT SITTER [facility] 1.2.840.114 350.1.13.10 4.2.7.2.686 [id number] [facility] Results Test Description Test Time Test Comments Results Result Co mments Source CULTURE, URINE 2024-03-27 08:58:40 SPECIMEN NUMBER: [id number] CULTURE, URINE SPECIMEN NUMBER: [id number] SPECIMEN COMMENT: URINE SOURCE: URINE REPORT STATUS: FINAL FINAL REPORT: 03/27/2024 10-50,000 CFU/ML UROGENITAL BRANT PRESENT NO COMMON PATHOGENS UNLESS OTHERWISE INDICATED, ALL TESTING PERFORMED AT [facility] [address] [place] [address] CHEESE PACKER: JOVANNA GOSS M.D. CLIA NUMBER [id number] [place]. [id number] [facility] SPECIFIC [id number] 20:57:00* Test Item Value Reference Range Interpretation [...] = [id number]) 250 Negative - Negati ve [facility]
[2024-11-25 22:30] LABS: Specific Gravity > 1.030 (1.005-1.030); Sqamous Epithelial <5 /HPF (None Seen); Urine Bacteria None Seen /HPF (<20); Urine Bilirubin NEGATIVE (Negative); Urine Blood Negative (Negative); Urine Clarity Turbid (Clear); Urine Color Yellow (Yellow); Urine Culture Reflex Order NOT NEEDED; Urine Glucose NEGATIVE (Negative); Urine Ketones TRACE (Negative); Urine Microscopic Reflex YN ORDER UMIC; Urine Mucus 4+ /HPF (None Seen); Urine Nitrite NEGATIVE (Negative); Urine Protein 1+ (Negative); Urine RBC <5 /HPF (None Seen); Urine Urobilinogen 1+ (Normal)
[2024-11-25] MEDS ORDERED: PHENAZOPYRIDINE 100MG TAB PO ONE (22:49)
[2024-11-25] MEDS ORDERED: NITROFURAN MACRO 100 MG CAP PO ONE (22:49)
--- NOTE | 2024-11-25 23:04 | RAD REPORT ---
Stone Protocol CLINICAL INDICATION: Female, 34 years old.dysuria;Flank pain TECHNIQUE: CT abdomen and pelvis with stone protocol was performed, without IV contrast, [facility] CT stone protocol. Axial, sagittal and coronal reconstructions were obtained. One or more of the following dose reduction techniques were used: Automated exposure contro l, adjustment of the mA and/or kV according to the patient size, and/or iterative reconstruction. Unless otherwise specified, incidental findings do not require dedicated imaging follow-up. [id number]. IV CONTRAST: Not administered. COMPARISON: 03/12/2024 FINDINGS: The lack of intravenous contrast limits the sensitivity of this exam for evaluation of solid visceral organs, vascular structures, and retroperitoneum. LOWER CHEST: No acute process identified.No significant pericardial effusion. UPPER GI: No significant abnormality. LIVER: Hepatic steatosis, but otherwise unremarkable. GALLBLADDER/BILE DUCTS: No biliary ductal dilatation.? PANCREAS: No mass, ductal dilation, or shavon-pancreatic fluid. SPLEEN: Unremarkable. ADRENALS: Normal; no mass. KIDNEYS AND URETERS: Normal size and contour. No hydronephrosis. ABDOMINAL AORTA AND OTHER VESSELS: Normal caliber aorta and IVC. PERITONEUM: No abnormal free fluid. No free air. LYMPH NODES: No pathologic lymphadenopathy. ABDOMINAL WALL: No significant abnormality. SMALL BOWEL/COLON: Small bowel has normal course and caliber. No colonic wall thickening or pericolon ic inflammatory changes.Normal appendix. URINARY BLADDER: Nonspecific circumferential bladder wall thickening which may be due to underdistent ion. REPRODUCTIVE ORGANS: No pathologic process. MUSCULOSKELETAL: No acute or suspicious osseous abnormality. ADDITIONAL FINDINGS: None. IMPRESSION: Question bladder wall thickening which could indicate cystitis. No urinary tract calculi. No hydronep hrosis. Normal appendix.
--- NOTE | 2024-11-25 23:07 | EDPHYS ---
Physician Documentation [facility] Name: Jennifer Rosas Age: 34 yrs Sex: Female : 1990 Arrival Date: 11/25/2024 Time: 21:39 Bed 7 Private MD: ED Physician Inocencio Lopez HPI: 11/25 22:10 This 34 yrs old Black Female presents to ER via Ambulatory with complaints of Pain With cp Urination. 22:10 The patient presents with urinary symptoms, dysuria, frequency. cp 22:10 Onset: The symptoms/episode began/occurred this past . Associated signs and cp symptoms: Pertinent positives: right flank pain, Pertinent negatives: fever, vaginal bleeding, vaginal discharge. Severity of symptoms: in the emergency department the symptoms are unchanged, despite home interventions. 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 It has been more than one year since last vaccine. - Infectious Disease History:: Denies. - Social history:: Smoking status: Patient denies any tobacco usage or history of. ROS: 22:15 Constitutional: Negative for body aches, chills, fever, poor PO intake, cp 22:15 Back: Positive for flank pain, on the right, cp 22:15 : Positive for urinary symptoms, 22:15 Eyes: Negative for injury, pain, redness, and discharge, cp 22:15 Abdomen/GI: Negative for abdominal pain, vomiting, diarrhea, constipation, 22:15 Neuro: Negative for weakness, 22:15 All other systems are negative, cp Exam: 22:20 Constitutional: The patient appears in no acute distress, alert, awake, non-toxic, well cp developed, well nourished, obese, 22:20 Head/Face: Normocephalic, atraumatic. cp 22:20 Eyes: Periorbital structures: appear normal, Conjunctiva: normal, no exudate, no injection, Sclera: no appreciated abnormality, Lids and lashes: appear normal, bilaterally, 22:20 ENT: External ear(s): are unremarkable, Nose: is normal, Mouth: Lips: moist, Oral mucosa: moist, Posterior pharynx: Airway: no evidence of obstruction, patent, 22:20 Chest/axilla: Inspection: normal, 22:20 Cardiovascular: Rate: normal, Rhythm: regular, 22:20 Respiratory: the patient does not display signs of respiratory distress, Respirations: normal, no use of accessory muscles, no retractions, labored breathing, is not present, Breath sounds: are clear throughout, no decreased breath sounds, no stridor, no wheezing, 22:20 Abdomen/GI: Inspection: obese Bowel sounds: active, all quadrants, Palpation: soft, in all quadrants, mild abdominal tenderness, in the right lower quadrant, rebound tenderness, is not appreciated, involuntary guarding, is not appreciated, 22:20 Back: CVA tenderness, is absent, Vital Signs: 21:58 BP 131 / 82; Pulse 84; Resp 16; Temp 97.9; Pulse Ox 99% on R/A; Weight 117.93 kg; dd2 Height 5 ft. 7 in. ; Pain 4/10; 23:25 BP 128 / 83; Pulse 87; Resp 16; Pulse Ox 100% ; cp4 21:58 Body Mass Index 40.72 (117.93 kg, 170.18 cm) dd2 21:58 Pain Scale: Adult dd2 MDM: 22:02 Medical Screening Exam initiated cp 22:35 Differential diagnosis: kidney stone, urinary tract infection, pyelonephritis, PID. 23:06 Data reviewed: vital signs, nurses notes, lab test result(s), radiologic studies, CT cp scan, and as a result, I will discharge patient. 23:07 I considered the following discharge prescriptions or medication management in the emergency department Medications were administered in the Emergency Department. See MAR. 23:07 Counseling: I had a detailed discussion with the patient and/or guardian regarding the historical points, exam findings, and any diagnostic results supporting the discharge/admit diagnosis, lab results, radiology results, to return to the emergency department if symptoms worsen or persist or if there are any questions or concerns that arise at home. Response to treatment: the patient's symptoms have mildly improved after treatment, and as a result, I will discharge patient. 11/25 22:02 Order name: Urinalysis w/ reflexes; Complete Time: 22:31 cp 11/25 22:31 Interpretation: Normal except: UCLA Turbid; Urine SG > 1.030; UKET TRACE; UPROT 1+; cp UUROB 1+; MUCUS 4+; UESTR 25. 11/25 22:02 Order name: Test, Urine; Complete Time: 22:31 cp 11/25 22:36 Order name: CT Stone Protocol; Complete Time: 23:05 cp Administered Medications: 23:05 Drug: Phenazopyridine PO 200 mg PO once Route: PO; cp4 23:27 Follow up: Response: No adverse reaction cp4 23:05 Drug: Nitrofurantoin PO 100 mg PO once; administer with food Route: PO; cp4 23:27 Follow up: Response: No adverse reaction cp4 Disposition Summary: 11/25/24 23:07 Discharge Ordered Notes: Location: Home cp Problem: new cp Symptoms: have improved cp Condition: Stable cp Diagnosis - Acute cystitis cp Followup: cp - With: Private Physician - When: 2 - 3 days - Reason: Worsening of condition Discharge Instructions: - Discharge Summary Sheet cp - Urinary Tract Infection, Adult cp Forms: - Medication Reconciliation Form cp - Antibiotic Education cp - Prescription Opioid Use cp - Patient Portal Instructions cp - Leadership Thank You Letter cp Prescriptions: - Ibuprofen 800 mg Oral Tablet - take 1 tablet ORAL route every 8 hours As needed take with food; 30 tablet; cp Refills: 0, Product Selection Permitted - Pyridium 200 mg Oral tablet - take 1 tablet ORAL route every 8 hours for 3 days; 6 tablet; Refills: 0, cp Product Selection Permitted - Macrobid 100 mg Oral Capsule - take 1 capsule ORAL route every 12 hours for 7 days; 14 capsule; Refills: 0, cp Product Selection Permitted Signatures: Dispatcher [employer] EDMS Inocencio Del Toro PA PA cp Potter, Christina cp4 BEVERLY ASIF RN RN dd2 Corrections: (The following items were deleted from the chart) 22:03 22:02 PSHx: section; dd2 dd2
--- NOTE | 2024-11-25 23:07 | ER ---
Nurse's Notes [facility] Name: Jennifer Rosas Age: 34 yrs Sex: Female : 1990 Arrival Date: 11/25/2024 Time: 21:39 Bed 7 Private MD: Diagnosis: Acute cystitis Presentation: 11/25 21:58 Chief complaint: Patient states: BURNING, URGENCY AND FREQUENCY WITH URINATION AND RT dd2 FLANK BEGINNING WEDNESDAY. Coronavirus screen: At this time, the client does not indicate any symptoms associated with coronavirus-19. Ebola Screen: No symptoms or risks identified at this time. Initial Sepsis Screen: Does the patient meet any 2 criteria? No. Patient's initial sepsis screen is negative. Does the patient have a suspected source of infection? No. Patient's initial sepsis screen is negative. Risk Assessment: Do you want to hurt yourself or someone else? Patient reports no desire to harm self or others. Onset of symptoms was November 23, 2024. 21:58 Method Of Arrival: Ambulatory dd2 21:58 Acuity: JHONATAN 3 dd2 Triage Assessment: 22:02 General: Appears in no apparent distress. uncomfortable, Behavior is calm, cooperative, dd2 appropriate for age. Pain: Complains of pain in posterior aspect of right lateral abdomen and anterior aspect of right lateral abdomen Pain does not radiate. Pain currently is 4 out of 10 on a pain scale. : Reports burning with urination, urgency, urinary frequency. 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 It has been more than one year since last vaccine. - Infectious Disease History:: Denies. - Social history:: Smoking status: Patient denies any tobacco usage or history of. Screenin:45 [facility] [place] ED Fall Risk Assessment (Adult) History of falling in the last 3 months, cp4 including since admission No falls in past 3 months (0 pts) Confusion or Disorientation No (0 pts) Intoxicated or Sedated No (0 pts) Impaired Gait No (0 pts) Mobility Assist Device Used No (0 pt) Altered Elimination No (0 pt) Score/Fall Risk Level 0 - 2 = Low Risk Oriented to surroundings, Maintained a safe environment, Assessed \T\ reinforced patient's understanding of fall precautions, Hourly rounding (assess needs \T\ fall precautionary measures) done. Abuse screen: Denies threats or abuse. Denies injuries from another. Nutritional screening: No deficits noted. Tuberculosis screening: No symptoms or risk factors identified. Assessment: 22:45 General: Appears in no apparent distress. comfortable, Behavior is calm, cooperative, cp4 appropriate for age. Pain: Complains of pain in abdomen and anterior aspect of right lateral abdomen and posterior aspect of right lateral abdomen Pain does not radiate. Pain currently is 4 out of 10 on a pain scale. Neuro: Level of Consciousness is awake, alert, obeys commands, Oriented to person, place, time, situation. Cardiovascular: Patient's skin is warm and dry. Respiratory: Airway is patent Respiratory effort is even, unlabored. GI: Abdomen is round non-distended, Bowel sounds present X 4 quads. Abd is soft and non tender X 4 quads. : Reports burning with urination, urinary frequency. EENT: No signs and/or symptoms were reported regarding the EENT system. Derm: No signs and/or symptoms reported regarding the dermatologic system. Musculoskeletal: No signs and/or symptoms reported regarding the musculoskeletal system. Vital Signs: 21:58 BP 131 / 82; Pulse 84; Resp 16; Temp 97.9; Pulse Ox 99% on R/A; Weight 117.93 kg; dd2 Height 5 ft. 7 in. ; Pain 4/10; 23:25 BP 128 / 83; Pulse 87; Resp 16; Pulse Ox 100% ; cp4 21:58 Body Mass Index 40.72 (117.93 kg, 170.18 cm) dd2 21:58 Pain Scale: Adult dd2 ED Course: 21:41 Patient arrived in ED. jj6 21:44 Inocencio Del Toro PA is PHCP. cp 21:44 Inocencio Lopez MD is Attending Physician. cp 22:02 Triage completed. dd2 22:02 Arm band placed on right wrist. Patient placed in an exam room, on a stretcher, on dd2 pulse oximetry. 22:45 Isha Serrato is Primary Nurse. cp4 22:45 Placed in gown. Bed in low position. Call light in reach. Side rails up X 1. cp4 22:45 No provider procedures requiring assistance completed. cp4 22:55 CT Stone Protocol In Process Unspecified. EDMS 23:25 Provided Education on: urinary tract infection. cp4 23:25 Patient did not have IV access during this emergency room visit. cp4 Administered Medications: 23:05 Drug: Phenazopyridine PO 200 mg PO once Route: PO; cp4 23:27 Follow up: Response: No adverse reaction cp4 23:05 Drug: Nitrofurantoin PO 100 mg PO once; administer with food Route: PO; cp4 23:27 Follow up: Response: No adverse reaction cp4 Medication: 22:45 VIS not applicable for this client. cp4 Outcome: 23:07 Discharge ordered by MD. cp 23:25 Discharged to home ambulatory, cp4 23:25 Condition: stable 23:25 Discharge instructions given to patient, Instructed on discharge instructions, follow up and referral plans. medication usage, Demonstrated understanding of instructions, follow-up care, medications, Prescriptions given X 3, 23:26 Patient left the ED. cp4 Signatures: Dispatcher [employer] EDMS Inocencio Del Toro PA PA cp Jeffries, Jennifer jj6 Potter, Christina cp4 BEVERLY ASIF RN RN dd2 Corrections: (The following items were deleted from the chart) 22:03 22:02 PSHx: section; dd2 dd2
[2024-11-25 23:32] VITALS: TEMP 97.9
[2024-11-25 23:33] VITALS: BP 128/83; O2SAT 100
== END 2024-11-25 23:26 | disposition home or self-care (01) ==
LOC: ER 21:39
DX: N30.00 Acute cystitis without hematuria (principal)
CPT/HCPCS: 74176; 76377; 81001; 81025; 99283